=== PATIENT | male | born 1950 | race Caucasian/White ===

== ENCOUNTER → 2016-04-20 | Outpatient (CLI) | payer MEDICARE, MEDICAID ==
[~2016-04-20] MED LIST: ADV1DS1 INH; ALPR.5T; ALPR1T; ALPR1T PO; ALPR2TAB2 PO; ALPR2TAB6 PO; AML5T; ASP81TEC PO; ATOR40TA; ATOR40TA PO; ATOR40TA70 PO; BACL10TA PO; CCLB10TRX; CEFD300C3 PO; CEFP500T4 PO; CEPH250T; CEPH500C PO; CLN.1T; CLN.2TD TD; CMBV14.7IN; CODE118S2; CODE118S2 PO; CODE120S3 PO; CPH250CIP PO; CRB200T; CYCL10TA9 PO; DICL75TA2 PO; DIPH25TA82 PO; ENLP2.5T; FENO145T; FLUT1DIS27 INH; GABA600T2 PO; GABAPENTIN; GBPN400C PO; GUAI10SY4 PO; HYDR-2890 PO; HYDR-32 PO; HYDR-34; Hydrocodone Bit/Acetaminophen PO; IPRA3AMP19 NEB; IPRA4AER INH; LEVO500T69 PO; LEVO500T80 PO; LEVO750T24 PO; LORA0.5T34 PO; LORA1TAB PO; LORA2TAB PO; Levofloxacin PO; MAGN400T6 PO; METH4TAB PO; METO5TAB2; MTC10T; MTP25TSR; MUPI1OIN5 NS; Magnesium Oxide PO; NF-ESOM40C; NF-ESOM40C PO; NF-ZOL12.5; OMEP40CA36 PO; ONDAN4ODT PO; OXC5T PO; OXYC-202 PO; OXYC5TAB PO; PHEN-633 PO; PNT40TEC; POLY17PO23 PO; PRCD5U PO; PRD10T; PRD20T PO; PREG150C PO; PREG50C PO; PREG75CA PO; PROC10TA23 PO; Phenytoin Sodium PO; QTP100T; QTP200T; ROPI1TAB40; ROPINIROLE; ROPINIROLE 1 MG; ROSU10TA12 PO; RT-COMBINH; RT-COMBINH IH; RT-COMBINH INH; SERT100T PO; SERT50TA9 PO; TAMS0.4C98 PO; TIOT18CA INH; TIOT18CA2 INH; VNL75CCR; ZLP10T; ZLP10T PO; [UNRECOGNIZED DRUG - OTHER]
--- NOTE | 2016-04-20 15:25 | Diagnostic Imaging Report ---
Ultrasound of the scrotum. INDICATION: Left scrotal mass. FINDINGS: The right testicle is 3.8 x 2.1 x 2.3 cm. The left testicle is 2.8 x 2.6 x 2.5 cm. There is no mass identified in the testicle. There is minimal fluid around the testicles, which may relate to physiologic fluid or minimal hydrocele. No significant varicocele seen. No solid mass is identified. There is symmetric vascularity seen with color Doppler around the testicles. Specific interrogation for arterial and venous waveforms is not performed. IMPRESSION: No solid mass in the testicles or elsewhere in the scrotum. Dictated by: Dictated on workstation # [id number]
== END ==
LOC: RAD 08:56
PROVIDERS: ATTEND Family Medicine
DX: R19.00 Intra-abdominal and pelvic swelling, mass and lump, unspecified site (principal)
CPT/HCPCS: 76870

== ENCOUNTER 2016-04-21 08:35 | Outpatient (RCR) | payer MEDICARE, MEDICAID ==
--- OUTSIDE RECORDS SUMMARY | 2016-04-02 08:21 | XMS REPORT ---
Author MAT Peguero [facility] eClinicalWorks Address Unknown Phone Unavailable Care Team Providers Care Automotive Fuel Injection Servicer Name Role Phone MAT LAGUNAS CP Unavailable Allergies, Adverse Reactions, Alerts Substance Reaction Event Type Cephalexin itching Drug Allergy Problems Problem Type Condition Code Onset Dates Condition Status Problem Gastroesophageal reflux disease without esophagitis K21.9 Active Problem Hyperlipidemia, unspecified hyperlipidemia type E78.5 Active Problem Chronic obstructive pulmonary disease, unspecified COPD type J44.9 Active Problem Need for prophylactic vaccination and inoculation, Influenza V04.81 Active Assessment Generalized anxiety disorder F41.1 Active Problem Prostatism N40.0 Active Problem Generalized anxiety disorder F41.1 Active Medications Medication Code System Code Instructions Start Date End Date Status Dosage Zoloft [facility] [address]-33 100 MG Orally Once a day 1 tablet Dilantin [facility] [address]-68 100 MG Orally one times a day 1 capsule MiraLax [facility] [address]-30 17 gm/dose Orally Once a day 17 grams mixed in 8 oz of water or juice Spiriva HandiHaler [facility] [address]-70 16 Inhalation not defined Advair Diskus [facility] [address]-50 500-50 MCG/DOSE Inhalation Twice a day 1 puff Guaifenesin-DM [facility] [address]-58 100-10 MG/5ML Orally every 4 hrs 10 ml as needed Skelaxin [facility] [address]-16 800 MG Orally Three times a day 1 tablet Xanax [facility] [address]-52 2 MG Orally Four times a day 1 tablet Baclofen [facility] [address]-27 10 MG Orally Three times a day 2 tablet with food or milk Magnesium Oxide [facility] [address]-65 400 MG Orally twice a day 1 tablet Omeprazole [facility] [address]-16 20 MG Orally Once a day 2 capsules Promethazine-Codeine [facility] [address]-11 6.25-10 MG/5ML Orally every 6 hrs 5 ml as needed Fluticasone-Salmeterol [facility] [address]-81 100-50 MCG/DOSE Inhalation Twice a day 1 puff Flomax [facility] [address]-41 0.4 MG Orally Once a day 1 capsule Diclofenac Sodium [facility] [address]-04 75 MG Orally twice a day 1 tablet Atorvastatin Calcium [facility] [address]-14 40 MG Orally Once a day 1 tablet Oxycodone HCl [facility] [address]-87 10 mg Orally 3 times a day 1 tablet as needed PredniSONE [facility] [address]-78 20 MG Orally Once a day 1 tablet DiphenhydrAMINE HCl [facility] [address]-56 25 MG Orally every 6 hrs 1 capsule as needed Lyrica [facility] [address]-93 150 MG Orally three times a day 1 capsule Combivent Respimat [facility] [address]-80 20-100 MCG/ACT Inhalation 2 times a day 1 puff Aspirin Adult Low Dose [facility] [address]-69 81 MG Orally Once a day 1 tablet Procedures Procedure Coding System Code Date Office Visit, New Pt., Level 3 CPT-4 68470 Sep 25, 2015 No Charge CPT-4 26289 Sep 25, 2015 [facility] VISIT NEW PATIENT CPT-4 G0466 Sep 25, 2015 Vital Signs Date/Time: Sep 25, 2015 Blood Pressure Systolic 90 mmHg Cardiac Monitoring Heart Rate 88 bpm Weight 119.4 lbs Blood Pressure Diastolic 56 mmHg Results No Known Results Summary Purpose eClinicalWorks Submission
[~2016-04-21 08:35] MED LIST changes: -LEVO500T80 PO
[2016-05-06] MEDS ORDERED: LEVO500T80 PO (14:09)
[2016-05-06] MEDS ORDERED: PRD20T PO (14:09)
== END 2016-05-24 15:49 | disposition home or self-care (01) ==
PROVIDERS: ATTEND Pain Medicine Pain Medicine
DX: M54.5 Low back pain (principal); M54.2 Cervicalgia

== ENCOUNTER 2016-05-06 09:31 | Emergency (ER) | payer MEDICARE, MEDICAID ==
[~2016-05-06] VITALS: Ht 167.6 cm; Wt 53.1 kg
[2016-05-06] MEDS ORDERED: morphine INJ 10 MG/ML 1ML (SYR OR VIAL) IVP STA (09:48)
[2016-05-06] MEDS ORDERED: NS IV 1000 ML 1,000 ML IV ONE (09:48)
--- NOTE | 2016-05-06 10:16 | ED Chest Pain ---
General Chief Complaint: Respiratory Problems Stated Complaint: SOA/CP Nursing Triage Note: PT ARRIVED PER EMS, PT CO OF SOA COUGH AND C/P FOR 2 DAYS. PT HAS INFUSAPORT ACCESSED BY EMS Nursing Sepsis Screen: No Definite Risk Source: patient Exam Limitations: no limitations History of Present Illness Time seen by provider: 09:33 Initial Comments Here with report of cough, shortness of air and tightness in chest for the last couple of days. Reports that he has some chronic diarrhea and has had some nausea today. Chest pain is central and is described as tightness. Does have significant history of COPD and continues to smoke but is down to less than a pack a day. 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 NTG SL RAILROAD INSPECTOR: No Associated Symptoms: back pain, fever/chills, nausea/vomiting, shortness of breath, weakness Allergies and Home Medications Allergies Coded Allergies: cefepime (Verified Allergy, Mild, RASH, ITCHING, 07/17/14) Home Medications Alprazolam 2 Mg Tablet, 2 MG PO QID, (Reported) Aspirin 81 Mg Tabec, 81 MG PO HS, (Reported) Atorvastatin Calcium 40 Mg Tablet, 40 MG PO HS, (Reported) Baclofen 10 Mg Tablet, 10 MG PO Q8H PRN for MUSCLE SPASMS, (Reported) Cefdinir 300 Mg Capsule, 300 MG PO BID, #10 Prescribed by: MARIZA CHAN on 09/15/15 1143 Diclofenac Sodium 75 Mg Tablet.dr, 75 MG PO BID, (Reported) Fluticasone/Salmeterol 1 Disk Inhp, 1 PUFF INH BID, (Reported) Ipratropium/Albuterol Sulfate 4 Gm Aer.w.adap, 2 PUFF INH QID, (Reported) Omeprazole 40 Mg Capsule.dr, 40 MG PO DAILY, (Reported) Oxycodone HCl/Acetaminophen 1 Each Tablet, 1 EACH PO BID, (Reported) Phenytoin Sodium 100 Mg Cap, 100 MG PO TID, (Reported) Polyethylene Glycol 17 Gm Pack, 17 GM PO BID, (Reported) Prednisone 20 Mg Tab, 20 MG PO UD, #11 Take 3 tabs(60mg)daily, decrease by 1/2 tab(10mg)daily. Prescribed by: MARIZA CHAN on 09/15/15 1149 Pregabalin 150 Mg Capsule, 150 MG PO BID, (Reported) Sertraline HCl 100 Mg Tablet, 100 MG PO DAILY, (Reported) Tamsulosin HCl 0.4 Mg Cap, 0.4 MG PO DAILY, (Reported) Tiotropium [facility] 1 Inh Aerp, 1 CAP INH DAILY, (Reported) Review of Systems Constitutional: see HPI, fever, weakness EENTM: No Symptoms Reported Respiratory: Cough, Shortness of Air, Wheezing Cardiovascular: Chest Pain, Denies Edema Gastrointestinal: See HPI, Diarrhea, Nausea, Denies Vomiting Genitourinary: No Symptoms Reported Musculoskeletal: see HPI, back pain (chronic), muscle pain Skin: no symptoms reported Psychiatric/Neurological: No Symptoms Reported All Other Systems Reviewed Negative Unless Noted: Yes Past Ndmxukk-Zmlxic-Pjsydz Hx Patient Social History Alcohol Use: Denies Use Recreational Drug Use: No (SMOKES POT) Drug of Choice: marijuana Type Used: Cigarettes Recent Foreign Travel: No Contact w/Someone Who Travel: No Recent Infectious Disease Expo: No Recent Hopitalizations: No Immunizations Up To Date Tetanus Booster (TDap): More than 5yrs PED Vaccines UTD: No Date of Pneumonia Vaccine: Jul 17, 2010 Date of Influenza Vaccine: Nov 07, 2012 Seasonal Allergies Seasonal Allergies: No Surgeries HX Surgeries: No Surgeries: Abdominal, Cardiac, Tonsillectomy, Vascular Surgery Respiratory Hx Respiratory Disorders: Yes Respiratory Disorders: COPD Cardiovascular Hx Cardiac Disorders: Yes Cardiac Disorders: Heart Attack Neurological Hx Neurological Disorders: No Neurological Disorders: Neuropathy, Seizure Disorder Reproductive System Hx Reproductive Disorders: No Sexually Transmitted Disease: No HIV/AIDS: No Genitourinary Hx Genitourinary Disorders: No Genitourinary Disorders: Renal Failure Gastrointestinal Hx Gastrointestinal Disorders: No Gastrointestinal Disorders: Gastroesophageal Reflux, Chronic Constipation, Hiatal Hernia Musculoskeletal Hx Musculoskeletal Disorders: Yes Musculoskeletal Disorders: Arthritis Endocrine Hx Endocrine Disorders: No HEENT HX ENT Disorders: No HEENT Disorders: Cataract Loss of Vision: Denies Hearing Impairment: Denies Cancer Hx Cancer: No Psychosocial Hx Psychiatric Problems: No Behavioral Health Disorders: Anxiety, Suicide Attempts, Bipolar, Personality Disorder, Depression Integumentary HX Skin/Integumentary Disorder: No Blood Transfusions Hx Blood Disorders: No Adverse Reaction to a Blood Tr: No Reviewed Nursing Assessment Reviewed/Agree w Nursing PMH: Yes Family Medical History Family Medial History: Alcoholism 03 FATHER Arthritis Cancer 03 FATHER Congestive heart failure 03 FATHER Family history: Allergy 09 SISTER Family history: Arthritis 03 MOTHER Family history: Diabetes mellitus 03 FATHER Family history: Hypertension 03 MOTHER History of - anemia 09 SISTER History of drug abuse 09 BROTHER Physical Exam Vital Signs Vital Sign - Last 12Hours 05/06/16 09:31 Temp 98.1 Pulse 105 Resp 18 B/P (MAP) 164/107 Pulse Ox 97 O2 Delivery Nasal Cannula O2 Flow Rate 2.50 FiO2 86 Capillary Refill : Less Than 3 Seconds General Appearance: No Apparent Distress, WD/WN HEENT: PERRL/EOMI, Pharynx Normal Neck: Non Tender, Supple Respiratory: No Respiratory Distress, Decreased Breath Sounds, Expiration, Wheezing Cardiovascular: Regular Rate, Rhythm, No Murmur Gastrointestinal: Non Tender, Soft Extremity: Non Tender, No Calf Tenderness Neurologic/Psychiatric: Alert, Oriented x3 Skin: Normal Color, Warm/Dry Focused Exam Lactic Acid Level Laboratory Tests Test 05/06/16 10:42 Lactic Acid Level 0.70 MMOL/L (0.50-2.00) Progress/Results/Core Measures Results/Orders Lab Results Laboratory Tests Test 05/06/16 10:30 05/06/16 10:42 Range/Units White Blood Count 15.1 H 4.3-11.0 10^3/uL Red Blood Count 5.65 4.35-5.85 10^6/uL Hemoglobin 16.0 13.3-17.7 G/DL Hematocrit 48 40-54 % Mean Corpuscular Volume 85 80-99 FL Mean Corpuscular Hemoglobin 28 25-34 PG Mean Corpuscular Hemoglobin Concent 33 32-36 G/DL Red Cell Distribution Width 16.6 H 10.0-14.5 % Platelet Count 403 H 130-400 10^3/uL Mean Platelet Volume 8.6 7.4-10.4 FL Neutrophils (%) (Auto) 80 H 42-75 % Lymphocytes (%) (Auto) 13 12-44 % Monocytes (%) (Auto) 7 0-12 % Eosinophils (%) (Auto) 0 0-10 % Basophils (%) (Auto) 0 0-10 % Neutrophils # (Auto) 12.0 H 1.8-7.8 X 10^3 Lymphocytes # (Auto) 1.9 1.0-4.0 X 10^3 Monocytes # (Auto) 1.1 H 0.0-1.0 X 10^3 Eosinophils # (Auto) 0.0 0.0-0.3 10^3/uL Basophils # (Auto) 0.0 0.0-0.1 10^3/uL Neutrophils % (Manual) 78 % Lymphocytes % (Manual) 16 % Monocytes % (Manual) 4 % Eosinophils % (Manual) 0 % Basophils % (Manual) 0 % Band Neutrophils 2 % Anisocytosis SLIGHT Microcytosis SLIGHT Elliptocytes SLIGHT Prothrombin Time 13.4 12.2-14.7 SEC INR Comment 1.1 0.8-1.4 Activated Partial Thromboplast Time 23 L 24-35 SEC Sodium Level 135 135-145 MMOL/L Potassium Level 3.9 3.6-5.0 MMOL/L Chloride Level 98 98-107 MMOL/L Carbon Dioxide Level 21 21-32 MMOL/L Anion Gap 16 H 5-14 MMOL/L Blood Urea Nitrogen 5 L 7-18 MG/DL Creatinine 0.87 0.60-1.30 MG/DL Estimat Glomerular Filtration Rate > 60 BUN/Creatinine Ratio 6 Glucose Level 99 70-105 MG/DL Calcium Level 9.1 8.5-10.1 MG/DL Magnesium Level 1.7 L 1.8-2.4 MG/DL Total Bilirubin 0.3 0.1-1.0 MG/DL Aspartate Amino Transf (AST/SGOT) 22 5-34 U/L Alanine Aminotransferase (ALT/SGPT) 12 0-55 U/L Alkaline Phosphatase 146 H 40-136 U/L Troponin I < 0.30 <0.30 NG/ML C-Reactive Protein High Sensitivity 2.35 H 0.00-0.50 MG/DL Total Protein 7.9 6.4-8.2 G/DL Albumin 4.0 3.2-4.5 G/DL Lactic Acid Level 0.70 0.50-2.00 MMOL/L My Orders Orders - LORE HOBBS MD Cbc With Automated Diff (05/06/16 09:48) Comprehensive Metabolic Panel (05/06/16 09:48) Hs C Reactive Protein (05/06/16 09:48) Lactic Acid Analyzer (05/06/16 09:48) Magnesium (05/06/16 09:48) Protime With Inr (05/06/16 09:48) Partial Thromboplastin Time (05/06/16 09:48) Troponin I (05/06/16 09:48) Blood Culture (05/06/16 09:48) Chest 1 View, Ap/Pa Only (05/06/16 09:48) Morphine Injection (Morphine Injection (05/06/16 09:48) Saline Lock/Iv-Start (05/06/16 09:48) Ns Iv 1000 Ml (Sodium Chloride 0.9%) (05/06/16 09:48) Ekg Tracing (05/06/16 09:48) O2 (05/06/16 09:48) Monitor-Rhythm Ecg Trace Only (05/06/16 09:48) Ipratropium 0.02% Neb Solution (Atrovent (05/06/16 10:30) Albuterol/Ipra Inhalation Soln (Duoneb I (05/06/16 10:30) Svn Sm Volume Nebulizer Rt-Rfs (05/06/16 10:16) Svn Sm Volume Nebulizer Rt-Rfs (05/06/16 10:16) Albuterol Pre-Mix Nebs (Rt) (Proventil P (05/06/16 10:28) Svn Sm Volume Nebulizer Rt-Rfs (05/06/16 10:28) Manual Differential (05/06/16 10:30) Prednisone Tablet (Deltasone Tablet) (05/06/16 14:00) Medications Given in ED Current Medications Medications Dose Ordered Sig/Quyen Route Start Time Stop Time Status Last Admin Dose Admin Albuterol/ Ipratropium 3 ml ONCE ONCE INH 05/06/16 10:30 05/06/16 10:31 DC 05/06/16 10:30 3 ML Sodium Chloride 1,000 ml @ 0 mls/hr Q0M ONCE IV 05/06/16 09:48 05/06/16 10:04 DC 05/06/16 10:13 1,000 MLS/HR Vital Signs/I&O Vital Sign - Last 12Hours 05/06/16 05/06/16 05/06/16 05/06/16 09:31 09:31 10:30 10:36 Temp 98.1 Pulse 105 Resp 18 B/P (MAP) 164/107 Pulse Ox 97 97 97 97 O2 Delivery Nasal Cannula O2 Flow Rate 2.50 2.50 2.50 FiO2 86 Blood Pressure Mean: 126 Progress Note : Progress Note Seen and evaluated. IV established by EMS via port. Labs, EKG, chest x-ray and morphine 10 mg IV ordered. Monitor patient. Received DuoNeb treatment and albuterol 2 and was improved. Pending labs and x-ray. 1400: Patient remained very stable throughout ER stay. Prednisone 40 mg by mouth given. We will continue prednisone and Levaquin as outpatient. I did discuss the case with Dr. Alexis Lagunas and he agrees. Discharged home with return precautions. Patient verbalize understanding instructions and agreement with plan. ECG Initial ECG Impression Date: May 06, 2016 Initial ECG Impression Time: 09:39 Initial ECG Rate: 105 Initial ECG Rhythm: S.Tach Comment Sinus tachycardia with right atrial abnormality. No evidence of ST elevation [place]. Right axis deviation. Similar to previous of 09/12 and . Interpreted by me. Diagnostic Imaging Diagonstic Imaging: Xray Plain Films/CT/US/NM/MRI: chest Comments NAME: SUNNY HERNANDEZ [facility] REC#: [id number] PT STATUS: REG ER : 1950 PHYSICIAN: LORE HOBBS MD ADMIT DATE: 05/06/16/ER Signed Date of Exam: 05/06/16 CHEST 1 VIEW, AP/PA ONLY INDICATION: Shortness of breath and chest pain. Frontal chest obtained at 10:31 a.m. and compared to 09/13/15. FINDINGS: Heart and mediastinal silhouette are normal in appearance. Port-A-Cath is unchanged tip overlying the SVC. There is no pneumothorax or pleural fluid. There is chronic interstitial change with some right basilar scarring. There is no definite consolidation or other acute finding. IMPRESSION: Chronic interstitial changes with some parenchymal scarring in the right base. No definite consolidation or pneumothorax or pleural fluid. Dictated by: Dictated on workstation # [id number] Dict: 05/06/16 1037 Trans: 05/06/16 1140 [id number] Interpreted by: JOSELO BLACK MD Electronically signed by:JOSELO BLACK MD 05/06/16 1140 Departure Impression Impression: Primary Impression: COPD (chronic obstructive pulmonary disease) Qualified Codes: J42 - Unspecified chronic bronchitis Disposition: HOME, SELF-CARE Condition: Improved Departure-Patient Inst. Referrals: ALEXIS LAGUNAS MD (PCP/Family) Primary Care Physician Patient Instructions: Chronic Bronchitis (DC) Add. Discharge Instructions: All discharge instructions reviewed with patient and/or family. Voiced understanding. Take medications as directed. Follow-up with your DrMahad in a few days for recheck. Continue home respiratory therapy treatments and prescription medicines. Follow-up with Dr. Lagunas later this week or early next week. Return for worse pain, fever, vomiting, weakness, breathing problems or other concerns as needed. Scripts Prednisone (Prednisone) 20 Mg Tab 40 MG PO DAILY, #10 TAB 0 Refills Prov: LORE HOBBS MD 05/06/16 Levofloxacin (Levofloxacin) 500 Mg Tablet 500 MG PO DAILY, #7 TAB 0 Refills Prov: LORE HOBBS MD 05/06/16 LORE HOBBS MD May 06, 2016 10:16
[2016-05-06] MEDS ORDERED: RT-ALBUTEROL SULF 2.5 MG/3 ML PRE-MIX VIAL INH STA (10:28)
[2016-05-06] MEDS ORDERED: RT-ALBUTEROL/IPRATROPIUM 3 ML (DUONEB) VIAL INH ONE (10:30)
[2016-05-06] MEDS ORDERED: RT-IPRATROPIUM (ATROVENT) 0.5MG/2.5ML AMP IH ONE (10:30)
--- NOTE | 2016-05-06 10:42 | Diagnostic Imaging Report ---
INDICATION: Shortness of breath and chest pain. Frontal chest obtained at 10:31 a.m. and compared to 09/13/15. FINDINGS: Heart and mediastinal silhouette are normal in appearance. Port-A-Cath is unchanged tip overlying the SVC. There is no pneumothorax or pleural fluid. There is chronic interstitial change with some right basilar scarring. There is no definite consolidation or other acute finding. IMPRESSION: Chronic interstitial changes with some parenchymal scarring in the right base. No definite consolidation or pneumothorax or pleural fluid. Dictated by: Dictated on workstation # [id number]
[2016-05-06 10:44] LABS: BASOPHILS % (AUTO) 0 % (0-10); EOSINOPHILS % (AUTO) 0 % (0-10); LYMPHOCYTES # (AUTO) 1.9 X 10^3 (1.0-4.0); LYMPHOCYTES % (AUTO) 13 % (12-44); MEAN CORPUSCULAR HEMOGLOBIN 28 PG (25-34); MEAN CORPUSCULAR HGB CONC 33 G/DL (32-36); MEAN CORPUSCULAR VOLUME 85 FL (80-99); MEAN PLATELET VOLUME 8.6 FL (7.4-10.4); MONOCYTES # (AUTO) 1.1 X 10^3 (0.0-1.0); MONOCYTES % (AUTO) 7 % (0-12); NEUTROPHILS % (AUTO) 80 % (42-75); PLATELET COUNT 403 10^3/uL (130-400); RED BLOOD COUNT 5.65 10^6/uL (4.35-5.85); RED CELL DISTRIBUTION WIDTH 16.6 % (10.0-14.5); WHITE BLOOD COUNT 15.1 10^3/uL (4.3-11.0)
[2016-05-06 11:01] LABS: INR 1.1 (0.8-1.4); PROTHROMBIN TIME PATIENT 13.4 SEC (12.2-14.7)
[2016-05-06 11:08] LABS: ANISOCYTOSIS SLIGHT; BAND NEUTROPHILS 2 %; BASOPHILS % (MANUAL) 0 %; EOSINOPHILS % (MANUAL) 0 %; LYMPHOCYTES % (MANUAL) 16 %; MICROCYTOSIS SLIGHT; NEUTROPHILS % (MANUAL) 78 %
[2016-05-06 11:09] LABS: ALANINE AMINOTRANSFERASE 12 U/L (0-55); ANION GAP 16 MMOL/L (5-14); ASPARTATE AMINO TRANSFERASE 22 U/L (5-34); BILIRUBIN,TOTAL 0.3 MG/DL (0.1-1.0); BLOOD UREA NITROGEN 5 MG/DL (7-18); BUN/CREATININE RATIO 6; CALCIUM 9.1 MG/DL (8.5-10.1); CARBON DIOXIDE 21 MMOL/L (21-32); CHLORIDE 98 MMOL/L (98-107); CREATININE SERUM 0.87 MG/DL (0.60-1.30); GFR ESTIMATED > 60; GLUCOSE 99 MG/DL (70-105); MAGNESIUM 1.7 MG/DL (1.8-2.4); POTASSIUM 3.9 MMOL/L (3.6-5.0); SODIUM 135 MMOL/L (135-145); TOTAL PROTEIN 7.9 G/DL (6.4-8.2); hs C REACTIVE PROTEIN 2.35 MG/DL (0.00-0.50)
[2016-05-06 11:11] LABS: TROPONIN I < 0.30 NG/ML (<0.30)
[2016-05-06] MEDS ORDERED: predniSONE 20 MG TAB PO ONE (14:00)
[2016-05-06 14:04] VITALS: BP 135/84
[2016-05-06] MEDS ORDERED: LEVO500T80 PO (14:09)
[2016-05-06] MEDS ORDERED: PRD20T PO (14:09)
--- OUTSIDE RECORDS SUMMARY | 2016-05-30 05:52 | XMS REPORT ---
Author MAT Peguero Organization eClinicalWorks Address Unknown Phone Unavailable Care Team Providers Care Channel Marketing Program Manager Name Role Phone MAT LAGUNAS CP Unavailable Allergies No Known Allergies Problems Problem Type Condition Code Onset Dates Condition Status Problem Need for prophylactic vaccination and inoculation, Influenza V04.81 Active Problem Generalized anxiety disorder F41.1 Active Medications Medication Code System Code Instructions Start Date End Date Status Dosage Xanax [facility] [address]-56 2 MG Orally Three times a day 1 tablet Results No Known Results Summary Purpose eClinicalWorks Submission
--- OUTSIDE RECORDS SUMMARY | 2016-05-30 05:52 | XMS REPORT ---
Author Author ANA CASTILLO Organization [facility] Address [address] [place] [address] Care Team Providers Care Applied Anthropologist Name Role Phone ANA CASTILLO Unavailable PROBLEMS Type Condition ICD9-CM Code BRA63-[place] Code Onset Dates Condition Status SNOMED Code Problem Need for prophylactic vaccination and inoculation, Influenza V04.81 Active 537598717 Assessment Generalized anxiety disorder F41.1 Oct, Active 40894667 Problem Panic disorder F41.0 Active 641304159 Problem Chronic obstructive pulmonary disease, unspecified COPD type J44.9 Active 29241355 Problem Prostatism N40.0 Active 14019654 Problem Generalized anxiety disorder F41.1 Active 19365051 Problem Gastroesophageal reflux disease without esophagitis K21.9 Active 874633443 Problem Hyperlipidemia, unspecified hyperlipidemia type E78.5 Active 09443512 ALLERGIES Substance Reaction Event Type Date Status Cephalexin itching Drug Allergy Oct, Active SOCIAL HISTORY No smoking Hx information available PLAN OF CARE VITAL SIGNS Height 65 in 2015-10-15 Weight 109.5 lbs 2015-10-15 Heart Rate 124 bpm 2015-10-15 Respiratory Rate 26 2015-10-15 Oximetry 89 % 2015-10-15 BMI 18.22 kg/m2 2015-10-15 Blood pressure systolic 143 mmHg 2015-10-15 Blood pressure diastolic 81 mmHg 2015-10-15 MEDICATIONS Medication Instructions Dosage Frequency Start Date End Date Duration Status MiraLax 17 gm/dose Orally Once a day 17 grams mixed in 8 oz of water or juice 24h Active Diclofenac Sodium 75 MG Orally twice a day 1 tablet 12h Active Xanax 1 MG Orally Three times a day 1 tablet 8h Oct, Active Klonopin 1 MG Orally Twice a day 1 tablet 12h Oct, Active Oxycodone HCl 10 mg Orally 3 times a day 1 tablet as needed 8h Active Atorvastatin Calcium 40 mg Orally Once a day 1 tablet 24h Active Brovana 15 MCG/2ML Inhalation Twice a day 2 ml 12h Sep, Active Lyrica 150 MG Orally three times a day 1 capsule 8h Active Xanax 2 MG Orally Three times a day 1 tablet 8h Active Skelaxin 800 MG Orally Three times a day 1 tablet 8h Active Zoloft 100 MG Orally Once a day 1 tablet 24h Active Budesonide 0.5 MG/2ML Inhalation every 4-6 hours as needed 2 ml Sep, Active Combivent Respimat 20-100 MCG/ACT Inhalation 2 times a day 1 puff 12h Active Dilantin 100 MG Orally one times a day 1 capsule Active Omeprazole 20 mg Orally Once a day 2 capsules 24h Active Zoloft 100 MG Orally Once a day 2 24h Oct, Active Flomax 0.4 MG Orally Once a day 1 capsule 24h Active RESULTS No Results PROCEDURES Procedure Date Ordered Related Diagnosis Body Site MEASURE BLOOD OXYGEN LEVEL Oct 15, 2015 [facility] VISIT ESTABLISHED PATIENT Oct 15, 2015 Office Visit, Est Pt., Level 3 Oct 15, 2015 IMMUNIZATIONS No Known Immunizations
--- OUTSIDE RECORDS SUMMARY | 2016-05-30 05:52 | XMS REPORT ---
Author MAT Peguero [facility] eClinicalWorks Address Unknown Phone Unavailable Care Team Providers Care Client Support Analyst Name Role Phone MAT LAGUNAS CP Unavailable [...] Start Date End Date Status Dosage Zoloft [facility] [address]-43 100 MG Orally Once a day 1 tablet Dilantin [facility] [address]-49 100 MG Orally one times a day 1 capsule MiraLax [facility] [address]-01 17 gm/dose Orally Once a day 17 grams mixed in 8 oz of water or juice Spiriva HandiHaler [facility] [address]-17 16 Inhalation not defined Advair Diskus [facility] [address]-73 500-50 MCG/DOSE Inhalation Twice a day 1 puff Guaifenesin-DM [facility] [address]-82 100-10 MG/5ML Orally every 4 hrs 10 ml as needed Skelaxin [facility] [address]-48 800 MG Orally Three times a day 1 tablet Xanax [facility] [address]-97 2 MG Orally Four times a day 1 tablet Baclofen [facility] [address]-14 10 MG Orally Three times a day 2 tablet with food or milk Magnesium Oxide [facility] [address]-51 400 MG Orally twice a day 1 tablet Omeprazole [facility] [address]-74 20 MG Orally Once a day 2 capsules Promethazine-Codeine [facility] [address]-19 6.25-10 MG/5ML Orally every 6 hrs 5 ml as needed Fluticasone-Salmeterol [facility] [address]-13 100-50 MCG/DOSE Inhalation Twice a day 1 puff Flomax [facility] [address]-64 0.4 MG Orally Once a day 1 capsule Diclofenac Sodium [facility] [address]-16 75 MG Orally twice a day 1 tablet Atorvastatin Calcium [facility] [address]-19 40 MG Orally Once a day 1 tablet Oxycodone HCl [facility] [address]-67 10 mg Orally 3 times a day 1 tablet as needed PredniSONE [facility] [address]-83 20 MG Orally Once a day 1 tablet DiphenhydrAMINE HCl [facility] [address]-61 25 MG Orally every 6 hrs 1 capsule as needed Lyrica [facility] [address]-84 150 MG Orally three times a day 1 capsule Combivent Respimat [facility] [address]-57 20-100 MCG/ACT Inhalation 2 times a day 1 puff Aspirin Adult Low Dose [facility] [address]-89 81 MG Orally Once a day 1 tablet Procedures Procedure Coding System Code Date Office Visit, New Pt., Level 3 CPT-4 27628 Sep 25, 2015 No Charge CPT-4 71224 Sep 25, 2015 [facility] VISIT NEW PATIENT CPT-4 G0466 Sep 25, 2015 Vital Signs Date/Time: Sep 25, 2015 Blood Pressure Systolic 90 mmHg Cardiac Monitoring Heart Rate 88 bpm Weight 119.4 lbs Blood Pressure Diastolic 56 mmHg Results No Known Results Summary Purpose eClinicalWorks Submission
--- OUTSIDE RECORDS SUMMARY | 2016-05-30 05:52 | XMS REPORT ---
Author Author ROB GREENE Organization [employer] Address Unknown Phone Unavailable Care Team Providers Care Gourmet Coffee Attendant Name Role Phone ROB GREENE CP Unavailable Allergies No Known Allergies Problems Problem Type Condition Code Onset Dates Condition Status Problem Need for prophylactic vaccination and inoculation, Influenza V04.81 Active Assessment Generalized anxiety disorder F41.1 Active Problem Generalized anxiety disorder F41.1 Active Medications No Known Medications Procedures Procedure Coding System Code Date Psychotherapy, patient &/family, 45 minutes, new patient CPT-4 81665 Sep FQ VISIT MENTAL HEALTH NEW PT CPT-4 G0469 Sep 23, 2015 Results No Known Results Summary Purpose [employer] Submission
--- OUTSIDE RECORDS SUMMARY | 2016-05-30 05:52 | XMS REPORT ---
Author Author TAJ ALAS [facility] [employer] Address Unknown Phone Unavailable Care Team Providers Care Patrol Commander Name Role Phone TAJ ALAS CP Unavailable Allergies No Known Allergies Problems Problem Type Condition Code Onset Dates Condition Status Problem Gastroesophageal reflux disease without esophagitis K21.9 Active Problem Hyperlipidemia, unspecified hyperlipidemia type E78.5 Active Problem Chronic obstructive pulmonary disease, unspecified COPD type J44.9 Active Problem Need for prophylactic vaccination and inoculation, Influenza V04.81 Active Problem Prostatism N40.0 Active Problem Generalized anxiety disorder F41.1 Active Medications Medication Code System Code Instructions Start Date End Date Status Dosage Brovana [facility] [address]-15 15 MCG/2ML Inhalation Twice a day Oct 08, 2015 2 ml Budesonide [facility] [address]-26 0.5 MG/2ML Inhalation every 4-6 hours as needed Oct 08, 2015 2 ml Results No Known Results Summary Purpose [employer] Submission
--- OUTSIDE RECORDS SUMMARY | 2016-05-30 05:53 | XMS REPORT | Continuity of Care Document ---
Author Author [facility] Organization [facility] Address Unknown Phone Unavailable Allergies Active Description Code Type Severity Reaction Onset Reported/Identified Relationship to Patient Clinical Status Yes No Known Drug Allergies [id number] Drug Allergy Unknown N/ A 10/01/2006 Yes cefepime [id number] Drug Allergy Mild RASH, ITCHING 07/17/2014 Medications Problems Date Dx Coded Attending Type Code Diagnosis Diagnosed By 07/11/2008 Ot 496 07/11/2008 Ot V58.81 11/05/2008 Ot 403.90 11/05/2008 Ot 585.2 11/05/2008 Ot 791.0 01/07/2009 Ot 492.8 01/07/2009 Ot 715.90 01/07/2009 Ot 723.1 01/07/2009 Ot 723.4 01/07/2009 Ot V57.1 04/13/2009 Ot 496 04/13/2009 Ot V58.81 10/23/2009 Ot 276.1 10/23/2009 Ot 288.60 10/23/2009 Ot 296.80 10/23/2009 Ot 305.1 10/23/2009 Ot 401.9 10/23/2009 Ot 491.21 10/23/2009 Ot 593.9 10/23/2009 Ot 780.60 10/23/2009 Ot 787.01 10/23/2009 Ot 787.91 11/16/2009 Ot 459.81 11/16/2009 Ot V58.81 12/17/2009 Ot 276.1 12/17/2009 Ot 276.8 12/17/2009 Ot 305.1 12/17/2009 Ot 338.29 12/17/2009 Ot 401.9 12/17/2009 Ot 491.21 12/17/2009 Ot 786.59 03/16/2010 Ot 296.80 03/16/2010 Ot 300.00 03/16/2010 Ot 305.1 03/16/2010 Ot 401.9 03/16/2010 Ot 491.21 03/16/2010 Ot 558.9 03/16/2010 Ot 724.5 03/16/2010 Ot 786.59 06/05/2010 Ot 296.80 06/05/2010 Ot 305.1 06/05/2010 Ot 491.21 06/05/2010 Ot 724.5 06/05/2010 Ot 786.52 06/05/2010 Ot 787.01 06/05/2010 Ot V12.79 07/06/2010 Ot 276.51 07/06/2010 Ot 296.50 07/06/2010 Ot 305.03 07/06/2010 Ot 305.1 07/06/2010 Ot 305.93 07/06/2010 Ot 338.29 07/06/2010 Ot 401.0 07/06/2010 Ot 458.9 07/06/2010 Ot 491.21 07/06/2010 Ot 536.2 07/06/2010 Ot 724.2 07/06/2010 Ot 789.03 07/06/2010 Ot V12.79 08/10/2010 Ot 403.90 08/10/2010 Ot 493.20 08/10/2010 Ot 585.2 08/10/2010 Ot 791.0 12/14/2010 Ot 403.10 HYPTNSV CHR KID DIS, BENIGN, W CHR KD ST 12/14/2010 Ot 493.20 CHRONIC OBSTRUCTIVE ASTHMA, NOS 12/14/2010 Ot 585.2 CHRONIC KIDNEY DISEASE, STAGE II (MILD) 12/14/2010 Ot 791.0 PROTEINURIA 01/24/2011 Ot 305.1 TOBACCO USE DISORDER 01/24/2011 Ot 491.22 OBSTRUCTIVE CHRONIC BRONCHITIS WITH ACUT 01/24/2011 Ot 729.5 PAIN IN LIMB 01/24/2011 Ot 786.05 SHORTNESS OF BREATH 01/24/2011 Ot V58.69 OTH MED,LT,CURRENT USE 02/04/2011 Ot 403.10 HYPTNSV CHR KID DIS, BENIGN, W CHR KD ST 02/04/2011 Ot 493.20 CHRONIC OBSTRUCTIVE ASTHMA, NOS 02/04/2011 Ot 585.2 CHRONIC KIDNEY DISEASE, STAGE II (MILD) 02/04/2011 Ot 791.0 PROTEINURIA 02/21/2011 Ot 305.1 TOBACCO USE DISORDER 02/21/2011 Ot 491.22 OBSTRUCTIVE CHRONIC BRONCHITIS WITH ACUT 02/21/2011 Ot 787.01 NAUSEA WITH VOMITING 02/21/2011 Ot V03.82 PROPHYLACTIC VACC AGAINST STREPTOCOCCUS 02/21/2011 Ot V04.81 ND FOR PROPHYLACTIC VACCIN AND INOCULATI 02/21/2011 Ot V15.89 HX-HEALTH HAZARDS NEC 05/05/2011 Ot 401.9 HYPERTENSION NOS 05/05/2011 Ot 787.03 VOMITING ALONE 05/05/2011 Ot 789.00 ABDOMINAL PAIN, UNSPECIFIED SITE 05/18/2011 Ot 459.81 VENOUS INSUFFICIENCY NOS 05/18/2011 Ot V58.81 FIT/ADJ VASCULAR CATHETER 06/07/2011 Ot 292.0 DRUG WITHDRAWAL 06/07/2011 Ot 466.0 ACUTE BRONCHITIS 06/07/2011 Ot 787.01 NAUSEA WITH VOMITING 07/07/2011 Ot 296.80 BIPOLAR DISORDER, UNSPECIFIED 07/07/2011 Ot 300.00 ANXIETY STATE NOS 07/07/2011 Ot 305.90 DRUG ABUSE NEC-UNSPEC 07/07/2011 Ot 401.9 HYPERTENSION NOS 07/07/2011 Ot 491.21 OBSTR CHRONIC BRONCHITIS, W (ACUTE) EXAC 07/07/2011 Ot 493.90 ASTHMA, UNSPECIFIED 07/07/2011 Ot V15.82 HISTORY OF TOBACCO USE 08/21/2011 Ot 401.9 HYPERTENSION NOS 08/21/2011 Ot 496 CHR AIRWAY OBSTRUCT NEC 08/21/2011 Ot 787.01 NAUSEA WITH VOMITING 08/21/2011 Ot 793.11 SOLITARY PULMONARY NODULE 08/31/2011 Ot 401.9 HYPERTENSION NOS 08/31/2011 Ot 496 CHR AIRWAY OBSTRUCT NEC 08/31/2011 Ot 786.50 CHEST PAIN NOS 08/31/2011 Ot 789.00 ABDOMINAL PAIN, UNSPECIFIED SITE 01/07/2012 Ot 296.80 BIPOLAR DISORDER, UNSPECIFIED 01/07/2012 Ot 300.01 PANIC DISORDER WITHOUT AGORAPHOBIA 01/07/2012 Ot 401.9 HYPERTENSION NOS 01/07/2012 Ot 491.21 OBSTR CHRONIC BRONCHITIS, W (ACUTE) EXAC 01/07/2012 Ot V04.81 ND FOR PROPHYLACTIC VACCIN AND INOCULATI 02/11/2012 Ot 272.4 HYPERLIPIDEMIA NEC/NOS 02/11/2012 Ot 276.51 DEHYDRATION 02/11/2012 Ot 296.80 BIPOLAR DISORDER, UNSPECIFIED 02/11/2012 Ot 305.1 TOBACCO USE DISORDER 02/11/2012 Ot 305.90 DRUG ABUSE NEC-UNSPEC 02/11/2012 Ot 401.9 HYPERTENSION NOS 02/11/2012 Ot 414.01 CORONARY ATHEROSCLEROSIS OF [place] CORON 02/11/2012 Ot 496 CHR AIRWAY OBSTRUCT NEC 02/11/2012 Ot 786.59 CHEST PAIN NEC 02/11/2012 Ot 787.01 NAUSEA WITH VOMITING 01/15/2013 MARIZA CHAN MD Ot 038.9 SEPTICEMIA NOS 01/15/2013 MARIZA CHAN MD Ot 276.51 DEHYDRATION 01/15/2013 MARIZA CHAN MD Ot 296.80 BIPOLAR DISORDER, UNSPECIFIED 01/15/2013 MARIZA CHAN MD Ot 305.1 TOBACCO USE DISORDER 01/15/2013 MARIZA CHAN MD Ot 401.9 HYPERTENSION NOS 01/15/2013 MARIZA CHAN MD Ot 482.9 BACTERIAL PNEUMONIA NOS 01/15/2013 MARIZA CHAN MD Ot 496 CHR AIRWAY OBSTRUCT NEC 01/15/2013 MARIZA CHAN MD Ot 530.81 ESOPHAGEAL REFLUX 01/15/2013 MARIZA CHAN MD Ot 536.2 PERSISTENT VOMITING 01/15/2013 MARIZA CHAN MD Ot 724.5 BACKACHE NOS 01/15/2013 MARIZA CHAN MD Ot 796.0 ABN TOXICOLOGIC FINDING 01/15/2013 MARIZA CHAN MD Ot 995.91 SEPSIS 05/01/2013 MARIZA CHAN MD Ot 296.80 BIPOLAR DISORDER, UNSPECIFIED 05/01/2013 MARIZA CHAN MD Ot 301.9 PERSONALITY DISORDER NOS 05/01/2013 MARIZA CHAN MD Ot 305.1 TOBACCO USE DISORDER 05/01/2013 MARIZA CHAN MD Ot 305.20 CANNABIS ABUSE-UNSPEC 05/01/2013 MARIZA CHAN MD Ot 482.9 BACTERIAL PNEUMONIA NOS 05/01/2013 MARIZA CHAN MD Ot 491.21 OBSTR CHRONIC BRONCHITIS, W (ACUTE) EXAC 05/01/2013 MARIZA CHAN MD Ot 530.81 ESOPHAGEAL REFLUX 05/01/2013 MARIZA CHAN MD Ot 553.3 DIAPHRAGMATIC HERNIA 05/01/2013 MARIZA CHAN MD Ot 716.90 ARTHROPATHY NOS-UNSPEC 05/01/2013 MARIZA CHAN MD Ot 722.6 DISC DEGENERATION NOS 05/01/2013 MARIZA CHAN MD Ot 780.57 UNSPECIFIED SLEEP APNEA 05/29/2013 MARIZA CHAN MD Ot 276.51 DEHYDRATION 05/29/2013 MARIZA CHAN MD Ot 276.8 HYPOPOTASSEMIA 05/29/2013 MARIZA CHAN MD Ot 296.80 BIPOLAR DISORDER, UNSPECIFIED 05/29/2013 MARIZA CHAN MD Ot 301.9 PERSONALITY DISORDER NOS 05/29/2013 MARIZA CHAN MD Ot 305.1 TOBACCO USE DISORDER 05/29/2013 MARIZA CHAN MD Ot 305.93 DRUG ABUSE NEC-IN REMISS 05/29/2013 MARIZA CHAN MD Ot 491.22 OBSTRUCTIVE CHRONIC BRONCHITIS WITH ACUT 05/29/2013 MARIZA CHAN MD Ot 518.83 CHRONIC RESPIRATORY FAILURE 05/29/2013 MARIZA CHAN MD Ot 530.81 ESOPHAGEAL REFLUX 05/29/2013 MARIZA CHAN MD Ot 536.2 PERSISTENT VOMITING 05/29/2013 MARIZA CHAN MD Ot 553.3 DIAPHRAGMATIC HERNIA 05/29/2013 MARIZA CHAN MD Ot 585.9 CHRONIC KIDNEY DISEASE, UNSPECIFIED 05/29/2013 MARIZA CHAN MD Ot 716.90 ARTHROPATHY NOS-UNSPEC 05/29/2013 MARIZA CHAN MD Ot 722.6 DISC DEGENERATION NOS 05/29/2013 MARIZA CHAN MD Ot 780.09 OTHER ALTERATION OF CONSCIOUSNESS 05/29/2013 MARIZA CHAN MD Ot 780.57 UNSPECIFIED SLEEP APNEA 05/29/2013 MARIZA CHAN MD Ot 967.8 POIS-SEDATIVE/HYPNOT NEC 05/29/2013 MARIZA CHAN MD Ot 967.9 POIS-SEDATIVE/HYPNOT NOS 05/29/2013 MARIZA CHAN MD Ot 969.4 POIS-BENZODIAZEPINE MONIQUE 05/29/2013 MARIZA CHAN MD Ot E852.8 ACC POISON-SEDATIVES NEC 05/29/2013 MARIZA CHAN MD Ot E852.9 ACC POISON-SEDATIVES NOS 05/29/2013 MARIZA HCAN MD Ot E853.2 ACC POISN-BENZDIAZ TRANQ 06/12/2013 LORE HOBBS MD Ot 490 BRONCHITIS NOS 06/12/2013 ANJEL HOFF, LORE Lozano Ot 786.2 COUGH 07/15/2013 MARIZA CHAN MD Ot 459.81 VENOUS INSUFFICIENCY NOS 07/15/2013 MARIZA CHAN MD Ot V58.81 FIT/ADJ VASCULAR CATHETER 12/21/2013 Ot V74.8 12/21/2013 Ot 403.10 12/21/2013 Ot 493.20 12/21/2013 Ot 585.2 12/21/2013 Ot 753.10 12/21/2013 Ot 791.0 12/21/2013 Ot 403.90 12/21/2013 Ot 493.20 12/21/2013 Ot 585.2 12/21/2013 Ot 791.0 12/21/2013 Ot 496 12/21/2013 Ot 403.90 12/21/2013 Ot 493.20 12/21/2013 Ot 585.2 12/21/2013 Ot 791.0 12/21/2013 Ot 786.50 12/21/2013 Ot 796.4 12/21/2013 Ot 272.4 12/21/2013 Ot V58.69 12/21/2013 Ot V58.83 12/21/2013 BAILACHELLE JOSAFAT L FISH HATCHERY SUPERVISOR Ot 443.9 12/21/2013 BAIMAJOSAFAT L FISH HATCHERY SUPERVISOR Ot 272.4 12/21/2013 BAILACHELLE JOSAFAT L FISH HATCHERY SUPERVISOR Ot 272.4 12/21/2013 BAIMA JOSAFAT L FISH HATCHERY SUPERVISOR Ot 496 12/21/2013 BAIMA JOSAFAT L FISH HATCHERY SUPERVISOR Ot 780.4 12/21/2013 BAIJOSAFAT LAROSE L FISH HATCHERY SUPERVISOR Ot 780.79 12/21/2013 MARIZA CHAN MD Ot 276.51 12/21/2013 MARIZA CHAN MD Ot 486 12/21/2013 MARIZA CHAN MD Ot 401.1 12/21/2013 MARIZA CHAN MD Ot 459.81 12/21/2013 MARIZA CHAN MD Ot V58.81 12/21/2013 MILO HOFF, VIOLET Brown Ot 722.4 12/21/2013 VIOLET PEDRAZA MD Ot 722.52 12/21/2013 PEDRO HOFF FACC, ALI FACP CCDS Ot 272.4 12/21/2013 PEDRO HOFF FACC, ALI FACP CCDS Ot 305.1 12/21/2013 PEDRO HOFF FACC, ALI FACP CCDS Ot 401.9 12/21/2013 PEDRO HOFF FACAnnemarie, ALI FACP CCDS Ot 496 12/21/2013 VIOLET PEDRAZA MD Ot 722.4 12/21/2013 VIOLET PEDRAZA MD Ot 722.52 12/24/2013 MARIZA CHAN MD Ot 276.8 HYPOPOTASSEMIA 12/24/2013 MARIZA CHAN MD Ot 292.0 DRUG WITHDRAWAL 12/24/2013 MARIZA CHAN MD Ot 296.80 BIPOLAR DISORDER, UNSPECIFIED 12/24/2013 MARIZA CHAN MD Ot 305.1 TOBACCO USE DISORDER 12/24/2013 MARIZA CHAN MD Ot 403.90 HYPTNSV CHR KID DIS, UNSPEC, W CHR KD ST 12/24/2013 MARIZA CHAN MD Ot 491.20 OBSTR CHRONIC BRONCHITIS, W/O EXACERBATI 12/24/2013 MARIZA CHAN MD Ot 518.81 ACUTE RESPIRATORY FAILURE 12/24/2013 MARIZA CHAN MD Ot 530.81 ESOPHAGEAL REFLUX 12/24/2013 MARIZA CHAN MD Ot 585.9 CHRONIC KIDNEY DISEASE, UNSPECIFIED 12/24/2013 MARIZA CHAN MD Ot 721.3 LUMBOSACRAL SPONDYLOSIS 12/24/2013 MARIZA CHAN MD Ot 722.4 CERVICAL DISC DEGEN 12/24/2013 MARIZA CHAN MD Ot 722.52 LUMB/LUMBOSAC DISC DEGEN 12/24/2013 MARIZA CHAN MD Ot 780.39 OTHER CONVULSIONS 12/24/2013 MARIZA CHAN MD Ot 965.09 POISONING-OPIATES NEC 12/24/2013 MARIZA CHAN MD Ot E849.0 ACCIDENT IN HOME 12/24/2013 MARIZA CHAN MD Ot E850.2 ACC POISON-OPIATES NEC 01/02/2014 PEDRO HOFF FACC, ALI FACP CCDS Ot 272.4 01/02/2014 PEDRO HOFF FACC, ALI FACP CCDS Ot 305.1 01/02/2014 PEDRO HOFF FACC, ALI FACP CCDS Ot 401.9 01/02/2014 PEDRO HOFF FACC, ALI FACP CCDS Ot 496 01/10/2014 PEDRO HOFF FAC, FLORA FACP CCDS Ot 272.4 01/10/2014 PEDRO HOFF FAC, ALI FACP CCDS Ot 305.1 01/10/2014 PEDRO HOFF FAC, ALI FACP CCDS Ot 401.9 01/10/2014 PEDRO HOFF FAC, ALI FACP CCDS Ot 496 02/13/2014 Ot 403.10 02/13/2014 Ot 493.20 02/13/2014 Ot 585.2 02/13/2014 Ot 753.10 02/13/2014 Ot 791.0 02/13/2014 Ot 403.90 02/13/2014 Ot 493.20 02/13/2014 Ot 585.2 02/13/2014 Ot 791.0 02/13/2014 Ot 496 02/13/2014 Ot 403.90 02/13/2014 Ot 493.20 02/13/2014 Ot 585.2 02/13/2014 Ot 791.0 02/13/2014 Ot 786.50 02/13/2014 Ot 796.4 02/13/2014 Ot 272.4 02/13/2014 Ot V58.69 02/13/2014 Ot V58.83 02/13/2014 BAIMA, JOSAFAT L FISH HATCHERY SUPERVISOR Ot 443.9 02/13/2014 BAIMA, JOSAFAT L FISH HATCHERY SUPERVISOR Ot 272.4 02/13/2014 BAIMA, JOSAFAT L FISH HATCHERY SUPERVISOR Ot 272.4 02/13/2014 BAIMA, JOSAFAT L FISH HATCHERY SUPERVISOR Ot 496 02/13/2014 BAIMA, JOSAFAT L FISH HATCHERY SUPERVISOR Ot 780.4 02/13/2014 BAIMA, JOSAFAT L FISH HATCHERY SUPERVISOR Ot 780.79 02/13/2014 ROCIO HOFF, MARIZA Nair Ot 276.51 02/13/2014 ROCIO HOFF, MARIZA Nair Ot 486 02/13/2014 MARIZA CHAN MD Ot 401.1 02/13/2014 ROCIO HOFF, MARIZA Nair Ot 459.81 02/13/2014 MARIZA CHAN MD Ot V58.81 02/13/2014 MILO HOFF, VIOLET Brown Ot 722.4 02/13/2014 MILO HOFF, VIOLET Brown Ot 722.52 02/13/2014 PEDRO HOFF FAC, [facility] FACP CCDS Ot 272.4 02/13/[address] [facility], ALI FACP CCDS Ot 305.1 02/13/2014 PEDRO HOFF FAC, ALI FACP CCDS Ot 401.9 02/13/2014 PEDRO HOFF FAC, ALI FACP CCDS Ot 496 02/13/2014 DEEP PEÑA DO Ot 496 CHR AIRWAY OBSTRUCT NEC 02/13/2014 DEEP PEÑA DO Ot 786.05 SHORTNESS OF BREATH 02/15/2014 Ot 403.10 02/15/2014 Ot 493.20 02/15/2014 Ot 585.2 02/15/2014 Ot 753.10 02/15/2014 Ot 791.0 02/15/2014 Ot 403.90 02/15/2014 Ot 493.20 02/15/2014 Ot 585.2 02/15/2014 Ot 791.0 02/15/2014 Ot 496 02/15/2014 Ot 403.90 02/15/2014 Ot 493.20 02/15/2014 Ot 585.2 02/15/2014 Ot 791.0 02/15/2014 Ot 786.50 02/15/2014 Ot 796.4 02/15/2014 Ot 272.4 02/15/2014 Ot V58.69 02/15/2014 Ot V58.83 02/15/2014 BAIMA, JOSAFAT L FISH HATCHERY SUPERVISOR Ot 443.9 02/15/2014 BAIMA, JOSAFAT L FISH HATCHERY SUPERVISOR Ot 272.4 02/15/2014 BAIMA, JOSAFAT L FISH HATCHERY SUPERVISOR Ot 272.4 02/15/2014 BAIMA, JOSAFAT L FISH HATCHERY SUPERVISOR Ot 496 02/15/2014 BAIMA, JOSAFAT L FISH HATCHERY SUPERVISOR Ot 780.4 02/15/2014 BAIMA, JOSAFAT L FISH HATCHERY SUPERVISOR Ot 780.79 02/15/2014 ROCIO HOFF, MARIZA Nair Ot 276.51 02/15/2014 ROCIO HOFF, MARIZA Nair Ot 486 02/15/2014 ROCIO HOFF, MARIZA Nair Ot 401.1 02/15/2014 ROCIO HOFF, MARIZA Nair Ot 459.81 02/15/2014 MARIZA CHAN MD Ot V58.81 02/15/2014 MILO HOFF, VIOLET Brown Ot 722.4 02/15/2014 MILO HOFF, VIOLET Brown Ot 722.52 02/15/2014 PEDRO HOFF FAC, ALI FACP CCDS Ot 272.4 02/15/[address] [facility], ALI FACP CCDS Ot 305.1 02/15/[address] [facility], ALI FACP CCDS Ot 401.9 02/15/[address] [facility], ALI FACP CCDS Ot 496 02/19/2014 MARIZA CHAN MD Ot 459.81 VENOUS INSUFFICIENCY NOS 02/19/2014 MARIZA CHAN MD Ot V58.81 FIT/ADJ VASCULAR CATHETER 03/01/[address] [facility], ALI FACP CCDS Ot 272.4 03/01/[address] [facility], ALI FACP CCDS Ot 305.1 03/01/[address] [facility], ALI FACP CCDS Ot 401.9 03/01/[address] [facility], ALI FACP CCDS Ot 496 05/03/2014 VOILET PEDRAZA MD Ot 722.4 05/03/2014 VIOLET PEDRAZA MD Ot 722.52 07/17/2014 MARIZA CHAN MD Ot 459.81 07/17/2014 MARIZA CHAN MD Ot V58.81 07/22/2014 MARIZA CHAN MD Ot 296.80 BIPOLAR DISORDER, UNSPECIFIED 07/22/2014 MARIZA CHAN MD Ot 301.9 PERSONALITY DISORDER NOS 07/22/2014 MARIZA CHAN MD Ot 305.03 ALCOHOL ABUSE-IN REMISS 07/22/2014 MARIZA CHAN MD Ot 305.1 TOBACCO USE DISORDER 07/22/2014 MARIZA CHAN MD Ot 305.93 DRUG ABUSE NEC-IN REMISS 07/22/2014 MARIZA CHAN MD Ot 355.9 MONONEURITIS NOS 07/22/2014 MARIZA CHAN MD Ot 486 PNEUMONIA, ORGANISM NOS 07/22/2014 MARIZA CHAN MD Ot 491.21 OBSTR CHRONIC BRONCHITIS, W (ACUTE) EXAC 07/22/2014 MARIZA CHAN MD Ot 492.8 07/22/2014 MARIZA CHAN MD Ot 518.0 PULMONARY COLLAPSE 07/22/2014 MARIZA CHAN MD Ot 530.81 ESOPHAGEAL REFLUX 07/22/2014 MARIZA CHAN MD Ot 553.3 DIAPHRAGMATIC HERNIA 07/22/2014 MARIZA CHAN MD Ot 716.90 ARTHROPATHY NOS-UNSPEC 07/22/2014 MARIZA CHAN MD Ot 722.6 DISC DEGENERATION NOS 07/22/2014 MARIZA CHAN MD Ot 780.57 UNSPECIFIED SLEEP APNEA 07/22/2014 MARIZA CHAN MD Ot V13.09 PERSONAL HISTORY OTH SPEC URINARY SYSTEM 03/27/2015 Ot 403.90 03/27/2015 Ot 493.20 03/27/2015 Ot 585.2 03/27/2015 Ot 791.0 03/27/2015 Ot 786.50 03/27/2015 Ot 796.4 03/27/2015 Ot 272.4 03/27/2015 Ot V58.69 03/27/2015 Ot V58.83 03/27/2015 BAIJOSAFAT LAROSE FISH HATCHERY SUPERVISOR Ot 443.9 03/27/2015 BAIMA JOSAFAT L FISH HATCHERY SUPERVISOR Ot 272.4 03/27/2015 BAIMA JOSAFAT L FISH HATCHERY SUPERVISOR Ot 272.4 03/27/2015 BAIMA JOSAFAT L FISH HATCHERY SUPERVISOR Ot 496 03/27/2015 BAIMA JOSAFAT L FISH HATCHERY SUPERVISOR Ot 780.4 03/27/2015 BAIMA JOSAFAT L FISH HATCHERY SUPERVISOR Ot 780.79 03/27/2015 MARIZA CHAN MD Ot 276.51 03/27/2015 MARIZA CHAN MD Ot 486 03/27/2015 MARIZA CHAN MD Ot 401.1 03/27/2015 VIOLET PEDRAZA MD Ot 722.4 03/27/2015 VIOLET PEDRAZA MD Ot 722.52 03/27/2015 PEDRO HOFF FACC, ALI FACP CCDS Ot 272.4 03/27/2015 PEDRO HOFF FACC, ALI FACP CCDS Ot 305.1 03/27/2015 PEDRO HOFF FACC, ALI FACP CCDS Ot 401.9 03/27/2015 PEDRO HOFF FACC, ALI FACP CCDS Ot 496 03/27/2015 MARIZA CHAN MD Ot 459.81 03/27/2015 MARIZA CHAN MD Ot V58.81 04/17/2015 VIOLET PEDRAZA MD Ot M54.5 04/18/2015 Ot 403.90 04/18/2015 Ot 493.20 04/18/2015 Ot 585.2 04/18/2015 Ot 791.0 04/18/2015 Ot 786.50 04/18/2015 Ot 796.4 04/18/2015 Ot 272.4 04/18/2015 Ot V58.69 04/18/2015 Ot V58.83 04/18/2015 BAIMA, JOSAFAT L FISH HATCHERY SUPERVISOR Ot 443.9 04/18/2015 BAIMA, JOSAFAT L FISH HATCHERY SUPERVISOR Ot 272.4 04/18/2015 BAIMA, JOSAFAT L FISH HATCHERY SUPERVISOR Ot 272.4 04/18/2015 BAIMA, JOSAFAT L FISH HATCHERY SUPERVISOR Ot 496 04/18/2015 BAIMA, JOSAFAT L FISH HATCHERY SUPERVISOR Ot 780.4 04/18/2015 BAIMA, JOSAFAT L FISH HATCHERY SUPERVISOR Ot 780.79 04/18/2015 ROCIO HOFF, MARIZA Nair Ot 276.51 04/18/2015 MARIZA CHAN MD Ot 486 04/18/2015 ROCIO HOFF, MARIZA Nair Ot 401.1 04/18/2015 MILO HOFF, VIOLET Brown Ot 722.4 04/18/2015 MILO HOFF, VIOLET Brwon Ot 722.52 04/18/2015 PEDRO HOFF FACC, ALI FACP CCDS Ot 272.4 04/18/2015 PEDRO HOFF FACC, ALI FACP CCDS Ot 305.1 04/18/2015 PEDRO HOFF FACC, ALI FACP CCDS Ot 401.9 04/18/2015 PEDRO HOFF FACC, ALI FACP CCDS Ot 496 04/18/2015 MARIZA CHAN MD Ot 459.81 04/18/2015 MARIZA CHAN MD Ot V58.81 04/18/2015 VIOLET PEDRAZA MD Ot M54.5 04/18/2015 Ot 272.4 04/18/2015 Ot V58.69 04/18/2015 Ot V58.83 04/18/2015 BAIMA, JOSAFAT L FISH HATCHERY SUPERVISOR Ot 443.9 04/18/2015 BAIMA, JOSAFAT L FISH HATCHERY SUPERVISOR Ot 272.4 04/18/2015 BAIMA, JOSAFAT L FISH HATCHERY SUPERVISOR Ot 272.4 04/18/2015 BAIMA, JOSAFAT L FISH HATCHERY SUPERVISOR Ot 496 04/18/2015 BAIMA, JOSAFAT L FISH HATCHERY SUPERVISOR Ot 780.4 04/18/2015 BAIMA, JOSAFAT L FISH HATCHERY SUPERVISOR Ot 780.79 04/18/2015 MARIZA CHAN MD Ot 276.51 04/18/2015 MARIZA CHAN MD Ot 486 04/18/2015 MARIZA CHAN MD Ot 401.1 04/18/2015 VIOLET PEDRAZA MD Ot 722.4 04/18/2015 VIOLET PEDRAZA MD Ot 722.52 04/18/2015 PEDRO HOFF FACC, ALI FACP CCDS Ot 272.4 04/18/2015 PEDRO HOFF FACC, ALI FACP CCDS Ot 305.1 04/18/2015 PEDRO HOFF FACC, ALI FACP CCDS Ot 401.9 04/18/2015 PEDRO HOFF FACC, ALI FACP CCDS Ot 496 04/18/2015 MARIZA CHAN MD Ot 459.81 04/18/2015 MARIZA CHAN MD Ot V58.81 04/18/2015 VIOLET PEDRAZA MD Ot M54.5 04/18/2015 VIOLET PEDRAZA MD Ot M51.16 INTERVERTEBRAL DISC DISORDERS W RADICULO 04/18/2015 VIOLET PEDRAZA MD Ot Z79.899 OTHER INTERMEDIATE (CURRENT) DRUG THERAPY 04/25/2015 VIOLET PEDRAZA MD Ot M51.16 04/25/2015 VIOLET PEDRAZA MD Ot Z79.899 05/12/2015 VIOLET PEDRAZA MD Ot M54.5 05/23/2015 VIOLET PEDRAZA MD Ot M50.13 CERVICAL DISC DISORDER W RADICULOPATHY, 05/23/2015 VIOLET PEDRAZA MD Ot M51.16 INTERVERTEBRAL DISC DISORDERS W RADICULO 05/23/2015 VIOLET PEDRAZA MD Ot Z79.899 OTHER LEVEL VIAL SETTER (CURRENT) DRUG THERAPY 06/04/2015 VIOLET PEDRAZA MD Ot M50.13 CERVICAL DISC DISORDER W RADICULOPATHY, 06/04/2015 VIOLET PEDRAZA MD Ot M51.16 INTERVERTEBRAL DISC DISORDERS W RADICULO 06/04/2015 VIOLET PEDRAZA MD Ot Z79.899 OTHER INTERMEDIATE (CURRENT) DRUG THERAPY 08/08/2015 MARIZA CHAN MD Ot 459.81 VENOUS INSUFFICIENCY NOS 08/08/2015 MARIZA CHAN MD Ot V58.81 FIT/ADJ VASCULAR CATHETER 09/15/2015 MARIZA CHAN MD Ot E78.0 PURE HYPERCHOLESTEROLEMIA 09/15/2015 MARIZA CHAN MD Ot F12.90 CANNABIS USE, UNSPECIFIED, UNCOMPLICATED 09/15/2015 MARIZA CHAN MD Ot F17.210 NICOTINE DEPENDENCE, CIGARETTES, UNCOMPL 09/15/2015 MARIZA CHAN MD Ot F31.9 BIPOLAR DISORDER, UNSPECIFIED 09/15/2015 MARIZA CHAN MD Ot F41.9 ANXIETY DISORDER, UNSPECIFIED 09/15/2015 MARIZA CHAN MD Ot F60.9 PERSONALITY DISORDER, UNSPECIFIED 09/15/2015 MARIZA CHAN MD Ot G40.909 EPILEPSY, UNSP, NOT INTRACTABLE, WITHOUT 09/15/2015 MARIZA CHAN MD Ot G47.30 SLEEP APNEA, UNSPECIFIED 09/15/2015 MARIZA CHAN MD Ot G62.9 POLYNEUROPATHY, UNSPECIFIED 09/15/2015 MARIZA CHAN MD Ot I10 ESSENTIAL (PRIMARY) HYPERTENSION 09/15/2015 MARIZA CHAN MD Ot I25.10 ATHSCL HEART DISEASE OF [place] CORONARY 09/15/2015 MARIZA CHAN MD Ot J20.9 ACUTE BRONCHITIS, UNSPECIFIED 09/15/2015 MARIZA CHAN MD Ot J44.0 CHRONIC OBSTRUCTIVE PULMON DISEASE W ACU 09/15/2015 MARIZA CHAN MD Ot J44.1 CHRONIC OBSTRUCTIVE PULMONARY DISEASE W 09/15/2015 MARIZA CHAN MD Ot M54.9 DORSALGIA, UNSPECIFIED 09/15/2015 MARIZA CHAN MD Ot R25.3 FASCICULATION 09/15/2015 MARIZA CHAN MD Ot R33.9 RETENTION OF URINE, UNSPECIFIED 09/15/2015 MARIZA CHAN MD Ot R51 HEADACHE 09/15/2015 MARIZA CHAN MD Ot R64 CACHEXIA 09/15/2015 MARIZA CHAN MD, Ot T40.0X6A UNDERDOSING OF OPIUM, INITIAL ENCOUNTER 09/15/2015 MARIZA CHAN MD, Ot T42.4X6A UNDERDOSING OF BENZODIAZEPINES, INITIAL 09/15/2015 MARIZA CHAN MD Ot Z91.14 PATIENT'S OTHER NONCOMPLIANCE WITH MEDIC 09/15/2015 MARIZA CHAN MD, Ot Z99.81 DEPENDENCE ON SUPPLEMENTAL OXYGEN 02/08/2016 MARIZA CHAN MD Ot 459.81 VENOUS INSUFFICIENCY NOS 02/08/2016 MARIZA CHAN MD Ot V58.81 FIT/ADJ VASCULAR CATHETER 03/25/2016 Ot 796.4 ABN CLINICAL FINDING NEC 03/25/2016 Ot 272.4 HYPERLIPIDEMIA NEC/NOS 03/25/2016 Ot V58.69 OTH MED,LT,CURRENT USE 03/25/2016 Ot V58.83 ENCOUNTER FOR THERAPEUTIC DRUG MONITORIN 03/25/2016 JAMAICAJOSAFAT LAROSE Lindy FISH HATCHERY SUPERVISOR Ot 443.9 PERIPH VASCULAR DIS NOS 03/25/2016 BAIMA JOSAFAT L FISH HATCHERY SUPERVISOR Ot 272.4 HYPERLIPIDEMIA NEC/NOS 03/25/2016 BAIMA JOSAFAT L FISH HATCHERY SUPERVISOR Ot 272.4 HYPERLIPIDEMIA NEC/NOS 03/25/2016 BAIMA JOSAFAT L FISH HATCHERY SUPERVISOR Ot 496 CHR AIRWAY OBSTRUCT NEC 03/25/2016 BAILACHELLE JOSAFAT L FISH HATCHERY SUPERVISOR Ot 780.4 DIZZINESS AND GIDDINESS 03/25/2016 ANA MARIA SAHAHER L FISH HATCHERY SUPERVISOR Ot 780.79 OTH MALAISE FATIGUE 03/25/2016 MARIZA CHAN MD Ot 276.51 DEHYDRATION 03/25/2016 MARIZA CHAN MD Ot 486 PNEUMONIA, ORGANISM NOS 03/25/2016 MARIZA CHAN MD Ot 401.1 BENIGN HYPERTENSION 03/25/2016 VIOLET PEDRAZA MD Ot 722.4 CERVICAL DISC DEGEN 03/25/2016 VIOLET PEDRAZA MD Ot 722.52 LUMB/LUMBOSAC DISC DEGEN 03/25/2016 PEDRO HOFF FACAnnemarie, ALI FACP CCDS Ot 272.4 HYPERLIPIDEMIA NEC/NOS 03/25/2016 PEDRO HOFF FACAnnemarie, ALI FACP CCDS Ot 305.1 TOBACCO USE DISORDER 03/25/2016 PEDRO HOFF FACAnnemarie, ALI FACP CCDS Ot 401.9 HYPERTENSION NOS 03/25/2016 PEDRO HOFF FACAnnemarie, ALI FACP CCDS Ot 496 CHR AIRWAY OBSTRUCT NEC 03/25/2016 MARIZA CHAN MD Ot 459.81 VENOUS INSUFFICIENCY NOS 03/25/2016 MARIZA CHAN MD Ot V58.81 FIT/ADJ VASCULAR CATHETER 03/25/2016 VIOLET PEDRAZA MD Ot M54.5 LOW BACK PAIN 03/25/2016 Ot 272.4 HYPERLIPIDEMIA NEC/NOS 03/25/2016 Ot V58.69 OTH MED,LT,CURRENT USE 03/25/2016 Ot V58.83 ENCOUNTER FOR THERAPEUTIC DRUG MONITORIN 03/25/2016 JAMAICAANA MARIA LAROSEHER [place] FISH HATCHERY SUPERVISOR Ot 443.9 PERIPH VASCULAR DIS NOS 03/25/2016 BAIMAJOSAFAT L FISH HATCHERY SUPERVISOR Ot 272.4 HYPERLIPIDEMIA NEC/NOS 03/25/2016 BAIMAANA MARIAJOSAFAT L FISH HATCHERY SUPERVISOR Ot 272.4 HYPERLIPIDEMIA NEC/NOS 03/25/2016 BAIMAANA MARIAJOSAFAT L FISH HATCHERY SUPERVISOR Ot 496 CHR AIRWAY OBSTRUCT NEC 03/25/2016 BAIANA MARIA LAROSEHER L FISH HATCHERY SUPERVISOR Ot 780.4 DIZZINESS AND GIDDINESS 03/25/2016 ANA MARIA SAHAHER L FISH HATCHERY SUPERVISOR Ot 780.79 OTH MALAISE FATIGUE 03/25/2016 MARIZA CHAN MD Ot 276.51 DEHYDRATION 03/25/2016 MARIZA CHAN MD Ot 486 PNEUMONIA, ORGANISM NOS 03/25/2016 MARIZA CHAN MD Ot 401.1 BENIGN HYPERTENSION 03/25/2016 VIOLET PEDRAZA MD Ot 722.4 CERVICAL DISC DEGEN 03/25/2016 VIOLET PEDRAZA MD Ot 722.52 LUMB/LUMBOSAC DISC DEGEN 03/25/2016 PEDRO HOFF FAC, ALI FACP CCDS Ot 272.4 HYPERLIPIDEMIA NEC/NOS 03/25/2016 PEDRO HOFF FACC, ALI FACP CCDS Ot 305.1 TOBACCO USE DISORDER 03/25/2016 PEDRO HOFF FACAnnemarie, ALI FACP CCDS Ot 401.9 HYPERTENSION NOS 03/25/2016 PEDRO HOFF FAC, ALI FACP CCDS Ot 496 CHR AIRWAY OBSTRUCT NEC 03/25/2016 MARIZA CHAN MD Ot 459.81 VENOUS INSUFFICIENCY NOS 03/25/2016 MARIZA CHAN MD Ot V58.81 FIT/ADJ VASCULAR CATHETER 03/25/2016 VIOLET PEDRAZA MD Ot M54.5 LOW BACK PAIN 04/20/2016 Ot 796.4 ABN CLINICAL FINDING NEC 04/20/2016 Ot 272.4 HYPERLIPIDEMIA NEC/NOS 04/20/2016 Ot V58.69 OTH MED,LT,CURRENT USE 04/20/2016 Ot V58.83 ENCOUNTER FOR THERAPEUTIC DRUG MONITORIN 04/20/2016 BAIMA, JOSAFAT L FISH HATCHERY SUPERVISOR Ot 443.9 PERIPH VASCULAR DIS NOS 04/20/2016 JOSAFAT SAHA FISH HATCHERY SUPERVISOR Ot 272.4 HYPERLIPIDEMIA NEC/NOS 04/20/2016 JOSAFAT SAHA FISH HATCHERY SUPERVISOR Ot 272.4 HYPERLIPIDEMIA NEC/NOS 04/20/2016 JOSAFAT SAHA FISH HATCHERY SUPERVISOR Ot 496 CHR AIRWAY OBSTRUCT NEC 04/20/2016 JOSAFAT SAHA FISH HATCHERY SUPERVISOR Ot 780.4 DIZZINESS AND GIDDINESS 04/20/2016 JOSAFAT SAHA FISH HATCHERY SUPERVISOR Ot 780.79 OTH MALAISE FATIGUE 04/20/2016 MARIZA CHAN MD Ot 276.51 DEHYDRATION 04/20/2016 MARIZA CHAN MD Ot 486 PNEUMONIA, ORGANISM NOS 04/20/2016 MARIZA CHAN MD Ot 401.1 BENIGN HYPERTENSION 04/20/2016 VIOLET PEDRAZA MD Ot 722.4 CERVICAL DISC DEGEN 04/20/2016 VIOLET PEDRAZA MD Ot 722.52 LUMB/LUMBOSAC DISC DEGEN 04/20/2016 PEDRO HOFF FACC, ALI FACP CCDS Ot 272.4 HYPERLIPIDEMIA NEC/NOS 04/20/2016 PEDRO HOFF FACC, ALI FACP CCDS Ot 305.1 TOBACCO USE DISORDER 04/20/2016 PEDRO HOFF FACC, ALI FACP CCDS Ot 401.9 HYPERTENSION NOS 04/20/2016 PEDRO HOFF FACC, ALI FACP CCDS Ot 496 CHR AIRWAY OBSTRUCT NEC 04/20/2016 MARIZA CHAN MD Ot 459.81 VENOUS INSUFFICIENCY NOS 04/20/2016 MARIZA CHAN MD Ot V58.81 FIT/ADJ VASCULAR CATHETER 04/20/2016 VIOLET PEDRAZA MD Ot M54.5 LOW BACK PAIN 04/20/2016 VIOLET PEDRAZA MD Ot M54.2 CERVICALGIA 04/20/2016 VIOLET PEDARZA MD Ot M54.5 LOW BACK PAIN 04/20/2016 KIN LAGUNAS MD Ot R19.00 INTRA-ABD AND PELVIC SWELLING, MASS AND 04/21/2016 KIN LAGUNAS MD Ot R19.00 INTRA-ABD AND PELVIC SWELLING, MASS AND 05/03/2016 VIOLET PEDRAZA MD Ot M54.2 CERVICALGIA 05/03/2016 VIOLET PEDRAZA MD Ot M54.5 LOW BACK PAIN 05/04/2016 VIOLET PEDRAZA MD, Ot M54.2 CERVICALGIA 05/04/2016 VIOLET PEDRAZA MD Ot M54.5 LOW BACK PAIN 05/06/2016 Ot 796.4 ABN CLINICAL FINDING NEC 05/06/2016 Ot 272.4 HYPERLIPIDEMIA NEC/NOS 05/06/2016 Ot V58.69 OTH MED,LT,CURRENT USE 05/06/2016 Ot V58.83 ENCOUNTER FOR THERAPEUTIC DRUG MONITORIN 05/06/2016 JOSAFAT SAHA FISH HATCHERY SUPERVISOR Ot 443.9 PERIPH VASCULAR DIS NOS 05/06/2016 BAIMAANA MARIAJOSAFAT L FISH HATCHERY SUPERVISOR Ot 272.4 HYPERLIPIDEMIA NEC/NOS 05/06/2016 BAIMA JOSAFAT L FISH HATCHERY SUPERVISOR Ot 272.4 HYPERLIPIDEMIA NEC/NOS 05/06/2016 BAIMAJOSAFAT L FISH HATCHERY SUPERVISOR Ot 496 CHR AIRWAY OBSTRUCT NEC 05/06/2016 BAIJOSAFAT LAROSE L FISH HATCHERY SUPERVISOR Ot 780.4 DIZZINESS AND GIDDINESS 05/06/2016 JAMAICAMA JOSAFAT L FISH HATCHERY SUPERVISOR Ot 780.79 OTH MALAISE FATIGUE 05/06/2016 MARIZA CHAN MD Ot 276.51 DEHYDRATION 05/06/2016 MARIZA CHAN MD Ot 486 PNEUMONIA, ORGANISM NOS 05/06/2016 MARIZA CHAN MD Ot 401.1 BENIGN HYPERTENSION 05/06/2016 VIOLET PEDRAZA MD Ot 722.4 CERVICAL DISC DEGEN 05/06/2016 VIOLET PEDRAZA MD Ot 722.52 LUMB/LUMBOSAC DISC DEGEN 05/06/2016 PEDRO HOFF FACC, ALI FACP CCDS Ot 272.4 HYPERLIPIDEMIA NEC/NOS 05/06/2016 PEDRO HOFF FACC, ALI FACP CCDS Ot 305.1 TOBACCO USE DISORDER 05/06/2016 PEDRO HOFF FACC, ALI FACP CCDS Ot 401.9 HYPERTENSION NOS 05/06/2016 PEDRO HOFF FACC, ALI FACP CCDS Ot 496 CHR AIRWAY OBSTRUCT NEC 05/06/2016 MARIZA CHAN MD Ot 459.81 VENOUS INSUFFICIENCY NOS 05/06/2016 MARIZA CHAN MD Ot V58.81 FIT/ADJ VASCULAR CATHETER 05/06/2016 VIOLET PEDRAZA MD Ot M54.5 LOW BACK PAIN 05/06/2016 VIOLET PEDRAZA MD Ot M54.2 CERVICALGIA 05/06/2016 VIOLET PEDRAZA MD Ot M54.5 LOW BACK PAIN 05/06/2016 JANNETH HOFF, KIN Sharpe Ot R19.00 INTRA-ABD AND PELVIC SWELLING, MASS AND 05/06/2016 LORE HOBBS MD Ot F17.210 NICOTINE DEPENDENCE, CIGARETTES, UNCOMPL 05/06/2016 LORE HOBBS MD Ot G40.909 EPILEPSY, UNSP, NOT INTRACTABLE, WITHOUT 05/06/2016 LORE HOBBS MD Ot I25.2 OLD MYOCARDIAL INFARCTION 05/06/2016 LORE HOBBS MD, Ot J44.1 CHRONIC OBSTRUCTIVE PULMONARY DISEASE W 05/06/2016 LORE HOBBS MD Ot R06.02 SHORTNESS OF BREATH 05/06/2016 LORE HOBBS MD Ot Z79.82 LEVEL VIAL SETTER (CURRENT) USE OF ASPIRIN 05/06/2016 LORE HOBBS MD Ot Z79.899 OTHER INTERMEDIATE (CURRENT) DRUG THERAPY 05/07/2016 LORE HOBBS MD Ot F17.210 NICOTINE DEPENDENCE, CIGARETTES, UNCOMPL 05/07/2016 LORE HOBBS MD Ot G40.909 EPILEPSY, UNSP, NOT INTRACTABLE, WITHOUT 05/07/2016 LORE HOBBS MD Ot I25.2 OLD MYOCARDIAL INFARCTION 05/07/2016 LORE HOBBS MD, Ot J44.1 CHRONIC OBSTRUCTIVE PULMONARY DISEASE W 05/07/2016 LORE HOBBS MD Ot R06.02 SHORTNESS OF BREATH 05/07/2016 LORE HOBBS MD Ot Z79.82 INTERMEDIATE (CURRENT) USE OF ASPIRIN 05/07/2016 LORE HOBBS MD Ot Z79.899 OTHER LEVEL VIAL SETTER (CURRENT) DRUG THERAPY 05/11/2016 LORE HOBBS MD Ot F17.210 NICOTINE DEPENDENCE, CIGARETTES, UNCOMPL 05/11/2016 LORE HOBBS MD Ot G40.909 EPILEPSY, UNSP, NOT INTRACTABLE, WITHOUT 05/11/2016 LORE HOBBS MD Ot I25.2 OLD MYOCARDIAL INFARCTION 05/11/2016 LORE HOBBS MD Ot J44.1 CHRONIC OBSTRUCTIVE PULMONARY DISEASE W 05/11/2016 LORE HOBBS MD Ot R06.02 SHORTNESS OF BREATH 05/11/2016 LORE HOBBS MD Ot Z79.82 LEVEL VIAL SETTER (CURRENT) USE OF ASPIRIN 05/11/2016 LORE HOBBS MD Ot Z79.899 OTHER LEVEL VIAL SETTER (CURRENT) DRUG THERAPY 05/11/2016 JANNETH HOFF, KIN Sharpe Ot R19.00 INTRA-ABD AND PELVIC SWELLING, MASS AND 05/12/2016 VIOLET PEDRAZA MD Ot M54.2 CERVICALGIA 05/12/2016 VIOLET PEDRAZA MD Ot M54.5 LOW BACK PAIN Procedures Code Description Performed By Performed On 37.22 LEFT HEART CARDIAC CATH 02/10/2012 88.53 LT HEART ANGIOCARDIOGRAM 02/10/2012 88.56 CORONAR ARTERIOGR-2 CATH 02/10/2012 96.04 INSERT ENDOTRACHEAL TUBE 12/17/2013 96.71 CONTINUOUS INVASIVE MECHANICAL VENTILATI 12/17/2013 Results Test Result Range Complete blood count (CBC) with automated white blood cell (WBC) differential - 09/13/15 06:21 Blood leukocytes automated count (number/volume) 19.2 10*3/ uL 4.3-11.0 Blood erythrocytes automated count (number/volume) 5.39 10*6 /uL 4.35-5.85 Venous blood hemoglobin measurement (mass/volume) 14.8 g/dL 13.3-17.7 Blood hematocrit (volume fraction) 46 % 40-54 Automated erythrocyte mean corpuscular volume 85 [foz_us] 80-99 Automated erythrocyte mean corpuscular hemoglobin (mass per erythrocyte) 28 pg 25-34 Automated erythrocyte mean corpuscular hemoglobin concentration measurement ( mass/volume) 32 g/dL 32-36 Automated erythrocyte distribution width ratio 20.6 % 10.0-14.5 Automated blood platelet count (count/volume) 336 10*3/uL 130-400 Automated blood platelet mean volume measurement 10.8 [foz_ us] 7.4-10.4 Automated blood neutrophils/100 leukocytes 81 % 42-75 Automated blood lymphocytes/100 leukocytes 13 % 12-44 Blood monocytes/100 leukocytes 4 % 0-12 Automated blood eosinophils/100 leukocytes 1 % 0-10 Automated blood basophils/100 leukocytes 0 % 0-10 Blood neutrophils automated count (number/volume) 15.5 10*3 1.8-7.8 Blood lymphocytes automated count (number/volume) 2.5 10*3 1.0-4.0 Blood monocytes automated count (number/volume) 0.8 10*3 0.0-1.0 Automated eosinophil count 0.3 10*3/uL 0.0-0.3 Automated blood basophil count (count/volume) 0.0 10*3/uL 0.0-0.1 Blood manual differential performed detection - 09/13/15 06:21 Blood monocytes/100 leukocytes 3 % NRG Manual blood segmented neutrophils/100 leukocytes 84 % NRG Blood band neutrophils/100 leukocytes 0 % NRG Manual blood lymphocytes/100 leukocytes 8 % NRG Manual eosinophils/100 leukocytes in nose 2 % NRG Manual blood basophils/100 leukocytes 0 % NRG Blood lymphocytes variant/100 leukocytes 3 % NRG Blood anisocytosis detection by light microscopy MODERATE NRG Blood ovalocytes detection by light microscopy SLIGHT NRG Blood microcytes detection by light microscopy SLIGHT NRG Blood gera cells detection by light microscopy MODERATE NRG Blood hypersegmented neutrophils detection by light microscopy SLIGHT NRG Arterial blood gas measurement - 09/13/15 06:39 Blood pCO2 40 mm[Hg] 35-45 Blood pO2 77 mm[Hg] 79-93 Arterial blood bicarbonate measurement (moles/volume) 25 mmol/L 23-27 Arterial blood base excess by calculation 1.0 mmol/L -2.5-2.5 Arterial blood oxygen saturation measurement 97 % 94-100 * Inhaled oxygen flow rate 5 L NRG Arterial blood pH measurement with patient temperature correction 7.42 7.37-7.43 Arterial blood carbon dioxide, total measurement (moles/volume) 26.7 mmol/L 21.0-31.0 Body site RT RADIAL NRG Assessment of wrist artery patency prior to arterial puncture POSITIVE NRG Setting of ventilation mode NO NRG Measurement of body temperature 98.6 NRG Sputum Gram stain - 09/13/15 06:46 Bacterial sputum culture - 09/13/15 06:46 FREE TEXT EXTERNAL SENSITIVITY REPORTED AT 0708, 8-9-16 NRG QUANTITY OF GROWTH Moderate Growth NRG Bacterial sputum culture [id number] NR Bacterial susceptibility panel - 09/13/15 06:46 Gentamicin susceptibility test by minimum inhibitory concentration <= NRG Trimethoprim/sulfamethoxazole susceptibility test by minimum inhibitoryconcentration <= NRG Tobramycin susceptibility test by minimum inhibitory concentration <= NRG Cefazolin susceptibility test by minimum inhibitory concentration >= NRG Ampicillin/sulbactam susceptibility test by minimum inhibitory concentration <= NRG Piperacillin/tazobactam susceptibility test by minimum inhibitory concentration <= NRG Ciprofloxacin susceptibility test by minimum inhibitory concentration <= NRG Meropenem susceptibility test by minimum inhibitory concentration <= NRG Comprehensive metabolic panel - 09/13/15 06:53 Serum or plasma sodium measurement (moles/volume) 140 mmol/ L 135-145 Serum or plasma potassium measurement (moles/volume) 4.0 mmol/L 3.6-5.0 Serum or plasma chloride measurement (moles/volume) 108 mmol /L 98-107 Carbon dioxide 19 mmol/L 21-32 Serum or plasma anion gap determination (moles/volume) 13 mmol/L 5-14 Serum or plasma urea nitrogen measurement (mass/volume) 13 mg/dL 7-18 Serum or plasma creatinine measurement (mass/volume) 0.84 mg /dL 0.60-1.30 Serum or plasma urea nitrogen/creatinine mass ratio 15 NRG Serum or plasma creatinine measurement with calculation of estimated glomerular filtration rate > NRG Serum or plasma glucose measurement (mass/volume) 149 mg/dL 70-105 Serum or plasma calcium measurement (mass/volume) 8.6 mg/dL 8.5-10.1 Serum or plasma total bilirubin measurement (mass/volume) 0.3 mg/dL 0.1-1.0 Serum or plasma alkaline phosphatase measurement (enzymatic activity/volume) 230 U/L 40-136 Serum or plasma aspartate aminotransferase measurement (enzymatic activity/ volume) 14 U/L 5-34 Serum or plasma alanine aminotransferase measurement (enzymatic activity/volume ) 7 U/L 0-55 Serum or plasma protein measurement (mass/volume) 6.7 g/dL 6.4-8.2 Serum or plasma albumin measurement (mass/volume) 3.4 g/dL 3.2-4.5 Blood lactic acid measurement (moles/volume) - 09/13/15 07:34 Blood lactic acid measurement (moles/volume) 1.3 mmol/L 0.5-2.0 Bacterial blood culture - 09/13/15 07:34 Bacterial blood culture NG NRG Bacterial blood culture - 09/13/15 07:44 Bacterial blood culture NG NRG Complete urinalysis with reflex to culture - 09/13/15 14:00 Urine color determination RABIA NRG Urine clarity determination SLIGHTLY CLOUDY NRG Urine pH measurement by test strip 5 5- 9 Specific gravity of urine by test strip 1.015 1.016-1.022 Urine protein assay by test strip, semi-quantitative 2+ NEGATIVE Urine glucose detection by automated test strip NEGATIVE NEGATIVE Erythrocytes detection in urine sediment by light microscopy NEGATIVE NEGATIVE Urine ketones detection by automated test strip 1+ NEGATIVE Urine nitrite detection by test strip NEGATIVE NEGATIVE Urine total bilirubin detection by test strip NEGATIVE NEGATIVE Urine urobilinogen measurement by automated test strip (mass/volume) NORMAL NORMAL Urine leukocyte esterase detection by dipstick 1+ NEGATIVE Automated urine sediment erythrocyte count by microscopy (number/high power field) NONE NRG Automated urine sediment leukocyte count by microscopy (number/high power field ) [HPF] NRG Bacteria detection in urine sediment by light microscopy TRACE NRG Squamous epithelial cells detection in urine sediment by light microscopy NONE NRG Crystals detection in urine sediment by light microscopy NONE NRG Casts detection in urine sediment by light microscopy PRESENT NRG Mucus detection in urine sediment by light microscopy SMALL NRG Complete urinalysis with reflex to culture NO NRG Hyaline casts detection in urine sediment by light microscopy 10-25 NRG Urine drug screening test - 09/13/15 14:00 Urine acetaminophen detection by screening method NEGATIVE NEGATIVE Urine phencyclidine detection by screening method NEGATIVE NEGATIVE Urine benzodiazepines detection by screening method POSITIVE NEGATIVE Urine cocaine detection NEGATIVE NEGATIVE Urine amphetamines detection by screening method NEGATIVE NEGATIVE Urine methamphetamine detection by screening method NEGATIVE NEGATIVE Urine cannabinoids detection by screening method POSITIVE NEGATIVE Urine opiates detection by screening method NEGATIVE NEGATIVE Urine barbiturates detection NEGATIVE NEGATIVE Screening urine tricyclic antidepressants detection NEGATIVE NEGATIVE Urine methadone detection by screening method NEGATIVE NEGATIVE Complete blood count (CBC) with automated white blood cell (WBC) differential - 09/14/15 04:55 Blood leukocytes automated count (number/volume) 10.0 10*3/ uL 4.3-11.0 Blood erythrocytes automated count (number/volume) 4.45 10*6 /uL 4.35-5.85 Venous blood hemoglobin measurement (mass/volume) 12.2 g/dL 13.3-17.7 Blood hematocrit (volume fraction) 38 % 40-54 Automated erythrocyte mean corpuscular volume 85 [foz_us] 80-99 Automated erythrocyte mean corpuscular hemoglobin (mass per erythrocyte) 27 pg 25-34 Automated erythrocyte mean corpuscular hemoglobin concentration measurement ( mass/volume) 32 g/dL 32-36 Automated erythrocyte distribution width ratio 18.7 % 10.0-14.5 Automated blood platelet count (count/volume) 263 10*3/uL 130-400 Automated blood platelet mean volume measurement 10.4 [foz_ us] 7.4-10.4 Automated blood neutrophils/100 leukocytes 86 % 42-75 Automated blood lymphocytes/100 leukocytes 12 % 12-44 Blood monocytes/100 leukocytes 2 % 0-12 Automated blood eosinophils/100 leukocytes 0 % 0-10 Automated blood basophils/100 leukocytes 0 % 0-10 Blood neutrophils automated count (number/volume) 8.5 10*3 1.8-7.8 Blood lymphocytes automated count (number/volume) 1.2 10*3 1.0-4.0 Blood monocytes automated count (number/volume) 0.2 10*3 0.0-1.0 Automated eosinophil count 0.0 10*3/uL 0.0-0.3 Automated blood basophil count (count/volume) 0.0 10*3/uL 0.0-0.1 Comprehensive metabolic panel - 09/14/15 04:55 Serum or plasma sodium measurement (moles/volume) 140 mmol/ L 135-145 Serum or plasma potassium measurement (moles/volume) 4.2 mmol/L 3.6-5.0 Serum or plasma chloride measurement (moles/volume) 109 mmol /L 98-107 Carbon dioxide 22 mmol/L 21-32 Serum or plasma anion gap determination (moles/volume) 9 mmol/L 5-14 Serum or plasma urea nitrogen measurement (mass/volume) 16 mg/dL 7-18 Serum or plasma creatinine measurement (mass/volume) 0.76 mg /dL 0.60-1.30 Serum or plasma urea nitrogen/creatinine mass ratio 21 NRG Serum or plasma creatinine measurement with calculation of estimated glomerular filtration rate > NRG Serum or plasma glucose measurement (mass/volume) 143 mg/dL 70-105 Serum or plasma calcium measurement (mass/volume) 8.3 mg/dL 8.5-10.1 Serum or plasma total bilirubin measurement (mass/volume) 0.2 mg/dL 0.1-1.0 Serum or plasma alkaline phosphatase measurement (enzymatic activity/volume) 182 U/L 40-136 Serum or plasma aspartate aminotransferase measurement (enzymatic activity/ volume) 13 U/L 5-34 Serum or plasma alanine aminotransferase measurement (enzymatic activity/volume ) 6 U/L 0-55 Serum or plasma protein measurement (mass/volume) 6.0 g/dL 6.4-8.2 Serum or plasma albumin measurement (mass/volume) 3.2 g/dL 3.2-4.5 Bacterial blood culture - 05/06/16 09:45 Bacterial blood culture [facility] Complete blood count (CBC) with automated white blood cell (WBC) differential - 05/06/16 10:30 Blood leukocytes automated count (number/volume) 15.1 10*3/ uL 4.3-11.0 Blood erythrocytes automated count (number/volume) 5.65 10*6 /uL 4.35-5.85 Venous blood hemoglobin measurement (mass/volume) 16.0 g/dL 13.3-17.7 Blood hematocrit (volume fraction) 48 % 40-54 Automated erythrocyte mean corpuscular volume 85 [foz_us] 80-99 Automated erythrocyte mean corpuscular hemoglobin (mass per erythrocyte) 28 pg 25-34 Automated erythrocyte mean corpuscular hemoglobin concentration measurement ( mass/volume) 33 g/dL 32-36 Automated erythrocyte distribution width ratio 16.6 % 10.0-14.5 Automated blood platelet count (count/volume) 403 10*3/uL 130-400 Automated blood platelet mean volume measurement 8.6 [foz_us ] 7.4-10.4 Automated blood neutrophils/100 leukocytes 80 % 42-75 Automated blood lymphocytes/100 leukocytes 13 % 12-44 Blood monocytes/100 leukocytes 7 % 0-12 Automated blood eosinophils/100 leukocytes 0 % 0-10 Automated blood basophils/100 leukocytes 0 % 0-10 Blood neutrophils automated count (number/volume) 12.0 10*3 1.8-7.8 Blood lymphocytes automated count (number/volume) 1.9 10*3 1.0-4.0 Blood monocytes automated count (number/volume) 1.1 10*3 0.0-1.0 Automated eosinophil count 0.0 10*3/uL 0.0-0.3 Automated blood basophil count (count/volume) 0.0 10*3/uL 0.0-0.1 PT panel in platelet poor plasma by coagulation assay - 05/06/16 10:30 Prothrombin time (PT) in platelet poor plasma by coagulation assay 13.4 s 12.2-14.7 INR in platelet poor plasma or blood by coagulation assay 1.1 0.8-1.4 Activated partial thromboplastin time (aPTT) in platelet poor plasma bycoagulation assay - 05/06/16 10:30 Activated partial thromboplastin time (aPTT) in platelet poor plasma bycoagulation assay 23 s 24-35 Blood manual differential performed detection - 05/06/16 10:30 Blood monocytes/100 leukocytes 4 % NRG Manual blood segmented neutrophils/100 leukocytes 78 % NRG Blood band neutrophils/100 leukocytes 2 % NRG Manual blood lymphocytes/100 leukocytes 16 % NRG Manual eosinophils/100 leukocytes in nose 0 % NRG Manual blood basophils/100 leukocytes 0 % NRG Blood anisocytosis detection by light microscopy SLIGHT NRG Blood ovalocytes detection by light microscopy SLIGHT NRG Blood microcytes detection by light microscopy SLIGHT NRG Comprehensive metabolic panel - 05/06/16 10:30 Serum or plasma sodium measurement (moles/volume) 135 mmol/ L 135-145 Serum or plasma potassium measurement (moles/volume) 3.9 mmol/L 3.6-5.0 Serum or plasma chloride measurement (moles/volume) 98 mmol/ L 98-107 Carbon dioxide 21 mmol/L 21-32 Serum or plasma anion gap determination (moles/volume) 16 mmol/L 5-14 Serum or plasma urea nitrogen measurement (mass/volume) 5 mg /dL 7-18 Serum or plasma creatinine measurement (mass/volume) 0.87 mg /dL 0.60-1.30 Serum or plasma urea nitrogen/creatinine mass ratio 6 NRG Serum or plasma creatinine measurement with calculation of estimated glomerular filtration rate > NRG Serum or plasma glucose measurement (mass/volume) 99 mg/dL 70-105 Serum or plasma calcium measurement (mass/volume) 9.1 mg/dL 8.5-10.1 Serum or plasma total bilirubin measurement (mass/volume) 0.3 mg/dL 0.1-1.0 Serum or plasma alkaline phosphatase measurement (enzymatic activity/volume) 146 U/L 40-136 Serum or plasma aspartate aminotransferase measurement (enzymatic activity/ volume) 22 U/L 5-34 Serum or plasma alanine aminotransferase measurement (enzymatic activity/volume ) 12 U/L 0-55 Serum or plasma protein measurement (mass/volume) 7.9 g/dL 6.4-8.2 Serum or plasma albumin measurement (mass/volume) 4.0 g/dL 3.2-4.5 Magnesium - 05/06/16 10:30 Magnesium 1.7 mg/dL 1.8-2.4 Serum or plasma troponin i.cardiac measurement (mass/volume) - 05/06/16 10:30 Serum or plasma troponin i.cardiac measurement (mass/volume) < ng/mL <0.30 Serum or plasma C reactive protein measurement (mass/volume) - 05/06/16 10:30 Serum or plasma C reactive protein measurement (mass/volume) 2.35 mg/dL 0.00-0.50 Bacterial blood culture - 05/06/16 10:30 Bacterial blood culture NG NRG Blood lactic acid measurement (moles/volume) - 05/06/16 10:42 Blood lactic acid measurement (moles/volume) 0.70 mmol/L 0.50-2.00 Encounters ACCT No. Visit Date/Time Discharge Status Pt. Type Provider Facility Loc./Unit Complaint [id number] 05/06/2016 09:34:00 2016 14:21:00 DIS Emergency LORE HOBBS MD [facility] ER SOA/CP [id number] 09/13/2015 08:27:00 2015 14:19:00 DIS Inpatient MARIZA CHAN MD [facility] 4TH COPD W/ EXACERBATION [id number] 05/23/2015 09:45:00 2015 10:40:00 DIS Outpatient VIOLET PEDRAZA MD [facility] CARD DISC DISORDER W/RADICULOPATHY [id number] 04/18/2015 09:44:00 2015 10:36:00 DIS Outpatient VIOLET PEDRAZA MD [facility] CARD DISC DISORDER W/RADICULOPATHY LUMBAR [id number] 07/17/2014 10:28:00 2014 15:35:00 DIS Inpatient MARIZA CHAN MD [facility] SURGICAL PNEUMONIA COPD [id number] 02/20/2014 00:40:00 2014 23:59:59 CLS Preadmit MARIZA CHAN MD [facility] SDC POOR VENOUS ACCESS [id number] 11/21/2013 11:14:00 2014 00:01:00 DIS Outpatient MARIZA CHAN MD [facility] SDC POOR VENOUS ACCESS [id number] 02/13/2014 18:22:00 2014 21:22:00 DIS Emergency DEEP PEÑA DO [facility] ER SOA,FEVER [id number] 12/17/2013 12:12:00 2013 13:05:00 DIS Inpatient MARIZA CHAN MD [facility] 4TH UNRESPONSIVE OVERDOSE [id number] 12/05/2013 13:11:00 2013 23:59:59 CLS Outpatient PEDRO HOFF FACC, FLORA DUNCAN CCDS [facility] LAB TOBACCO ABUSE HTN HLE DRUG ABUSE COPD CHRONIC CHES [id number] 11/21/2013 11:08:00 2013 23:59:59 CLS Outpatient VIOLET PEDRAZA MD [facility] RAD LUMBAGO,CERVICAL PAIN [id number] 04/16/2013 13:24:00 2013 00:01:00 DIS Outpatient MARIZA CHAN MD [facility] SDC POOR VENOUS ACCESS [id number] 06/12/2013 06:39:00 2013 09:46:00 DIS Emergency LORE HOBBS MD [facility] ER POSS PNUEMONIA [id number] 05/21/2013 11:00:00 2013 11:15:00 DIS Inpatient MARIZA CHAN MD [facility] 4TH COPD RESP FAILURE [id number] 04/25/2013 08:57:00 2013 13:22:00 DIS Inpatient MARIZA CHAN MD [facility] 4TH PNEUMONIA RIGHT MID LUNG COPD [id number] 01/24/2013 08:58:00 2012 23:59:59 CLS Outpatient MARIZA CHAN MD [facility] LAB HTN [id number] 01/17/2013 07:14:00 2012 23:59:59 CLS Outpatient MARIZA CHAN MD [facility] LAB PNEUMONIA,DEHYDRATION [id number] 01/08/2013 20:28:00 2012 14:25:00 DIS Inpatient ROCIO HOFF, MARIZA Nair [facility] 4TH PNEUMONIA, INTRACTABLE VOMITING, DEHYDRATION [id number] 11/30/2012 09:15:00 2012 23:59:59 CLS Outpatient JOSAFAT SAHAP [facility] LAB HYPERLIPIDIEMIA,MALAISE FATIGUE,DIZZINESS,COPD [id number] 09/07/2012 14:22:00 2012 23:59:59 CLS Outpatient JOSAFAT SAHA FISH HATCHERY SUPERVISOR [facility] RAD CLAUDICATION [id number] 09/06/2012 10:25:00 2012 23:59:59 CLS Outpatient JOSAFAT SAHA [facility] LAB HLP [id number] 04/21/2016 08:35:00 ACT Outpatient MILO HOFF, VIOLET Brown [facility] REHAB LUMBAGO; CERVICALGIA [id number] 04/20/2016 08:56:00 ACT Outpatient JANNETH HOFF, KIN Sharpe [facility] RAD R19.00 LEFT TESTICULAR MASS [id number] 03/27/2015 12:28:00 ACT Outpatient VIOLET PEDRAZA MD [facility] RAD LOW BACK PAIN [id number] 12/21/2013 11:43:00 Document Registration [id number] 12/21/2013 11:42:00 Document Registration [id number] 12/21/2013 11:42:00 Document Registration [id number] 12/21/2013 11:42:00 Document Registration [id number] 12/21/2013 11:42:00 Document Registration [id number] 12/21/2013 11:42:00 Document Registration [id number] 04/07/2012 09:21:00 Document Registration [id number] 02/09/2012 12:48:00 Document Registration [id number] 01/04/2012 18:55:00 Document Registration [id number] 09/03/2011 12:29:00 Document Registration [id number] 08/31/2011 08:20:00 Document Registration [id number] 08/21/2011 08:13:00 Document Registration [id number] 07/05/2011 11:13:00 Document Registration [id number] 06/07/2011 08:32:00 Document Registration [id number] 05/18/2011 09:28:00 Document Registration [id number] 05/05/2011 09:24:00 Document Registration [id number] 02/14/2011 13:45:00 Document Registration [id number] 02/04/2011 11:22:00 Document Registration [id number] 01/24/2011 16:26:00 Document Registration [id number] 09/16/2010 07:29:00 Document Registration [id number] 07/01/2010 09:48:00 Document Registration [id number] 06/01/2010 12:40:00 Document Registration [id number] 05/13/2010 08:04:00 Document Registration [id number] 03/12/2010 12:26:00 Document Registration [id number] 02/05/2010 11:33:00 Document Registration [id number] 12/15/2009 13:14:00 Document Registration [id number] 11/25/2009 08:31:00 Document Registration [id number] 10/18/2009 15:00:00 Document Registration [id number] 08/18/2009 10:40:00 Document Registration [id number] 06/11/2009 09:23:00 Document Registration [id number] 05/01/2009 10:42:00 Document Registration [id number] 04/03/2009 09:24:00 Document Registration [id number] 12/19/2008 12:57:00 Document Registration [id number] 11/06/2008 12:56:00 Document Registration [id number] 10/30/2008 07:15:00 Document Registration [id number] 11:23:00 Document Registration [id number] 05/10/2008 10:35:00 Document Registration
== END 2016-05-06 14:21 | disposition home or self-care (01) ==
LOC: EDUNIT# 09:31 → ER 09:34
DX: J44.1 Chronic obstructive pulmonary disease with (acute) exacerbation (principal); I25.2 Old myocardial infarction; G40.909 Epilepsy, unspecified, not intractable, without status epilepticus; F17.210 Nicotine dependence, cigarettes, uncomplicated; Z79.82 Long term (current) use of aspirin; Z79.899 Other long term (current) drug therapy
CPT/HCPCS: 36415; 71010; 80053; 83605; 83735; 84484; 85007; 85027; 85610; 85730; 86141; 87040; 93005; 93041; 94640; 96361; 96374

== ENCOUNTER 2016-06-18 08:50 | Outpatient (CLI) | payer MEDICARE, MEDICAID ==
[~2016-06-18] VITALS: Ht 167.6 cm; Wt 53.1 kg
[~2016-06-18 08:50] MED LIST changes: +LEVO500T80 PO
[2016-06-18] MEDS ORDERED: BUPIVACAINE 0.25% 30 ML (SENSORCAINE) VIAL ONE (09:07)
[2016-06-18] MEDS ORDERED: TRIAMCINOLONE ACET (KENALOG-40) 40 MG/ML 1 ML VIAL ONE (09:07)
[2016-06-18 09:17] VITALS: BP 95/57
[2016-06-18 09:53] VITALS: BP 112/64
--- NOTE | 2016-06-18 13:13 | Pain Medicine-Procedure ---
Procedure Pre-Op/Post-Op Diagnosis Diagnosis: disc disorder with radiculopathy, lumbar Indications for Operation Low back pain Attending Surgeon Kojo Procedure Date of Service: June 18, 2016 Procedure: Lumbar Epidural Steroid Injection at the L5-S1 level under Fluoroscopic Guidance Procedure: Patient was identified in the holding area. After risks, benefits, and alternatives were discussed with the patient, informed consent was obtained. Patient was brought to the fluoroscopy suite and placed prone on the procedure room table. A time out was performed. Vital signs were monitored throughout the procedure. The patients low back was prepped and draped in the usual sterile fashion. The patients skin was anesthetized using 2% Lidocaine. A Tuohy needle was inserted and advanced to the L5-S1 epidural space under fluoroscopic guidance using the loss of resistance technique and intermittent projection of fluoroscopy. There was no paresthesia with needle placement. The needle position was confirmed in both the AP and lateral view. After negative aspiration 2ml of contrast was injected under live fluoroscopy which showed good spread of the contrast in the epidural space at the appropriate level, there was no intravascular or subarachnoid spread. Again, after negative aspiration for heme or CSF, 2 ml of 0.25% Bupivicaine, 2ml of preservative free normal saline, and 80mg of Kenalog was injected. The needle was removed and a sterile bandage was placed and the patient was transferred to the recovery area in stable condition. After a brief period of observation, patient was discharged to home with no new neurological deficits and no apparent complications. Complications None VIOLET PEDRAZA MD June 18, 2016 1:13 pm
== END 2016-06-18 09:54 | disposition home or self-care (01) ==
LOC: CARD 08:50
PROVIDERS: ATTEND Pain Medicine Pain Medicine
DX: M51.16 Intervertebral disc disorders with radiculopathy, lumbar region (principal)
CPT/HCPCS: 62323

== ENCOUNTER 2016-08-25 15:40 | Emergency (ER) | payer MEDICARE, MEDICAID ==
[~2016-08-25] VITALS: Ht 167.6 cm; Wt 45.4 kg
[2016-08-25] MEDS ORDERED: LACTATED RINGERS 1,000 ML IV ONE (15:51)
[2016-08-25 16:41] LABS: BASOPHILS % (AUTO) 0 % (0-10); EOSINOPHILS # (AUTO) 0.2 10^3/uL (0.0-0.3); EOSINOPHILS % (AUTO) 1 % (0-10); LYMPHOCYTES # (AUTO) 2.4 X 10^3 (1.0-4.0); LYMPHOCYTES % (AUTO) 19 % (12-44); MEAN CORPUSCULAR HEMOGLOBIN 27 PG (25-34); MEAN CORPUSCULAR HGB CONC 33 G/DL (32-36); MEAN CORPUSCULAR VOLUME 82 FL (80-99); MEAN PLATELET VOLUME 8.9 FL (7.4-10.4); MONOCYTES # (AUTO) 1.3 X 10^3 (0.0-1.0); MONOCYTES % (AUTO) 10 % (0-12); NEUTROPHILS # (AUTO) 8.9 X 10^3 (1.8-7.8); NEUTROPHILS % (AUTO) 70 % (42-75); PLATELET COUNT 258 10^3/uL (130-400); RED CELL DISTRIBUTION WIDTH 17.4 % (10.0-14.5); WHITE BLOOD COUNT 12.7 10^3/uL (4.3-11.0)
[2016-08-25 17:01] LABS: ALANINE AMINOTRANSFERASE 14 U/L (0-55); ALBUMIN 3.5 GM/DL (3.2-4.5); ALCOHOL < 10 MG/DL (<10); ANION GAP 11 MMOL/L (5-14); ASPARTATE AMINO TRANSFERASE 13 U/L (5-34); BILIRUBIN,TOTAL 0.4 MG/DL (0.1-1.0); BLOOD UREA NITROGEN 36 MG/DL (7-18); BUN/CREATININE RATIO 33; CALCIUM 8.6 MG/DL (8.5-10.1); CARBON DIOXIDE 28 MMOL/L (21-32); CHLORIDE 99 MMOL/L (98-107); CREATINE KINASE 99 U/L (30-200); CREATININE SERUM 1.09 MG/DL (0.60-1.30); GFR ESTIMATED > 60; GLUCOSE 148 MG/DL (70-105); MAGNESIUM 1.5 MG/DL (1.8-2.4); POTASSIUM 3.2 MMOL/L (3.6-5.0); SODIUM 138 MMOL/L (135-145); TOTAL PROTEIN 6.7 GM/DL (6.4-8.2)
[2016-08-25] MEDS ORDERED: MAGNESIUM OXIDE (MAG-OX)400 MG TAB PO ONE (17:15)
[2016-08-25] MEDS ORDERED: KCL 10 MEQ TAB (MICRO K) PO ONE (17:15)
[2016-08-25 17:29] LABS: BILIRUBIN,URINE NEGATIVE (NEGATIVE); KETONES,URINE NEGATIVE (NEGATIVE); LEUKOCYTE ESTERASE ,URINE 1+ (NEGATIVE); NITRITE,URINE NEGATIVE (NEGATIVE); PH,URINE 6 (5-9); PROTEIN,URINE 2+ (NEGATIVE); UROBILINOGEN,URINE NORMAL (NORMAL)
[2016-08-25 17:50] LABS: SQUAMOUS EPITHELIAL CELL,UR RARE /HPF; WBC,URINE 0-2 /HPF
--- NOTE | 2016-08-25 18:09 | ED Neurological Problem ---
General Chief Complaint: Neurological Problems Stated Complaint: SEIZURE Nursing Triage Note: c/o seizure activity. Reportedly had 8 seizures. Patient is not post-ictal on ER arrival. Pt fully awake, alert, and active. Been off of Xanax, Morphine, and Dilantin x 1 Nursing Sepsis Screen: No Definite Risk Source: patient (SOMEWHAT DIFFICULT HISTORIAN), EMS, old records History of Present Illness Time seen by provider: 15:50 Initial Comments PT ARRIVES VIA EMS FROM HOME PT CLAIMS HE HAS HAD 8 SEIZURES TODAY--STATES WITNESSED BY DAUGHTER, NEIGHBORS, "FRIENDS ON FACEBOOK" NO POST=ICTAL SYMPTOMS, NO INCONTINENCE PT HAS LONG-STANDING HISTORY OF SEIZURES--HAS BEEN IN DILANTIN FOR YEARS PT HAS ALSO BEEN ON MORPHINE, XANAX, ROBAXIN, LYRICA PT CLAIMS THAT HE HAS NOT TAKEN ANY OF HIS MEDICATIONS FOR OVER A WEEK. PT CLAIMS HE TOLD HIS DR. HE DIDN'T WANT TO TAKE DILANTIN ANY MORE, SO PT STOPPED TAKING IT. PT STATES HE DOES NOT HAVE ANY MORE REFILLS ON DILANTIN-LATER STATES HE HAS NOT TAKEN DILANTIN FOR 3 WEEKS. STATES HE CANNOT REFILL HIS MORPHINE OR XANAX UNTIL THE OF THIS MONTH. SIMPLY NOT BEEN TAKING HIS ROBAXIN OR LYRICA C/O BACK AND NECK PAIN-"FEEL LIKE THEY'RE ON FIRE" --CHRONIC AND NO DIFFERENT THAN USUAL NO INCONTINENCE NO HEADACHE NO VISION CHANGES NO PARESTHESIAS OR MOTOR DEFICITS NO DIZZINESS NO CHEST PAIN OR SHORTNESS OF BREATH OR PALPITATIONS PT HAS NOT HAD ANY INJURIES FROM SEIZURES--STATES HE HAS BEEN SITTING IN HIS RECLINER PT STATES "I COULDN'T TALK-I WAS STUTTERING" PCP: DR. KIN LAGUNAS Allergies and Home Medications Allergies Coded Allergies: cefepime (Verified Allergy, Mild, RASH, ITCHING, 07/17/14) Home Medications Alprazolam 2 Mg Tablet, 2 MG PO QID, (Reported) Aspirin 81 Mg Tabec, 81 MG PO HS, (Reported) Atorvastatin Calcium 40 Mg Tablet, 40 MG PO HS, (Reported) Baclofen 10 Mg Tablet, 10 MG PO Q8H PRN for MUSCLE SPASMS, (Reported) Cefdinir 300 Mg Capsule, 300 MG PO BID, #10 Prescribed by: MARIZA CHAN on 09/15/15 1143 Diclofenac Sodium 75 Mg Tablet., 75 MG PO BID, (Reported) Fluticasone/Salmeterol 1 Disk Inhp, 1 PUFF INH BID, (Reported) Ipratropium/Albuterol Sulfate 4 Gm Aer.w.adap, 2 PUFF INH QID, (Reported) Levofloxacin 500 Mg Tablet, 500 MG PO DAILY, #7 Ref 0 Prescribed by: LORE HOBBS on 05/06/16 1409 Omeprazole 40 Mg Capsule.dr, 40 MG PO DAILY, (Reported) Oxycodone HCl/Acetaminophen 1 Each Tablet, 1 EACH PO BID, (Reported) Phenytoin Sodium 100 Mg Cap, 100 MG PO TID, (Reported) Phenytoin Sodium Extended 100 Mg Capsule, 100 MG PO TID, #30 Prescribed by: DEEP PEÑA on 08/25/16 1906 Polyethylene Glycol 17 Gm Pack, 17 GM PO BID, (Reported) Prednisone 20 Mg Tab, 20 MG PO UD, #11 Take 3 tabs(60mg)daily, decrease by 1/2 tab(10mg)daily. Prescribed by: MARIZA CHAN on 09/15/15 1149 Prednisone 20 Mg Tab, 40 MG PO DAILY, #10 Ref 0 Prescribed by: LORE HOBBS on 05/06/16 1409 Pregabalin 150 Mg Capsule, 150 MG PO BID, (Reported) Sertraline HCl 100 Mg Tablet, 100 MG PO DAILY, (Reported) Tamsulosin HCl 0.4 Mg Cap, 0.4 MG PO DAILY, (Reported) Tiotropium [place] 1 Inh Aerp, 1 CAP INH DAILY, (Reported) Constitutional: no symptoms reported Eyes: No Symptoms Reported Ears, Nose, Mouth, Throat: no symptoms reported Respiratory: no symptoms reported Cardiovascular: no symptoms reported Gastrointestinal: no symptoms reported Genitourinary: no symptoms reported Musculoskeletal: see HPI (ALL CHRONIC ), back pain, neck pain Skin: no symptoms reported Psychiatric/Neurological: See HPI Endocrine: No Symptoms Reported Hematologic/Lymphatic: No Symptoms Reported Past [id number]-[id number] Hx Patient Social History Alcohol Use: Past History (EXTENSIVE ABUSE, DENIES RECENT USE) Recreational Drug Use: Yes (EXTENSIVE DRUG USE FOR MANY YEARS--"EVERYTHING" PER PT, MULTIPLE OVERDOSES) Drug of Choice: marijuana Smoking Status: Current Everyday Smoker (1 PPD) Type Used: Cigarettes Recent Foreign Travel: No Contact w/Someone Who Travel: No Recent Infectious Disease Expo: No Recent Hopitalizations: No Immunizations Up To Date Tetanus Booster (TDap): More than 5yrs PED Vaccines UTD: No Date of Pneumonia Vaccine: Jul 17, 2010 Date of Influenza Vaccine: Nov 07, 2012 Seasonal Allergies Seasonal Allergies: No Surgeries HX Surgeries: Yes (HERNIA REPAIR; CARDIAC CATH 2012--NO INTERVENTION; PORT LEFT CHEST) Surgeries: Abdominal, Cardiac (CATH), Tonsillectomy, Vascular Surgery (PORT LEFT CHESRT) Respiratory Hx Respiratory Disorders: Yes (CPAP AT HS; INTUBATED IN PAST FOR OVERDOSES) Respiratory Disorders: Pneumonia, Chronic Bronchitis, Sleep Apnea, COPD, Emphysema Cardiovascular Hx Cardiac Disorders: Yes (CARDIAC CATH 2012--NO INTERVENTION) Cardiac Disorders: Coronary Artery Disease, Heart Attack, High Cholesterol, Hypertension Neurological Hx Neurological Disorders: Yes Neurological Disorders: Neuropathy, Seizure Disorder Reproductive System Hx Reproductive Disorders: No Sexually Transmitted Disease: No HIV/AIDS: No Genitourinary Hx Genitourinary Disorders: Yes (STAGE 2 RENAL FAILURE IN 2006 AFTER VICODIN OVERDOSE) Genitourinary Disorders: Renal Failure Gastrointestinal Hx Gastrointestinal Disorders: Yes Gastrointestinal Disorders: Gastroesophageal Reflux, Chronic Constipation, Hiatal Hernia Musculoskeletal Hx Musculoskeletal Disorders: Yes (CHRONIC NECK AND BACK PAIN , GENERALIZED PAIN) Musculoskeletal Disorders: Degenerate Disk Disease, Arthritis, Chronic Back Pain Endocrine Hx Endocrine Disorders: No HEENT HX ENT Disorders: Yes (TEETH REMOVED) HEENT Disorders: Cataract Loss of Vision: Denies Hearing Impairment: Denies Cancer Hx Cancer: No Psychosocial Hx Psychiatric Problems: Yes (EXTENSIVE POLYUSBSTANCE ABUSE-DRUGS AND ALCOHOL, WITH MULTIPLE OVERDOSES) Behavioral Health Disorders: Anxiety, Suicide Attempts, Bipolar, Personality Disorder, Depression Integumentary HX Skin/Integumentary Disorder: No Blood Transfusions Hx Blood Disorders: No Adverse Reaction to a Blood Tr: No Family Medical History Family Medial History: Alcoholism 03 FATHER Arthritis Cancer 03 FATHER Congestive heart failure 03 FATHER Family history: Allergy 09 SISTER Family history: Arthritis 03 MOTHER Family history: Diabetes mellitus 03 FATHER Family history: Hypertension 03 MOTHER History of - anemia 09 SISTER History of drug abuse 09 BROTHER No Family History of: Abdominal aortic aneurysm Early's disease Aphasia Cancer of colon Cataract Chest pain Congenital heart disease Cystic fibrosis Dementia Dysphagia Family history: Alzheimer's disease Family history: Asthma Family history: Breast disease Family history: Cardiovascular disease Family history: Coronary thrombosis Family history: Gastrointestinal disease Family history: Glaucoma Family history: Osteoporosis Family history: Thyroid disorder Headache Hearing loss Heart disease Hereditary disease History of - disorder History of - respiratory disease Human immunodeficiency virus (HIV) seropositivity Hypercholesterolemia Infertile Kidney disease Malignant neoplasm of lung Myocardial infarction Parkinson's disease Prostate cancer Psychotic disorder Seizure disorder Stroke Tuberculosis Physical Exam Vital Signs Vital Sign - Last 12Hours 08/25/16 08/25/16 15:44 19:13 Temp 99.7 Pulse 97 Resp 16 B/P (MAP) 141/90 Pulse Ox 98 O2 Delivery Room Air Capillary Refill : Less Than 3 Seconds General Appearance: cachetic, no apparent distress, other (UNKEMPT, REEKS OF CIGARETTES, MALODOROUS) HEENT: PERRL/EOMI, other (EDENTULOUS) Neck: non-tender, full range of motion, supple, normal inspection Respiratory: normal breath sounds, no respiratory distress, no accessory muscle use Cardiovascular: regular rate, rhythm, no murmur Gastrointestinal: non tender, soft Back: no CVA tenderness, no vertebral tenderness Extremities: normal inspection, no pedal edema Neurologic/Psychiatric: photogrammetric stereo compiler II-XII nml as tested, no motor/sensory deficits, alert, normal mood/affect, oriented x 3 Crainal Nerves: normal hearing, normal speech, PERRL Skin: normal color, warm/dry Progress/Results/Core Measures Results/Orders Lab Results Laboratory Tests Test 08/25/16 16:35 08/25/16 17:21 Range/Units White Blood Count 12.7 H 4.3-11.0 10^3/uL Red Blood Count 5.10 4.35-5.85 10^6/uL Hemoglobin 13.8 13.3-17.7 G/DL Hematocrit 42 40-54 % Mean Corpuscular Volume 82 80-99 FL Mean Corpuscular Hemoglobin 27 25-34 PG Mean Corpuscular Hemoglobin Concent 33 32-36 G/DL Red Cell Distribution Width 17.4 H 10.0-14.5 % Platelet Count 258 130-400 10^3/uL Mean Platelet Volume 8.9 7.4-10.4 FL Neutrophils (%) (Auto) 70 42-75 % Lymphocytes (%) (Auto) 19 12-44 % Monocytes (%) (Auto) 10 0-12 % Eosinophils (%) (Auto) 1 0-10 % Basophils (%) (Auto) 0 0-10 % Neutrophils # (Auto) 8.9 H 1.8-7.8 X 10^3 Lymphocytes # (Auto) 2.4 1.0-4.0 X 10^3 Monocytes # (Auto) 1.3 H 0.0-1.0 X 10^3 Eosinophils # (Auto) 0.2 0.0-0.3 10^3/uL Basophils # (Auto) 0.0 0.0-0.1 10^3/uL Sodium Level 138 135-145 MMOL/L Potassium Level 3.2 L 3.6-5.0 MMOL/L Chloride Level 99 98-107 MMOL/L Carbon Dioxide Level 28 21-32 MMOL/L Anion Gap 11 5-14 MMOL/L Blood Urea Nitrogen 36 H 7-18 MG/DL Creatinine 1.09 0.60-1.30 MG/DL Estimat Glomerular Filtration Rate > 60 BUN/Creatinine Ratio 33 Glucose Level 148 H 70-105 MG/DL Calcium Level 8.6 8.5-10.1 MG/DL Magnesium Level 1.5 L 1.8-2.4 MG/DL Total Bilirubin 0.4 0.1-1.0 MG/DL Aspartate Amino Transf (AST/SGOT) 13 5-34 U/L Alanine Aminotransferase (ALT/SGPT) 14 0-55 U/L Alkaline Phosphatase 89 40-136 U/L Total Creatine Kinase 99 30-200 U/L Creatine Kinase MB 1.2 <6.6 NG/ML Total Protein 6.7 6.4-8.2 GM/DL Albumin 3.5 3.2-4.5 GM/DL TSH [place] Testing 0.74 0.35-4.94 UIU/ML Phenytoin (Dilantin) Level < 0.5 L 10.0-20.0 UG/ML Serum Alcohol < 10 <10 MG/DL Urine Color YELLOW Urine Clarity CLEAR Urine pH 6 5-9 Urine Specific [place] 1.015 L 1.016-1.022 Urine Protein 2+ H NEGATIVE Urine Glucose (UA) NEGATIVE NEGATIVE Urine Ketones NEGATIVE NEGATIVE Urine Nitrite NEGATIVE NEGATIVE Urine Bilirubin NEGATIVE NEGATIVE Urine Urobilinogen NORMAL NORMAL MG/DL Urine Leukocyte Esterase 1+ H NEGATIVE Urine RBC (Auto) 1+ H NEGATIVE Urine RBC 0-2 /HPF Urine WBC 0-2 /HPF Urine Squamous Epithelial Cells RARE /HPF Urine Crystals NONE /LPF Urine Bacteria NONE /HPF Urine Casts NONE /LPF Urine Mucus NEGATIVE /LPF Urine Culture Indicated NO Urine Opiates Screen POSITIVE H NEGATIVE Urine Oxycodone Screen NEGATIVE NEGATIVE Urine Methadone Screen NEGATIVE NEGATIVE Urine Propoxyphene Screen NEGATIVE NEGATIVE Urine Barbiturates Screen NEGATIVE NEGATIVE Ur Tricyclic Antidepressants Screen NEGATIVE NEGATIVE Urine Phencyclidine Screen NEGATIVE NEGATIVE Urine Amphetamines Screen NEGATIVE NEGATIVE Urine Methamphetamines Screen NEGATIVE NEGATIVE Urine Benzodiazepines Screen POSITIVE H NEGATIVE Urine Cocaine Screen NEGATIVE NEGATIVE Urine Cannabinoids Screen POSITIVE H NEGATIVE My Orders Orders - DEEP PEÑA DO Saline Lock/Iv-Start (08/25/16 15:51) Alcohol (08/25/16 15:51) Cbc With Automated Diff (08/25/16 15:51) Comprehensive Metabolic Panel (08/25/16 15:51) Creatine Kinase (08/25/16 15:51) Creatine Kinase Mb (08/25/16 15:51) Drug Screen Stat (Urine) (08/25/16 15:51) Magnesium (08/25/16 15:51) Thyroid Analyzer (08/25/16 15:51) Ua Culture If Indicated (08/25/16 15:51) Saline Lock/Iv-Start (08/25/16 15:51) Lactated Ringers (Lr 1000 Ml Iv Solution (08/25/16 15:51) Magnesium Oxide Tablet (Mag Ox Tablet) (08/25/16 17:15) Potassium Chloride (Tablet) (Klor Con Ta (08/25/16 17:15) Phenytoin (Dilantin) (08/25/16 17:03) Phenytoin Capsule (Dilantin Capsule) (08/25/16 21:00) Medications Given in ED Vital Signs/I&O Vital Sign - Last 12Hours 08/25/16 08/25/16 15:44 19:13 Temp 99.7 99.7 Pulse 97 82 Resp 16 B/P (MAP) 141/90 Pulse Ox 98 O2 Delivery Room Air Blood Pressure Mean: 107 Progress Note : Progress Note PT HAD 2 BRIEF EPISODES OF TREMORS/"TWITCHING" , BUT NOT TRUE TONIC-CLONIC ACTIVITY, AND PT COULD TRACK WITH EYES AND HEAD, AND TALK A LITTLE BUT SPEECH STAMMERING AND MOSTLY UNINTELLIGIBLE--EPISODES LASTED LESS THAN 1 MINUTE EACH, WITH NO POST-ICTAL SYMPTOMS OF ANY KIND, AND PT WOULD IMMEDIATELY FINISH WHAT HE HAD BEEN TRYING TO SAY BEFORE THE EPISODE STARTED. DISCUSSION WITH PT AND DAUGHTER THE IMPORTANCE OF TAKING HIS MEDICATIONS EXACTLY PRESCRIBED, AND THAT HE WILL LIKELY NEED TO BE ON DILANTIN OR SOME TYPE OF SEIZURE MEDICATION FOR THE REST OF HIS LIFE INITIALLY REPORTED TO ME THAT HE HAD REFILLS ON DILANTIN, THEN AT DISMISSAL HE STATES HE DOES NOT HAVE REFILLS AND DOES NOT HAVE ANY MEDICATION AT HOME. WILL SEND IN RX FOR DILANTIN PT STATES HE IS OUT OF HIS MORPHINE AND XANAX., AND HE CAN'T GET ANY MORE UNTIL THE OF THIS MONTH--ADVISED HIM I WOULD NOT REFILL THOSE, AND HE WOULD NEED TO FOLLOW UP WITH DR. LAGUNAS FOR THOSE. ACCORDING TO MED RECONCILIATION, PT FILLED MORPHINE RX ON 08/09/16 FOR #90, AND XANAX #60--BOTH WERE 30 DAY SUPPLIES Departure Impression Impression: Primary Impression: Seizure disorder Additional Impressions: Non-compliance MILD HYPOKALEMIA Hypomagnesemia Disposition: HOME, SELF-CARE Condition: Stable Departure-Patient Inst. Referrals: KIN LAGUNAS MD (PCP/Family) Primary Care Physician Patient Instructions: Seizures, Adult (DC) Add. Discharge Instructions: FOLLOW UP WITH DR. LAGUNAS TOMORROW FOR FURTHER CARE TAKE YOUR MEDICATIONS EXACTLY PRESCRIBED--DO NOT MISS DOSES All discharge instructions reviewed with patient and/or family. Voiced understanding. Scripts Phenytoin Sodium Extended (Dilantin) 100 Mg Capsule 100 MG PO TID, #30 CAP Prov: DEEP PEÑA DO 08/25/16 DEEP PEÑA DO Aug 25, 2016 18:09
[2016-08-25] MEDS ORDERED: PHEN100C4 PO (19:06)
[2016-08-25 19:13] VITALS: BP 138/88
[2016-08-25] MEDS ORDERED: PHENYTOIN 100 MG (DILANTIN) CAP PO SCH (21:00)
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
[2016-11-17] MEDS ORDERED: ALBU2.5V4 IH (16:53)
[2016-11-17] MEDS ORDERED: LORA0.5T PO (16:53)
[2016-11-17] MEDS ORDERED: MAGN400T29 PO (17:07)
[2016-11-17] MEDS ORDERED: PRD10T PO (17:07)
[2016-11-17] MEDS ORDERED: FAMO-119 PO (17:07)
[2016-11-17] MEDS ORDERED: DESV50TA PO (17:07)
[2016-11-17] MEDS ORDERED: MELA3TAB PO (17:07)
[2016-11-17] MEDS ORDERED: MONT10TA21 PO (17:07)
[2016-11-17] MEDS ORDERED: PROP10TA8 PO (17:07)
[2016-11-17] MEDS ORDERED: POLY17PO6 PO (17:07)
[2016-11-17] MEDS ORDERED: PREG75CA PO (17:07)
[2016-11-17] MEDS ORDERED: TAMS0.4C98 PO (17:07)
[2016-11-17] MEDS ORDERED: MIRT15TA6 PO (17:07)
[2016-11-17] MEDS ORDERED: CHOL10007 PO (17:07)
[2016-11-17] MEDS ORDERED: HYDR-3820 PO (17:07)
[2016-11-17] MEDS ORDERED: SIMV40TA4 PO (17:07)
[2016-11-17] MEDS ORDERED: FINA5TAB PO (17:07)
[2016-11-19] MEDS ORDERED: IPRA3AMP INH (11:34)
[2016-11-19] MEDS ORDERED: AMOX-358 PO ×2 (11:36→12:49)
== END 2016-08-25 19:15 | disposition home or self-care (01) ==
LOC: EDUNIT# 15:40 → ER 15:42
DX: G40.909 Epilepsy, unspecified, not intractable, without status epilepticus (principal); E87.6 Hypokalemia; E83.42 Hypomagnesemia; F41.9 Anxiety disorder, unspecified; F31.9 Bipolar disorder, unspecified; F60.9 Personality disorder, unspecified; M47.9 Spondylosis, unspecified; K21.9 Gastro-esophageal reflux disease without esophagitis; I25.10 Atherosclerotic heart disease of native coronary artery without angina pectoris; G47.30 Sleep apnea, unspecified; I25.2 Old myocardial infarction; E78.00 Pure hypercholesterolemia, unspecified; I12.0 Hypertensive chronic kidney disease with stage 5 chronic kidney disease or end stage renal disease; N18.2 Chronic kidney disease, stage 2 (mild); J43.9 Emphysema, unspecified; F17.210 Nicotine dependence, cigarettes, uncomplicated; Z79.82 Long term (current) use of aspirin; Z91.14 Patient's other noncompliance with medication regimen; Z91.5 Personal history of self-harm; Z98.890 Other specified postprocedural states; Z90.89 Acquired absence of other organs
CPT/HCPCS: 36415; 80053; 80185; 80306; 80320; 81000; 82550; 82553; 83735; 84443; 85025; 96360

== ENCOUNTER 2016-08-26 10:27 | Emergency (ER) | payer MEDICARE, MEDICAID ==
[~2016-08-26] VITALS: Ht 167.6 cm; Wt 45.4 kg
[~2016-08-26 10:27] MED LIST changes: +PHEN100C4 PO
--- NOTE | 2016-08-26 10:41 | ED Neurological Problem ---
General Chief Complaint: Neurological Problems Stated Complaint: FALL/SEIZURES Source: patient Exam Limitations: no limitations History of Present Illness Time seen by provider: 10:38 Initial Comments To ER per EMS from home with reports of a fall and left low back pain after this fall. He fell times last night and also states that he had several seizures during the night last night. He was recently stopped from his Dilantin (or stopped taking) about 3 weeks ago. He also ran out of his Xanax and pain pills about one week ago he reported yesterday. However, today, he reports to me that he has enough xanax and morphine left for 3 more days and is not out. Timing/Duration: 1 week Severity: moderate Allergies and Home Medications Allergies Coded Allergies: cefepime (Verified Allergy, Mild, RASH, ITCHING, 07/17/14) Home Medications Alprazolam 2 Mg Tablet, 2 MG PO QID, (Reported) Aspirin 81 Mg Tabec, 81 MG PO HS, (Reported) Atorvastatin Calcium 40 Mg Tablet, 40 MG PO HS, (Reported) Baclofen 10 Mg Tablet, 10 MG PO Q8H PRN for MUSCLE SPASMS, (Reported) Cefdinir 300 Mg Capsule, 300 MG PO BID, #10 Prescribed by: MARIZA CHAN on 09/15/15 1143 Diclofenac Sodium 75 Mg Tablet.dr, 75 MG PO BID, (Reported) Fluticasone/Salmeterol 1 Disk Inhp, 1 PUFF INH BID, (Reported) Ipratropium/Albuterol Sulfate 4 Gm Aer.w.adap, 2 PUFF INH QID, (Reported) Levofloxacin 500 Mg Tablet, 500 MG PO DAILY, #7 Ref 0 Prescribed by: LORE HOBBS on 05/06/16 1409 Omeprazole 40 Mg Capsule.dr, 40 MG PO DAILY, (Reported) Oxycodone HCl/Acetaminophen 1 Each Tablet, 1 EACH PO BID, (Reported) Phenytoin Sodium 100 Mg Cap, 100 MG PO TID, (Reported) Phenytoin Sodium Extended 100 Mg Capsule, 100 MG PO TID, #30 Prescribed by: DEEP PEÑA on 08/25/16 1906 Polyethylene Glycol 17 Gm Pack, 17 GM PO BID, (Reported) Prednisone 20 Mg Tab, 20 MG PO UD, #11 Take 3 tabs(60mg)daily, decrease by 1/2 tab(10mg)daily. Prescribed by: MARIZA CHAN on 09/15/15 1149 Prednisone 20 Mg Tab, 40 MG PO DAILY, #10 Ref 0 Prescribed by: LORE HOBBS on 05/06/16 1409 Pregabalin 150 Mg Capsule, 150 MG PO BID, (Reported) Sertraline HCl 100 Mg Tablet, 100 MG PO DAILY, (Reported) Tamsulosin HCl 0.4 Mg Cap, 0.4 MG PO DAILY, (Reported) Tiotropium [place] 1 Inh Aerp, 1 CAP INH DAILY, (Reported) Constitutional: see HPI Eyes: No Symptoms Reported Ears, Nose, Mouth, Throat: no symptoms reported Respiratory: no symptoms reported Cardiovascular: no symptoms reported Genitourinary: no symptoms reported Musculoskeletal: no symptoms reported Skin: no symptoms reported Psychiatric/Neurological: No Symptoms Reported Endocrine: No Symptoms Reported Past Fxcmykt-Txqlqr-Eknyzu Hx Patient Social History Alcohol Use: Denies Use Recreational Drug Use: No (SMOKES POT) Drug of Choice: marijuana Smoking Status: Current Everyday Smoker Type Used: Cigarettes Recent Hopitalizations: No Immunizations Up To Date Tetanus Booster (TDap): More than 5yrs PED Vaccines UTD: No Date of Pneumonia Vaccine: Jul 17, 2010 Date of Influenza Vaccine: Nov 07, 2012 Seasonal Allergies Seasonal Allergies: No Surgeries HX Surgeries: Yes Surgeries: Abdominal, Cardiac, Tonsillectomy, Vascular Surgery Respiratory Hx Respiratory Disorders: Yes Respiratory Disorders: COPD Cardiovascular Hx Cardiac Disorders: Yes Cardiac Disorders: Coronary Artery Disease, Heart Attack Neurological Hx Neurological Disorders: Yes Neurological Disorders: Neuropathy, Seizure Disorder Reproductive System Hx Reproductive Disorders: No Sexually Transmitted Disease: No HIV/AIDS: No Genitourinary Hx Genitourinary Disorders: Yes Genitourinary Disorders: Renal Failure Gastrointestinal Hx Gastrointestinal Disorders: Yes Gastrointestinal Disorders: Gastroesophageal Reflux, Chronic Constipation, Hiatal Hernia Musculoskeletal Hx Musculoskeletal Disorders: Yes (CHRONIC NECK AND BACK PAIN ) Musculoskeletal Disorders: Arthritis, Chronic Back Pain Endocrine Hx Endocrine Disorders: No HEENT HX ENT Disorders: Yes (TEETH REMOVED) HEENT Disorders: Cataract Loss of Vision: Denies Hearing Impairment: Denies Cancer Hx Cancer: No Psychosocial Hx Psychiatric Problems: Yes Behavioral Health Disorders: Anxiety, Suicide Attempts, Bipolar, Personality Disorder, Depression Integumentary HX Skin/Integumentary Disorder: No Blood Transfusions Hx Blood Disorders: No Adverse Reaction to a Blood Tr: No Family Medical History Family Medial History: Alcoholism 03 FATHER Arthritis Cancer 03 FATHER Congestive heart failure 03 FATHER Family history: Allergy 09 SISTER Family history: Arthritis 03 MOTHER Family history: Diabetes mellitus 03 FATHER Family history: Hypertension 03 MOTHER History of - anemia 09 SISTER History of drug abuse 09 BROTHER No Family History of: Abdominal aortic aneurysm Vicente's disease Aphasia Cancer of colon Cataract Chest pain Congenital heart disease Cystic fibrosis Dementia Dysphagia Family history: Alzheimer's disease Family history: Asthma Family history: Breast disease Family history: Cardiovascular disease Family history: Coronary thrombosis Family history: Gastrointestinal disease Family history: Glaucoma Family history: Osteoporosis Family history: Thyroid disorder Headache Hearing loss Heart disease Hereditary disease History of - disorder History of - respiratory disease Human immunodeficiency virus (HIV) seropositivity Hypercholesterolemia Infertile Kidney disease Malignant neoplasm of lung Myocardial infarction Parkinson's disease Prostate cancer Psychotic disorder Seizure disorder Stroke Tuberculosis Physical Exam Vital Signs Vital Sign - Last 12Hours 08/26/16 10:33 Temp 100.0 Pulse 80 Resp 18 B/P (MAP) 138/92 Pulse Ox 95 O2 Delivery Room Air Capillary Refill : General Appearance: WD/WN, no apparent distress HEENT: PERRL/EOMI, normal ENT inspection Neck: non-tender, full range of motion Respiratory: no respiratory distress, no accessory muscle use Cardiovascular: regular rate, rhythm Gastrointestinal: normal bowel sounds, non tender, soft Back: other (there is no erythema abrasion or ecchymosis to the left low back where he complains of pain) Neurologic/Psychiatric: alert, normal mood/affect, oriented x 3 Crainal Nerves: normal hearing, normal speech, PERRL Skin: normal color, warm/dry Progress/Results/Core Measures Results/Orders My Orders Orders - ZEESHAN BRUMFIELD APRN Lumbar Spine - 2-3 Views (08/26/16 10:37) Phenytoin Capsule (Dilantin Capsule) (08/26/16 10:45) Medications Given in ED Current Medications Medications Dose Ordered Sig/Quyen Route Start Time Stop Time Status Last Admin Dose Admin Phenytoin Sodium 100 mg ONCE ONCE PO 08/26/16 10:45 08/26/16 10:46 DC 08/26/16 10:45 100 MG Vital Signs/I&O Vital Sign - Last 12Hours 08/26/16 10:33 Temp 100.0 Pulse 80 Resp 18 B/P (MAP) 138/92 Pulse Ox 95 O2 Delivery Room Air Progress Note : Progress Note I did offer a dose of Toradol for pain control but he states "well that ain't gonna work" Departure Communication Progress Notes 1147-patient has clear speech until his family member arrives and then he began stuttering and states that he cannot speak without stuttering and cannot speak. However when I ask him if he should [facility] to [facility] he clearly states "no, I refuse". I advised him that I'm concerned that his speech impediment may be an act as he continues to stutter and then he states "no it isn't" very clearly. Impression Impression: Primary Impression: Chronic pain Additional Impression: Seizure disorder Disposition: HOME, SELF-CARE Condition: Stable Departure-Patient Inst. Decision time for Depature: 10:40 Referrals: KIN LAGUNAS MD (PCP/Family) Primary Care Physician Patient Instructions: Seizures, Adult (DC) Add. Discharge Instructions: Go fill your Dilantin prescription that was written yesterday. Any pain or anxiety medications will need to be filled by Dr. Lagunas. All discharge instructions reviewed with patient and/or family. Voiced understanding. Copy Copies To 1: KIN LAGUNAS MD, PETER J APRN Aug 26, 2016 10:41
[2016-08-26] MEDS ORDERED: PHENYTOIN 100 MG (DILANTIN) CAP PO ONE (10:45)
[2016-08-26 12:10] VITALS: BP 141/88
--- NOTE | 2016-08-26 12:26 | Diagnostic Imaging Report ---
INDICATION: Fall. Pain. FINDINGS: Lumbar statures are normal. No acute or suspicious endplate irregularity. There is grade 1 L4 on L5 retrolisthesis of about 5 mm. The remaining levels align normally. No acute abnormality. IMPRESSION: Grade 1 retrolisthesis, L4 on L5. Normal vertebral statures with no acute endplate irregularity. Dictated by: Dictated on workstation # [id number]
== END 2016-08-26 11:54 | disposition home or self-care (01) ==
LOC: EDUNIT# 10:27 → ER 10:28
DX: G40.909 Epilepsy, unspecified, not intractable, without status epilepticus (principal); G89.29 Other chronic pain; M54.5 Low back pain; R29.6 Repeated falls; F41.9 Anxiety disorder, unspecified; F60.9 Personality disorder, unspecified; F32.9 Major depressive disorder, single episode, unspecified; M19.90 Unspecified osteoarthritis, unspecified site; K21.9 Gastro-esophageal reflux disease without esophagitis; K59.09 Other constipation; G62.9 Polyneuropathy, unspecified; I25.10 Atherosclerotic heart disease of native coronary artery without angina pectoris; I25.2 Old myocardial infarction; F12.90 Cannabis use, unspecified, uncomplicated; F17.210 Nicotine dependence, cigarettes, uncomplicated; Z79.82 Long term (current) use of aspirin; Z90.89 Acquired absence of other organs; Z91.5 Personal history of self-harm; Z91.81 History of falling
CPT/HCPCS: 72100; 99283

== ENCOUNTER 2016-09-07 13:33 | Inpatient (IN) | payer MEDICARE, MEDICAID ==
[2016-09-07] VITALS (11 sets, daily range): BP systolic 107–150; BP diastolic 79–96
[~2016-09-07] VITALS: Ht 167.6 cm; Wt 43.8 kg
[2016-09-07] MEDS ORDERED: morphine INJ 10 MG/ML 1ML (SYR OR VIAL) ONE (13:37)
[2016-09-07] MEDS ORDERED: morphine INJ 10 MG/ML 1ML (SYR OR VIAL) IVP STA (13:41)
[2016-09-07 13:49] LABS: MEAN PLATELET VOLUME 8.6 FL (7.4-10.4); RED BLOOD COUNT 5.03 10^6/uL (4.35-5.85); RED CELL DISTRIBUTION WIDTH 18.3 % (10.0-14.5); WHITE BLOOD COUNT 9.2 10^3/uL (4.3-11.0)
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
--- NOTE | 2016-09-07 14:04 | Diagnostic Imaging Report ---
Portable upright radiograph of the chest. INDICATION: Injury. FINDINGS: The lungs are hyperinflated. There is right basilar scarring or atelectasis. Chronic-appearing interstitial thickening is also seen. There is no focal airspace consolidation. Heart size is normal. No significant effusion or pneumothorax. There is an infusion port with the tip at the distal SVC level. IMPRESSION: There is subsegmental right basilar atelectasis or scarring. Dictated by: Dictated on workstation # [id number]
[2016-09-07 14:12] LABS: ALANINE AMINOTRANSFERASE 19 U/L (0-55); ALBUMIN 3.9 GM/DL (3.2-4.5); ALCOHOL < 10 MG/DL (<10); ANION GAP 9 MMOL/L (5-14); ASPARTATE AMINO TRANSFERASE 16 U/L (5-34); BILIRUBIN,DIRECT 0.1 MG/DL (0.0-0.3); BILIRUBIN,INDIRECT 0.3 MG/DL; BILIRUBIN,TOTAL 0.4 MG/DL (0.1-1.0); BLOOD UREA NITROGEN 17 MG/DL (7-18); BUN/CREATININE RATIO 20; CALCIUM 9.1 MG/DL (8.5-10.1); CARBON DIOXIDE 26 MMOL/L (21-32); CHLORIDE 103 MMOL/L (98-107); CREATININE SERUM 0.83 MG/DL (0.60-1.30); GFR ESTIMATED > 60; GLUCOSE 109 MG/DL (70-105); POTASSIUM 4.3 MMOL/L (3.6-5.0); SODIUM 138 MMOL/L (135-145); TOTAL PROTEIN 7.2 GM/DL (6.4-8.2)
[2016-09-07] MEDS ORDERED: CATHETER FLUSH 10 ML SYR IV PRN (15:30)
[2016-09-07] MEDS ORDERED: morphine INJ 10 MG/ML 1ML (SYR OR VIAL) IV PRN (15:30)
[2016-09-07] MEDS ORDERED: ALPR2TAB6 PO (15:58)
[2016-09-07] MEDS ORDERED: IPRA4AER IH (15:58)
[2016-09-07] MEDS ORDERED: ATOR40TA70 PO (15:58)
[2016-09-07] MEDS ORDERED: FINA5TAB6 PO (15:58)
[2016-09-07] MEDS ORDERED: FLUT1DIS27 IH (15:58)
[2016-09-07] MEDS ORDERED: PHEN100C11 PO (15:58)
[2016-09-07] MEDS ORDERED: TIOT18CA2 IH (15:58)
[2016-09-07] MEDS ORDERED: MORP15TA PO (15:58)
[2016-09-07] MEDS ORDERED: OMEP40CA36 PO (15:58)
[2016-09-07] MEDS ORDERED: PREG150C PO (15:58)
[2016-09-07] MEDS ORDERED: METH750T3 PO (15:58)
[2016-09-07] MEDS ORDERED: ONDA4TAB11 PO (15:58)
[2016-09-07] MEDS ORDERED: RT-ALBUTEROL/IPRATROPIUM 3 ML (DUONEB) VIAL INH PRN (16:00)
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
[2016-09-07] MEDS: HYDROcodone/APAP 5 MG/325 MG (LORTAB) TAB PO PRN ×2 (16:23→21:49)
[2016-09-07 16:46] LABS: BILIRUBIN,URINE NEGATIVE (NEGATIVE); KETONES,URINE NEGATIVE (NEGATIVE); LEUKOCYTE ESTERASE ,URINE 1+ (NEGATIVE); NITRITE,URINE NEGATIVE (NEGATIVE); PH,URINE 5 (5-9); PROTEIN,URINE 1+ (NEGATIVE); UROBILINOGEN,URINE NORMAL (NORMAL)
[2016-09-07 16:57] LABS: WBC,URINE RARE /HPF
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
[2016-09-07] MEDS ORDERED: ONDANSETRON 4 MG (ZOFRAN) ORAL DISSOLVE TAB PO PRN (17:45)
[2016-09-07] MEDS: NS IV 1000 ML 1,000 ML IV SCH (19:05)
[2016-09-07] MEDS: morphine IMMEDIATE RELEASE 15 MG TABLET PO SCH (20:10)
[2016-09-07] MEDS: RT-ADVAIR HFA 115/21 MCG PER PUFF IH SCH (20:55)
[2016-09-07] MEDS ORDERED: RT-ALBUTEROL/IPRATROPIUM 3 ML (DUONEB) VIAL INH SCH (21:00)
[2016-09-07] MEDS ORDERED: ALBUTEROL/IPRATROP (COMBIVENT RESPIMAT) 4 GM INHALER IH SCH (21:00)
[2016-09-07] MEDS ORDERED: RT-ALBUTEROL/IPRATROPIUM 3 ML (DUONEB) VIAL IH SCH (21:00)
[2016-09-07] MEDS ORDERED: ALPRAZolam 1 MG (XANAX) TAB PO SCH (21:00)
[2016-09-07] MEDS ORDERED: NON-FORMULARY MEDICATION 1 EA EA (Fluticasone/Salmeterol (Advair 500-50 Diskus) 1 PUFF) IH SCH (21:00)
[2016-09-07] MEDS: CATHETER FLUSH 10 ML SYR IV SCH (21:46)
[2016-09-07] MEDS: ALPRAZolam 1 MG (XANAX) TAB PO PRN (23:32)
[2016-09-08] VITALS (12 sets, daily range): BP systolic 114–162; BP diastolic 73–93
[2016-09-08] MEDS: HYDROcodone/APAP 5 MG/325 MG (LORTAB) TAB PO PRN ×2 (02:08→06:23)
[2016-09-08] MEDS: NS IV 1000 ML 1,000 ML IV SCH ×2 (02:37→04:18)
[2016-09-08 04:20] LABS: BASOPHILS % (AUTO) 0 % (0-10); EOSINOPHILS # (AUTO) 0.6 10^3/uL (0.0-0.3); EOSINOPHILS % (AUTO) 7 % (0-10); LYMPHOCYTES # (AUTO) 2.2 X 10^3 (1.0-4.0); LYMPHOCYTES % (AUTO) 27 % (12-44); MEAN CORPUSCULAR HEMOGLOBIN 28 PG (25-34); MEAN CORPUSCULAR HGB CONC 33 G/DL (32-36); MEAN CORPUSCULAR VOLUME 85 FL (80-99); MONOCYTES # (AUTO) 0.7 X 10^3 (0.0-1.0); MONOCYTES % (AUTO) 8 % (0-12); NEUTROPHILS # (AUTO) 4.7 X 10^3 (1.8-7.8); NEUTROPHILS % (AUTO) 58 % (42-75); PLATELET COUNT 306 10^3/uL (130-400); RED BLOOD COUNT 4.23 10^6/uL (4.35-5.85); RED CELL DISTRIBUTION WIDTH 18.1 % (10.0-14.5); WHITE BLOOD COUNT 8.1 10^3/uL (4.3-11.0)
[2016-09-08 04:41] LABS: ALANINE AMINOTRANSFERASE 15 U/L (0-55); ALBUMIN 3.1 GM/DL (3.2-4.5); ANION GAP 9 MMOL/L (5-14); ASPARTATE AMINO TRANSFERASE 12 U/L (5-34); BILIRUBIN,TOTAL 0.4 MG/DL (0.1-1.0); BLOOD UREA NITROGEN 13 MG/DL (7-18); BUN/CREATININE RATIO 20; CALCIUM 8.3 MG/DL (8.5-10.1); CARBON DIOXIDE 22 MMOL/L (21-32); CHLORIDE 108 MMOL/L (98-107); CREATININE SERUM 0.64 MG/DL (0.60-1.30); GFR ESTIMATED > 60; GLUCOSE 98 MG/DL (70-105); MAGNESIUM 1.9 MG/DL (1.8-2.4); PHOSPHORUS 3.1 MG/DL (2.3-4.7); POTASSIUM 3.9 MMOL/L (3.6-5.0); SODIUM 139 MMOL/L (135-145); TOTAL PROTEIN 5.6 GM/DL (6.4-8.2)
[2016-09-08] MEDS ORDERED: KCL 20 MEQ TAB (K-DUR) PO SCH (06:00)
[2016-09-08] MEDS ORDERED: MAGNESIUM 1 GM/100 ML IVPB 100 ML IV SCH (06:00)
[2016-09-08] MEDS ORDERED: POTASSIUM CL 10MEQ/50ML IVPB 50 ML IV SCH (06:00)
[2016-09-08] MEDS: CATHETER FLUSH 10 ML SYR IV SCH (06:23)
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
[2016-09-08] MEDS ORDERED: UMECLIDINIUM BROMIDE (INCRUSE ELLIPTA) 7'S IH SCH (08:00)
[2016-09-08] MEDS: RT-ALBUTEROL/IPRATROPIUM 3 ML (DUONEB) VIAL IH SCH ×2 (08:11→10:27)
[2016-09-08] MEDS: ALPRAZolam 1 MG (XANAX) TAB PO PRN (08:14)
[2016-09-08] MEDS: morphine IMMEDIATE RELEASE 15 MG TABLET PO SCH (08:17)
[2016-09-08] MEDS: RT-ADVAIR HFA 115/21 MCG PER PUFF IH SCH (08:18)
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
[2016-09-08] MEDS ORDERED: MORP15TA PO (08:38)
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
[2016-09-08] MEDS ORDERED: PHENYTOIN 100 MG (DILANTIN) CAP PO SCH (09:00)
[2016-09-08] MEDS ORDERED: NEO/POLY/BAC (NEOSPORIN) OINT 15 GM TUBE TOP SCH (09:00)
== END 2016-09-08 11:05 | disposition home or self-care (01) | DRG 935 ==
LOC: EDUNIT# 13:33 → ER 13:34 → ICU 13:55
PROVIDERS: ADMIT Surgery; ATTEND Surgery
DX: T20.24XA Burn of second degree of nose (septum), initial encounter (principal); T20.26XA Burn of second degree of forehead and cheek, initial encounter; T20.22XA Burn of second degree of lip(s), initial encounter; T27.6XXA Corrosion of other parts of respiratory tract, initial encounter; T31.0 Burns involving less than 10% of body surface; F12.10 Cannabis abuse, uncomplicated; F13.10 Sedative, hypnotic or anxiolytic abuse, uncomplicated; M54.2 Cervicalgia; F17.210 Nicotine dependence, cigarettes, uncomplicated; J44.9 Chronic obstructive pulmonary disease, unspecified; G47.30 Sleep apnea, unspecified; I25.10 Atherosclerotic heart disease of native coronary artery without angina pectoris; I25.2 Old myocardial infarction; I10 Essential (primary) hypertension; E78.00 Pure hypercholesterolemia, unspecified; G40.909 Epilepsy, unspecified, not intractable, without status epilepticus; G62.9 Polyneuropathy, unspecified; F41.9 Anxiety disorder, unspecified; F31.9 Bipolar disorder, unspecified; F60.9 Personality disorder, unspecified; K21.9 Gastro-esophageal reflux disease without esophagitis; M19.91 Primary osteoarthritis, unspecified site; X08.8XXA Exposure to other specified smoke, fire and flames, initial encounter; Y92.008 Other place in unspecified non-institutional (private) residence as the place of occurrence of the external cause; Y93.89 Activity, other specified; Z91.5 Personal history of self-harm
CPT/HCPCS: 36415; 71010; 80048; 80053; 80076; 80306; 80320; 81000; 83735; 84100; 85025; 85027; 93041; 94640; 96374

== ENCOUNTER 2016-09-18 12:18 | Emergency (ER) | payer MEDICARE, MEDICAID ==
[~2016-09-18] VITALS: Ht 167.6 cm; Wt 45.4 kg
[~2016-09-18 12:18] MED LIST changes: +FINA5TAB6 PO; +FLUT1DIS27 IH; +IPRA4AER IH; +METH750T3 PO; +MORP15TA PO; +ONDA4TAB11 PO; +PHEN100C11 PO; +TIOT18CA2 IH
[2016-09-18] MEDS ORDERED: fentaNYL INJECTION 100 MCG/2 ML AMP IVP STA (12:25)
[2016-09-18 12:55] LABS: BASOPHILS % (AUTO) 0 % (0-10); EOSINOPHILS # (AUTO) 0.1 10^3/uL (0.0-0.3); EOSINOPHILS % (AUTO) 1 % (0-10); LYMPHOCYTES # (AUTO) 1.8 X 10^3 (1.0-4.0); LYMPHOCYTES % (AUTO) 22 % (12-44); MEAN CORPUSCULAR HEMOGLOBIN 28 PG (25-34); MEAN CORPUSCULAR HGB CONC 34 G/DL (32-36); MEAN CORPUSCULAR VOLUME 81 FL (80-99); MEAN PLATELET VOLUME 8.5 FL (7.4-10.4); MONOCYTES # (AUTO) 0.6 X 10^3 (0.0-1.0); MONOCYTES % (AUTO) 8 % (0-12); NEUTROPHILS # (AUTO) 5.7 X 10^3 (1.8-7.8); NEUTROPHILS % (AUTO) 70 % (42-75); PLATELET COUNT 300 10^3/uL (130-400); RED CELL DISTRIBUTION WIDTH 17.2 % (10.0-14.5); WHITE BLOOD COUNT 8.2 10^3/uL (4.3-11.0)
[2016-09-18 13:06] LABS: PROTHROMBIN TIME PATIENT 12.4 SEC (12.2-14.7)
[2016-09-18 13:16] LABS: ALANINE AMINOTRANSFERASE 11 U/L (0-55); ALBUMIN 3.9 GM/DL (3.2-4.5); ANION GAP 13 MMOL/L (5-14); ASPARTATE AMINO TRANSFERASE 12 U/L (5-34); BILIRUBIN,TOTAL 0.6 MG/DL (0.1-1.0); BLOOD UREA NITROGEN 14 MG/DL (7-18); BUN/CREATININE RATIO 20; CALCIUM 9.1 MG/DL (8.5-10.1); CARBON DIOXIDE 22 MMOL/L (21-32); CHLORIDE 98 MMOL/L (98-107); GFR ESTIMATED > 60; GLUCOSE 105 MG/DL (70-105); POTASSIUM 3.5 MMOL/L (3.6-5.0); SODIUM 133 MMOL/L (135-145)
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
--- NOTE | 2016-09-18 13:39 | Diagnostic Imaging Report ---
Portable erect AP chest at 120 hours. INDICATION: Cough and nausea. FINDINGS: Heart size is within normal limits and stable when compared to 09/08/16. The left-sided Groshong catheter noted on the previous study is again evident and unchanged in position. The tip continues to overlie the distal superior vena cava. The chronic pulmonary changes evident on the prior study are again visualized. The lung apices may be slightly better aerated than on the prior exam. There is still a vague area of increased density overlying the left upper lung. It is possible there could be an element of mild pneumonia/atelectasis superimposed on the chronic pulmonary changes in this area. The mediastinum is not widened. The osseous structures are intact. IMPRESSION: The appearance of the chest has improved since the prior exam as the lung apices do seem better aerated. There may be an element of mild pneumonia/atelectasis still present overlying the left upper lung. If further imaging is desired, then CT of the chest would be recommended. If the CT chest is not performed, then a follow up plain film chest exam should be obtained in 2-4 weeks. Dictated by: Dictated on workstation # [id number]
[2016-09-18 14:14] LABS: BILIRUBIN,URINE NEGATIVE (NEGATIVE); KETONES,URINE 2+ (NEGATIVE); LEUKOCYTE ESTERASE ,URINE 1+ (NEGATIVE); NITRITE,URINE NEGATIVE (NEGATIVE); PH,URINE 5 (5-9); PROTEIN,URINE 2+ (NEGATIVE); UROBILINOGEN,URINE NORMAL (NORMAL)
[2016-09-18] MEDS ORDERED: LEVO500T80 PO (14:39)
[2016-09-18 14:50] VITALS: BP 158/100
== END 2016-09-18 14:45 | disposition home or self-care (01) ==
LOC: EDUNIT# 12:18 → ER 12:19
DX: J18.9 Pneumonia, unspecified organism (principal); J44.9 Chronic obstructive pulmonary disease, unspecified; G47.30 Sleep apnea, unspecified; I25.10 Atherosclerotic heart disease of native coronary artery without angina pectoris; I25.2 Old myocardial infarction; E78.00 Pure hypercholesterolemia, unspecified; I10 Essential (primary) hypertension; K21.9 Gastro-esophageal reflux disease without esophagitis; G40.909 Epilepsy, unspecified, not intractable, without status epilepticus; M19.90 Unspecified osteoarthritis, unspecified site; F41.9 Anxiety disorder, unspecified; K59.09 Other constipation; M54.9 Dorsalgia, unspecified; G89.29 Other chronic pain; F31.9 Bipolar disorder, unspecified; F12.10 Cannabis abuse, uncomplicated; Z82.49 Family history of ischemic heart disease and other diseases of the circulatory system; Z77.22 Contact with and (suspected) exposure to environmental tobacco smoke (acute) (chronic); Z87.19 Personal history of other diseases of the digestive system
CPT/HCPCS: 36415; 71010; 80053; 81000; 83605; 85025; 85610; 85730; 87040

== ENCOUNTER 2016-09-20 14:23 | Emergency (ER) | payer MEDICARE, MEDICAID ==
[~2016-09-20] VITALS: Ht 167.6 cm; Wt 49.9 kg
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
[2016-09-20 15:00] LABS: BASOPHILS % (AUTO) 0 % (0-10); EOSINOPHILS # (AUTO) 0.1 10^3/uL (0.0-0.3); EOSINOPHILS % (AUTO) 2 % (0-10); LYMPHOCYTES # (AUTO) 2.3 X 10^3 (1.0-4.0); LYMPHOCYTES % (AUTO) 27 % (12-44); MEAN CORPUSCULAR HEMOGLOBIN 28 PG (25-34); MEAN CORPUSCULAR HGB CONC 34 G/DL (32-36); MEAN CORPUSCULAR VOLUME 82 FL (80-99); MEAN PLATELET VOLUME 8.7 FL (7.4-10.4); MONOCYTES # (AUTO) 0.6 X 10^3 (0.0-1.0); MONOCYTES % (AUTO) 7 % (0-12); NEUTROPHILS # (AUTO) 5.3 X 10^3 (1.8-7.8); NEUTROPHILS % (AUTO) 64 % (42-75); PLATELET COUNT 262 10^3/uL (130-400); RED BLOOD COUNT 4.46 10^6/uL (4.35-5.85); RED CELL DISTRIBUTION WIDTH 17.2 % (10.0-14.5); WHITE BLOOD COUNT 8.3 10^3/uL (4.3-11.0)
[2016-09-20 15:13] LABS: PROTHROMBIN TIME PATIENT 12.5 SEC (12.2-14.7)
[2016-09-20 15:20] LABS: ALANINE AMINOTRANSFERASE 8 U/L (0-55); ALBUMIN 3.4 GM/DL (3.2-4.5); ANION GAP 10 MMOL/L (5-14); ASPARTATE AMINO TRANSFERASE 10 U/L (5-34); BILIRUBIN,TOTAL 0.6 MG/DL (0.1-1.0); BLOOD UREA NITROGEN 11 MG/DL (7-18); BUN/CREATININE RATIO 17; CALCIUM 8.4 MG/DL (8.5-10.1); CARBON DIOXIDE 22 MMOL/L (21-32); CHLORIDE 101 MMOL/L (98-107); CREATINE KINASE 50 U/L (30-200); CREATININE SERUM 0.66 MG/DL (0.60-1.30); GFR ESTIMATED > 60; GLUCOSE 111 MG/DL (70-105); MAGNESIUM 1.3 MG/DL (1.8-2.4); POTASSIUM 3.3 MMOL/L (3.6-5.0); SODIUM 133 MMOL/L (135-145)
--- NOTE | 2016-09-20 15:25 | Diagnostic Imaging Report ---
INDICATION: Respiratory failure. PA and lateral chest. There are emphysematous changes in the lungs. There is a left subclavian Port-A-Cath with tip projecting over the SVC. Lungs are clear. There are no effusions or pneumothoraces. Heart size and pulmonary vascularity are normal. IMPRESSION: COPD. No acute abnormality seen in the chest. Dictated by: Dictated on workstation # [id number]
[2016-09-20 15:26] LABS: TROPONIN I < 0.30 NG/ML (<0.30)
[2016-09-20] MEDS ORDERED: METH4TAB PO (15:36)
[2016-09-20 15:45] LABS: BILIRUBIN,URINE NEGATIVE (NEGATIVE); KETONES,URINE NEGATIVE (NEGATIVE); LEUKOCYTE ESTERASE ,URINE NEGATIVE (NEGATIVE); NITRITE,URINE NEGATIVE (NEGATIVE); PH,URINE 6 (5-9); PROTEIN,URINE 1+ (NEGATIVE); UROBILINOGEN,URINE NORMAL (NORMAL)
[2016-09-20] MEDS ORDERED: KETOROLAC 30 MG/ML VIAL IVP ONE (15:45)
[2016-09-20] MEDS ORDERED: MAGNESIUM OXIDE (MAG-OX)400 MG TAB PO ONE (15:45)
[2016-09-20 15:55] VITALS: BP 136/91
[2016-09-20 15:55] LABS: SQUAMOUS EPITHELIAL CELL,UR 0-2 /HPF
== END 2016-09-20 15:51 | disposition home or self-care (01) ==
LOC: EDUNIT# 14:23 → ER 14:24
DX: F12.10 Cannabis abuse, uncomplicated (principal); F17.210 Nicotine dependence, cigarettes, uncomplicated
CPT/HCPCS: 36415; 71020; 80053; 80185; 80306; 81000; 82550; 82553; 83605; 83735; 83880; 84484; 85025; 85610; 85730; 87040; 93041; 96374

== ENCOUNTER 2016-10-07 11:22 | Inpatient (IN) | payer MEDICARE, MEDICAID ==
[2016-10-07] VITALS (17 sets, daily range): BP systolic 75–144; BP diastolic 40–97
[~2016-10-07] VITALS: Ht 167.6 cm; Wt 50.4 kg
[2016-10-07] MEDS ORDERED: RT-ALBUTEROL SULF 2.5 MG/3 ML PRE-MIX VIAL INH STA (11:28)
[2016-10-07] MEDS ORDERED: methylPREDNISolone 125 MG (Solu-MEDROL) VIAL IVP ONE (11:30)
[2016-10-07] MEDS ORDERED: RT-IPRATROPIUM (ATROVENT) 0.5MG/2.5ML AMP IH ONE (11:30)
[2016-10-07 12:01] LABS: BASOPHILS % (AUTO) 0 % (0-10); EOSINOPHILS # (AUTO) 0.4 10^3/uL (0.0-0.3); EOSINOPHILS % (AUTO) 2 % (0-10); LYMPHOCYTES # (AUTO) 2.6 X 10^3 (1.0-4.0); LYMPHOCYTES % (AUTO) 14 % (12-44); MEAN CORPUSCULAR HEMOGLOBIN 29 PG (25-34); MEAN CORPUSCULAR HGB CONC 32 G/DL (32-36); MEAN CORPUSCULAR VOLUME 89 FL (80-99); MEAN PLATELET VOLUME 8.7 FL (7.4-10.4); MONOCYTES % (AUTO) 5 % (0-12); NEUTROPHILS # (AUTO) 14.5 X 10^3 (1.8-7.8); NEUTROPHILS % (AUTO) 78 % (42-75); PLATELET COUNT 248 10^3/uL (130-400); RED BLOOD COUNT 4.63 10^6/uL (4.35-5.85); RED CELL DISTRIBUTION WIDTH 19.9 % (10.0-14.5); WHITE BLOOD COUNT 18.5 10^3/uL (4.3-11.0)
--- NOTE | 2016-10-07 12:13 | Diagnostic Imaging Report ---
INDICATION: Shortness of breath. Comparison with 09/20/2016. FINDINGS: Obstructive interstitial lung disease is again noted. There has been development of consolidated infiltrate in the right lower lobe since previous exam. The heart is not enlarged. No changes to suggest pulmonary edema. No pneumothorax or pleural effusion. IMPRESSION: 1. Consolidated infiltrate present right lower lobe which is a new finding since previous exam. 2. Obstructive interstitial lung disease again noted. Dictated by: Dictated on workstation # [id number]
[2016-10-07 12:19] LABS: ALANINE AMINOTRANSFERASE 11 U/L (0-55); ALBUMIN 3.7 GM/DL (3.2-4.5); ANION GAP 5 MMOL/L (5-14); ASPARTATE AMINO TRANSFERASE 9 U/L (5-34); BILIRUBIN,TOTAL 0.6 MG/DL (0.1-1.0); BLOOD UREA NITROGEN 12 MG/DL (7-18); BUN/CREATININE RATIO 20; CALCIUM 9.1 MG/DL (8.5-10.1); CARBON DIOXIDE 34 MMOL/L (21-32); CHLORIDE 101 MMOL/L (98-107); CREATININE SERUM 0.61 MG/DL (0.60-1.30); GFR ESTIMATED > 60; GLUCOSE 105 MG/DL (70-105); POTASSIUM 3.8 MMOL/L (3.6-5.0); SODIUM 140 MMOL/L (135-145); TOTAL PROTEIN 6.3 GM/DL (6.4-8.2); hs C REACTIVE PROTEIN 1.56 MG/DL (0.00-0.50)
[2016-10-07 12:21] LABS: BAND NEUTROPHILS 0 %; BASOPHILS % (MANUAL) 0 %; EOSINOPHILS % (MANUAL) 1 %; LYMPHOCYTES % (MANUAL) 17 %; NEUTROPHILS % (MANUAL) 78 %
[2016-10-07 12:22] LABS: ANISOCYTOSIS MODERATE; STOMATOCYTES MODERATE
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
[2016-10-07 12:25] LABS: TROPONIN I < 0.30 NG/ML (<0.30)
[2016-10-07] MEDS ORDERED: LEVOFLOXACIN 750 MG/150 ML IV 150 ML IV ONE (12:30)
[2016-10-07 12:37] LABS: ABG BASE EXCESS 6.6 MMOL/L (-2.5-2.5); ABG HCO3 31 MMOL/L (23-27); ABG OXYGEN SATURATION 98 % (94-100); ABG PCO2 54 MMHG (35-45); ABG PH 7.39 (7.37-7.43); ABG PO2 95 MMHG (79-93); ABG TCO2 33.1 MMOL/L (21.0-31.0); ALLENS TEST YES-POS
[2016-10-07] MEDS ORDERED: 1/2 NS IV SOLUTION 2,000 ML IV ONE (13:14)
[2016-10-07] MEDS ORDERED: fentaNYL INJECTION 100 MCG/2 ML AMP INJ ONE (13:15)
[2016-10-07] MEDS ORDERED: ETOMIDATE IV SOLN 20 MG/10 ML VIAL IV ONE ×2 (13:15→13:30)
[2016-10-07] MEDS ORDERED: SUCCINYLCHOLINE INJ 100 MG/5 ML SYR INJ ONE ×2 (13:15→13:30)
[2016-10-07] MEDS ORDERED: PROPOFOL DRIP (ICU) 100 ML IV ONE (13:20)
[2016-10-07] MEDS ORDERED: NS IV 1000 ML 1,000 ML IV ONE ×3 (13:23→23:15)
[2016-10-07] MEDS ORDERED: proPOfol 200 MG/20 ML (DIPRIVAN) VIAL IV ONE (13:30)
[2016-10-07] MEDS ORDERED: fentaNYL INJECTION 100 MCG/2 ML AMP IVP ONE (13:30)
[2016-10-07] MEDS ORDERED: PROPOFOL DRIP (ICU) 100 ML IV SCH ×2 (13:30→17:00)
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
--- NOTE | 2016-10-07 14:39 | Diagnostic Imaging Report ---
INDICATION: Post intubation. Frontal chest obtained at 1:43 p.m. and compared to the same day at 12:03 p.m. There is a new ET tube in place with tip overlying mid/ lower trachea in good position. There is no change in the Port-A-Cath. There is infiltrate in the right lung base suspicious for pneumonia. There is no pneumothorax or pleural fluid. IMPRESSION: The newly inserted ET tube appears to be in good position. The overall appearance of the chest has not changed significantly since the prior exam. In particular, there is no sign of a pneumothorax on the left. These results were discussed with Dr. Benny Clark. Dictated by: Dictated on workstation # [id number]
[2016-10-07] MEDS ORDERED: PHARMACY TO DOSE IV SCH (14:45)
[2016-10-07] MEDS ORDERED: DEXMEDETOMIDINE INJECTION 400 MCG in NS (IVPB) 100 ML IV SCH (15:00)
[2016-10-07] MEDS ORDERED: PIPERACILLIN/TAZOBACTAM 4.5 GM/NS 100 ML IV NR ×2 (15:00)
[2016-10-07] MEDS ORDERED: VANCOMYCIN 1 GM/NS 250 ML IVPB IV NR ×2 (15:15)
[2016-10-07 15:53] LABS: ABG BASE EXCESS -1.9 MMOL/L (-2.5-2.5); ABG HCO3 24 MMOL/L (23-27); ABG OXYGEN SATURATION 97 % (94-100); ABG PCO2 55 MMHG (35-45); ABG PO2 88 MMHG (79-93); ABG TCO2 25.9 MMOL/L (21.0-31.0)
[2016-10-07 15:59] LABS: ABG PH 7.26 (7.37-7.43); ALLENS TEST YES-POS
[2016-10-07] MEDS ORDERED: CATHETER FLUSH 10 ML SYR IV PRN (16:15)
[2016-10-07] MEDS ORDERED: MORP15TA PO (16:17)
[2016-10-07] MEDS ORDERED: NS IV 1000 ML 1,000 ML ONE ×2 (16:46→19:53)
--- NOTE | 2016-10-07 16:53 | Diagnostic Imaging Report ---
EXAMINATION: Portable erect AP chest at 02:34 p.m. INDICATION: Respiratory distress. FINDINGS: As noted on the exam performed earlier today, there is mild atelectasis/infiltrate involving the right lung base. This is essentially no different than on the prior exam. The lungs are otherwise clear. The lucency overlying the left lung base seen previously appears to have been related to a skin fold. There is no sign of pneumothorax on the left. The heart is stable in size. The mediastinum is not widened. The osseous structures are intact. The ET tube and the [place] catheter noted previously remain unchanged in position. IMPRESSION: 1. Stable chest. There is persistent involvement of the right lung base by atelectasis/pneumonia, but no other acute cardiopulmonary abnormality is noted. In particular, there is no sign of pneumothorax. 2. These results were discussed with Dr. Benny Clark. Dictated by: Dictated on workstation # [id number]
[2016-10-07] MEDS: ENOXAPARIN 40 MG/0.4 ML (LOVENOX) SYR SC SCH (17:12)
[2016-10-07] MEDS: methylPREDNISolone 40 MG/ML (Solu-MEDROL) VIAL IV SCH ×2 (17:12→23:36)
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
[2016-10-07] MEDS ORDERED: NOREPINEPHRINE 4 MG in D5W 250 ML (IVPB) 250 ML IV SCH (19:15)
[2016-10-07] MEDS ORDERED: SODIUM BICARB 8.4% 50 MEQ/50 ML (ABBOTT) SYR ONE (19:53)
[2016-10-07] MEDS ORDERED: NS IV 1000 ML 1,000 ML IV SCH (20:00)
[2016-10-07] MEDS ORDERED: SODIUM BICARB 8.4% 50 MEQ/50 ML (ABBOTT) SYR IV NR (20:00)
[2016-10-07] MEDS: fentaNYL INJECTION 100 MCG/2 ML AMP IVP PRN (20:11)
--- NOTE | 2016-10-07 20:19 | Diagnostic Imaging Report ---
INDICATION: Sepsis and pneumonia Portable semiupright view of the chest is obtained. Comparison is made to the examination of earlier in the day. Overall heart size is within normal limits. There is air trapping bilaterally with interstitial pneumonitis or subsegmental atelectasis involving the left upper lobe and the right lower lobe. No consolidation is seen. Nodular density projected over the left lung base, laterally may be due to superimposition. This was not seen on the previous study of earlier in the day. Endotracheal tube is in place with tip just below the thoracic inlet. Nasogastric tube reaches the distal esophagus. Left anterior chest wall port is in place with catheter tip projecting over the lower superior vena cava without evidence of pneumothorax or complication. IMPRESSION: Subsegmental atelectasis or pneumonitis is seen in both lungs with background of emphysema. Endotracheal tube is in unremarkable position. The nasogastric tube reaches the distal esophagus. Dictated by: Dictated on workstation # [id number]
[2016-10-07] MEDS: CATHETER FLUSH 10 ML SYR IV SCH (21:24)
[2016-10-07] MEDS: PIPERACILLIN SODIUM/TAZOBACTAM 4.5 GM in NS (IVPB) 100 ML IV SCH (21:24)
[2016-10-07 21:43] LABS: ABG BASE EXCESS -1.2 MMOL/L (-2.5-2.5); ABG HCO3 24 MMOL/L (23-27); ABG OXYGEN SATURATION 98 % (94-100); ABG PCO2 48 MMHG (35-45); ABG PO2 91 MMHG (79-93); ABG TCO2 25.7 MMOL/L (21.0-31.0)
[2016-10-07 21:44] LABS: ALLENS TEST YES-POS; PATIENT TEMP 97.8
[2016-10-07 21:45] LABS: ABG PH 7.32 (7.37-7.43)
[2016-10-07 22:17] LABS: TROPONIN I < 0.30 NG/ML (<0.30)
[2016-10-07 22:20] LABS: ALBUMIN 2.8 GM/DL (3.2-4.5); MAGNESIUM 1.4 MG/DL (1.8-2.4); POTASSIUM 3.6 MMOL/L (3.6-5.0)
[2016-10-07] MEDS ORDERED: SODIUM BICARB 8.4% 50 MEQ/50 ML (ABBOTT) SYR IV ONE (23:15)
[2016-10-08] VITALS (18 sets, daily range): BP systolic 110–178; BP diastolic 68–100
[2016-10-08 02:33] LABS: MAGNESIUM 1.3 MG/DL (1.8-2.4); POTASSIUM 3.8 MMOL/L (3.6-5.0)
[2016-10-08 02:57] LABS: ABG BASE EXCESS -2.7 MMOL/L (-2.5-2.5); ABG HCO3 21 MMOL/L (23-27); ABG OXYGEN SATURATION 100 % (94-100); ABG PCO2 33 MMHG (35-45); ABG PH 7.42 (7.37-7.43); ABG PO2 161 MMHG (79-93); ABG TCO2 22.3 MMOL/L (21.0-31.0)
[2016-10-08 03:01] LABS: ALLENS TEST YES-POS; PATIENT TEMP 97.4
[2016-10-08] MEDS ORDERED: VANCOMYCIN 1 GM/NS 250 ML IVPB IV SCH ×2 (04:00)
[2016-10-08 04:08] LABS: BASOPHILS % (AUTO) 0 % (0-10); EOSINOPHILS % (AUTO) 0 % (0-10); LYMPHOCYTES # (AUTO) 0.7 X 10^3 (1.0-4.0); LYMPHOCYTES % (AUTO) 10 % (12-44); MEAN CORPUSCULAR HEMOGLOBIN 28 PG (25-34); MEAN CORPUSCULAR HGB CONC 32 G/DL (32-36); MEAN CORPUSCULAR VOLUME 90 FL (80-99); MEAN PLATELET VOLUME 9.3 FL (7.4-10.4); MONOCYTES # (AUTO) 0.1 X 10^3 (0.0-1.0); MONOCYTES % (AUTO) 1 % (0-12); NEUTROPHILS # (AUTO) 6.2 X 10^3 (1.8-7.8); NEUTROPHILS % (AUTO) 89 % (42-75); PLATELET COUNT 204 10^3/uL (130-400); RED BLOOD COUNT 3.48 10^6/uL (4.35-5.85)
[2016-10-08 04:27] LABS: ANION GAP 11 MMOL/L (5-14); BLOOD UREA NITROGEN 14 MG/DL (7-18); BUN/CREATININE RATIO 22; CALCIUM 7.4 MG/DL (8.5-10.1); CARBON DIOXIDE 22 MMOL/L (21-32); CHLORIDE 111 MMOL/L (98-107); CREATININE SERUM 0.65 MG/DL (0.60-1.30); GFR ESTIMATED > 60; GLUCOSE 147 MG/DL (70-105); MAGNESIUM 1.3 MG/DL (1.8-2.4); PHOSPHORUS 2.6 MG/DL (2.3-4.7); POTASSIUM 3.7 MMOL/L (3.6-5.0); SODIUM 144 MMOL/L (135-145)
[2016-10-08] MEDS: CATHETER FLUSH 10 ML SYR IV SCH ×4 (04:39→21:07)
[2016-10-08] MEDS: PIPERACILLIN SODIUM/TAZOBACTAM 4.5 GM in NS (IVPB) 100 ML IV SCH ×3 (04:39→21:05)
[2016-10-08] MEDS: MAGNESIUM 1 GM/100 ML IVPB 100 ML IV SCH ×4 (04:39→08:25)
[2016-10-08] MEDS ORDERED: NS IV 1000 ML 1,000 ML IV ONE (05:00)
[2016-10-08] MEDS: methylPREDNISolone 40 MG/ML (Solu-MEDROL) VIAL IV SCH ×3 (05:04→17:29)
--- NOTE | 2016-10-08 05:25 | Pulmonary Progress Note ---
Subjective Time Seen by Provider: 05:20 Subjective/Events-last exam PT is doing well on ventilator and only requiring 21% oxygen. Exam Exam Vital Signs Date Time Temp Pulse Resp B/P (MAP) Pulse Ox O2 Delivery O2 Flow Rate FiO2 10/08/16 05:00 73 14 125/74 97 Mechanical Ventilator 25.00 10/08/16 04:00 98 Mechanical Ventilator 21.00 10/08/16 04:00 71 14 125/74 98 Mechanical Ventilator 25.00 10/08/16 03:50 70 15 98 21 10/08/16 03:00 76 16 112/69 97 Mechanical Ventilator 25.00 10/08/16 02:00 68 14 140/94 Mechanical Ventilator 25.00 10/08/16 01:58 70 15 98 25 10/08/16 01:00 72 10/08/16 01:00 78 12 126/76 97 Mechanical Ventilator 25.00 10/08/16 00:00 98 Mechanical Ventilator 25.00 10/08/16 00:00 97.9 69 14 110/68 97 Mechanical Ventilator 25.00 10/07/16 23:55 70 15 98 25 10/07/16 23:00 70 14 114/69 98 Mechanical Ventilator 25.00 10/07/16 22:13 71 102/70 10/07/16 22:00 72 13 92/62 97 Mechanical Ventilator 25.00 10/07/16 21:27 80 20 100 25 10/07/16 21:00 65 14 125/82 Mechanical Ventilator 25.00 10/07/16 20:12 75 16 100 30 10/07/16 20:00 97.8 81 25 87/52 Mechanical Ventilator 25.00 10/07/16 20:00 98 Mechanical Ventilator 30.00 10/07/16 19:14 73 22 100 30 10/07/16 19:00 80 10/07/16 19:00 71 20 124/71 96 Mechanical Ventilator 30.00 10/07/16 18:00 99.6 10/07/16 18:00 76 22 91/62 100 Mechanical Ventilator 50.00 10/07/16 17:00 94 19 144/94 98 Mechanical Ventilator 50.00 10/07/16 16:38 87 20 98 30 10/07/16 16:30 98 Mechanical Ventilator 50.00 100 10/07/16 16:04 100 Mechanical Ventilator 50 10/07/16 16:00 92 20 90/73 Mechanical Ventilator 50.00 10/07/16 15:03 96 25 100 30 10/07/16 15:00 94 23 123/87 Mechanical Ventilator 50.00 10/07/16 14:50 102/63 10/07/16 14:36 35 10/07/16 14:30 99.2 10/07/16 14:04 99.0 97 16 98 Mechanical Ventilator 10/07/16 13:45 97 14 99 35 10/07/16 12:26 105 41 97 25.00 10/07/16 12:04 99.0 101 30 129/90 92 Nasal Cannula 10/07/16 12:00 99 Simple Mask 6.00 100 10/07/16 11:58 Nasal Cannula 4.00 General Appearance: Mild Distress HEENT: Normal ENT Inspection, Pharynx Normal Neck: Normal Inspection Respiratory: Accessory Muscle Use, Decreased Breath Sounds Cardiovascular: No Edema, No Gallop, No JVD, Tachycardia Capillary Refill: Less Than 3 Seconds Gastrointestinal: normal bowel sounds, non tender, soft Extremity: Normal Capillary Refill, Normal Inspection, No Pedal Edema Neurologic/Psychiatric: Other (sedated on vent) Skin: Warm/Dry, Cool Lymphatic: No Adenopathy Results Lab Laboratory Tests 10/07/16 11:45 10/07/16 21:40 10/08/16 02:14 10/08/16 04:00 Assessment/Plan Assessment/Plan Acute respiratory failure -attempt to wean/extubate patient today after he awakes ventilatory support -Sputum culture, wan cultures pending Pneumonia RLL with severe sepsis -PT has already received 30cc/kg of IVF bolus -Pt has a subclavian Mediport Probable suicidal attempt with probable Ativan OD -Mental health consult when patient is stable Hypotension secondary to intubation and dehydration - much improved -Continue IVF 233 Clinical Quality Measures DVT/VTE Risk/Contraindication: Risk Factor Score Per Nursin RFS Level Per Nursing on Admit: 3=High TIMOTHY LUEVANO DO Oct 08, 2016 05:25
[2016-10-08] MEDS ORDERED: MAGNESIUM 1 GM/100 ML IVPB 100 ML IV SCH (06:00)
[2016-10-08] MEDS ORDERED: POTASSIUM CL 10MEQ/50ML IVPB 50 ML IV SCH (06:00)
[2016-10-08] MEDS ORDERED: KCL 20 MEQ TAB (K-DUR) PO SCH (06:00)
[2016-10-08] MEDS: PANTOPRAZOLE 40 MG (PROTONIX) TAB PO SCH (06:40)
[2016-10-08] MEDS: NS IV 1000 ML 1,000 ML IV SCH ×2 (06:42→14:46)
--- NOTE | 2016-10-08 07:53 | Diagnostic Imaging Report ---
INDICATION: Followup ventilator support, ICU care management. Comparison study: Chest from yesterday. Findings: Portable view of the chest demonstrates an endotracheal tube, orogastric tube and left arm PICC line remaining in place. The orogastric tube has been pulled back further. The tip is in the mid esophagus. This needs to be repositioned. COPD changes are again identified. Infiltrates in the left upper lung and right lung base are stable. IMPRESSION: 1. Stable pulmonary infiltrates and COPD. 2. The orogastric tube has been pulled back further and is now in the midesophagus. This needs to be repositioned. Dictated by: Dictated on workstation # [id number]
[2016-10-08] MEDS: fentaNYL INJECTION 100 MCG/2 ML AMP IVP PRN (08:26)
--- NOTE | 2016-10-08 08:37 | Progress Note (SOAP) ---
Subjective Subjective Date Seen by Provider: Oct 08, 2016 Time Seen by Provider: 08:32 66 yo M- extubated today- He has ate 2 breakfasts. He reports he took 40 xanax, understands that he will not be rx benzos by myself. Admits it was dumb. Promises that he won't try it again. Denies suicidal ideation now. -He is under stress which may have contributed to his actions- daughter went back to [place] and he is having trouble with Lou Steen, gearcase assembler securing a homeopathic doctor for him. Previous 2 attempts- one with hydrocodone another time with xanax. Review of Systems General: No Chills, No Night Sweats HEENT: No Head Aches, No Visual Changes Pulmonary: Dyspnea, Cough Cardiovascular: No: Chest Pain, Palpitations Gastrointestinal: No: Nausea, Vomiting, Abdominal Pain Genitourinary: No Dysuria, No Frequency, Retention Musculoskeletal: back pain, leg pain, No: neck pain Neurological: Weakness, Numbness (in feet) Objective Exam Vital Signs Vital Signs Date Time Temp Pulse Resp B/P (MAP) Pulse Ox O2 Delivery O2 Flow Rate FiO2 10/08/16 07:00 81 10/08/16 06:30 100 Nasal Cannula 2.00 10/08/16 06:00 77 21 162/92 98 Mechanical Ventilator 21.00 10/08/16 05:00 73 14 125/74 97 Mechanical Ventilator 25.00 10/08/16 04:00 98 Mechanical Ventilator 21.00 10/08/16 04:00 71 14 125/74 98 Mechanical Ventilator 25.00 10/08/16 03:50 70 15 98 21 10/08/16 03:00 76 16 112/69 97 Mechanical Ventilator 25.00 10/08/16 02:00 68 14 140/94 Mechanical Ventilator 25.00 10/08/16 01:58 70 15 98 25 10/08/16 01:00 72 10/08/16 01:00 78 12 126/76 97 Mechanical Ventilator 25.00 10/08/16 00:00 98 Mechanical Ventilator 25.00 10/08/16 00:00 97.9 69 14 110/68 97 Mechanical Ventilator 25.00 10/07/16 23:55 70 15 98 25 10/07/16 23:00 70 14 114/69 98 Mechanical Ventilator 25.00 10/07/16 22:13 71 102/70 10/07/16 22:00 72 13 92/62 97 Mechanical Ventilator 25.00 10/07/16 21:27 80 20 100 25 10/07/16 21:00 65 14 125/82 Mechanical Ventilator 25.00 10/07/16 20:12 75 16 100 30 10/07/16 20:00 97.8 81 25 87/52 Mechanical Ventilator 25.00 10/07/16 20:00 98 Mechanical Ventilator 30.00 10/07/16 19:14 73 22 100 30 10/07/16 19:00 80 10/07/16 19:00 71 20 124/71 96 Mechanical Ventilator 30.00 10/07/16 18:00 99.6 10/07/16 18:00 76 22 91/62 100 Mechanical Ventilator 50.00 10/07/16 17:00 94 19 144/94 98 Mechanical Ventilator 50.00 10/07/16 16:38 87 20 98 30 10/07/16 16:30 98 Mechanical Ventilator 50.00 100 10/07/16 16:04 100 Mechanical Ventilator 50 10/07/16 16:00 92 20 90/73 Mechanical Ventilator 50.00 10/07/16 15:03 96 25 100 30 10/07/16 15:00 94 23 123/87 Mechanical Ventilator 50.00 10/07/16 14:50 102/63 10/07/16 14:36 35 10/07/16 14:30 99.2 10/07/16 14:04 99.0 97 16 98 Mechanical Ventilator 10/07/16 13:45 97 14 99 35 10/07/16 12:26 105 41 97 25.00 10/07/16 12:04 99.0 101 30 129/90 92 Nasal Cannula 10/07/16 12:00 99 Simple Mask 6.00 100 10/07/16 11:58 Nasal Cannula 4.00 I & O 10/09/16 07:00 Intake Total 100 ml Balance 100 ml General Appearance: No Apparent Distress, Cachetic, Thin HEENT: PERRL/EOMI, Other (edentulous) Neck: Normal Inspection Respiratory: Accessory Muscle Use, Decreased Breath Sounds, Rales (coarse), Wheezing Cardiovascular: Regular Rate, Rhythm, No Edema, No Gallop, No JVD, Tachycardia Gastrointestinal: Non Tender, Soft Rectal: Deferred Extremity: Normal Capillary Refill, Normal Inspection, No Pedal Edema Neurologic/Psychiatric: Alert, Oriented x3, Other (sedated on vent) Skin: Warm/Dry, Cool Lymphatic: No Adenopathy Results Lab Laboratory Tests 10/07/16 11:45: White Blood Count 18.5H, Red Blood Count 4.63, Hemoglobin 13.2L, Hematocrit 41, Mean Corpuscular Volume 89, Mean Corpuscular Hemoglobin 29, Mean Corpuscular Hemoglobin Concent 32, Red Cell Distribution Width 19.9H, Platelet Count 248, Mean Platelet Volume 8.7, Neutrophils (%) (Auto) 78H, Lymphocytes (%) (Auto) 14 , Monocytes (%) (Auto) 5, Eosinophils (%) (Auto) 2, Basophils (%) (Auto) 0, Neutrophils # (Auto) 14.5H, Lymphocytes # (Auto) 2.6, Monocytes # (Auto) 1.0, Eosinophils # (Auto) 0.4H, Basophils # (Auto) 0.0, Neutrophils % (Manual) 78, Lymphocytes % (Manual) 17, Monocytes % (Manual) 4, Eosinophils % (Manual) 1, Basophils % (Manual) 0, Band Neutrophils 0, Anisocytosis MODERATE, Stomatocytes MODERATE, Sodium Level 140, Potassium Level 3.8, Chloride Level 101, Carbon Dioxide Level 34H, Anion Gap 5, Blood Urea Nitrogen 12, Creatinine 0.61, Estimat Glomerular Filtration Rate > 60, BUN/Creatinine Ratio 20, Glucose Level 105, Lactic Acid Level 0.75, Calcium Level 9.1, Total Bilirubin 0.6, Aspartate Amino Transf (AST/SGOT) 9, Alanine Aminotransferase (ALT/SGPT) 11, Alkaline Phosphatase 82, Troponin I < 0.30, C-Reactive Protein High Sensitivity 1.56H, Total Protein 6.3L, Albumin 3.7 10/07/16 12:13: Blood Gas Puncture Site RT RADIAL, Blood Gas Patient Temperature 99.0, Arterial Blood pH 7.39, Arterial Blood Partial Pressure CO2 54H, Arterial Blood Partial Pressure O2 95H, Arterial Blood HCO3 31H, Arterial Blood Total CO2 33.1H, Arterial Blood Oxygen Saturation 98, Arterial Blood Base Excess 6.6H, Benja Test YES-POS, Blood Gas Ventilator Setting NO, Blood Gas Inspired Oxygen 8 10/07/16 15:45: Blood Gas Puncture Site RT BRACHIAL, Blood Gas Patient Temperature 98.0, Arterial Blood pH 7.26*L, Arterial Blood Partial Pressure CO2 55H, Arterial Blood Partial Pressure O2 88, Arterial Blood HCO3 24, Arterial Blood Total CO2 25.9, Arterial Blood Oxygen Saturation 97, Arterial Blood Base Excess -1.9, Benja Test YES-POS, Blood Gas Ventilator Setting YES, Blood Gas Inspired Oxygen 30% 10/07/16 20:15: Urine Opiates Screen NEGATIVE, Urine Oxycodone Screen NEGATIVE, Urine Methadone Screen NEGATIVE, Urine Propoxyphene Screen NEGATIVE, Urine Barbiturates Screen NEGATIVE, Ur Tricyclic Antidepressants Screen POSITIVEH, Urine Phencyclidine Screen NEGATIVE, Urine Amphetamines Screen NEGATIVE, Urine Methamphetamines Screen NEGATIVE, Urine Benzodiazepines Screen NEGATIVE, Urine Cocaine Screen NEGATIVE, Urine Cannabinoids Screen NEGATIVE 10/07/16 21:35: Blood Gas Puncture Site R RAD, Blood Gas Patient Temperature 97.8, Arterial Blood pH 7.32*L, Arterial Blood Partial Pressure CO2 48H, Arterial Blood Partial Pressure O2 91, Arterial Blood HCO3 24, Arterial Blood Total CO2 25.7, Arterial Blood Oxygen Saturation 98, Arterial Blood Base Excess -1.2, Benja Test YES-POS, Blood Gas Ventilator Setting YES, Blood Gas Inspired Oxygen 25% 10/07/16 21:40: Potassium Level 3.6, Lactic Acid Level 3.33*H, Magnesium Level 1.4L, Troponin I < 0.30, B-Type Natriuretic Peptide 25.4, Albumin 2.8L 10/08/16 02:14: Potassium Level 3.8, Lactic Acid Level 2.53*H, Magnesium Level 1.3L 10/08/16 02:50: Blood Gas Puncture Site R BRACH, Blood Gas Patient Temperature 97.4, Arterial Blood pH 7.42, Arterial Blood Partial Pressure CO2 33L, Arterial Blood Partial Pressure O2 161H, Arterial Blood HCO3 21L, Arterial Blood Total CO2 22.3, Arterial Blood Oxygen Saturation 100, Arterial Blood Base Excess -2.7L, Benja Test YES-POS, Blood Gas Ventilator Setting YES, Blood Gas Inspired Oxygen 21% 10/08/16 04:00: White Blood Count 7.0, Red Blood Count 3.48L, Hemoglobin 9.9#L, Hematocrit 31L, Mean Corpuscular Volume 90, Mean Corpuscular Hemoglobin 28, Mean Corpuscular Hemoglobin Concent 32, Red Cell Distribution Width 20.0H, Platelet Count 204, Mean Platelet Volume 9.3, Neutrophils (%) (Auto) 89H, Lymphocytes (%) (Auto) 10L , Monocytes (%) (Auto) 1, Eosinophils (%) (Auto) 0, Basophils (%) (Auto) 0, Neutrophils # (Auto) 6.2, Lymphocytes # (Auto) 0.7L, Monocytes # (Auto) 0.1, Eosinophils # (Auto) 0.0, Basophils # (Auto) 0.0, Sodium Level 144, Potassium Level 3.7, Chloride Level 111#H, Carbon Dioxide Level 22, Anion Gap 11, Blood Urea Nitrogen 14, Creatinine 0.65, Estimat Glomerular Filtration Rate > 60, BUN/ Creatinine Ratio 22, Glucose Level 147H, Lactic Acid Level 3.11*H, Calcium Level 7.4L, Phosphorus Level 2.6, Magnesium Level 1.3L Assessment/Plan Assessment/Plan Assessment/Plan 66 yo M Acute respiratory failure secondary to medication overdose, pneumonia, sepsis - extubated 10/08/16 -Dr. Clark consulted Severe Sepsis RLL Pneumonia- IVF 30cc/kg bolus, IVF- intubated- urine, sputum, blood culture- on vancomycin, zosyn -Left chest port history of COPD- methylprednisolone 40mg q6hr IV Suspected suicidal attempt- xanax, and daughter thinks he got his hands on some ativan. UDS + trycyclics only. -social studies department chair consult -Psych eval Hypotension- secondary to intubation, propofol, dehydation- IVF- resolved Anxiety- pt likely overdosed. I will be done prescribing xanax chronic pain- morphine held at this time. Depression- psych consult h/o polysubstance abuse- marijuana, benzos, tobacco UDS + tricyclics. hypomagnesemia- replacing Dispo: improved, extubated today- psych evaluation to be performed. -transfer to the floor- -once prelim cultures are back- likely can d/c vancomycin. Problems: Clinical Quality Measures DVT/VTE Risk/Contraindication: Risk Factor Score Per Nursin RFS Level Per Nursing on Admit: 3=High KIN LAGUNAS MD Oct 08, 2016 08:37
[2016-10-08] MEDS: FINASTERIDE (PROSCAR) 5 MG TAB PO SCH (11:24)
[2016-10-08] MEDS: PREGABALIN 100 MG (LYRICA) CAPSULE PO SCH ×2 (11:24→21:05)
--- NOTE | 2016-10-08 11:37 | Physical Therapy Evaluation ---
PT Evaluation-General Medical Diagnosis Admission Date Oct 07, 2016 at 13:51 Medical Diagnosis: Severe sepsis/pneumonia Onset Date: Oct 07, 2016 Therapy Diagnosis Therapy Diagnosis: generalized weakness/debility Height/Weight Height (Feet): 5 Height (Inches): 6.00 Weight (Pounds): 111 Weight (Ounces): 1.0 Precautions Precautions/Isolations: Fall Prevention, Standard Precautions Referral Physician: Amber Reason for Referral: Evaluation/Treatment Medical History Pertinent Medical History: Arthritis, CAD, COPD (O2 dependent), HTN, CA, Neuropathy, Smoking Additional Medical History suicide attempts/anxiety/depression Current History ER secondary to SOA, resp. distress family concerns with living alone wt. loss Reviewed History: Yes Social History Home: Apartment Current Living Status: Alone Entry Into Home: Level Entry Prior/Core FIM Prior Level of Function Functional [place] Measure 0=Not Assessed/NA 4=Minimal Assistance 1=Total Assistance 5=Supervision or Setup 2=Maximal Assistance 6=Modified [place] 3=Moderate Assistance 7=Complete [place] Bed Mobility: 7 Transfers (B,C,W/C) (FIM): 7 Gait: 7 PT Evaluation-Current Subjective Patient is alert and agrees to PT. Pain Numeric Pain Scale: 0-No Pain Location: No Pain Reported Objective Patient Orientation: Normal For Age Attachments: IV ROM/Strength ROM Lower Extremities bilateral LE WNL Strenght Lower Extremities bilateral LE WNL Integumentary/Posture Integumentary refer to nursing notes Bowel Incontinence: No Bladder Incontinence: No Posture WNL Neuromuscular (Tone, Coordination, Reflexes) diminished coordination due deconditioned Sensory Vision: Functional Hearing: Functional Sensation Right Lower Extremit: Impaired Sensation Left Lower Extremity: Impaired Transfers Functional [place] Measure 0=Not Assessed/NA 4=Minimal Assistance 1=Total Assistance 5=Supervision or Setup 2=Maximal Assistance 6=Modified [place] 3=Moderate Assistance 7=Complete [place] Transfers (B, C, W/C) (FIM): 7 Scootin Rollin Supine to/from Sit: 7 Sit to/from Stand: 7 Gait Mode of Locomotion: Walk Anticipated Mode of Locomotion: Walk Gait (FIM): 4 Distance (FIM): 3=150 ft Distance: 300' Gait Level of Assist: 4 Gait Persons Needed: 1 Gait 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 male, will benefit from short term skilled PT to address functional mobility to improve current LOF. Patient is limited with mobility due to deconditioned state. Rehab Potential: Fair Post Rehab Potential-Barriers: compliance PT Halfway Goals Convict Guard Goals PT Halfway Goals Time Frame: Oct 22, 2016 Transfers (B,C,W/C) (FIM): 7 Gait (FIM): 7 Gait distance (FIM): 3=150 ft Gait Level of Assist: 5 Gait Assistive Device: None, FWW PT Plan Treatment/Plan Treatment Plan: Continue Plan of Care Treatment Plan: Education, Functional Activity Tammy, Functional Strength, Gait , Safety, Therapeutic Exercise Treatment Duration: Oct 22, 2016 Frequency: 5 times per week Estimated Hrs Per Day: .25 hour per day Patient and/or Family Agrees t: Yes Safety Risks/Education Patient Education: Safety Issues Teaching Recipient: Patient Teaching Methods: Discussion Response to Teaching: Verbalize Understanding Time/GCodes Time In: 1000 Time Out: 1025 Total Billed Treatment Time: 25 Total Billed Treatment 1 visit EVMod 25 min G Codes Necessary: STEPHANIE López PT Oct 08, 2016 11:37
--- NOTE | 2016-10-08 14:03 | Occupational Therapy Eval ---
OT Evaluation-General/PLF Medical Diagnosis Admission Date Oct 07, 2016 at 13:51 Medical Diagnosis: Severe sepsis/pneumonia Onset Date: Oct 07, 2016 Therapy Diagnosis Therapy Diagnosis: debility Height/Weight Height (Feet): 5 Height (Inches): 6.00 Weight (Pounds): 111 Weight (Ounces): 1.0 Precautions Precautions/Isolations: Fall Prevention, Standard Precautions Safety Interventions: Bed Exit Alarm Referral Physician: Amber Medical History Pertinent Medical History: Arthritis, CAD, COPD (O2 dependent), GERD, HTN, PA, Neuropathy, Smoking Additional Medical History chronic bronchitis, sleep apnea, emphysema, high cholesterol, seizure disorder, chronic constipation, hiatal hernia, DDD, chronic neck and back pain, anxiety, depression, bipolar, suicide attempts Social History Home: Apartment Current Living Status: Alone Entry Into Home: Stairs With Railing Steps Into Home: 1 ADL-Prior Level of Function ADL PLOF Comments Pt states he is normally independent with basic self care and mobility. Does not use any assistive devices for mobility. Does not drive. DME/Equipment: Grab Bars, Tub/Shower Drive Self: No OT Current Status Subjective Pt in bed, agrees to treatment. Pt reports 10/10 back/neck pain. Mental Status/Objective Patient Orientation: Person, Place Attachments: IV, Oxygen Current Glasses/Contacts: Yes Hearing Aids: No Dentures/Partials: No (has dentures, but does not wear them) Hand Dominance: Right Upper Extremity ROM Grossly WFL Upper Extremity Coordination Intact Upper Extremity Sensation No c/o numbness or tingling in UE Upper Extremity Strength Grossly 4/5 ADL-Treatment ADL-Current Pt finishing lunch when therapist arrives. Pt states he was able to open containers and feed self without assistance. Supine to sit without assistance using bed rails. Pt participated in UE assessment while seated EOB. Pt demonstrated ability to doff/don socks with SBA while seated EOB. Sit to stand with modified independence. Pt does not have any LOB. Pt returned to bed, sit to supine with modified independence. Pt in bed with needs met after session. Functional [place] Measure 0=Not Assessed/NA 4=Minimal Assistance 1=Total Assistance 5=Supervision or Setup 2=Maximal Assistance 6=Modified [place] 3=Moderate Assistance 7=Complete IndependenceIRFPAI Quality Coding Scale 6 Independent with activity with or without an assistive device 5 Patient requires set up or clean up by helper. Patient completes activity by themselves 4 Supervision or touching assist (CGA). [place] provide cues , steadying assist 3 The helper provides less than half the effort to complete the activity 2 The helper provides more than half the effort to complete the activity 1 Dependent. The helper does all the effort to complete an activity 7 Patient refused to complete or attempt activity 9 The patient did not perform the activity before the current illness or injury 88 Not attempted due to Medical conditions or safety concerns Eating (FIM): 6 (by pt report) Toileting (FIM): 5 (socks only) Education OT Patient Education: Rehab process Teaching Recipient: Patient Teaching Methods: Discussion Response to Teaching: Verbalize Understanding OT Short Term Goals Short Term Goals 1=Demonstrate adherence to instructed precautions during ADL tasks. 2=Patient will verbalize/demonstrate understanding of assistive devices/ modifications for ADL. 3=Patient will improve strength/tolerance for activity to enable patient to perform ADL's. OT Talent Manager Goals Prison Goals Time Frame: Oct 22, 2016 Grooming(FIM): 6 Bathing(FIM): 6 Upper Body Dressing(FIM): 6 Lower Body Dressing(FIM): 6 Toileting(FIM): 6 Toilet/Commode Transfer(FIM): 6 Additional Goals: 2-Verbalize Understanding, 3-ImproveStrength/Tammy 1=Demonstrate adherence to instructed precautions during ADL tasks. 2=Patient will verbalize/demonstrate understanding of assistive devices/ modifications for ADL. 3=Patient will improve strength/tolerance for activity to enable patient to perform ADL's. OT Education/Plan Problem List/Assessment Assessment: Decreased Activ Tolerance, Decreased UE Strength, Dependent Transfers, Impaired Self-Care Skills Pt to benefit from short term skilled OT intervention for ADL training, transfers, strengthening, and home safety education to maximize level of function and allow safe return home. Discharge Recommendations Plan/Recommendations: Continue POC Treatment Plan/Plan of Care Treatment,Training & Education: Yes Patient would benefit from OT for education, treatment and training to promote independence in ADL's, mobility, safety and/or upper extremity function for ADL' s. Plan of Care: ADL Retraining, Functional Mobility, UE Funct Exercise/Act Treatment Duration: Oct 22, 2016 Frequency: 5 times per week Estimated Hrs Per Day: .5 hour per day Agreement: Yes Rehab Potential: Fair Time/GCodes Start Time: 13:38 Stop Time: 13:55 Total Time Billed (hr/min): 17 Billed Treatment Time 1 visit, EVL(17minutes) JANELL SANTIAGO OT Oct 08, 2016 14:03
[2016-10-08] MEDS ORDERED: TROUGH ORDER-PHARMACY XX NR (15:00)
[2016-10-08] MEDS: ENOXAPARIN 40 MG/0.4 ML (LOVENOX) SYR SC SCH (16:03)
[2016-10-08] MEDS: VANCOMYCIN 1250 MG/NS 250 ML IVPB IV SCH ×2 (17:28)
[2016-10-08] MEDS: morphine IMMEDIATE RELEASE 15 MG TABLET PO PRN (17:28)
[2016-10-08] MEDS ORDERED: RT-ALBUTEROL/IPRATROPIUM 3 ML (DUONEB) VIAL INH PRN (19:00)
[2016-10-08] MEDS: PHENYTOIN 100 MG (DILANTIN) CAP PO SCH (21:05)
[2016-10-08] MEDS: LORazepam 1 MG (ATIVAN) TAB PO SCH (21:06)
[2016-10-08] MEDS: RT-ADVAIR HFA 115/21 MCG PER PUFF IH SCH (21:31)
[2016-10-08] MEDS: RT-ALBUTEROL/IPRATROPIUM 3 ML (DUONEB) VIAL INH SCH (21:32)
[2016-10-08 22:29] LABS: CALCIUM IONIZED 1.11 mmol/L (1.16-1.32); CORRECTED IONIZED CALCIUM 1.07 mmol/L (1.16-1.32)
[2016-10-08 22:34] LABS: CALCIUM IONIZED 1.1 mmol/L (1.16-1.32); CORRECTED IONIZED CALCIUM 1.04 mmol/L (1.16-1.32)
[2016-10-08] MEDS: ACETAMINOPHEN 325 MG TABLET/CAPLET (TYLENOL) PO PRN (22:43)
[2016-10-09] MEDS: NS IV 1000 ML 1,000 ML IV SCH ×3 (00:02→09:41)
[2016-10-09 00:11] VITALS: BP 130/65
[2016-10-09] MEDS: methylPREDNISolone 40 MG/ML (Solu-MEDROL) VIAL IV SCH ×2 (00:21→05:17)
[2016-10-09] MEDS: RT-ALBUTEROL/IPRATROPIUM 3 ML (DUONEB) VIAL INH SCH ×6 (02:00→21:30)
[2016-10-09 03:11] VITALS: BP 147/65
[2016-10-09] MEDS: VANCOMYCIN 1250 MG/NS 250 ML IVPB IV SCH ×4 (04:19→17:15)
[2016-10-09] MEDS: PANTOPRAZOLE 40 MG (PROTONIX) TAB PO SCH (05:17)
[2016-10-09] MEDS: morphine IMMEDIATE RELEASE 15 MG TABLET PO PRN ×2 (05:17→17:15)
[2016-10-09] MEDS: PIPERACILLIN SODIUM/TAZOBACTAM 4.5 GM in NS (IVPB) 100 ML IV SCH ×3 (05:18→20:28)
[2016-10-09] MEDS: CATHETER FLUSH 10 ML SYR IV SCH ×3 (05:18→20:28)
[2016-10-09 06:32] LABS: BASOPHILS % (AUTO) 0 % (0-10); EOSINOPHILS % (AUTO) 0 % (0-10); LYMPHOCYTES # (AUTO) 0.7 X 10^3 (1.0-4.0); LYMPHOCYTES % (AUTO) 5 % (12-44); MEAN CORPUSCULAR HEMOGLOBIN 28 PG (25-34); MEAN CORPUSCULAR HGB CONC 31 G/DL (32-36); MEAN CORPUSCULAR VOLUME 90 FL (80-99); MEAN PLATELET VOLUME 9.4 FL (7.4-10.4); MONOCYTES # (AUTO) 0.3 X 10^3 (0.0-1.0); MONOCYTES % (AUTO) 2 % (0-12); NEUTROPHILS # (AUTO) 13.8 X 10^3 (1.8-7.8); NEUTROPHILS % (AUTO) 93 % (42-75); PLATELET COUNT 215 10^3/uL (130-400); RED BLOOD COUNT 3.68 10^6/uL (4.35-5.85); RED CELL DISTRIBUTION WIDTH 20.3 % (10.0-14.5); WHITE BLOOD COUNT 14.8 10^3/uL (4.3-11.0)
[2016-10-09 06:48] LABS: ANISOCYTOSIS MODERATE; BAND NEUTROPHILS 0 %; BASOPHILS % (MANUAL) 0 %; EOSINOPHILS % (MANUAL) 0 %; HYPOCHROMASIA MODERATE; LYMPHOCYTES % (MANUAL) 1 %; MICROCYTOSIS SLIGHT; NEUTROPHILS % (MANUAL) 98 %; POIKILOCYTOSIS SLIGHT; ROULEAUX SLIGHT
[2016-10-09 06:53] LABS: ANION GAP 8 MMOL/L (5-14); BLOOD UREA NITROGEN 12 MG/DL (7-18); CALCIUM 8.1 MG/DL (8.5-10.1); CARBON DIOXIDE 27 MMOL/L (21-32); CHLORIDE 108 MMOL/L (98-107); GLUCOSE 140 MG/DL (70-105); MAGNESIUM 1.9 MG/DL (1.8-2.4); SODIUM 143 MMOL/L (135-145)
[2016-10-09] MEDS: RT-ADVAIR HFA 115/21 MCG PER PUFF IH SCH ×2 (07:01→21:30)
[2016-10-09] MEDS: UMECLIDINIUM BROMIDE (INCRUSE ELLIPTA) 7'S IH SCH (07:01)
[2016-10-09 07:11] LABS: BUN/CREATININE RATIO 18; CREATININE SERUM 0.65 MG/DL (0.60-1.30); GFR ESTIMATED > 60
[2016-10-09] MEDS ORDERED: TIOTROPIUM BROMIDE (SPIRIVA) 5'S INHALER IH SCH (08:00)
[2016-10-09 08:37] VITALS: BP 168/85
[2016-10-09] MEDS: PREGABALIN 100 MG (LYRICA) CAPSULE PO SCH ×2 (09:13→20:28)
[2016-10-09] MEDS: FINASTERIDE (PROSCAR) 5 MG TAB PO SCH (09:13)
[2016-10-09] MEDS: LORazepam 1 MG (ATIVAN) TAB PO SCH (09:13)
[2016-10-09] MEDS: PHENYTOIN 100 MG (DILANTIN) CAP PO SCH ×3 (09:13→20:28)
--- NOTE | 2016-10-09 11:32 | Progress Note-Hospitalist ---
Subjective HPI/CC On Admission Date Seen by Provider: Oct 09, 2016 Time Seen by Provider: 11:15 Subjective/Events-last exam patient currently is doing okay. Denies having any increased shortness of breath. Is doing fairly well on morphine every 12 hours but wishes it was more. Review of Systems Pulmonary: Cough Musculoskeletal: back pain Objective Exam Vital Signs Vital Sign - Last 12Hours 10/07/16 10/07/16 10/07/16 11:58 12:00 12:04 Temp 99.0 Pulse 101 Resp 30 B/P (MAP) 129/90 Pulse Ox 99 O2 Delivery Nasal Cannula O2 Flow Rate 4.00 FiO2 100 Capillary Refill : Less Than 3 Seconds General Appearance: Chronically ill, Other (uncapped) HEENT: Other (edentulous) Neck: Non Tender, Supple Respiratory: No Accessory Muscle Use, No Respiratory Distress, Rales Cardiovascular: Regular Rate, Rhythm, No JVD Gastrointestinal: Normal Bowel Sounds, Non Tender, Soft Extremity: Normal Inspection, No Calf Tenderness Neurologic/Psychiatric: Alert, Oriented x3, Normal Mood/Affect Skin: Normal Color, Warm/Dry Results/Procedures Lab Laboratory Tests 10/09/16 06:25 Assessment/Plan Assessment and Plan Assess & Plan/Chief Complaint Acute respiratory failure secondary to medication overdose, pneumonia, sepsis - extubated 10/08/16-improving, will Hep-Lock his IV fluids and change to by mouth prednisone. Recheck a lactic acid today Severe Sepsis RLL Pneumonia- vancomycin, zosyn day number 3 history of COPD- changed to prednisone and continue aggressive pulmonary toilet Suspected suicidal attempt- xanax, and daughter thinks he got his hands on some ativan. UDS + trycyclics only. -executive secretary social welfare consult -Psych eval Hypotension- resolved Anxiety- pt likely overdosed. I will be done prescribing xanax chronic pain- restarted on morphine 15 mg twice a day Depression- psych consult h/o polysubstance abuse- marijuana, benzos, tobacco UDS + tricyclics. hypomagnesemia- replaced history of seizure disorder on Dilantin Problems: NICHOLE BAILEY MD Oct 09, 2016 11:32
[2016-10-09 12:00] VITALS: BP 172/93
[2016-10-09] MEDS: ACETAMINOPHEN 325 MG TABLET/CAPLET (TYLENOL) PO PRN (13:02)
[2016-10-09] MEDS: ENOXAPARIN 40 MG/0.4 ML (LOVENOX) SYR SC SCH (15:10)
[2016-10-09] MEDS ORDERED: TROUGH ORDER-PHARMACY XX NR (16:00)
[2016-10-09 17:23] VITALS: BP 168/91
[2016-10-09 19:46] VITALS: BP 158/91
[2016-10-10] VITALS: BP 154/79
[2016-10-10] MEDS: ACETAMINOPHEN 325 MG TABLET/CAPLET (TYLENOL) PO PRN ×3 (00:03→21:06)
[2016-10-10] MEDS: RT-ALBUTEROL/IPRATROPIUM 3 ML (DUONEB) VIAL INH SCH ×6 (02:30→22:15)
[2016-10-10] MEDS: VANCOMYCIN 1250 MG/NS 250 ML IVPB IV SCH ×2 (04:34)
[2016-10-10 05:11] LABS: BASOPHILS % (AUTO) 0 % (0-10); EOSINOPHILS # (AUTO) 0.1 10^3/uL (0.0-0.3); EOSINOPHILS % (AUTO) 1 % (0-10); LYMPHOCYTES # (AUTO) 2.8 X 10^3 (1.0-4.0); LYMPHOCYTES % (AUTO) 19 % (12-44); MEAN CORPUSCULAR HEMOGLOBIN 29 PG (25-34); MEAN CORPUSCULAR HGB CONC 32 G/DL (32-36); MEAN CORPUSCULAR VOLUME 89 FL (80-99); MEAN PLATELET VOLUME 9.7 FL (7.4-10.4); MONOCYTES % (AUTO) 7 % (0-12); NEUTROPHILS % (AUTO) 74 % (42-75); PLATELET COUNT 218 10^3/uL (130-400); RED BLOOD COUNT 4.12 10^6/uL (4.35-5.85); RED CELL DISTRIBUTION WIDTH 20.6 % (10.0-14.5); WHITE BLOOD COUNT 14.9 10^3/uL (4.3-11.0)
[2016-10-10] MEDS: morphine IMMEDIATE RELEASE 15 MG TABLET PO PRN ×2 (05:28→17:30)
[2016-10-10] MEDS: CATHETER FLUSH 10 ML SYR IV SCH ×3 (05:28→21:11)
[2016-10-10 05:37] LABS: ANION GAP 12 MMOL/L (5-14); BLOOD UREA NITROGEN 12 MG/DL (7-18); BUN/CREATININE RATIO 18; CALCIUM 8.5 MG/DL (8.5-10.1); CARBON DIOXIDE 34 MMOL/L (21-32); CHLORIDE 98 MMOL/L (98-107); CREATININE SERUM 0.67 MG/DL (0.60-1.30); GFR ESTIMATED > 60; GLUCOSE 83 MG/DL (70-105); MAGNESIUM 1.7 MG/DL (1.8-2.4); POTASSIUM 3.3 MMOL/L (3.6-5.0); SODIUM 144 MMOL/L (135-145)
[2016-10-10] MEDS: PIPERACILLIN SODIUM/TAZOBACTAM 4.5 GM in NS (IVPB) 100 ML IV SCH ×3 (05:57→21:06)
[2016-10-10] MEDS: predniSONE 20 MG TAB PO SCH (06:11)
[2016-10-10] MEDS: PANTOPRAZOLE 40 MG (PROTONIX) TAB PO SCH (06:11)
[2016-10-10] MEDS: RT-ADVAIR HFA 115/21 MCG PER PUFF IH SCH ×2 (06:47→18:53)
[2016-10-10] MEDS: UMECLIDINIUM BROMIDE (INCRUSE ELLIPTA) 7'S IH SCH (06:47)
[2016-10-10] MEDS: LORazepam 1 MG (ATIVAN) TAB PO SCH (08:33)
[2016-10-10] MEDS: PHENYTOIN 100 MG (DILANTIN) CAP PO SCH ×3 (08:33→21:04)
[2016-10-10] MEDS: FINASTERIDE (PROSCAR) 5 MG TAB PO SCH (08:33)
[2016-10-10] MEDS: PREGABALIN 100 MG (LYRICA) CAPSULE PO SCH ×2 (08:33→21:04)
[2016-10-10 08:41] VITALS: BP 152/82
--- NOTE | 2016-10-10 09:23 | Progress Note-Hospitalist ---
Subjective HPI/CC On Admission Date Seen by Provider: Oct 10, 2016 Time Seen by Provider: 08:45 Subjective/Events-last exam patient was incontinent of stool yesterday. He is still little bit short of breath. Micro was reviewed and he can be discontinued off the vancomycin. he complains of back and neck pain. Otherwise he looks stronger and is eating well Review of Systems Pulmonary: Dyspnea Gastrointestinal: Diarrhea Musculoskeletal: neck pain, back pain Neurological: Weakness Objective Exam Vital Signs Vital Sign - Last 12Hours 10/07/16 10/07/16 10/07/16 11:58 12:00 12:04 Temp 99.0 Pulse 101 Resp 30 B/P (MAP) 129/90 Pulse Ox 99 O2 Delivery Nasal Cannula O2 Flow Rate 4.00 FiO2 100 Capillary Refill : Less Than 3 SecondsLess Than 3 Seconds General Appearance: Chronically ill HEENT: Other (edentulous) Respiratory: No Accessory Muscle Use, No Respiratory Distress, Crackles (right base), Decreased Breath Sounds Cardiovascular: Systolic Murmur (2/6 murmur), Irregularly Irregular Gastrointestinal: Normal Bowel Sounds, Soft Back: Other (kyphoscoliosis) Extremity: No Pedal Edema Neurologic/Psychiatric: Alert, Oriented x3, No Motor/Sensory Deficits, Normal Mood/Affect Skin: Normal Color, Warm/Dry Results/Procedures Lab Laboratory Tests 10/10/16 04:44 Assessment/Plan Assessment and Plan Assess & Plan/Chief Complaint Acute respiratory failure secondary to medication overdose, pneumonia, sepsis - extubated 10/08/16-improving, will Hep-Lock his IV fluids and change to by mouth prednisone. Recheck a lactic acid today Severe Sepsis RLL Pneumonia- d/c vancomycin, zosyn day number 4 ,both organisms are sensitive , Will recheck a chest x-ray PA and lateral today. history of COPD- changed to prednisone and continue aggressive pulmonary toilet Suspected suicidal attempt- xanax, and daughter thinks he got his hands on some ativan. UDS + trycyclics only. -nursing home social worker consult -Psych eval Hypotension- resolved Anxiety- pt likely overdosed on xanax chronic pain- restarted on morphine 15 mg twice a day Depression- psych consult h/o polysubstance abuse- marijuana, benzos, tobacco UDS + tricyclics. hypomagnesemia- replaced today history of seizure disorder on Dilantin hypokalemia we'll replace today Problems: NICHOLE BAILEY MD Oct 10, 2016 09:22
[2016-10-10] MEDS: KCL 10 MEQ TAB (MICRO K) PO SCH (10:34)
[2016-10-10] MEDS: MAGNESIUM 1 GM/100 ML IVPB 100 ML IV SCH ×2 (10:34→12:52)
--- NOTE | 2016-10-10 12:47 | Diagnostic Imaging Report ---
INDICATION: Pneumonia COMPARISON: 10/08/16 FINDINGS: Frontal and lateral views of the chest demonstrate slightly increased effusion in the right base. Persistent but decreased infiltrate is seen in the right base. Infiltrate in the left upper lobe has resolved. There is no pneumothorax. The heart is stable. ET tube and NG tube have been removed. IMPRESSION: 1. Persistent but decreasing infiltrate in the right base 2. Increasing effusion right base 3. Resolved infiltrate left upper lobe. 4. Not mentioned above, [place] catheter in place. Dictated by: Dictated on workstation # [id number]
[2016-10-10] MEDS: ENOXAPARIN 40 MG/0.4 ML (LOVENOX) SYR SC SCH (13:57)
[2016-10-10 16:00] VITALS: BP 135/74
[2016-10-10 23:37] VITALS: BP 112/66
[2016-10-11] MEDS: RT-ALBUTEROL/IPRATROPIUM 3 ML (DUONEB) VIAL INH SCH ×6 (02:32→21:59)
[2016-10-11] MEDS: morphine IMMEDIATE RELEASE 15 MG TABLET PO PRN ×2 (05:03→17:04)
[2016-10-11] MEDS: PIPERACILLIN SODIUM/TAZOBACTAM 4.5 GM in NS (IVPB) 100 ML IV SCH ×3 (05:07→20:27)
[2016-10-11] MEDS: CATHETER FLUSH 10 ML SYR IV SCH ×3 (05:08→20:27)
[2016-10-11] MEDS: PANTOPRAZOLE 40 MG (PROTONIX) TAB PO SCH (05:58)
[2016-10-11] MEDS: KCL 10 MEQ TAB (MICRO K) PO SCH (05:58)
[2016-10-11] MEDS: predniSONE 20 MG TAB PO SCH (05:59)
[2016-10-11] MEDS: UMECLIDINIUM BROMIDE (INCRUSE ELLIPTA) 7'S IH SCH (06:56)
[2016-10-11 07:19] LABS: CALCIUM PH 7.3
[2016-10-11 07:26] LABS: CALCIUM PH 7.34
[2016-10-11 08:00] VITALS: BP 131/63
[2016-10-11] MEDS: PHENYTOIN 100 MG (DILANTIN) CAP PO SCH ×3 (08:43→20:27)
[2016-10-11] MEDS: FINASTERIDE (PROSCAR) 5 MG TAB PO SCH (08:43)
[2016-10-11] MEDS: LORazepam 1 MG (ATIVAN) TAB PO SCH (08:43)
[2016-10-11] MEDS: PREGABALIN 100 MG (LYRICA) CAPSULE PO SCH ×2 (08:43→20:27)
[2016-10-11] MEDS: ACETAMINOPHEN 325 MG TABLET/CAPLET (TYLENOL) PO PRN ×2 (09:23→22:23)
--- NOTE | 2016-10-11 10:28 | Physical Therapy Daily Note ---
PT Daily Note-Current Subjective Patient sitting in recliner pre tx, agrees to PT, states he has significant pain in his low back and neck but will not rate. Patient has been ambulating in the hallway by himself without difficulty. Appearance Patient in recliner post tx with nurse call, phone, tray, all needs met. Mental Status Patient Orientation: Normal For Age Transfers Functional [place] Measure 0=Not Assessed/NA 4=Minimal Assistance 1=Total Assistance 5=Supervision or Setup 2=Maximal Assistance 6=Modified [place] 3=Moderate Assistance 7=Complete IndependenceIRFPAI Quality Coding Scale 6 Independent with activity with or without an assistive device 5 Patient requires set up or clean up by helper. Patient completes activity by themselves 4 Supervision or touching assist (CGA). [place] provide cues , steadying assist 3 The helper provides less than half the effort to complete the activity 2 The helper provides more than half the effort to complete the activity 1 Dependent. The helper does all the effort to complete an activity 7 Patient refused to complete or attempt activity 9 The patient did not perform the activity before the current illness or injury 88 Not attempted due to Medical conditions or safety concerns Transfers (B, C, W/C) (FIM): 7 Sit to/from Stand: 7 Gait Training Gait (FIM): 7 Distance: 300' Gait Assistive Device: None Slow ambulation but steady, no LOB, patient gets a little SOB and may need a standing rest break. Treatments transfers, ambulation Assessment Current Status: Fair Progress Improving ambulation and endurance PT Half-Way Goals Flash Drier Operator Goals PT Half-Way Goals Time Frame: Oct 22, 2016 Transfers (B,C,W/C) (FIM): 7 Gait (FIM): 7 Gait distance (FIM): 3=150 ft Gait Level of Assist: 5 Gait Assistive Device: None, FWW PT Plan Problem List Problem List: Activity Tolerance Treatment/Plan Treatment Plan: Discontinue PT Treatment Plan: Education, Functional Activity Tammy, Functional Strength, Gait , Safety, Therapeutic Exercise Patient has been ambulating in the hallways independently. Treatment Duration: Oct 22, 2016 Frequency: 5 times per week Estimated Hrs Per Day: .25 hour per day Patient and/or Family Agrees t: Yes Time/GCodes Time In: 1015 Time Out: 1025 Total Billed Treatment Time: 10 Total Billed Treatment 1 visit GT 10' MINOR SANTOS PT Oct 11, 2016 10:28
[2016-10-11] MEDS: RT-ADVAIR HFA 115/21 MCG PER PUFF IH SCH ×2 (10:35→18:13)
--- NOTE | 2016-10-11 12:09 | Progress Note (SOAP) ---
Subjective Date Seen by Provider: Oct 11, 2016 Time Seen by Provider: 12:05 Subjective/Events-last exam Fwup acute respiratory failure due to sepsis, pneumonia, COPD exacerbation and drug overdose, hypokalemia, hypomagnesemia. Sitting up in chair eating lunch. Asking for more pain meds due to his chronic neck and back pain. Nursing reports walking in halls routinely. Objective Exam Vital Signs Date Time Temp Pulse Resp B/P (MAP) Pulse Ox O2 Delivery O2 Flow Rate FiO2 10/11/16 10:37 98 Nasal Cannula 2.00 10/11/16 08:16 Room Air 3.00 10/11/16 08:00 96.0 106 22 131/63 98 Room Air 10/11/16 07:00 94 Nasal Cannula 2.00 10/11/16 03:05 99.0 10/11/16 02:32 95 Nasal Cannula 2.00 10/10/16 23:37 100.1 96 18 112/66 93 Room Air 10/10/16 22:15 95 Room Air 10/10/16 20:45 98 Nasal Cannula 3.00 10/10/16 18:53 95 Room Air 10/10/16 16:00 98.2 102 18 135/74 98 Room Air 10/10/16 14:50 95 Room Air Capillary Refill : Less Than 3 SecondsLess Than 3 Seconds General Appearance: No Apparent Distress Neck: Supple Respiratory: Decreased Breath Sounds, Rhonci, Wheezing Cardiovascular: Regular Rate, Rhythm Gastrointestinal: normal bowel sounds, non tender, soft Extremity: Non Tender, No Calf Tenderness, No Pedal Edema Neurologic/Psychiatric: Alert, Oriented x3 Results Lab Microbiology 10/07/16 Blood Culture - Preliminary, Resulted No growth 10/07/16 MRSA Screen - Final, Complete MRSA not isolated Assessment/Plan Assessment/Plan Assess & Plan/Chief Complaint Acute respiratory failure secondary to medication overdose, pneumonia, sepsis - extubated 10/08/16-improving, changed to oral prednisone. Recheck a lactic acid tomorrow Severe Sepsis RLL Pneumonia- continue zosyn, Vancomycin DCed history of COPD- changed to prednisone and continue aggressive pulmonary toilet Suspected suicidal attempt- xanax, and daughter thinks he got his hands on some ativan. UDS + trycyclics only. -mental health social worker consult -Psych eval Hypotension- resolved Anxiety- stable chronic pain- restarted on morphine 15 mg twice a day but asking for more pain meds Depression- psych consult h/o polysubstance abuse- marijuana, benzos, tobacco UDS + tricyclics. hypomagnesemia- replace today history of seizure disorder--on Dilantin hypokalemia--replace today Clinical Quality Measures DVT/VTE Risk/Contraindication: Risk Factor Score Per Nursin RFS Level Per Nursing on Admit: 3=High SUKUMAR LARKIN DO Oct 11, 2016 12:09
[2016-10-11] MEDS ORDERED: KCL 20 MEQ TAB (K-DUR) PO NR (12:15)
[2016-10-11] MEDS ORDERED: MAGNESIUM OXIDE (MAG-OX)400 MG TAB PO NR (12:15)
[2016-10-11] MEDS ORDERED: POLYETHYLENE GLYCOL 17 GM (MIRALAX) PACK PO NR (13:00)
[2016-10-11] MEDS: ENOXAPARIN 40 MG/0.4 ML (LOVENOX) SYR SC SCH (15:07)
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
[2016-10-11 16:00] VITALS: BP 130/73
[2016-10-11] MEDS: MAGNESIUM OXIDE (MAG-OX)400 MG TAB PO SCH (17:04)
[2016-10-11 23:20] VITALS: BP 124/68
[2016-10-12] MEDS: RT-ALBUTEROL/IPRATROPIUM 3 ML (DUONEB) VIAL INH SCH ×2 (02:22→06:34)
[2016-10-12] MEDS: predniSONE 20 MG TAB PO SCH (05:22)
[2016-10-12] MEDS: KCL 10 MEQ TAB (MICRO K) PO SCH (05:22)
[2016-10-12] MEDS: PANTOPRAZOLE 40 MG (PROTONIX) TAB PO SCH (05:22)
[2016-10-12] MEDS: morphine IMMEDIATE RELEASE 15 MG TABLET PO PRN (05:22)
[2016-10-12] MEDS: CATHETER FLUSH 10 ML SYR IV SCH (05:22)
[2016-10-12] MEDS: PIPERACILLIN SODIUM/TAZOBACTAM 4.5 GM in NS (IVPB) 100 ML IV SCH (05:22)
[2016-10-12 05:43] LABS: BASOPHILS % (AUTO) 0 % (0-10); EOSINOPHILS # (AUTO) 0.5 10^3/uL (0.0-0.3); EOSINOPHILS % (AUTO) 5 % (0-10); LYMPHOCYTES # (AUTO) 3.8 X 10^3 (1.0-4.0); LYMPHOCYTES % (AUTO) 36 % (12-44); MEAN CORPUSCULAR HEMOGLOBIN 29 PG (25-34); MEAN CORPUSCULAR HGB CONC 33 G/DL (32-36); MEAN CORPUSCULAR VOLUME 87 FL (80-99); MEAN PLATELET VOLUME 9.1 FL (7.4-10.4); MONOCYTES # (AUTO) 1.1 X 10^3 (0.0-1.0); MONOCYTES % (AUTO) 11 % (0-12); NEUTROPHILS % (AUTO) 48 % (42-75); PLATELET COUNT 249 10^3/uL (130-400); RED BLOOD COUNT 4.46 10^6/uL (4.35-5.85); RED CELL DISTRIBUTION WIDTH 21.6 % (10.0-14.5); WHITE BLOOD COUNT 10.5 10^3/uL (4.3-11.0)
[2016-10-12 05:53] LABS: ALANINE AMINOTRANSFERASE 19 U/L (0-55); ALBUMIN 3.9 GM/DL (3.2-4.5); ANION GAP 10 MMOL/L (5-14); ASPARTATE AMINO TRANSFERASE 16 U/L (5-34); BILIRUBIN,TOTAL 0.5 MG/DL (0.1-1.0); BLOOD UREA NITROGEN 22 MG/DL (7-18); BUN/CREATININE RATIO 27; CALCIUM 9.6 MG/DL (8.5-10.1); CARBON DIOXIDE 33 MMOL/L (21-32); CHLORIDE 94 MMOL/L (98-107); CREATININE SERUM 0.81 MG/DL (0.60-1.30); GFR ESTIMATED > 60; GLUCOSE 117 MG/DL (70-105); SODIUM 137 MMOL/L (135-145); TOTAL PROTEIN 6.7 GM/DL (6.4-8.2)
[2016-10-12] MEDS: UMECLIDINIUM BROMIDE (INCRUSE ELLIPTA) 7'S IH SCH (06:34)
[2016-10-12] MEDS: RT-ADVAIR HFA 115/21 MCG PER PUFF IH SCH (06:34)
[2016-10-12] MEDS: PREGABALIN 100 MG (LYRICA) CAPSULE PO SCH (08:36)
[2016-10-12] MEDS: FINASTERIDE (PROSCAR) 5 MG TAB PO SCH (08:36)
[2016-10-12] MEDS: LORazepam 1 MG (ATIVAN) TAB PO SCH (08:36)
[2016-10-12] MEDS: PHENYTOIN 100 MG (DILANTIN) CAP PO SCH (08:36)
[2016-10-12] MEDS: MAGNESIUM OXIDE (MAG-OX)400 MG TAB PO SCH (08:36)
--- NOTE | 2016-10-12 08:42 | Pulmonary Progress Note ---
Exam Exam Vital Signs Date Time Temp Pulse Resp B/P (MAP) Pulse Ox O2 Delivery O2 Flow Rate FiO2 10/12/16 06:35 93 Room Air 10/12/16 02:25 90 Room Air 10/11/16 23:20 99.0 89 20 124/68 95 Room Air 10/11/16 22:00 97 Room Air 10/11/16 20:00 Room Air 3.00 10/11/16 18:15 96 Room Air 10/11/16 16:00 99.9 100 22 130/73 97 Room Air 10/11/16 14:30 100 94 10/11/16 14:29 94 Nasal Cannula 2.00 10/11/16 10:37 98 Nasal Cannula 2.00 General Appearance: No Apparent Distress HEENT: Other (edentulous) Neck: Supple Respiratory: Decreased Breath Sounds, Rhonci, Wheezing Cardiovascular: Regular Rate, Rhythm Capillary Refill: Less Than 3 Seconds Gastrointestinal: normal bowel sounds, non tender, soft Extremity: Non Tender, No Calf Tenderness, No Pedal Edema Neurologic/Psychiatric: Alert, Oriented x3 Skin: Normal Color, Warm/Dry Lymphatic: No Adenopathy Results Lab Laboratory Tests 10/12/16 05:20 Assessment/Plan Assessment/Plan Acute respiratory failure post ventilatory support -Sputum culture-- Enterobacter, Acetobacter Pneumonia RLL with severe sepsis- improving -Pt has a subclavian Mediport Probable suicidal attempt with probable Ativan OD -Mental health consult when patient is stable Hypotension secondary to intubation and dehydration - much improved -Continue IVF 232 Clinical Quality Measures DVT/VTE Risk/Contraindication: Risk Factor Score Per Nursin RFS Level Per Nursing on Admit: 3=High TIMOTHY LUEAVNO DO Oct 12, 2016 08:42
[2016-10-12] MEDS ORDERED: FUROSEMIDE 40 MG/4 ML INJ (LASIX) IVP NR (08:45)
[2016-10-12 08:50] VITALS: BP 126/80
[2016-10-12] MEDS ORDERED: PRD20T PO (08:53)
[2016-10-12] MEDS ORDERED: MAGN400T6 PO (08:53)
[2016-10-12] MEDS ORDERED: SULF-222 PO (08:53)
--- NOTE | 2016-10-12 08:56 | Discharge Inst-Simple/Standard ---
Discharge Inst-Standard Discharge Medications New, Converted or Re-Newed RX: Transmitted to Pharmacy Patient Instructions/Follow Up Plan of Care/Instructions/FU: complete bactrim for your pneumonia complete prednisone taper for COPD exacerbation You will need to find another physician to fill your chronic pain medications as recommended the last 2 months I will not be prescribing benzodiazepines for his anxiety given his attempted overdose. Activity as Tolerated: Yes Discharge Diet: No Restrictions, Regular Diet Return to The Hospital For: new concerns. KIN LAGUNAS MD Oct 12, 2016 08:56
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
[2016-10-12 09:29] VITALS: BP 126/80
[2016-10-12] MEDS ORDERED: POLYETHYLENE GLYCOL 17 GM (MIRALAX) PACK PO SCH (21:00)
== END 2016-10-12 09:29 | disposition home or self-care (01) | DRG 917 ==
LOC: EDUNIT# 11:22 → ER 11:23 → ICU 13:51 → 4TH 10-08 12:10
PROVIDERS: ADMIT Family Medicine; ATTEND Family Medicine
PROC: 5A1945Z Respiratory Ventilation, 24-96 Consecutive Hours (ICD-10-PCS; principal; 2016-10-07)
DX: T42.4X2A Poisoning by benzodiazepines, intentional self-harm, initial encounter (principal); A41.9 Sepsis, unspecified organism; R65.20 Severe sepsis without septic shock; J96.00 Acute respiratory failure, unspecified whether with hypoxia or hypercapnia; J44.0 Chronic obstructive pulmonary disease with (acute) lower respiratory infection; J18.9 Pneumonia, unspecified organism; J44.1 Chronic obstructive pulmonary disease with (acute) exacerbation; E86.0 Dehydration; F17.210 Nicotine dependence, cigarettes, uncomplicated; F12.90 Cannabis use, unspecified, uncomplicated; G47.33 Obstructive sleep apnea (adult) (pediatric); I25.10 Atherosclerotic heart disease of native coronary artery without angina pectoris; E78.00 Pure hypercholesterolemia, unspecified; I10 Essential (primary) hypertension; G62.9 Polyneuropathy, unspecified; G40.909 Epilepsy, unspecified, not intractable, without status epilepticus; K21.9 Gastro-esophageal reflux disease without esophagitis; K44.9 Diaphragmatic hernia without obstruction or gangrene; K59.09 Other constipation; F41.9 Anxiety disorder, unspecified; F31.9 Bipolar disorder, unspecified; F60.9 Personality disorder, unspecified; G89.29 Other chronic pain; E83.42 Hypomagnesemia; I25.2 Old myocardial infarction; E87.6 Hypokalemia
CPT/HCPCS: 36415; 71010; 71020; 80048; 80053; 80202; 80306; 82040; 82330; 82805; 83605; 83735; 83880; 84100; 84132; 84484; 85007; 85025; 85027; 86141; 87040; 87070; 87077; 87081; 87186; 87205; 93005; 93041; 94002; 94640; 94660; 94664; 94760; 94799; 96361; 96365; 96375

== ENCOUNTER 2017-03-02 19:47 | Inpatient (IN) | payer MEDICARE, MEDICAID ==
[~2017-03-02] VITALS: Ht 167.6 cm; Wt 48.3 kg
[~2017-03-02 19:47] MED LIST changes: +ALBU2.5V4 IH; +AMOX-358 PO; +CHOL10007 PO; +DESV50TA PO; +FAMO-119 PO; +FINA5TAB PO; +HYDR-3820 PO; +IPRA3AMP INH; +LORA0.5T PO; +MAGN400T29 PO; +MELA3TAB PO; +MIRT15TA6 PO; +MONT10TA21 PO; +POLY17PO6 PO; +PRD10T PO; +PROP10TA8 PO; -SERT100T PO; +SERT20OR PO; +SIMV40TA4 PO; +SULF-222 PO
[2017-03-02] MEDS ORDERED: RT-ALBUTEROL SULF 2.5 MG/3 ML PRE-MIX VIAL ONE (19:56)
[2017-03-02] MEDS ORDERED: RT-ALBUTEROL SULF 2.5 MG/3 ML PRE-MIX VIAL INH STA (19:57)
[2017-03-02] MEDS ORDERED: methylPREDNISolone 125 MG (Solu-MEDROL) VIAL IV STA (19:57)
[2017-03-02] MEDS ORDERED: NS IV 1000 ML 1,000 ML IV STA (19:57)
[2017-03-02] MEDS ORDERED: NS IV 1000 ML 1,000 ML ONE (19:59)
[2017-03-02] MEDS ORDERED: ONDANSETRON 4 MG/2 ML (SDV) Z0FRAN ONE (19:59)
[2017-03-02] MEDS ORDERED: methylPREDNISolone 125 MG (Solu-MEDROL) VIAL ONE (19:59)
[2017-03-02] MEDS ORDERED: ONDANSETRON 4 MG/2 ML (SDV) Z0FRAN IVP ONE (20:00)
--- NOTE | 2017-03-02 20:07 | ED General ---
General Stated Complaint: SOA Source of Information: Patient, EMS Exam Limitations: No Limitations History of Present Illness Date Seen by Provider: Mar 02, 2017 Time Seen by Provider: 19:52 Initial Comments Here by EMS with report of increasing shortness of breath over the last 3 days. Notes that he's had some hot flashes but denies persistent fevers. EMS noted 99 4 on their evaluation for temperature. States that his home meds are not helping him and he is getting worse with respect to his breathing. EMS did report that he was requiring oxygen support and started DuoNeb with a liters O2 to get O2 sats to 98 percent. Denies vomiting but does have some nausea and dry heaves. Denies chest pain. Denies diarrhea. Reports taking his meds as directed and smoking about a pack of cigarettes a day. Timing/Duration: 2-3 Days, Getting Worse Severity: Moderate, Severe Associated Systoms: No Chest Pain, No Cough, Fever/Chills, Nausea/Vomiting, No Seizure, Shortness of Air, No Weakness Allergies and Home Medications Allergies Coded Allergies: cefepime (Verified Allergy, Mild, RASH, ITCHING, 11/17/16) Home Medications Amoxicillin/Potassium Clav 1 Each Tablet, 1 EACH PO BID for 10 Days Prescribed by: MENDOZA GENAO on 11/19/16 1249 Cholecalciferol (Vitamin D3) 1,000 Unit Capsule, 2,000 UNIT PO DAILY, (Reported) Desvenlafaxine Succinate 50 Mg Tab.er.24h, 50 MG PO DAILY, (Reported) Famotidine 20 Mg Tablet, 20 MG PO DAILY, (Reported) Finasteride 5 Mg Tablet, 5 MG PO DAILY, (Reported) Fluticasone/Salmeterol 1 Each Blst.w.dev, 1 PUFF IH BID, (Reported) Hydrocodone/Acetaminophen 1 Each Tablet, 1 TAB PO Q8H PRN for PAIN-MODERATE, ( Reported) Ipratropium/Albuterol Sulfate 3 Ml Ampul.neb, 3 ML INH QID for 30 Days Prescribed by: MANDI BARRETT on 11/19/16 1134 Lorazepam 0.5 Mg Tablet, 0.5 MG PO TID, (Reported) Magnesium Oxide 400 Mg Tablet, 400 MG PO BID, (Reported) Melatonin 3 Mg Tablet, 3 MG PO HS, (Reported) Mirtazapine 15 Mg Tablet, 15 MG PO HS, (Reported) Montelukast Sodium 10 Mg Tablet, 10 MG PO HS, (Reported) Phenytoin Sodium Extended 100 Mg Capsule, 100 MG PO BID, (Reported) Polyethylene Glycol 3350 17 Gm Powd.pack, 17 GM PO BID, (Reported) Prednisone 10 Mg Tab, 10 MG PO DAILY, (Reported) Pregabalin 75 Mg Capsule, 150 MG PO TID, (Reported) TAKES 2 (75MG) CAPSULES Propranolol HCl 10 Mg Tablet, 10 MG PO TID, (Reported) Simvastatin 40 Mg Tablet, 40 MG PO HS, (Reported) Tamsulosin HCl 0.4 Mg Cap, 0.4 MG PO BID, (Reported) Tiotropium [place] 1 Inh Aerp, 1 CAP IH DAILY, (Reported) Constitutional: see HPI, No chills, fever, malaise EENTM: nose congestion, No throat pain Respiratory: cough, phlegm, short of breath, wheezing Cardiovascular: No chest pain, No edema Gastrointestinal: No abdominal pain, No diarrhea, nausea Genitourinary: no symptoms reported Musculoskeletal: no symptoms reported Skin: no symptoms reported All Other Systems Reviewed Negative Unless Noted: Yes Past Aksostl-Ofstmi-Jyxqgx Hx Patient Social History Alcohol Use: Denies Use Recreational Drug Use: Yes Drug of Choice: marijuana Smoking Status: Current Everyday Smoker Type Used: Cigarettes 2nd Hand Smoke Exposure: Yes Recent Hopitalizations: Yes (1 MONTH AGO WITH PNEUMONIA) Immunizations Up To Date Tetanus Booster (TDap): More than 5yrs PED Vaccines UTD: No Date of Pneumonia Vaccine: Jul 17, 2010 Date of Influenza Vaccine: Nov 07, 2012 Seasonal Allergies Seasonal Allergies: No Surgeries History of Surgeries: Yes (Tonsillectomy, Heart Cath, Hernia repair) Surgeries: Abdominal, Cardiac, Tonsillectomy, Vascular Surgery Respiratory History of Respiratory Disorde: Yes Respiratory Disorders: Pneumonia, Chronic Bronchitis, Sleep Apnea, COPD, Emphysema Currently Using CPAP: No Cardiovascular History of Cardiac Disorders: Yes Cardiac Disorders: Coronary Artery Disease, Heart Attack, High Cholesterol, Hypertension Neurological History of Neurological Disord: Yes Neurological Disorders: Neuropathy, Seizure Disorder Reproductive System Hx Reproductive Disorders: No Sexually Transmitted Disease: No HIV/AIDS: No Genitourinary History of Genitourinary Disor: Yes Genitourinary Disorders: Renal Failure Gastrointestinal History of Gastrointestinal Di: Yes Gastrointestinal Disorders: Gastroesophageal Reflux, Chronic Constipation, Hiatal Hernia Musculoskeletal History of Musculoskeletal Dis: Yes (CHRONIC NECK AND BACK PAIN ) Musculoskeletal Disorders: Degenerate Disk Disease, Arthritis, Chronic Back Pain Endocrine History of Endocrine Disorders: No HEENT History of HEENT Disorders: Yes HEENT Disorders: Cataract Loss of Vision: Denies Hearing Impairment: Denies Cancer History of Cancer: No Psychosocial History of Psychiatric Problem: Yes Behavioral Health Disorders: Anxiety, Suicide Attempts, Bipolar, Personality Disorder, Depression Integumentary History of Skin or Integumenta: No Blood Transfusions History of Blood Disorders: No Adverse Reaction to a Blood Tr: No Reviewed Nursing Assessment Reviewed/Agree w Nursing PMH: Yes Family Medical History Family Medial History: Alcoholism 03 FATHER Arthritis Cancer 03 FATHER Congestive heart failure 03 FATHER Family history: Allergy 09 SISTER Family history: Arthritis 03 MOTHER Family history: Diabetes mellitus 03 FATHER Family history: Hypertension 03 MOTHER History of - anemia 09 SISTER History of drug abuse 09 BROTHER Physical Exam-Suspected Sepsis Physical Exam Vital Signs Vital Sign - Last 12Hours Capillary Refill : General Appearance: WD/WN, Mild Distress HEENT: PERRL/EOMI, Pharyngeal Erythema, No Tonsillar Enlargement Neck: Full Range of Motion, Normal Inspection, Non Tender, Supple Respiratory: Accessory Muscle Use, Respiratory Distress, Wheezing (throughout) Cardiovascular: Regular Rate, Rhythm, No Murmur Gastrointestinal: Non Tender, Soft Back: Normal Inspection, No CVA Tenderness, No Vertebral Tenderness Extremity: Normal Range of Motion, Non Tender, No Calf Tenderness Neurologic/Psychiatric: Alert, Oriented x3 Skin: normal color, warm/dry Focused Exam Evaluation Lactate Level Laboratory Tests 03/02/17 21:05: Lactic Acid Level 2.71*H Lactic Acid Level Laboratory Tests Test 03/02/17 21:05 Lactic Acid Level 2.71 MMOL/L (0.50-2.00) *H Date of ETT Placement: Oct 07, 2016 Progress/Results/Core Measures Suspected Sepsis SIRS Temperature: Pulse: Respiratory Rate: Laboratory Tests 03/02/17 20:20: White Blood Count 17.1H Blood Pressure / Mean: Laboratory Tests 03/02/17 21:05: Lactic Acid Level 2.71*H Laboratory Tests 03/02/17 20:20: Creatinine 0.75, INR Comment 0.9, Platelet Count 280, Total Bilirubin 0.4 Results/Orders Lab Results Laboratory Tests Test 03/02/17 20:20 03/02/17 21:05 Range/Units White Blood Count 17.1 H 4.3-11.0 10^3/uL Red Blood Count 5.06 4.35-5.85 10^6/uL Hemoglobin 14.8 13.3-17.7 G/DL Hematocrit 45 40-54 % Mean Corpuscular Volume 89 80-99 FL Mean Corpuscular Hemoglobin 29 25-34 PG Mean Corpuscular Hemoglobin Concent 33 32-36 G/DL Red Cell Distribution Width 17.3 H 10.0-14.5 % Platelet Count 280 130-400 10^3/uL Mean Platelet Volume 9.8 7.4-10.4 FL Neutrophils (%) (Auto) 68 42-75 % Lymphocytes (%) (Auto) 20 12-44 % Monocytes (%) (Auto) 7 0-12 % Eosinophils (%) (Auto) 5 0-10 % Basophils (%) (Auto) 0 0-10 % Neutrophils # (Auto) 11.6 H 1.8-7.8 X 10^3 Lymphocytes # (Auto) 3.4 1.0-4.0 X 10^3 Monocytes # (Auto) 1.2 H 0.0-1.0 X 10^3 Eosinophils # (Auto) 0.8 H 0.0-0.3 10^3/uL Basophils # (Auto) 0.0 0.0-0.1 10^3/uL Neutrophils % (Manual) 72 % Lymphocytes % (Manual) 21 % Monocytes % (Manual) 2 % Eosinophils % (Manual) 3 % Basophils % (Manual) 1 % Band Neutrophils 1 % Blood Morphology Comment NORMAL Prothrombin Time 12.6 12.2-14.7 SEC INR Comment 0.9 0.8-1.4 Activated Partial Thromboplast Time 20 L 24-35 SEC Sodium Level 138 135-145 MMOL/L Potassium Level 3.4 L 3.6-5.0 MMOL/L Chloride Level 100 98-107 MMOL/L Carbon Dioxide Level 18 L 21-32 MMOL/L Anion Gap 20 H 5-14 MMOL/L Blood Urea Nitrogen 9 7-18 MG/DL Creatinine 0.75 0.60-1.30 MG/DL Estimat Glomerular Filtration Rate > 60 BUN/Creatinine Ratio 12 Glucose Level 91 70-105 MG/DL Calcium Level 9.0 8.5-10.1 MG/DL Total Bilirubin 0.4 0.1-1.0 MG/DL Aspartate Amino Transf (AST/SGOT) 17 5-34 U/L Alanine Aminotransferase (ALT/SGPT) 11 0-55 U/L Alkaline Phosphatase 149 H 40-136 U/L Total Protein 7.6 6.4-8.2 GM/DL Albumin 3.9 3.2-4.5 GM/DL Lactic Acid Level 2.71 *H 0.50-2.00 MMOL/L Micro Results Microbiology 03/02/17 Influenza Types A,B Antigen (PRABHA) - Final, Complete My Orders Orders - LORE HOBBS MD Albuterol Pre-Mix Nebs (Rt) (Proventil (03/02/17 19:56) Cbc With Automated Diff (03/02/17 19:57) Comprehensive Metabolic Panel (03/02/17 19:57) Lactic Acid Analyzer (03/02/17 19:57) Blood Culture (03/02/17 19:57) Sputum Culture (03/02/17 19:57) Ua Culture If Indicated (03/02/17 19:57) Protime With Inr (03/02/17 19:57) Partial Thromboplastin Time (03/02/17 19:57) Chest 1 View, Ap/Pa Only (03/02/17 19:57) O2 (03/02/17 19:57) Saline Lock/Iv-Start (03/02/17 19:57) Vital Signs Adult Sepsis Patie Q1H (03/02/17 19:57) Remove Rings In Anticipation O (03/02/17 19:57) Influenza A And B Antigens (03/02/17 19:57) Methylprednisolone Sod Succ (Solu-Medrol (03/02/17 19:57) Ondansetron Injection (Zofran Injectio (03/02/17 20:00) Ns Iv 1000 Ml (Sodium Chloride 0.9%) (03/02/17 19:57) Albuterol Pre-Mix Nebs (Rt) (Proventil (03/02/17 19:57) Svn Sm Volume Nebulizer Rt-Rfs (03/02/17 19:57) Ondansetron Injection (Zofran Injectio (03/02/17 19:59) Methylprednisolone Sod Succ (Solu-Medrol (03/02/17 19:59) Ns Iv 1000 Ml (Sodium Chloride 0.9%) (03/02/17 19:59) Manual Differential (03/02/17 20:20) Ns Iv 1000 Ml (Sodium Chloride 0.9%) (03/02/17 21:47) Piperacillin Sodium/Tazobactam (Zosyn Vi (03/02/17 22:00) Medications Given in ED Current Medications Medications Dose Ordered Sig/Quyen Route Start Time Stop Time Status Last Admin Dose Admin Ondansetron HCl 4 mg ONCE ONCE IVP 03/02/17 20:00 03/02/17 20:01 DC 03/02/17 20:33 4 MG Vital Signs/I&O Vital Sign - Last 12Hours 03/02/17 03/02/17 03/02/17 19:50 19:50 19:58 Temp 97.4 Pulse 94 Resp 16 B/P (MAP) Pulse Ox 96 97 O2 Delivery Nasal Cannula Nasal Cannula Nasal Cannula O2 Flow Rate 2.00 2.00 2.00 Capillary Refill : Progress Note : Progress Note Seen and evaluated. IV by EMS. Labs, chest x-ray, UA, influenza screen, blood cultures and lactic acid ordered. Normal saline 1 L bolus with Zofran 4 mg IV and Solu-Medrol 125 mg IV ordered. We will give 3 eciv-hy-fbiy albuterol nebs to hopefully decrease respiratory distress. This did improve his symptoms somewhat. Right lower lobe pneumonia noted. I did discuss the case with his primary care physician, , and she accepts patient for admission, inpatient status. We will initiate Zosyn due to his chronic lung disease history and patient has history of multiple organisms that are sensitive to Zosyn. Also continue steroids. Patient did receive 1 L of normal saline and will get a second liter as well. Lactic acid elevated at 2.71. While patient meets severe sepsis criteria does not meet septic shock and does not require high-volume fluid resuscitation although 2 L of fluid will exceed 30 mL/kg IV which is reasonable given his history and course. Admit, inpatient status. Patient agrees with plan. 2210: Patient still with coarse breath sounds but improved from previous. Otherwise improving. I attest a focused exam at this time. Diagnostic Imaging Diagonstic Imaging: Xray Plain Films/CT/US/NM/MRI: chest Comments VIA [facility]. [place], [place] NAME: SUNNY HERNANDEZ [facility] REC#: [id number] PT STATUS: REG ER : 1950 PHYSICIAN: LORE HOBBS MD ADMIT DATE: 03/02/17/ER Draft Date of Exam:03/02/17 CHEST 1 VIEW, AP/PA ONLY INDICATION: Shortness of air. COMPARISON: 12/16/2016 TECHNIQUE: Single frontal radiograph of the chest dated 03/02/2017. FINDINGS: The cardiac silhouette is within normal limits. No significant pulmonary vascular congestion. Background chronic obstructive pulmonary disease is again noted with associated pulmonary hyperinflation. Background interstitial lung changes are again noted. Increasing opacities are present within the right lung base when compared to prior examination. Previously noted nodular density overlying the left lung base is no longer visualized. Left-sided Port-A-Cath is again noted. Blunting of the right costophrenic angle is again seen and stable. No significant left pleural effusion. No pneumothorax. No acute osseous abnormality. IMPRESSION: Background chronic obstructive pulmonary disease. However, slightly increasing opacities are present within the right lung base concerning for developing pneumonia or pneumonitis. Additional stable findings as above. Dictated on workstation # [id number] Dict: 03/02/172023 Trans: 03/02/172030 [id number] Interpreted by: MILLICENT WILSON MD Electronically signed by: Departure Communication (Admissions) Time/Spoke to Admitting Phy: 21:45 Impression Impression: Primary Impression: Right lower lobe pneumonia Qualified Codes: J18.1 - Lobar pneumonia, unspecified organism Additional Impression: COPD (chronic obstructive pulmonary disease) Qualified Codes: J42 - Unspecified chronic bronchitis Disposition: ADMITTED INPATIENT Condition: Stable Admissions Decision to Admit Reason: Admit from ER (General) Decision to Admit/Date: Mar 02, 2017 Time/Decision to Admit Time: 22:17 Departure-Patient Inst. Referrals: BELLA LUNA DO (PCP/Family) Primary Care Physician LORE HOBBS MD Mar 02, 2017 20:07
--- NOTE | 2017-03-02 20:31 | Diagnostic Imaging Report ---
INDICATION: Shortness of air. COMPARISON: 12/16/2016 TECHNIQUE: Single frontal radiograph of the chest dated 03/02/2017. FINDINGS: The cardiac silhouette is within normal limits. No significant pulmonary vascular congestion. Background chronic obstructive pulmonary disease is again noted with associated pulmonary hyperinflation. Background interstitial lung changes are again noted. Increasing opacities are present within the right lung base when compared to prior examination. Previously noted nodular density overlying the left lung base is no longer visualized. Left-sided Port-A-Cath is again noted. Blunting of the right costophrenic angle is again seen and stable. No significant left pleural effusion. No pneumothorax. No acute osseous abnormality. IMPRESSION: Background chronic obstructive pulmonary disease. However, slightly increasing opacities are present within the right lung base concerning for developing pneumonia or pneumonitis. Additional stable findings as above. Dictated by: Dictated on workstation # [id number]
[2017-03-02 20:41] LABS: BASOPHILS % (AUTO) 0 % (0-10); EOSINOPHILS # (AUTO) 0.8 10^3/uL (0.0-0.3); EOSINOPHILS % (AUTO) 5 % (0-10); HEMATOCRIT 45 % (40-54); HEMOGLOBIN 14.8 G/DL (13.3-17.7); LYMPHOCYTES # (AUTO) 3.4 X 10^3 (1.0-4.0); LYMPHOCYTES % (AUTO) 20 % (12-44); MEAN CORPUSCULAR HEMOGLOBIN 29 PG (25-34); MEAN CORPUSCULAR HGB CONC 33 G/DL (32-36); MEAN CORPUSCULAR VOLUME 89 FL (80-99); MEAN PLATELET VOLUME 9.8 FL (7.4-10.4); MONOCYTES # (AUTO) 1.2 X 10^3 (0.0-1.0); MONOCYTES % (AUTO) 7 % (0-12); NEUTROPHILS # (AUTO) 11.6 X 10^3 (1.8-7.8); NEUTROPHILS % (AUTO) 68 % (42-75); PLATELET COUNT 280 10^3/uL (130-400); RED BLOOD COUNT 5.06 10^6/uL (4.35-5.85); RED CELL DISTRIBUTION WIDTH 17.3 % (10.0-14.5); WHITE BLOOD COUNT 17.1 10^3/uL (4.3-11.0)
[2017-03-02 20:50] LABS: INR 0.9 (0.8-1.4); PROTHROMBIN TIME PATIENT 12.6 SEC (12.2-14.7)
[2017-03-02 21:00] LABS: ALANINE AMINOTRANSFERASE 11 U/L (0-55); ALBUMIN 3.9 GM/DL (3.2-4.5); ALKALINE PHOSPHATASE 149 U/L (40-136); BILIRUBIN,TOTAL 0.4 MG/DL (0.1-1.0); BUN/CREATININE RATIO 12; CARBON DIOXIDE 18 MMOL/L (21-32); CHLORIDE 100 MMOL/L (98-107); CREATININE SERUM 0.75 MG/DL (0.60-1.30); GFR ESTIMATED > 60; GLUCOSE 91 MG/DL (70-105); POTASSIUM 3.4 MMOL/L (3.6-5.0); SODIUM 138 MMOL/L (135-145); TOTAL PROTEIN 7.6 GM/DL (6.4-8.2)
[2017-03-02 21:11] LABS: BAND NEUTROPHILS 1 %; BASOPHILS % (MANUAL) 1 %; EOSINOPHILS % (MANUAL) 3 %; LYMPHOCYTES % (MANUAL) 21 %; MONOCYTES % (MANUAL) 2 %; NEUTROPHILS % (MANUAL) 72 %; RBC MORPH NORMAL
[2017-03-02] MEDS ORDERED: NS IV 1000 ML 1,000 ML IV ONE (21:47)
[2017-03-02] MEDS ORDERED: PIPERACILLIN/TAZO 4.5 GM VIAL (ZOSYN) IV ONE (22:00)
[2017-03-02 23:10] VITALS: BP 166/86
[2017-03-02 23:30] VITALS: BP 166/86
[2017-03-02] MEDS ORDERED: CATHETER FLUSH 10 ML SYR IV PRN (23:30)
[2017-03-02] MEDS: NS IV 1000 ML 1,000 ML IV SCH (23:41)
[2017-03-03] MEDS ORDERED: RT-ALBUTEROL/IPRATROPIUM 3 ML (DUONEB) VIAL INH PRN (01:00)
[2017-03-03] MEDS ORDERED: RT-ALBUTEROL/IPRATROPIUM 3 ML (DUONEB) VIAL ONE (02:26)
[2017-03-03] MEDS: RT-ALBUTEROL/IPRATROPIUM 3 ML (DUONEB) VIAL INH SCH ×6 (02:48→21:48)
[2017-03-03] MEDS: NS IV 1000 ML 1,000 ML IV SCH ×3 (03:21→15:29)
[2017-03-03 03:48] VITALS: BP 131/67
[2017-03-03] MEDS: PIPERACILLIN/TAZOBACTAM 4.5 GM/D5W 100 ML IVPB IV SCH ×6 (03:54→20:44)
[2017-03-03] MEDS: methylPREDNISolone 125 MG (Solu-MEDROL) VIAL IV SCH ×3 (05:36→21:27)
[2017-03-03] MEDS: CATHETER FLUSH 10 ML SYR IV SCH ×3 (05:37→21:27)
[2017-03-03 05:47] LABS: BASOPHILS % (AUTO) 0 % (0-10); EOSINOPHILS % (AUTO) 0 % (0-10); HEMATOCRIT 33 % (40-54); HEMOGLOBIN 10.9 G/DL (13.3-17.7); LYMPHOCYTES # (AUTO) 1.5 X 10^3 (1.0-4.0); LYMPHOCYTES % (AUTO) 11 % (12-44); MEAN CORPUSCULAR HEMOGLOBIN 30 PG (25-34); MEAN CORPUSCULAR HGB CONC 33 G/DL (32-36); MEAN CORPUSCULAR VOLUME 89 FL (80-99); MEAN PLATELET VOLUME 8.6 FL (7.4-10.4); MONOCYTES % (AUTO) 8 % (0-12); NEUTROPHILS # (AUTO) 10.8 X 10^3 (1.8-7.8); NEUTROPHILS % (AUTO) 81 % (42-75); PLATELET COUNT 308 10^3/uL (130-400); RED BLOOD COUNT 3.69 10^6/uL (4.35-5.85); RED CELL DISTRIBUTION WIDTH 16.9 % (10.0-14.5); WHITE BLOOD COUNT 13.3 10^3/uL (4.3-11.0)
[2017-03-03 06:14] LABS: ALANINE AMINOTRANSFERASE 9 U/L (0-55); ALBUMIN 2.8 GM/DL (3.2-4.5); ALKALINE PHOSPHATASE 100 U/L (40-136); BILIRUBIN,TOTAL 0.2 MG/DL (0.1-1.0); BUN/CREATININE RATIO 10; CALCIUM 7.1 MG/DL (8.5-10.1); CARBON DIOXIDE 24 MMOL/L (21-32); CHLORIDE 108 MMOL/L (98-107); CREATININE SERUM 0.63 MG/DL (0.60-1.30); GFR ESTIMATED > 60; GLUCOSE 138 MG/DL (70-105); POTASSIUM 3.5 MMOL/L (3.6-5.0); SODIUM 140 MMOL/L (135-145); TOTAL PROTEIN 5.1 GM/DL (6.4-8.2)
[2017-03-03 08:00] VITALS: BP_SYST 132; BP_SYST 152; BP_DIAS 77; BP_DIAS 89
[2017-03-03] MEDS ORDERED: UMECLIDINIUM BROMIDE (INCRUSE ELLIPTA) 7'S IH SCH (08:00)
[2017-03-03] MEDS ORDERED: RT-ADVAIR HFA 115/21 MCG PER PUFF IH SCH (08:00)
[2017-03-03] MEDS ORDERED: ALPR2TAB4 PO (08:34)
[2017-03-03] MEDS ORDERED: PREG150C PO (08:34)
[2017-03-03] MEDS ORDERED: FENT1PAT9 TD (08:34)
[2017-03-03] MEDS ORDERED: DULO30CA48 PO (08:34)
[2017-03-03] MEDS ORDERED: FINA5TAB6 PO (08:34)
[2017-03-03] MEDS ORDERED: ATOR40TA70 PO (08:34)
[2017-03-03] MEDS ORDERED: METH750T3 PO (08:34)
[2017-03-03] MEDS ORDERED: FLUT1DIS26 INH (08:34)
[2017-03-03] MEDS ORDERED: IPRA3AMP IH (08:44)
[2017-03-03] MEDS ORDERED: HYDR-3816 PO (08:44)
--- NOTE | 2017-03-03 08:47 | History & Physicial (CHS) ---
HPI History of Present Illness: Pt presented to ED last night by EMS with report of increasing shortness of breath over the last 3 days. Notes that he's had some hot flashes but denies persistent fevers. EMS noted 99 4 on their evaluation for temperature. States that his home meds are not helping him and he is getting worse with respect to his breathing. EMS did report that he was requiring oxygen support and started DuoNeb with a liters O2 to get O2 sats to 98 percent. Denies vomiting but does have some nausea and dry heaves. Denies chest pain. Denies diarrhea. Reports taking his meds as directed and smoking about a pack of cigarettes a day. This morning the patient reports that he has had some improvement in his shortness of breath with oxygen, steroids, and breathing treatments. His daughter is supposed to be bringing his Xanax ER from home, as the hospital does not have it, and the patient reports that it is helping him quite a bit. Source: patient, RN/MD, RN notes reviewed, old records Exam Limitations: no limitations Date seen by provider: Mar 03, 2017 Time Seen by Provider: 10:35 Attending Physician Mary Carmen Luna DO PCP Mary Carmen Luna DO Consult Date of Admission Mar 02, 2017 at 22:00 Home Medications Home Medications Reviewed patient Home Medication Reconciliation Form Allergies Coded Allergies: cefepime (Verified Allergy, Mild, RASH, ITCHING, 11/17/16) sulfamethoxazole (Unverified Adverse Reaction, Unknown, 03/02/17) trimethoprim (Unverified Adverse Reaction, Unknown, 03/02/17) [id number] Hx Patient Social History Living Status: independently at home Employed/Student: retired Alcohol Use: Denies Use Recreational Drug Use: Yes Drug of Choice: marijuana Smoking Status: Current Everyday Smoker Cigaretts per day: 20 Type Used: Cigarettes 2nd Hand Smoke Exposure: Yes Recent Foreign Travel: No Contact w/other who traveled: No Recent Hopitalizations: Yes (November 2016) Recent Infectious Disease Expo: No Physical Abuse Screen: No Sexual Abuse: No Immunizations Up To Date Tetanus Booster (TDap): More than 5yrs Date of Pneumonia Vaccine: Jul 17, 2010 Date of Influenza Vaccine: Nov 08, 2016 Past Medical History seizure disorder, heart cath, COPD, renal failure, GERD, arthritis, degenerative disk disease, illicit drug use, bipolar, borderline personality disorder, chronic pain, tobacco abuse, hx of PNA with multiple organisms Family Medical History Family History: Alcoholism 03 FATHER Arthritis Cancer 03 FATHER Congestive heart failure 03 FATHER Family history: Allergy 09 SISTER Family history: Arthritis 03 MOTHER Family history: Diabetes mellitus 03 FATHER Family history: Hypertension 03 MOTHER History of - anemia 09 SISTER History of drug abuse 09 BROTHER No Family History of: Abdominal aortic aneurysm Vicente's disease Aphasia Cancer of colon Cataract Chest pain Congenital heart disease Cystic fibrosis Dementia Dysphagia Family history: Alzheimer's disease Family history: Asthma Family history: Breast disease Family history: Cardiovascular disease Family history: Coronary thrombosis Family history: Gastrointestinal disease Family history: Glaucoma Family history: Osteoporosis Family history: Thyroid disorder Headache Hearing loss Heart disease Hereditary disease History of - disorder History of - respiratory disease Human immunodeficiency virus (HIV) seropositivity Hypercholesterolemia Infertile Kidney disease Malignant neoplasm of lung Myocardial infarction Parkinson's disease Prostate cancer Psychotic disorder Seizure disorder Stroke Tuberculosis Review of Systems (CHC) Constitutional: see HPI EENTM: no symptoms reported Respiratory: cough, dyspnea on exertion, No hemoptysis, orthopnea, phlegm, short of breath, No stridor, wheezing Cardiovascular: no symptoms reported Gastrointestinal: see HPI, loss of appetite, nausea Genitourinary: no symptoms reported Musculoskeletal: back pain (chronic pain), neck pain (chronic pain) Skin: no symptoms reported Psychiatric/Neurological: Anxiety, Depressed Reviewed Test Results Reviewed Test Results Lab Microbiology 03/02/17 Influenza Types A,B Antigen (PRABHA) - Final, Complete Laboratory Tests 03/02/17 11:35: Lactic Acid Level 2.16*H 03/02/17 21:05: Lactic Acid Level 2.71*H 03/03/17 05:30: Lactic Acid Level 0.75 Laboratory Tests Test 03/02/17 11:35 03/02/17 20:20 03/02/17 21:05 03/03/17 05:30 Range/Units Lactic Acid Level 2.16 *H 2.71 *H 0.75 0.50-2.00 MMOL/L White Blood Count 17.1 H 13.3 H 4.3-11.0 10^3/uL Red Blood Count 5.06 3.69 L 4.35-5.85 10^6/uL Hemoglobin 14.8 10.9 #L 13.3-17.7 G/DL Hematocrit 45 33 L 40-54 % Mean Corpuscular Volume 89 89 80-99 FL Mean Corpuscular Hemoglobin 29 30 25-34 PG Mean Corpuscular Hemoglobin Concent 33 33 32-36 G/DL Red Cell Distribution Width 17.3 H 16.9 H 10.0-14.5 % Platelet Count 280 308 130-400 10^3/uL Mean Platelet Volume 9.8 8.6 7.4-10.4 FL Neutrophils (%) (Auto) 68 81 H 42-75 % Lymphocytes (%) (Auto) 20 11 L 12-44 % Monocytes (%) (Auto) 7 8 0-12 % Eosinophils (%) (Auto) 5 0 0-10 % Basophils (%) (Auto) 0 0 0-10 % Neutrophils # (Auto) 11.6 H 10.8 H 1.8-7.8 X 10^3 Lymphocytes # (Auto) 3.4 1.5 1.0-4.0 X 10^3 Monocytes # (Auto) 1.2 H 1.0 0.0-1.0 X 10^3 Eosinophils # (Auto) 0.8 H 0.0 0.0-0.3 10^3/uL Basophils # (Auto) 0.0 0.0 0.0-0.1 10^3/uL Neutrophils % (Manual) 72 % Lymphocytes % (Manual) 21 % Monocytes % (Manual) 2 % Eosinophils % (Manual) 3 % Basophils % (Manual) 1 % Band Neutrophils 1 % Blood Morphology Comment NORMAL Prothrombin Time 12.6 12.2-14.7 SEC INR Comment 0.9 0.8-1.4 Activated Partial Thromboplast Time 20 L 24-35 SEC Sodium Level 138 140 135-145 MMOL/L Potassium Level 3.4 L 3.5 L 3.6-5.0 MMOL/L Chloride Level 100 108 H 98-107 MMOL/L Carbon Dioxide Level 18 L 24 21-32 MMOL/L Anion Gap 20 H 8 5-14 MMOL/L Blood Urea Nitrogen 9 6 L 7-18 MG/DL Creatinine 0.75 0.63 0.60-1.30 MG/DL Estimat Glomerular Filtration Rate > 60 > 60 BUN/Creatinine Ratio 12 10 Glucose Level 91 138 H 70-105 MG/DL Calcium Level 9.0 7.1 L 8.5-10.1 MG/DL Total Bilirubin 0.4 0.2 0.1-1.0 MG/DL Aspartate Amino Transf (AST/SGOT) 17 14 5-34 U/L Alanine Aminotransferase (ALT/SGPT) 11 9 0-55 U/L Alkaline Phosphatase 149 H 100 40-136 U/L Total Protein 7.6 5.1 L 6.4-8.2 GM/DL Albumin 3.9 2.8 L 3.2-4.5 GM/DL Radiology CXR 03/02: RLL infiltrate Physical Exam-(CHC) Physical Exam Vital Signs VS - Last 72 Hours, by Label 03/02/17 03/02/17 03/02/17 03/02/17 19:50 19:50 19:58 23:05 Temp 97.4 Pulse 94 88 Resp 16 20 B/P (MAP) Pulse Ox 96 97 99 O2 Delivery Nasal Cannula Nasal Cannula Nasal Cannula Nasal Cannula O2 Flow Rate 2.00 2.00 2.00 3.00 03/02/17 03/02/17 03/02/17 03/02/17 23:05 23:05 23:10 23:30 Temp 97.4 98.8 Pulse 88 96 96 Resp 20 21 B/P (MAP) 124/89 166/86 (112) Pulse Ox 93 99 93 93 O2 Delivery Nasal Cannula Nasal Cannula Nasal Cannula O2 Flow Rate 3.00 3.00 3.00 03/03/17 03/03/17 03/03/17 03/03/17 02:48 03:48 08:00 08:17 Temp 98.8 98.7 Pulse 83 87 Resp 18 22 B/P (MAP) 131/67 (88) 152/77 (102) Pulse Ox 98 98 94 95 O2 Delivery Nasal Cannula Nasal Cannula Nasal Cannula Nasal Cannula O2 Flow Rate 3.00 3.00 3.00 2.00 03/03/17 10:51 Pulse Ox 96 O2 Delivery Nasal Cannula O2 Flow Rate 2.00 Capillary Refill : Less Than 3 Seconds General Appearance: WD/WN, mild distress Eyes: Bilateral Eye Normal Inspection HEENT: PERRL/EOMI, normal ENT inspection, No scleral icterus (R), No scleral icterus (L), No photophobia Neck: non-tender, full range of motion, supple, normal inspection Respiratory: chest non-tender, no accessory muscle use, respiratory distress ( mild), decreased breath sounds (diminished in bases), wheezing (scattered), other (mild coarseness throughout) Cardiovascular: normal peripheral pulses, regular rate, rhythm, no edema, no gallop, no JVD, no murmur Peripheral Pulses: 2+ Radial Pulses (R), 2+ Radial Pulses (L) Gastrointestinal: normal bowel sounds, non tender, soft, no organomegaly, no pulsatile mass, No distended, No guarding, No rebound, No tenderness Back: normal inspection, no CVA tenderness Extremities: normal range of motion, non-tender, normal inspection, no pedal edema, no calf tenderness, normal capillary refill Neurologic/Psychiatric: 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, no motor/sensory deficits, alert, normal mood/affect, oriented x 3 Skin: normal color, warm/dry Lymphatic: no adenopathy Clinical Quality Measures DVT/VTE Risk/Contraindication: Risk Factor Score Per Nursin RFS Level Per Nursing on Admit: 4+=Very High Copy Copies To 1: MARY CARMEN LUNA DO Assessment/Plan Assessment/Plan Admission Dx Sepsis RLL PNA COPD Hypokalemia Tobacco Abuse Chronic Pain Seizure Disorder Neuropathy Anxiety Depression Plan Sepsis 03/03 -secondary to RLL PNA -lactic acidosis resolved after several fluid boluses; 2.16 --> 2.71 --> 0.75 -see below for further treatment details RLL PNA 03/03 -pt with history of multiple organisms sensitive to Zosyn and was hospitalized, also with significant lung disease; started on Zosyn 4.5, Day 1 -steroids to help with shortness of breath and inflammation, received 125 mg Solu-medrol in ED last night, will decrease today and plan for longer taper given existing lung disease -currently on 2L O2 for shortness of breath and to maintain sats -nebulizers per RT as ordered -WBC 17.1 --> 13.3 -anticipate 3-4 days in the hospital before patient is well enough to be discharged to home COPD 03/03 -steroids as above -nebulizers per RT -pt strongly encouraged to quit smoking Hypokalemia 03/03 -replaced with 40 mEq PO, will recheck BMP in AM Seizure Disorder 03/03 -pt had been off Dilantin and was restarted a few weeks ago when re-established care in clinic; on 100 mg TID -check Dilantin level with AM labs tomorrow -continue home Dilantin, 100 mg TID Tobacco Abuse 03/03 -cessation strongly encouraged Chronic Pain 03/03 -resumed home medications Neuropathy 03/03 -resumed home medications Anxiety 03/03 -resumed home medications; daughter is supposed to be bringing Alprazolam XR 2mg from home, as this is what patient takes and it is not on hospital formulary and he is doing well on it Depression 03/03 -resumed home medications Hypoalbuminemia -will check prealbumin tomorrow, suspect that patient may have protein calorie malnutrition Hypoproteinemia FEN: Regular Diet DVT Ppx: SCDs, Lovenox Dispo: Given the pt's fragile pulmonary state and history of multiple organism PNA, suspect he will require 3-4 midnights for adequate inpatient treatment before he is ready to go home, and is at risk for acute decompensation, as he has required intubation in the past CODE STATUS: DNR MARY CARMEN LUNA DO Mar 03, 2017 08:47
[2017-03-03] MEDS ORDERED: RT-ALBUTEROL/IPRATROPIUM 3 ML (DUONEB) VIAL IH PRN (09:00)
[2017-03-03] MEDS ORDERED: POLYETHYLENE GLYCOL 17 GM (MIRALAX) PACK PO PRN (09:00)
[2017-03-03] MEDS ORDERED: FENTANYL PATCH REMOVAL TP SCH (09:00)
[2017-03-03] MEDS ORDERED: fentaNYL PATCH 50 MCG (DURAGESIC) TD SCH (09:00)
[2017-03-03] MEDS: HYDROcodone/APAP 7.5 MG/325 MG (LORTAB, LORCET PLUS) TABLET PO PRN ×2 (09:39→21:27)
[2017-03-03] MEDS: PHENYTOIN 100 MG (DILANTIN) CAP PO SCH ×3 (10:42→20:45)
[2017-03-03] MEDS: METHOCARBAMOL 750 MG (ROBAXIN) TAB PO PRN ×2 (10:42→18:51)
[2017-03-03] MEDS: PREGABALIN 75 MG (LYRICA) CAP PO SCH ×2 (10:42→20:45)
[2017-03-03] MEDS: FINASTERIDE (PROSCAR) 5 MG TAB PO SCH (10:42)
[2017-03-03] MEDS: UMECLIDINIUM BROMIDE (INCRUSE ELLIPTA) 7'S IH SCH (10:51)
[2017-03-03 12:00] VITALS: BP 129/69
[2017-03-03] MEDS ORDERED: KETOROLAC 30 MG/ML VIAL IVP ONE (13:45)
[2017-03-03] MEDS: ONDANSETRON 4 MG/2 ML (SDV) Z0FRAN IV PRN (13:49)
[2017-03-03] MEDS: ENOXAPARIN 40 MG/0.4 ML (LOVENOX) SYR SC SCH (13:58)
[2017-03-03 16:00] VITALS: BP 134/69
[2017-03-03] MEDS: PROCHLORPERAZINE 10 MG/2ML INJ (COMPAZINE) IV PRN (16:58)
[2017-03-03] MEDS ORDERED: PATIENT MAY USE OWN MED,SINGLE MED PO SCH (18:00)
[2017-03-03] MEDS: RT-ADVAIR HFA 115/21 MCG PER PUFF IH SCH (18:50)
[2017-03-03 20:00] VITALS: BP 91/50
[2017-03-03] MEDS: DULoxetine 30 MG (CYMBALTA) CAP PO SCH (20:45)
[2017-03-03] MEDS: ALPRAZOLAM 2 MG PO SCH (20:45)
[2017-03-03] MEDS: ATORVASTATIN 40 MG (LIPITOR) TABLET PO SCH (20:45)
[2017-03-03] MEDS: MELATONIN 3 MG TABLET PO SCH (20:46)
[2017-03-04] VITALS: BP 90/55
[2017-03-04] MEDS: NS IV 1000 ML 1,000 ML IV SCH ×3 (00:59→20:34)
[2017-03-04] MEDS: RT-ALBUTEROL/IPRATROPIUM 3 ML (DUONEB) VIAL INH SCH ×6 (02:00→23:01)
[2017-03-04] MEDS: PIPERACILLIN/TAZOBACTAM 4.5 GM/D5W 100 ML IVPB IV SCH ×6 (03:24→20:14)
[2017-03-04] MEDS: CATHETER FLUSH 10 ML SYR IV SCH ×3 (05:24→20:14)
[2017-03-04] MEDS: methylPREDNISolone 125 MG (Solu-MEDROL) VIAL IV SCH ×2 (05:24→15:06)
[2017-03-04 06:30] LABS: BASOPHILS % (AUTO) 0 % (0-10); EOSINOPHILS % (AUTO) 0 % (0-10); HEMATOCRIT 34 % (40-54); HEMOGLOBIN 11.2 G/DL (13.3-17.7); LYMPHOCYTES # (AUTO) 2.3 X 10^3 (1.0-4.0); LYMPHOCYTES % (AUTO) 21 % (12-44); MEAN CORPUSCULAR HEMOGLOBIN 29 PG (25-34); MEAN CORPUSCULAR HGB CONC 33 G/DL (32-36); MEAN CORPUSCULAR VOLUME 89 FL (80-99); MEAN PLATELET VOLUME 9.1 FL (7.4-10.4); MONOCYTES # (AUTO) 0.9 X 10^3 (0.0-1.0); MONOCYTES % (AUTO) 8 % (0-12); NEUTROPHILS # (AUTO) 7.6 X 10^3 (1.8-7.8); NEUTROPHILS % (AUTO) 71 % (42-75); PLATELET COUNT 338 10^3/uL (130-400); RED BLOOD COUNT 3.84 10^6/uL (4.35-5.85); RED CELL DISTRIBUTION WIDTH 17.3 % (10.0-14.5); WHITE BLOOD COUNT 10.8 10^3/uL (4.3-11.0)
[2017-03-04 06:44] LABS: BUN/CREATININE RATIO 7; CALCIUM 7.7 MG/DL (8.5-10.1); CARBON DIOXIDE 23 MMOL/L (21-32); CHLORIDE 106 MMOL/L (98-107); CREATININE SERUM 0.72 MG/DL (0.60-1.30); GFR ESTIMATED > 60; GLUCOSE 147 MG/DL (70-105); MAGNESIUM 1.5 MG/DL (1.8-2.4); POTASSIUM 3.5 MMOL/L (3.6-5.0); SODIUM 139 MMOL/L (135-145)
[2017-03-04] MEDS: UMECLIDINIUM BROMIDE (INCRUSE ELLIPTA) 7'S IH SCH (07:28)
[2017-03-04] MEDS: RT-ADVAIR HFA 115/21 MCG PER PUFF IH SCH ×2 (07:28→23:00)
[2017-03-04 07:37] VITALS: BP 117/65
--- NOTE | 2017-03-04 08:18 | Progress Note (SOAP) ---
Subjective Subjective/Events-last exam The patient reports that he continues to feel somewhat short of breath from his baseline, but much improved from when he arrived. No other complaints or concerns. No concerns from nursing staff. Review of Systems Date Seen by Provider: Mar 04, 2017 Time Seen by Provider: 11:20 General: No Chills, No Night Sweats HEENT: No Head Aches, No Visual Changes, No Dysphasia, No Sore Throat Pulmonary: Dyspnea, Cough Cardiovascular: No: Chest Pain, Palpitations, Edema Gastrointestinal: No: Nausea, Vomiting, Abdominal Pain Genitourinary: No Dysuria, No Frequency Musculoskeletal: other (chronic pain) Neurological: No: Weakness, Numbness, Change in speech, Seizures Objective Exam Last Set of Vital Signs Vital Signs Date Time Temp Pulse Resp B/P (MAP) Pulse Ox O2 Delivery O2 Flow Rate FiO2 03/04/17 07:37 98.9 83 22 117/65 (82) 98 Nasal Cannula 2.00 Capillary Refill : Less Than 3 Seconds I&O Intake and Output 03/04/17 00:00 Intake Total 5320 ml Output Total 2375 ml Balance 2945 ml Intake Oral 2130 ml IV Total 3190 ml Output Urine Total 2375 ml # Voids 2 # Emeses 2 General: Alert, Oriented X3, Cooperative, No Acute Distress HEENT: Atraumatic, EOMI, Mucous Memb Moist/[place] Neck: Supple, No JVD, No Thyromegaly Lungs: Other (diffuse expiratory wheezing) Heart: Regular Rate, Normal S1, Normal S2, No Murmurs Abdomen: Normal Bowel Sounds, Soft, No Tenderness, No Hepatosplenomegaly, No Masses Extremities: No Clubbing, No Cyanosis, No Edema, Normal Pulses, No Tenderness/ Swelling Skin: No Rashes, No Significant Lesion Neuro: Normal Speech, Normal Tone, Sensation Intact, Cranial Nerves 3-12 NL Psych/Mental Status: Mental Status NL, Mood NL Results/Procedures Lab Laboratory Tests 03/04/17 06:18: White Blood Count 10.8, Red Blood Count 3.84L, Hemoglobin 11.2L, Hematocrit 34L , Mean Corpuscular Volume 89, Mean Corpuscular Hemoglobin 29, Mean Corpuscular Hemoglobin Concent 33, Red Cell Distribution Width 17.3H, Platelet Count 338, Mean Platelet Volume 9.1, Neutrophils (%) (Auto) 71, Lymphocytes (%) (Auto) 21, Monocytes (%) (Auto) 8, Eosinophils (%) (Auto) 0, Basophils (%) (Auto) 0, Neutrophils # (Auto) 7.6, Lymphocytes # (Auto) 2.3, Monocytes # (Auto) 0.9, Eosinophils # (Auto) 0.0, Basophils # (Auto) 0.0, Sodium Level 139, Potassium Level 3.5L, Chloride Level 106, Carbon Dioxide Level 23, Anion Gap 10, Blood Urea Nitrogen 5L, Creatinine 0.72, Estimat Glomerular Filtration Rate > 60, BUN/ Creatinine Ratio 7, Glucose Level 147H, Calcium Level 7.7L, Magnesium Level 1.5L , C-Reactive Protein High Sensitivity 6.60H Microbiology 03/02/17 Blood Culture - Preliminary, Resulted No growth 03/02/17 Influenza Types A,B Antigen (PRABHA) - Final, Complete Radiology CXR 03/02: RLL infiltrate Assessment/Plan Assessment/Plan Admission Dx see below Plan Sepsis 03/03 -secondary to RLL PNA -lactic acidosis resolved after several fluid boluses; 2.16 --> 2.71 --> 0.75 -see below for further treatment details RLL PNA 03/03 -pt with history of multiple organisms sensitive to Zosyn and was hospitalized, also with significant lung disease; started on Zosyn 4.5, Day 1 -steroids to help with shortness of breath and inflammation, received 125 mg Solu-medrol in ED last night, will decrease today and plan for longer taper given existing lung disease -currently on 2L O2 for shortness of breath and to maintain sats -nebulizers per RT as ordered -WBC 17.1 --> 13.3 -anticipate 3-4 days in the hospital before patient is well enough to be discharged to home 03/04 -WBC 17.7 --> 13.3 --> 10.8 -CRP 6.6 -Day 2 Zosyn -continue abx and steroids COPD 03/03 -steroids as above -nebulizers per RT -pt strongly encouraged to quit smoking Hypokalemia 03/03 -replaced with 40 mEq PO, will recheck BMP in AM 03/04 -remains mildly hypokalemic, will replace and recheck in AM Hypomagnesemia 03/04 -1.5 today; will replace 2 grams IVPB and recheck in AM Seizure Disorder 03/03 -pt had been off Dilantin and was restarted a few weeks ago when re-established care in clinic; on 100 mg TID -check Dilantin level with AM labs tomorrow -continue home Dilantin, 100 mg TID 03/04 -dilantin level pending Tobacco Abuse 03/03 -cessation strongly encouraged Chronic Pain 03/03 -resumed home medications Neuropathy 03/03 -resumed home medications Anxiety 03/03 -resumed home medications; daughter is supposed to be bringing Alprazolam XR 2mg from home, as this is what patient takes and it is not on hospital formulary and he is doing well on it Depression 03/03 -resumed home medications Hypoalbuminemia -will check prealbumin tomorrow, suspect that patient may have protein calorie malnutrition 03/04 -prealbumin pending Hypoproteinemia FEN: Regular Diet DVT Ppx: SCDs, Lovenox Dispo: Patient making progress, anticipate likely will be ready for discharge in 24-48 hours. CODE STATUS: DNR Clinical Quality Measures DVT/VTE Risk/Contraindication: Risk Factor Score Per Nursin RFS Level Per Nursing on Admit: 4+=Very High BELLA LUNA DO Mar 04, 2017 08:18
[2017-03-04 08:59] LABS: BILIRUBIN,URINE NEGATIVE (NEGATIVE); CLARITY,URINE CLEAR; COLOR,URINE YELLOW; GLUCOSE, URINE (UA) NEGATIVE (NEGATIVE); KETONES,URINE NEGATIVE (NEGATIVE); LEUKOCYTE ESTERASE ,URINE NEGATIVE (NEGATIVE); NITRITE,URINE NEGATIVE (NEGATIVE); PH,URINE 6.5 (5-9); PROTEIN,URINE 1+ (NEGATIVE); UROBILINOGEN,URINE NORMAL (NORMAL)
[2017-03-04 09:07] LABS: BACTERIA,URINE NEGATIVE /HPF; WBC,URINE RARE /HPF
[2017-03-04] MEDS: PHENYTOIN 100 MG (DILANTIN) CAP PO SCH ×3 (09:17→20:09)
[2017-03-04] MEDS: FINASTERIDE (PROSCAR) 5 MG TAB PO SCH (09:17)
[2017-03-04] MEDS: PREGABALIN 75 MG (LYRICA) CAP PO SCH ×2 (09:17→20:09)
[2017-03-04] MEDS: HYDROcodone/APAP 7.5 MG/325 MG (LORTAB, LORCET PLUS) TABLET PO PRN ×2 (11:20→20:10)
[2017-03-04] MEDS: ENOXAPARIN 40 MG/0.4 ML (LOVENOX) SYR SC SCH (12:48)
[2017-03-04 15:51] VITALS: BP 141/70
[2017-03-04] MEDS: METHOCARBAMOL 750 MG (ROBAXIN) TAB PO PRN (18:05)
[2017-03-04] MEDS ORDERED: KCL 20 MEQ TAB (K-DUR) PO NR (19:30)
[2017-03-04] MEDS ORDERED: methylPREDNISolone 125 MG (Solu-MEDROL) VIAL IV SCH (19:30)
[2017-03-04] MEDS: MAGNESIUM 1 GM/100 ML IVPB 100 ML IV SCH ×2 (20:09→21:13)
[2017-03-04] MEDS: ALPRAZOLAM 2 MG PO SCH (20:09)
[2017-03-04] MEDS: DULoxetine 30 MG (CYMBALTA) CAP PO SCH (20:09)
[2017-03-04] MEDS: ATORVASTATIN 40 MG (LIPITOR) TABLET PO SCH (20:09)
[2017-03-04] MEDS: MELATONIN 3 MG TABLET PO SCH (20:10)
[2017-03-04] MEDS: methylPREDNISolone 40 MG/ML (Solu-MEDROL) VIAL IV SCH (20:17)
[2017-03-05] VITALS: BP 121/72
[2017-03-05] MEDS: PIPERACILLIN/TAZOBACTAM 4.5 GM/D5W 100 ML IVPB IV SCH ×2 (03:05)
[2017-03-05] MEDS: RT-ALBUTEROL/IPRATROPIUM 3 ML (DUONEB) VIAL INH SCH ×3 (03:18→11:11)
[2017-03-05] MEDS: methylPREDNISolone 40 MG/ML (Solu-MEDROL) VIAL IV SCH (05:21)
[2017-03-05] MEDS: CATHETER FLUSH 10 ML SYR IV SCH (05:21)
[2017-03-05 05:32] LABS: BASOPHILS % (AUTO) 0 % (0-10); EOSINOPHILS % (AUTO) 0 % (0-10); HEMATOCRIT 37 % (40-54); HEMOGLOBIN 12.1 G/DL (13.3-17.7); LYMPHOCYTES # (AUTO) 2.2 X 10^3 (1.0-4.0); LYMPHOCYTES % (AUTO) 24 % (12-44); MEAN CORPUSCULAR HEMOGLOBIN 30 PG (25-34); MEAN CORPUSCULAR HGB CONC 33 G/DL (32-36); MEAN CORPUSCULAR VOLUME 89 FL (80-99); MONOCYTES # (AUTO) 0.8 X 10^3 (0.0-1.0); MONOCYTES % (AUTO) 9 % (0-12); NEUTROPHILS % (AUTO) 67 % (42-75); PLATELET COUNT 382 10^3/uL (130-400); RED CELL DISTRIBUTION WIDTH 17.5 % (10.0-14.5)
[2017-03-05 06:07] LABS: BUN/CREATININE RATIO 7; CARBON DIOXIDE 30 MMOL/L (21-32); CHLORIDE 104 MMOL/L (98-107); CREATININE SERUM 0.67 MG/DL (0.60-1.30); GFR ESTIMATED > 60; GLUCOSE 111 MG/DL (70-105); MAGNESIUM 1.9 MG/DL (1.8-2.4); POTASSIUM 3.9 MMOL/L (3.6-5.0); SODIUM 142 MMOL/L (135-145)
[2017-03-05] MEDS: NS IV 1000 ML 1,000 ML IV SCH (06:40)
[2017-03-05] MEDS: RT-ADVAIR HFA 115/21 MCG PER PUFF IH SCH (07:10)
[2017-03-05] MEDS: HYDROcodone/APAP 7.5 MG/325 MG (LORTAB, LORCET PLUS) TABLET PO PRN (07:57)
[2017-03-05] MEDS: ONDANSETRON 4 MG/2 ML (SDV) Z0FRAN IV PRN (07:57)
[2017-03-05 08:00] VITALS: BP 141/77
[2017-03-05] MEDS: FINASTERIDE (PROSCAR) 5 MG TAB PO SCH (08:00)
[2017-03-05] MEDS: PREGABALIN 75 MG (LYRICA) CAP PO SCH (08:00)
[2017-03-05] MEDS: PHENYTOIN 100 MG (DILANTIN) CAP PO SCH (08:00)
[2017-03-05] MEDS: PROCHLORPERAZINE 10 MG/2ML INJ (COMPAZINE) IV PRN (09:14)
[2017-03-05] MEDS: METHOCARBAMOL 750 MG (ROBAXIN) TAB PO PRN (09:20)
[2017-03-05] MEDS: UMECLIDINIUM BROMIDE (INCRUSE ELLIPTA) 7'S IH SCH (11:11)
[2017-03-05] MEDS ORDERED: LEVO750T9 PO (12:03)
[2017-03-05] MEDS ORDERED: PRD20T PO (12:03)
--- NOTE | 2017-03-05 12:06 | Discharge Instructions ---
Discharge [facility] Discharge Medications New, Converted or Re-Newed RX: Transmitted to Pharmacy New Medications: Levofloxacin (Levaquin) 750 Mg Tablet 750 MG PO DAILY for 5 Days, #5 TAB 0 Refills Prednisone (Prednisone) 20 Mg Tab 20 MG PO DAILY, #22 TAB 0 Refills Take 3 tabs(60mg)daily,decrease by 1/2 tab(10mg)every other day. Continued Medications: Alprazolam (Alprazolam ER) 2 Mg Tab.er.24h 2 MG PO HS, TAB Atorvastatin Calcium (Atorvastatin Calcium) 40 Mg Tablet 40 MG PO HS, TAB Duloxetine HCl (Duloxetine HCl) 30 Mg Capsule.dr 30 MG PO HS, CAP Fentanyl (Fentanyl Patch 50 MCG) 1 Each Patch.td72 50 MCG TD Q72H, PATCH Finasteride (Finasteride) 5 Mg Tablet 5 MG PO DAILY, TAB Fluticasone/Salmeterol (Advair 250-50 Diskus) 1 Each Blst.w.dev 1 PUFF INH BID, EA Hydrocodone/Acetaminophen (Hydrocodon-Acetaminoph 7.5-325) 1 Each Tablet 1 TAB PO TID PRN for PAIN-MODERATE, TAB Ipratropium/Albuterol Sulfate (Iprat-Albut 0.5-3(2.5) mg/3 ml) 3 Ml Ampul.neb 3 ML IH QID PRN for SHORTNESS OF BREATH, EACH Melatonin (Melatonin) 3 Mg Tablet 3 MG PO HS, TAB Methocarbamol (Methocarbamol) 750 Mg Tablet 750 MG PO Q4H PRN for MUSCLE SPASMS, TAB Phenytoin Sodium Extended (Phenytoin Sodium Extended) 100 Mg Capsule 100 MG PO TID, CAP Polyethylene Glycol 3350 (Miralax) 17 Gm Powd.pack 17 GM PO BID PRN for CONSTIPATION-2ND LINE, EACH Pregabalin (Lyrica) 150 Mg Capsule 150 MG PO BID, CAP Tiotropium [place] (Spiriva) 1 Inh Aerp 1 CAP IH DAILY, CAP Patient Instructions Goal/Follow Up Appt: PLEASE FOLLOW UP WITH DR LUNA SCHEDULED Patient Instructions: TAKE ALL ANTIBIOTICS AND STEROIDS PRESCRIBED. Return to The Hospital For: INCREASING SHORTNESS OF BREATH OR FEVER Activity & Diet Discharge Diet: No Restrictions Activity as Tolerated: Yes Orders-Post D/C & Referrals Pneu Vac Indicated: Yes Copy Copies To 1: BELLA LUNA JULIE A MD Mar 05, 2017 12:06 pm
--- NOTE | 2017-03-05 12:07 | Discharge Summary ---
Diagnosis/Chief Complaint Date of Admission Mar 02, 2017 at 10:00 pm Date of Discharge Chief Complaint/HPI Chief Complaint/HPI Pt presented to ED last night by EMS with report of increasing shortness of breath over the last 3 days. Notes that he's had some hot flashes but denies persistent fevers. EMS noted 99 4 on their evaluation for temperature. States that his home meds are not helping him and he is getting worse with respect to his breathing. EMS did report that he was requiring oxygen support and started DuoNeb with a liters O2 to get O2 sats to 98 percent. Denies vomiting but does have some nausea and dry heaves. Denies chest pain. Denies diarrhea. Reports taking his meds as directed and smoking about a pack of cigarettes a day. This morning the patient reports that he has had some improvement in his shortness of breath with oxygen, steroids, and breathing treatments. His daughter is supposed to be bringing his Xanax ER from home, as the hospital does not have it, and the patient reports that it is helping him quite a bit. Discharge Summary-Simple/Stand Consultations Discharge Physical Examination Allergies: Coded Allergies: cefepime (Verified Allergy, Mild, RASH, ITCHING, 11/17/16) sulfamethoxazole (Unverified Adverse Reaction, Unknown, 03/02/17) trimethoprim (Unverified Adverse Reaction, Unknown, 03/02/17) Vitals & I&Os Vital Sign - Last 12Hours Date Time Temp Pulse Resp B/P (MAP) Pulse Ox O2 Delivery O2 Flow Rate FiO2 03/05/17 11:11 93 Room Air 03/05/17 08:00 98.4 83 22 141/77 (98) 03/04/17 10:38 2.00 Intake and Output 03/05/17 00:00 Intake Total 3120 ml Output Total 2125 ml Balance 995 ml Hospital Course See final discharge diagnosis. Radiology Reviewed CXR 03/02: RLL infiltrate Discharge Instructions to patient/family Please see electronic discharge instructions given to patient. Discharge Medications Reviewed and agree with Discharge Medication list on patient's Discharge Instruction sheet Clinical Quality Measures DVT/VTE Risk/Contraindication: Risk Factor Score Per Nursin RFS Level Per Nursing on Admit: 4+=Very High MAT LAGUNAS MD Mar 05, 2017 12:07 pm
== END 2017-03-05 13:25 | disposition home or self-care (01) | DRG 871 ==
LOC: EDUNIT# 19:47 → ER 19:49 → 4TH 22:00
PROVIDERS: ADMIT Family Medicine; ATTEND Family Medicine
DX: A41.9 Sepsis, unspecified organism (principal); J18.9 Pneumonia, unspecified organism; J43.9 Emphysema, unspecified; R06.03 Acute respiratory distress; F17.210 Nicotine dependence, cigarettes, uncomplicated; G47.30 Sleep apnea, unspecified; I25.10 Atherosclerotic heart disease of native coronary artery without angina pectoris; Z66 Do not resuscitate; I10 Essential (primary) hypertension; E78.00 Pure hypercholesterolemia, unspecified; G62.9 Polyneuropathy, unspecified; G40.909 Epilepsy, unspecified, not intractable, without status epilepticus; K21.9 Gastro-esophageal reflux disease without esophagitis; K59.09 Other constipation; K44.9 Diaphragmatic hernia without obstruction or gangrene; M54.2 Cervicalgia; F41.9 Anxiety disorder, unspecified; F31.9 Bipolar disorder, unspecified; F60.3 Borderline personality disorder; F12.90 Cannabis use, unspecified, uncomplicated; M19.91 Primary osteoarthritis, unspecified site; E87.6 Hypokalemia; E83.42 Hypomagnesemia; E88.09 Other disorders of plasma-protein metabolism, not elsewhere classified; E77.8 Other disorders of glycoprotein metabolism; R11.0 Nausea; I25.2 Old myocardial infarction; Z91.5 Personal history of self-harm; Z87.448 Personal history of other diseases of urinary system
CPT/HCPCS: 36415; 71045; 80048; 80053; 80185; 81000; 83605; 83735; 84134; 85007; 85025; 85027; 85610; 85730; 86141; 87040; 87804; 94640; 94760; 96361; 96365; 96375

== ENCOUNTER 2017-05-12 05:40 | Outpatient (CLI) | payer MEDICARE, MEDICAID ==
[~2017-05-12] VITALS: Ht 170.2 cm; Wt 46.7 kg
[~2017-05-12 05:40] MED LIST changes: +ACHD5005 PO; +ALPR2TAB4 PO; +CIPR500T4 PO; +CLON1TAB3 PO; +DULO30CA48 PO; +FENT1PAT9 TD; +FLUT1DIS26 INH; +HYDR-34 PO; +HYDR-3816 PO; +IPRA3AMP IH; +LEVO750T9 PO; +METR500T21 PO; +ONDA4TAB8 SL; +PROM25TA14 PO; +SERT100T PO; -SERT20OR PO; +UMEC62.5 INH
== END 2017-05-12 15:55 ==
LOC: PREOP 05:40
PROVIDERS: ATTEND Surgery
DX: Z01.818 Encounter for other preprocedural examination (principal); K21.9 Gastro-esophageal reflux disease without esophagitis; R11.2 Nausea with vomiting, unspecified; E46 Unspecified protein-calorie malnutrition

== ENCOUNTER 2017-05-18 10:52 | Day surgery (SDC) | payer MEDICARE, MEDICAID ==
[~2017-05-18] VITALS: Ht 170.2 cm; Wt 46.7 kg
[2017-05-18] MEDS ORDERED: NS IV 500 ML 500 ML ONE (10:59)
[2017-05-18 11:00] VITALS: BP 128/80
[2017-05-18] MEDS ORDERED: LIDOCAINE JELLY 2% (XYLOCAINE) 5 ML TUBE MM PRN (11:00)
[2017-05-18] MEDS ORDERED: NS IV 500 ML 500 ML IV PRN (11:00)
[2017-05-18] MEDS ORDERED: HURRICAINE EXT TUBE (BENZOCAINE) XX PRN (11:00)
[2017-05-18] MEDS ORDERED: LACTATED RINGERS 1,000 ML IV ONE (11:32)
--- NOTE | 2017-05-18 11:53 | Progress Note-Pre Operative ---
Pre-Operative Progress Note H&P Reviewed The H&P was reviewed, patient examined and no changes noted. Date Seen by Provider: May 18, 2017 Time Seen by Provider: 11:45 Date H&P Reviewed: May 18, 2017 Time H&P Reviewed: :45 Pre-Operative Diagnosis: weight loss, malnutrition JIN ANTON MD May 18, 2017 11:53
[2017-05-18] MEDS ORDERED: ONDANSETRON 4 MG/2 ML (SDV) Z0FRAN IV PRN (12:00)
[2017-05-18] MEDS ORDERED: morphine INJ 10 MG/ML 1ML (SYR OR VIAL) IV PRN (12:00)
[2017-05-18] MEDS ORDERED: ACETAMINOPHEN 325 MG TABLET/CAPLET (TYLENOL) PO PRN (12:00)
[2017-05-18] MEDS ORDERED: HYDROcodone/APAP 5 MG/325 MG (LORTAB) TAB PO PRN (12:00)
[2017-05-18] MEDS ORDERED: MIDAZOLAM 2 MG/2 ML (VERSED) VIAL ONE ×5 (12:27→13:37)
[2017-05-18] MEDS ORDERED: fentaNYL INJECTION 100 MCG/2 ML AMP ONE ×3 (12:27→13:45)
[2017-05-18] MEDS ORDERED: LIDOCAINE JELLY 2% (XYLOCAINE) 5 ML TUBE ONE (12:28)
[2017-05-18] MEDS ORDERED: HURRICAINE EXT TUBE (BENZOCAINE) ONE (12:28)
[2017-05-18] MEDS: MIDAZOLAM 2 MG/2 ML (VERSED) VIAL IVP PRN ×5 (12:56→13:30)
[2017-05-18] MEDS: fentaNYL INJECTION 100 MCG/2 ML AMP IVP PRN ×6 (12:57→13:51)
--- NOTE | 2017-05-18 14:07 | Conscious Sedation/ASA ---
Conscious Sedation Pre-Proced Time Reviewed: 11:45 ASA Class: 3 Airway Mallampati Classification: ([place] appropriate class) I. II. III, IV Lungs Heart ASA score ASA 1: a normal healthy patient ASA 2: a patient with a mild systemic disease (mid diabetes, controlled hypertension, obesity ASA 3: a patient with a severe systemic disease that limits activity (angina , COPD, prior Myocardial infarction) ASA 4: a patient with an incapacitating disease that is a constant threat to life (CHF, renal failure) ASA 5: a moribund patient not expected to survive 24 hrs. (ruptured aneurysm) ASA 6: a declared brain patient whose organs are being harvested. For emergent operations, add the letter E after the classification Grade 2 Sedation Plan: Analgesia, Amnesia, Plan communicated to team members, Discussed options with patient/fam, Discussed risks with patient/fam Note The patient is an appropriate candidate to undergo the planned procedure, sedation, and anesthesia. The patient immediately re-assessed prior to indication. JIN ANTON MD May 18, 2017 2:06 pm
--- NOTE | 2017-05-18 14:11 | Progress Note-Post Operative ---
Post-Operative Progess Note Surgeon (s)/Finished Carpet Inspector (s) Surgeon JIN ANTON MD Finished Carpet Inspector: none Pre-Operative Diagnosis weight loss, malnutrition Post-Operative Diagnosis reflux esophagitis(class B-C), esophageal candidiasis, moderate gastritis, no distal obstructions. chronic stage 2 ext and int hemorrhoids, moderate sigmoid diverticulosis, descending colonic polyp(2mm) Procedure & Operative Findings Date of Procedure 05/18/17 Procedure Performed/Findings EGD with bx and brushings. PEG tube placement. Colonoscopy with bx. Anesthesia Type CS Estimated Blood Loss Estimated blood loss (mL): minimal Specimens/Packing Specimens Removed GE jxn, antrum, distal esophagus brushings, desc colon polyp JIN ANTON MD May 18, 2017 2:11 pm
--- NOTE | 2017-05-18 14:17 | Discharge Inst-Surgical ---
D/C Lap Instructions-KIDO New, Converted, or Re-Newed RX: RX on Chart Follow Up PRN Activity as tolerated High Fiber Diet 25g or more per day Avoid Alcohol, Caffeine, Spicy [place] and Acid foods. Drink 64 fluid oz or more of fluids per day. Symptoms to Report: Fever over 101 degree F, Nausea/Vomiting If any problems/questions: Contact your physician or go to Emergency Room JIN ANTON MD May 18, 2017 2:17 pm
[2017-05-18 14:20] VITALS: BP 116/75
[2017-05-18 14:45] VITALS: BP 131/82
[2017-05-18 15:09] VITALS: BP 131/82
--- NOTE | 2017-05-18 21:09 | OPERATIVE REPORT ---
DATE OF SERVICE: 05/18/2017 PRIMARY CARE PHYSICIAN: Dr. Foster. PREOPERATIVE DIAGNOSES: Weight loss, malnutrition. POSTOPERATIVE DIAGNOSES: Reflux esophagitis class B, white plaque of the distal esophagus consistent with esophageal candidiasis, moderate gastritis. No distal obstructions. Chronic stage II external and internal hemorrhoids, small polyp of the descending colon, moderate sigmoid diverticulosis. PROCEDURE: EGD with biopsies and brushings, percutaneous endoscopic gastrostomy tube placement. Colonoscopy with biopsy. SURGEON: Dr. Anton. ANESTHESIA: Conscious sedation. ESTIMATED BLOOD LOSS: Minimal. FINDINGS: Reflux esophagitis class B, white plaque of the distal esophagus consistent with esophageal candidiasis, moderate gastritis. Pylorus and duodenum appeared normal with no distal obstructions. COLONOSCOPY: Chronic stage II external and internal hemorrhoids, moderate sigmoid diverticulosis with no signs of inflammation. A small hyperplastic polyp of the descending colon 2 mm in size. Remainder of the colon was normal. There were no other lesions identified. DISPOSITION: The patient tolerated the procedure well. INDICATIONS: The patient is a 66-year-old male who has had severe weight loss, as well as reflux and nausea, vomiting. He reports that this has been occurring for the past 2-1/2 years and he has lost approximately 92 pounds. He reports that he does not have a very good diet and does have a history of drug abuse in the past as well as a 2-pack-year history of smoking for the past 55 years. He reports that he does not have much of an appetite and he tries to eat high caloric foods; however, cannot maintain weight. He does have episodes of reflux and regurgitation, as well as epigastric burning sensation. He did have a colonoscopy approximately 10 years ago and remembers diverticulosis; however, no other issues. DESCRIPTION OF PROCEDURE: The patient was brought to the endoscopy suite, laid in left lateral decubitus position. After adequate IV pain and sedating medications and conscious sedation anesthesia, the mouthpiece was applied. The endoscope was placed in the mouth, visualizing the pharynx and hypopharyngeal region. Vocal cords, epiglottis and vallecula identified and appeared to be normal. Endoscope was then gently intubated in the esophageal opening, the esophagus is insufflated. The endoscope was then advanced to the first, second and third portion of the esophagus at the level of the GE junction. A reflux esophagitis class B identified. There were no strictures identified in this region. There was a white plaquish coating of the distal esophagus, most likely consistent with some level of esophageal candidiasis. Brushings were taken of the plaque for a fungal culture. The endoscope was then advanced in the stomach and endoscope retroflexed, visualizing a hiatal hernia approximately 2 cm in size. There was a moderate gastritis. There were no ulcers, polyps or any neoplasms identified. A biopsy was taken of the stomach, antrum with forceps with visualization of good hemostasis. The endoscope was then advanced to the pylorus and the first and second portion of the duodenum, which appeared normal with no distal obstructions. We then proceeded with the percutaneous endoscopic gastrostomy tube placement. The light was visualizing in the left upper abdominal quadrant and the skin, subcutaneous tissue, fascia, muscle and stomach were then anesthetized using 1% lidocaine under direct visualization. A small skin incision was then made and the cannulating needle placed under direct visualization using the endoscope. A guidewire was then inserted and looped in through the scope and pulled through the mouth. The gastrostomy tube was placed onto the wire and pulled through with minimal resistance. The endoscope was placed back into the stomach and once the end bolster was firmly abutting the anterior stomach wall, the anterior rubber bolster was placed to create a firm seal. Good hemostasis was also observed. The endoscope was then slowly withdrawn taking a second look and suctioning residual air with no additional findings. The catheter then cut down to size and the stopcock placed on the end. The patient tolerated this portion of the procedure well. The gastrostomy tube may be accessed and used at any time. Staff will be instructed to keep the area clean and dry with gauze dressing on a b.i.d. as well as a p.r.n. basis. Under the same conscious sedation anesthesia, we then proceeded with the colonoscopy portion of procedure. A digital rectal examination was performed, which revealed chronic stage II external and internal hemorrhoids, not actively edematous nor inflamed and no bleeding. Normal sphincter tone was felt and there were no palpable masses. Prostate gland was palpable and appeared normal. The endoscope was then intubated into the anus and rectum gently insufflated. The endoscope was then advanced into the valves of dangelo of the rectum with no polyps or neoplasms identified. We then proceeded through the sigmoid colon where a moderate sigmoid diverticulosis identified. There were no mucosal inflammatory changes to indicate any active diverticulitis. The endoscope was then advanced to the descending colon where a small hyperplastic polyp approximately 2 to 3 mm in size were identified. This was biopsied and destroyed using forceps and electrocautery with visualization of good hemostasis. The endoscope was then advanced to the remainder of the descending, transverse, ascending colon and the cecum. These segments were normal. There were no tumors or any neoplastic lesions identified. The endoscope was slowly withdrawn while taking a second look and suctioning residual air with no additional findings. The patient tolerated the procedure well. We will recommend continued medical management with supplemental alimentation through the gastrostomy tube as well as further diagnostic imaging and procedures if he does continue to lose weight. Job ID: [id number] DocumentID: [id number] Dictated Date: 05/18/2017 14:26:34 Polish Maker Date: 05/18/2017 21:09:14 Dictated By: JIN ANTON MD MTDD
== END 2017-05-18 15:05 | disposition home or self-care (01) ==
LOC: ENDO 10:52
PROVIDERS: ATTEND Surgery
DX: K21.0 Gastro-esophageal reflux disease with esophagitis (principal); K29.70 Gastritis, unspecified, without bleeding; D12.4 Benign neoplasm of descending colon; K57.30 Diverticulosis of large intestine without perforation or abscess without bleeding; K64.1 Second degree hemorrhoids; E78.00 Pure hypercholesterolemia, unspecified; J43.9 Emphysema, unspecified; N18.2 Chronic kidney disease, stage 2 (mild); G89.4 Chronic pain syndrome; Z79.899 Other long term (current) drug therapy; F17.210 Nicotine dependence, cigarettes, uncomplicated
CPT/HCPCS: 87101

== ENCOUNTER → 2017-11-07 | Outpatient (CLI) | payer MEDICARE, MEDICAID ==
[~2017-11-07] MED LIST changes: +CLON1TAB13 PO; -CLON1TAB3 PO; +CODE118S4 PO; -IPRA3AMP IH; -IPRA3AMP INH; +IPRA3AMP31 IH; +IPRA3AMP31 INH; -OXYC-202 PO; +OXYC1TAB12 PO
--- NOTE | 2017-11-07 12:23 | Diagnostic Imaging Report ---
INDICATION: Chronic neck pain. TIME OF EXAMINATION: 11:22 a.m. FINDINGS: AP, lateral, swimmer's and odontoid views were obtained of the cervical spine. Curvature is normal. There is minimal anterolisthesis of C3 on C4. There appears to be retrolisthesis of C5 on C6. There is significant degenerative disc disease of C5 on C6 with disc space narrowing and marginal spurring. There is significant facet arthropathy at all levels. Prevertebral tissues are within normal limits. Odontoid appears intact. IMPRESSION: Cervical spondylosis and listhesis. No acute bony abnormality is detected. Dictated by: Dictated on workstation # [id number]
--- NOTE | 2017-11-07 12:31 | Diagnostic Imaging Report ---
INDICATION: Chronic low back pain. Time of exam 11:29 AM Comparison is made with prior lumbar spine radiographs from 11/21/2013. The curvature of the lumbar spine is normal. There is minimal retrolisthesis of L5 on S1. Vertebral body heights are maintained. No acute compression fracture is seen. There is degenerative disc disease at L5-S1. No spondylolyses or spondylolisthesis is seen. There is moderate gaseous distention to what appears to be the colon in the right abdomen. No definite bowel wall thickening is seen IMPRESSION: Mild lumbar spondylosis. No acute bony abnormality is seen. Nonspecific moderate gaseous distention to the colon. Dictated by: Dictated on workstation # [id number]
== END ==
LOC: RAD 10:41
PROVIDERS: ATTEND Family Medicine
DX: M47.812 Spondylosis without myelopathy or radiculopathy, cervical region (principal); M43.12 Spondylolisthesis, cervical region; M47.816 Spondylosis without myelopathy or radiculopathy, lumbar region; M63.89 Disorders of muscle in diseases classified elsewhere, multiple sites
CPT/HCPCS: 72040; 72110

== ENCOUNTER 2017-12-05 11:56 | Observation (INO) | payer MEDICARE, MEDICAID ==
[~2017-12-05] VITALS: Ht 167.6 cm; Wt 44.6 kg
[~2017-12-05 11:56] MED LIST changes: +METR-197 PO; -METR500T21 PO
[2017-12-05] MEDS ORDERED: NS IV 1000 ML 1,000 ML IV ONE (12:56)
--- NOTE | 2017-12-05 13:32 | ED General ---
General Chief Complaint: Chest Wall/Rib Pain Stated Complaint: SOB;FALL;LOWER BACK PAIN Nursing Triage Note: pt states he fell over a ben backpack last night. Presents to the ED today via w/c. landed on his left side. verbalizes pain with deep inspiration and feeling short of air d/t shallow respirations. pt verbalizes a history of COPD. Nursing Sepsis Screen: No Definite Risk Source of Information: Patient Exam Limitations: No Limitations History of Present Illness Date Seen by Provider: Dec 05, 2017 Time Seen by Provider: 12:45 Initial Comments This 67-year-old gentleman presents to the emergency room with his care provider at the direction of his residency coordinator because of declining condition over the past couple of months. They report a 20 pound weight loss in the last month. He is refusing to eat or drink. Patient reports having "blacking out episodes". He believes he is dehydrated. His care provider states he has been noncompliant with medications. He also has been known to stack his fentanyl patches. He has significant COPD and is oxygen dependent. Care provider also states he is had some increased confusion recently. Patient smokes cigarettes and marijuana. Care provider does not know of any other drug or alcohol abuse. Patient also has had multiple falls recently including a fall last night. He has pain and tenderness over the left chest wall and a bruise in that region. Allergies and Home Medications Allergies Coded Allergies: cefepime (Verified Allergy, Mild, RASH, ITCHING, 04/21/17) sulfamethoxazole (Unverified Adverse Reaction, Unknown, 04/21/17) trimethoprim (Unverified Adverse Reaction, Unknown, 04/21/17) Home Medications Atorvastatin Calcium 40 Mg Tablet, 40 MG PO HS, (Reported) Clonazepam 1 Mg Tablet, 0.5 MG PO DAILY, (Reported) TAKES 1/2 (1MG) TABLET Clonazepam 1 Mg Tablet, 1 MG PO HS, (Reported) Duloxetine HCl 30 Mg Capsule.dr, 30 MG PO HS, (Reported) Fentanyl 1 Each Patch.td72, 50 MCG TD Q72H, (Reported) Finasteride 5 Mg Tablet, 5 MG PO DAILY, (Reported) Fluticasone/Salmeterol 1 Each Blst.w.dev, 1 PUFF INH BID, (Reported) Hydrocodone/Acetaminophen 1 Each Tablet, 1 TAB PO TID PRN for PAIN-MODERATE, ( Reported) Ipratropium/Albuterol Sulfate 3 Ml Ampul.neb, 3 ML IH QID PRN for SHORTNESS OF BREATH, (Reported) Methocarbamol 750 Mg Tablet, 750 MG PO Q4H PRN for MUSCLE SPASMS, (Reported) Phenytoin Sodium Extended 100 Mg Capsule, 100 MG PO TID, (Reported) Prednisone 20 Mg Tab, 40 MG PO DAILY Prescribed by: LORE HOBBS on 10/04/17 1156 Pregabalin 150 Mg Capsule, 150 MG PO BID, (Reported) Promethazine HCl/Codeine 118 Ml Syrup, 5 ML PO Q6H PRN for COUGH Prescribed by: LORE HOBBS on 10/04/17 1156 Umeclidinium [place] 62.5 Mcg Blst.w.dev, 1 PUFF INH DAILY, (Reported) Patient Home Medication List Home Medication List Reviewed: Yes Review of Systems Review of Systems Constitutional: see HPI EENTM: no symptoms reported Respiratory: see HPI Cardiovascular: no symptoms reported Gastrointestinal: see HPI Genitourinary: no symptoms reported Musculoskeletal: see HPI Skin: see HPI Psychiatric/Neurological: See HPI Hematologic/Lymphatic: No Symptoms Reported Immunological/Allergic: no symptoms reported Past Gsdpxnz-Fzsfxg-Gtzujq Hx Past Med/Social Hx: Reviewed and Corrections made Patient Social History Drug of Choice: marijuana Type Used: Cigarettes 2nd Hand Smoke Exposure: Yes Recent Foreign Travel: No Contact w/Someone Who Travel: No Recent Infectious Disease Expo: No Recent Hopitalizations: No Immunizations Up To Date Tetanus Booster (TDap): More than 5yrs PED Vaccines UTD: No Date of Pneumonia Vaccine: Jul 17, 2010 Date of Influenza Vaccine: Nov 08, 2016 Seasonal Allergies Seasonal Allergies: No Past Medical History Surgeries: Yes (port placed- left) Tonsillectomy Respiratory: Yes Pneumonia, COPD (dependent on supplemental oxygen by nasal cannula), Emphysema Currently Using CPAP: No Currently Using BIPAP: No Cardiac: Yes Coronary Artery Disease, Heart Attack, High Cholesterol, Hypertension Neurological: No Neuropathy, Seizure Disorder Reproductive Disorders: No Sexually Transmitted Disease: No HIV/AIDS: No Genitourinary: Yes (stage 2 kidney disease) Renal Failure Gastrointestinal: Yes Gastroesophageal Reflux, Chronic Constipation, Hiatal Hernia Musculoskeletal: Yes Arthritis Endocrine: No HEENT: Yes Cataract Loss of Vision: Denies Hearing Impairment: Denies Cancer: No Psychosocial: Yes Anxiety, Suicide Attempts, Bipolar, Personality Disorder, Depression Integumentary: No Blood Disorders: No Adverse Reaction/Blood Tranf: No Family Medical History Reviewed Nursing Family Hx Alcoholism 03 FATHER Arthritis Cancer 03 FATHER Congestive heart failure 03 FATHER Family history: Allergy 09 SISTER Family history: Arthritis 03 MOTHER Family history: Diabetes mellitus 03 FATHER Family history: Hypertension 03 MOTHER History of - anemia 09 SISTER History of drug abuse 09 BROTHER No Family History of: Abdominal aortic aneurysm Haines's disease Aphasia Cancer of colon Cataract Chest pain Congenital heart disease Cystic fibrosis Dementia Dysphagia Family history: Alzheimer's disease Family history: Asthma Family history: Breast disease Family history: Cardiovascular disease Family history: Coronary thrombosis Family history: Gastrointestinal disease Family history: Glaucoma Family history: Osteoporosis Family history: Thyroid disorder Headache Hearing loss Heart disease Hereditary disease History of - disorder History of - respiratory disease Human immunodeficiency virus (HIV) seropositivity Hypercholesterolemia Infertile Kidney disease Malignant neoplasm of lung Myocardial infarction Parkinson's disease Prostate cancer Psychotic disorder Seizure disorder Stroke Tuberculosis Physical Exam Vital Signs Vital Signs - First Documented 12/05/17 12:32 Temp 99.3 Pulse 87 Resp 22 B/P (MAP) 142/88 (106) Pulse Ox 100 O2 Delivery Nasal Cannula O2 Flow Rate 4.00 Capillary Refill : Less Than 3 Seconds Height, Weight, BMI Height: 5'6.00" Weight: 90lbs. 0.0oz. 40.265572st; 16.1 BMI Method:Stated General Appearance: No Apparent Distress, WD/WN, Thin HEENT: PERRL/EOMI, Normal ENT Inspection, Other (oropharynx dry) Neck: Normal Inspection, Non Tender Respiratory: Lungs Clear, Normal Breath Sounds, No Accessory Muscle Use, No Respiratory Distress Cardiovascular: Regular Rate, Rhythm, No Edema, No Murmur Gastrointestinal: Non Tender, Soft Extremity: Normal Inspection, No Pedal Edema Neurologic/Psychiatric: Alert, Oriented x3, No Motor/Sensory Deficits, Normal Mood/Affect, shift mechanic II-XII Norm as Tested Skin: Warm/Dry, Ecchymosis (left chest wall), Other (excoriations scattered over various areas of skin) Procedures/Interventions Date of ETT Placement: Oct 07, 2016 Progress/Results/Core Measures Suspected Sepsis Recent Fever Within 48 Hours: No Infection Criteria Present: Suspected New Infection New/Unexplained Altered Menta: No Sepsis Screen: No Definite Risk SIRS Temperature:99.3 Pulse: 87 Respiratory Rate: 22 Laboratory Tests 12/05/17 15:05: White Blood Count 10.7 Blood Pressure 142 /88 Mean: 106 Laboratory Tests 12/05/17 14:00: Creatinine 0.61, Total Bilirubin 0.3 12/05/17 15:05: Platelet Count 233 Results/Orders Lab Results Laboratory Tests Test 12/05/17 13:27 12/05/17 14:00 12/05/17 15:05 12/05/17 16:25 Range/Units Blood Gas Puncture Site LT RAD Blood Gas Patient Temperature 98.3 Arterial Blood pH 7.45 H 7.37-7.43 Arterial Blood Partial Pressure CO2 48 H 35-45 MMHG Arterial Blood Partial Pressure O2 91 79-93 MMHG Arterial Blood HCO3 33 H 23-27 MMOL/L Arterial Blood Total CO2 34.5 H 21.0-31.0 MMOL/L Arterial Blood Oxygen Saturation 98 94-100 % Arterial Blood Base Excess 8.7 H -2.5-2.5 MMOL/L Benja Test YES-POS Blood Gas Ventilator Setting NO Blood Gas Inspired Oxygen 3L Sodium Level 136 135-145 MMOL/L Potassium Level 3.8 3.6-5.0 MMOL/L Chloride Level 96 L 98-107 MMOL/L Carbon Dioxide Level 31 21-32 MMOL/L Anion Gap 9 5-14 MMOL/L Blood Urea Nitrogen 7 7-18 MG/DL Creatinine 0.61 0.60-1.30 MG/DL Estimat Glomerular Filtration Rate > 60 BUN/Creatinine Ratio 11 Glucose Level 108 H 70-105 MG/DL Calcium Level 8.5 8.5-10.1 MG/DL Corrected Calcium 9.1 8.5-10.1 MG/DL Magnesium Level 1.6 L 1.8-2.4 MG/DL Total Bilirubin 0.3 0.1-1.0 MG/DL Aspartate Amino Transf (AST/SGOT) 16 5-34 U/L Alanine Aminotransferase (ALT/SGPT) 11 0-55 U/L Alkaline Phosphatase 121 40-136 U/L Total Protein 6.1 L 6.4-8.2 GM/DL Albumin 3.2 3.2-4.5 GM/DL TSH Reagan Testing 1.05 0.35-4.94 UIU/ML Serum Alcohol < 10 <10 MG/DL White Blood Count 10.7 4.3-11.0 10^3/uL Red Blood Count 3.70 L 4.35-5.85 10^6/uL Hemoglobin 10.8 L 13.3-17.7 G/DL Hematocrit 34 L 40-54 % Mean Corpuscular Volume 91 80-99 FL Mean Corpuscular Hemoglobin 29 25-34 PG Mean Corpuscular Hemoglobin Concent 32 32-36 G/DL Red Cell Distribution Width 15.0 H 10.0-14.5 % Platelet Count 233 130-400 10^3/uL Mean Platelet Volume 8.2 7.4-10.4 FL Neutrophils (%) (Auto) 76 H 42-75 % Lymphocytes (%) (Auto) 14 12-44 % Monocytes (%) (Auto) 8 0-12 % Eosinophils (%) (Auto) 3 0-10 % Basophils (%) (Auto) 0 0-10 % Neutrophils # (Auto) 8.1 H 1.8-7.8 X 10^3 Lymphocytes # (Auto) 1.5 1.0-4.0 X 10^3 Monocytes # (Auto) 0.8 0.0-1.0 X 10^3 Eosinophils # (Auto) 0.3 0.0-0.3 10^3/uL Basophils # (Auto) 0.0 0.0-0.1 10^3/uL Urine Color YELLOW Urine Clarity CLEAR Urine pH 8 5-9 Urine Specific [place] 1.010 L 1.016-1.022 Urine Protein NEGATIVE NEGATIVE Urine Glucose (UA) NEGATIVE NEGATIVE Urine Ketones 1+ H NEGATIVE Urine Nitrite NEGATIVE NEGATIVE Urine Bilirubin NEGATIVE NEGATIVE Urine Urobilinogen NORMAL NORMAL MG/DL Urine Leukocyte Esterase 1+ H NEGATIVE Urine RBC (Auto) 1+ H NEGATIVE Urine RBC NONE /HPF Urine WBC RARE /HPF Urine Squamous Epithelial Cells RARE /HPF Urine Crystals NONE /LPF Urine Bacteria FEW H /HPF Urine Casts NONE /LPF Urine Mucus NEGATIVE /LPF Urine Culture Indicated NO Urine Opiates Screen POSITIVE H NEGATIVE Urine Oxycodone Screen NEGATIVE NEGATIVE Urine Methadone Screen NEGATIVE NEGATIVE Urine Propoxyphene Screen NEGATIVE NEGATIVE Urine Barbiturates Screen POSITIVE H NEGATIVE Ur Tricyclic Antidepressants Screen NEGATIVE NEGATIVE Urine Phencyclidine Screen NEGATIVE NEGATIVE Urine Amphetamines Screen NEGATIVE NEGATIVE Urine Methamphetamines Screen NEGATIVE NEGATIVE Urine Benzodiazepines Screen POSITIVE H NEGATIVE Urine Cocaine Screen NEGATIVE NEGATIVE Urine Cannabinoids Screen POSITIVE H NEGATIVE My Orders Orders - SOO GOLDSTEIN MD Alcohol (12/05/17 12:47) Cbc With Automated Diff (12/05/17 12:47) Comprehensive Metabolic Panel (12/05/17 12:47) Drug Screen Stat (Urine) (12/05/17 12:47) Magnesium (12/05/17 12:47) Thyroid Analyzer (12/05/17 12:47) Ua Culture If Indicated (12/05/17 12:47) Saline Lock/Iv-Start (12/05/17 12:47) Arterial Blood Gas (12/05/17 12:55) Ct Head/Cervical Spine Wo (12/05/17 12:55) Ns Iv 1000 Ml (Sodium Chloride 0.9%) (12/05/17 12:56) Arterial Blood Draw (12/05/17 ) Iohexol Injection (Omnipaque 350 Mg/Ml 1 (12/05/17 15:00) Ns (Ivpb) (Sodium Chloride 0.9%) (12/05/17 15:00) Contrast Received (Contrast Received) (12/05/17 15:15) Ct Chest/Abdomen/Pelvis Wo (12/05/17 15:23) Fentanyl Injection (Sublimaze Injection (12/05/17 16:45) Fentanyl Injection (Sublimaze Injection (12/05/17 16:39) Fentanyl Injection (Sublimaze Injection (12/05/17 18:45) Medications Given in ED Current Medications Medications Dose Ordered Sig/Quyen Route Start Time Stop Time Status Last Admin Dose Admin Fentanyl Citrate 50 mcg ONCE ONCE IVP 12/05/17 16:45 12/05/17 16:46 DC 12/05/17 16:43 50 MCG Fentanyl Citrate 50 mcg ONCE ONCE IVP 12/05/17 18:45 12/05/17 18:46 DC 12/05/17 18:44 50 MCG Sodium Chloride 1,000 ml @ 0 mls/hr Q0M ONCE IV 12/05/17 12:56 12/05/17 12:58 DC 12/05/17 14:10 1,000 MLS/HR Vital Signs/I&O 12/05/17 12:32 Temp 99.3 Pulse 87 Resp 22 B/P (MAP) 142/88 (106) Pulse Ox 100 O2 Delivery Nasal Cannula O2 Flow Rate 4.00 Capillary Refill : Less Than 3 Seconds Blood Pressure Mean: 106 Progress Note : Progress Note Patient received a liter of IV fluid. CT of the chest, abdomen and pelvis was obtained without contrast as a peripheral IV could not be obtained. This revealed new pulmonary nodules, rib fractures on the left, and a hydrothorax and pneumothorax. He should his pain was treated with fentanyl. Given patient' s overall decline and multiple health problems, inpatient admission was felt necessary. He will need multiple days of respiratory therapy and close observation to ensure he does not decompensate. Placement of some kind or acute rehabilitation is anticipated after his acute stay. Diagnostic Imaging Diagonstic Imaging: CT Plain Films/CT/US/NM/MRI: c-spine, head Comments NAME: SUNNY HERNANDEZ [facility] REC#: [id number] PT STATUS: REG ER : 1950 PHYSICIAN: SOO GOLDSTEIN MD ADMIT DATE: 12/05/17/ER Signed Date of Exam: 12/05/17 CT HEAD/CERVICAL SPINE WO PROCEDURE: CT head and CT cervical spine without contrast. TECHNIQUE: Multiple contiguous axial images were obtained through the brain and cervical spine without the use of intravenous contrast. Sagittal and coronal reformations through the cervical spine were then performed. INDICATION: Fall. COMPARISON: Cervical spine radiographs 11/07/2017. FINDINGS: Examination limited by motion artifact. CT head: Advanced generalized cerebral and cerebellar parenchymal volume loss. No intracranial hemorrhage, mass effect, hydrocephalus or extra-axial fluid collections. The paranasal sinuses and mastoids are clear. The calvarium and skull base appear intact. CT cervical spine: Mild anterolisthesis of C3 on C4 and retrolisthesis of C5 on C6. Vertebral body heights preserved. No acute fractures are identified. There are advanced degenerative endplate changes at C5-C6 and moderate diffuse facet arthropathy. No high-grade spinal canal narrowing is evident on this non-intrathecal contrast exam. Advanced emphysematous changes in the lung apices. IMPRESSION: 1. Exam limited by motion artifact. 2. No acute intracranial or cervical spinal CT findings are identified. Dictated by: Dictated on workstation # [id number] Dict: 12/05/17 1426 Trans: 12/05/173 Interpreted by: CAROL BLEDSOE MD Electronically signed by: CAROL BLEDSOE MD 10/29/18 1648 Diagonstic Imaging: CT Plain Films/CT/US/NM/MRI: chest, abdomen, pelvis Comments NAME: SUNNY HERNANDEZ [facility] REC#: [id number] PT STATUS: REG ER : 1950 PHYSICIAN: SOO GOLDSTEIN MD ADMIT DATE: 12/05/17/ER Draft Date of Exam:12/05/17 CT CHEST/ABDOMEN/PELVIS WO PROCEDURE: CT chest, abdomen, and pelvis without contrast. TECHNIQUE: Multiple contiguous axial images were obtained through the chest, abdomen, and pelvis without the use of intravenous contrast. INDICATION: Recent fall. Rib pain. COMPARISON: 01/09/2013. FINDINGS: CT CHEST: There is an acute comminuted mildly displaced fracture involving the posterior left ninth rib (images 44 and 45, series 2). There are also nonacute partially healed fractures involving the posterior margins of the left 10th and 11th ribs. These are confirmed nonacute when compared to the CT abdomen/pelvis from 04/23/2017. The vertebral body heights are maintained. There is no evidence of acute thoracic vertebral body fracture. Evaluation of the lung windows demonstrates a small left-sided hydropneumothorax. A small pleural effusion is also noted on the right. Evaluation of the pulmonary parenchyma demonstrates a 9 x 5 mm micronodular density within the left upper lobe (image 16, series 2) which is stable. There does, however, appear to be a new subcentimeter micronodular density slightly more inferiorly and anteriorly also within the left upper lobe that measures 8 x 5 mm (image 17, series 2). This does appear to be new when compared to the prior study. An area of ill-defined groundglass density is also again identified within the more inferior and lateral margins of the left upper lobe. An additional stable 4 mm left upper lobe micronodule is also noted (image 22, series 2). Within the left lower lobe, there is a 5 mm micronodular density seen within the lateral superior margins of the superior segment (image 25, series 2). There is suggestion of central lucency. This appears to be new when compared to 01/09/2013 as well. An ill-defined subcentimeter 5 mm micronodular density is also present within the anterior margins of the right upper lobe. An additional 6 mm well-circumscribed subpleural micronodule is also seen more inferiorly and laterally within the right upper lobe. A faint density can be identified on the prior exam. A new 5 mm micronodule is also seen within the posterior margins of the right upper lobe (image 12, series 2). Bronchiectatic changes are also noted within both lung bases. There is some mild bibasilar atelectasis. Additionally, there is moderate to advanced bilateral air trapping, consistent with a background of emphysematous disease. The cardiomediastinal structures show normal heart size. There is no large pericardial effusion. No pathologically enlarged or morphologically abnormal adenopathy is identified within the mediastinum, alexi, or axilla on this noncontrast study. CT ABDOMEN: The exam is somewhat suboptimal secondary to lack of significant intra-abdominal fat and lack of oral or intravenous contrast. A normal appendix is felt to be identified within the right lower abdominal quadrant. The small bowel loops are nondistended. The kidneys, spleen, pancreas, and liver have an unremarkable noncontrast CT appearance. No gross adrenal lesions are seen. There is no loculated fluid collection, free fluid, or free air within the abdomen. No gross abnormal mesenteric or retroperitoneal adenopathy is seen. There is moderate calcified aortic and arterial atherosclerosis. The bony structures show no acute abnormality. CT PELVIS: The urinary bladder is unopacified. No calculi are seen within the urinary bladder. There is no loculated fluid collection, free fluid, or free air within the pelvis. No abnormal lymph nodes are identified. The bony structures show no acute abnormalities. IMPRESSION: 1. Small left-sided hydropneumothorax which is felt to be secondary to an acute fracture of the left ninth rib. 2. Chronic partially healed fractures of the left 10th and 11th ribs. 3. Small right effusion. 4. Background of moderate to advanced emphysematous disease. 5. Multiple bilateral pulmonary micronodules as described above. A 6 month followup is recommended to assess stability as some of these do appear to be new when compared to 01/09/2013. 6. No gross acute abnormalities are seen within the abdomen or pelvis. Report given to Willie in [facility] at 5:09 p.m. 12/05/2017/arnulfo Dictated on workstation # [id number] Dict: 12/05/17 1550 Trans: 12/05/17 1709 [facility] [id number] Interpreted by: MATTHIEU GOMEZ MD Departure Communication (Admissions) Time/Spoke to Admitting Phy: 18:30 Dr. Vera Time/Spoke to Consulting Phy: 18:[address] Dr[address] Clark Impression Primary Impression: Pneumothorax, left Additional Impressions: Frequent falls Rib fractures Qualified Codes: S22.42XA - Multiple fractures of ribs, left side, initial encounter for closed fracture Abnormal weight loss COPD (chronic obstructive pulmonary disease) Qualified Codes: J44.9 - Chronic obstructive pulmonary disease, unspecified Pulmonary nodules Generalized weakness Acute confusion Noncompliance Disposition: ADMITTED INPATIENT Condition: Stable Admissions Decision to Admit Reason: Admit from ER (Trauma) Decision to Admit/Date: Dec 05, 2017 Time/Decision to Admit Time: 18:00 Departure-Patient Inst. Referrals: BELLA LUNA DO (PCP/Family) Primary Care Physician SOO GOLDSTEIN MD Dec 05, 2017 13:32
[2017-12-05 14:03] LABS: ABG BASE EXCESS 8.7 MMOL/L (-2.5-2.5); ABG OXYGEN SATURATION 98 % (94-100); ABG PCO2 48 MMHG (35-45); ABG PH 7.45 (7.37-7.43); ABG PO2 91 MMHG (79-93); ABG TCO2 34.5 MMOL/L (21.0-31.0); ALLENS TEST YES-POS; INSPIRED O2 3L; PATIENT TEMP 98.3; VENTILATOR NO
[2017-12-05 14:33] LABS: ALANINE AMINOTRANSFERASE 11 U/L (0-55); ALBUMIN 3.2 GM/DL (3.2-4.5); ALKALINE PHOSPHATASE 121 U/L (40-136); BILIRUBIN,TOTAL 0.3 MG/DL (0.1-1.0); BUN/CREATININE RATIO 11; CALCIUM 8.5 MG/DL (8.5-10.1); CARBON DIOXIDE 31 MMOL/L (21-32); CHLORIDE 96 MMOL/L (98-107); CREATININE SERUM 0.61 MG/DL (0.60-1.30); GFR ESTIMATED > 60; GLUCOSE 108 MG/DL (70-105); MAGNESIUM 1.6 MG/DL (1.8-2.4); POTASSIUM 3.8 MMOL/L (3.6-5.0); SODIUM 136 MMOL/L (135-145); TOTAL PROTEIN 6.1 GM/DL (6.4-8.2)
--- NOTE | 2017-12-05 14:35 | Diagnostic Imaging Report ---
PROCEDURE: CT head and CT cervical spine without contrast. TECHNIQUE: Multiple contiguous axial images were obtained through the brain and cervical spine without the use of intravenous contrast. Sagittal and coronal reformations through the cervical spine were then performed. INDICATION: Fall. COMPARISON: Cervical spine radiographs 11/07/2017. FINDINGS: Examination limited by motion artifact. CT head: Advanced generalized cerebral and cerebellar parenchymal volume loss. No intracranial hemorrhage, mass effect, hydrocephalus or extra-axial fluid collections. The paranasal sinuses and mastoids are clear. The calvarium and skull base appear intact. CT cervical spine: Mild anterolisthesis of C3 on C4 and retrolisthesis of C5 on C6. Vertebral body heights preserved. No acute fractures are identified. There are advanced degenerative endplate changes at C5-C6 and moderate diffuse facet arthropathy. No high-grade spinal canal narrowing is evident on this non-intrathecal contrast exam. Advanced emphysematous changes in the lung apices. IMPRESSION: 1. Exam limited by motion artifact. 2. No acute intracranial or cervical spinal CT findings are identified. Dictated by: Dictated on workstation # [id number]
[2017-12-05 14:54] LABS: TSH (THYROID ANALYZER) 1.05 UIU/ML (0.35-4.94)
[2017-12-05] MEDS ORDERED: NS 250 ML (IVPB) BAG IV ONE (15:00)
[2017-12-05] MEDS ORDERED: IOHEXOL 350 MG/ML 100 ML (OMNIPAQUE 350) VIAL IV ONE (15:00)
[2017-12-05] MEDS ORDERED: RECEIVED CONTRAST (Hold Metformin) IV SCH (15:15)
[2017-12-05 15:16] LABS: BASOPHILS % (AUTO) 0 % (0-10); EOSINOPHILS # (AUTO) 0.3 10^3/uL (0.0-0.3); EOSINOPHILS % (AUTO) 3 % (0-10); HEMATOCRIT 34 % (40-54); HEMOGLOBIN 10.8 G/DL (13.3-17.7); LYMPHOCYTES # (AUTO) 1.5 X 10^3 (1.0-4.0); LYMPHOCYTES % (AUTO) 14 % (12-44); MEAN CORPUSCULAR HEMOGLOBIN 29 PG (25-34); MEAN CORPUSCULAR HGB CONC 32 G/DL (32-36); MEAN CORPUSCULAR VOLUME 91 FL (80-99); MEAN PLATELET VOLUME 8.2 FL (7.4-10.4); MONOCYTES # (AUTO) 0.8 X 10^3 (0.0-1.0); MONOCYTES % (AUTO) 8 % (0-12); NEUTROPHILS # (AUTO) 8.1 X 10^3 (1.8-7.8); NEUTROPHILS % (AUTO) 76 % (42-75); PLATELET COUNT 233 10^3/uL (130-400); WHITE BLOOD COUNT 10.7 10^3/uL (4.3-11.0)
[2017-12-05 16:33] LABS: BILIRUBIN,URINE NEGATIVE (NEGATIVE); CLARITY,URINE CLEAR; COLOR,URINE YELLOW; GLUCOSE, URINE (UA) NEGATIVE (NEGATIVE); KETONES,URINE 1+ (NEGATIVE); LEUKOCYTE ESTERASE ,URINE 1+ (NEGATIVE); NITRITE,URINE NEGATIVE (NEGATIVE); PH,URINE 8 (5-9); PROTEIN,URINE NEGATIVE (NEGATIVE); UROBILINOGEN,URINE NORMAL (NORMAL)
[2017-12-05] MEDS ORDERED: fentaNYL INJECTION 100 MCG/2 ML AMP ONE ×2 (16:39→21:08)
--- NOTE | 2017-12-05 16:43 | Diagnostic Imaging Report ---
PROCEDURE: CT chest, abdomen, and pelvis without contrast. TECHNIQUE: Multiple contiguous axial images were obtained through the chest, abdomen, and pelvis without the use of intravenous contrast. INDICATION: Recent fall. Rib pain. COMPARISON: 01/09/2013. FINDINGS: CT CHEST: There is an acute comminuted mildly displaced fracture involving the posterior left ninth rib (images 44 and 45, series 2). There are also nonacute partially healed fractures involving the posterior margins of the left 10th and 11th ribs. These are confirmed nonacute when compared to the CT abdomen/pelvis from 04/23/2017. The vertebral body heights are maintained. There is no evidence of acute thoracic vertebral body fracture. Evaluation of the lung windows demonstrates a small left-sided hydropneumothorax. A small pleural effusion is also noted on the right. Evaluation of the pulmonary parenchyma demonstrates a 9 x 5 mm micronodular density within the left upper lobe (image 16, series 2) which is stable. There does, however, appear to be a new subcentimeter micronodular density slightly more inferiorly and anteriorly also within the left upper lobe that measures 8 x 5 mm (image 17, series 2). This does appear to be new when compared to the prior study. An area of ill-defined groundglass density is also again identified within the more inferior and lateral margins of the left upper lobe. An additional stable 4 mm left upper lobe micronodule is also noted (image 22, series 2). Within the left lower lobe, there is a 5 mm micronodular density seen within the lateral superior margins of the superior segment (image 25, series 2). There is suggestion of central lucency. This appears to be new when compared to 01/09/2013 as well. An ill-defined subcentimeter 5 mm micronodular density is also present within the anterior margins of the right upper lobe. An additional 6 mm well-circumscribed subpleural micronodule is also seen more inferiorly and laterally within the right upper lobe. A faint density can be identified on the prior exam. A new 5 mm micronodule is also seen within the posterior margins of the right upper lobe (image 12, series 2). Bronchiectatic changes are also noted within both lung bases. There is some mild bibasilar atelectasis. Additionally, there is moderate to advanced bilateral air trapping, consistent with a background of emphysematous disease. The cardiomediastinal structures show normal heart size. There is no large pericardial effusion. No pathologically enlarged or morphologically abnormal adenopathy is identified within the mediastinum, alexi, or axilla on this noncontrast study. CT ABDOMEN: The exam is somewhat suboptimal secondary to lack of significant intra-abdominal fat and lack of oral or intravenous contrast. A normal appendix is felt to be identified within the right lower abdominal quadrant. The small bowel loops are nondistended. The kidneys, spleen, pancreas, and liver have an unremarkable noncontrast CT appearance. No gross adrenal lesions are seen. There is no loculated fluid collection, free fluid, or free air within the abdomen. No gross abnormal mesenteric or retroperitoneal adenopathy is seen. There is moderate calcified aortic and arterial atherosclerosis. The bony structures show no acute abnormality. CT PELVIS: The urinary bladder is unopacified. No calculi are seen within the urinary bladder. There is no loculated fluid collection, free fluid, or free air within the pelvis. No abnormal lymph nodes are identified. The bony structures show no acute abnormalities. IMPRESSION: 1. Small left-sided hydropneumothorax which is felt to be secondary to an acute fracture of the left ninth rib. 2. Chronic partially healed fractures of the left 10th and 11th ribs. 3. Small right effusion. 4. Background of moderate to advanced emphysematous disease. 5. Multiple bilateral pulmonary micronodules as described above. A 6 month followup is recommended to assess stability as some of these do appear to be new when compared to 01/09/2013. 6. No gross acute abnormalities are seen within the abdomen or pelvis. Report given to Willie in [facility] at 5:09 p.m. 12/05/2017/cb Dictated by: Dictated on workstation # [id number]
[2017-12-05 16:45] LABS: AMPHETAMINE SCREEN, URINE NEGATIVE (NEGATIVE); BARBITURATE SCREEN URINE POSITIVE (NEGATIVE); BENZODIAZEPINES SCREEN URINE POSITIVE (NEGATIVE); CANNABINOID SCREEN, URINE POSITIVE (NEGATIVE); COCAINE SCREEN URINE NEGATIVE (NEGATIVE); METHADONE STAT NEGATIVE (NEGATIVE); METHAMPHETAMINE SCREEN URINE S NEGATIVE (NEGATIVE); OPIATE SCREEN URINE POSITIVE (NEGATIVE); OXYCODONE STAT NEGATIVE (NEGATIVE); PROPOXYPHENE STAT NEGATIVE (NEGATIVE); TRICYCLIC ANTIDEPRESSANTS SCRE NEGATIVE (NEGATIVE)
[2017-12-05] MEDS ORDERED: fentaNYL INJECTION 100 MCG/2 ML AMP IVP ONE ×2 (16:45→18:45)
[2017-12-05 17:04] LABS: BACTERIA,URINE FEW /HPF; SQUAMOUS EPITHELIAL CELL,UR RARE /HPF; WBC,URINE RARE /HPF
[2017-12-05 20:35] VITALS: BP 152/91
[2017-12-05 21:00] VITALS: BP 156/100
[2017-12-05] MEDS: fentaNYL INJECTION 100 MCG/2 ML AMP IV PRN (21:15)
[2017-12-05] MEDS ORDERED: D5 1/2 NS W/KCL 20 MEQ/L 1,000 ML IV ONE (21:35)
--- OUTSIDE RECORDS SUMMARY | 2017-12-05 21:38 | XMS REPORT ---
Author Author SOREN MCINTOSH Organization [facility] Address [address] [place] [address] Care Team Providers Care Can Runner Name Role Phone SOREN MCINTOSH Unavailable PROBLEMS Type Condition ICD9-CM Code RHC51-QH Code Onset Dates Condition Status SNOMED Code Problem Anxiety F41.9 Active 33172533 Problem Underweight R63.6 Active 279181641 Problem Tobacco abuse Z72.0 Active 295693458 Problem Cervicalgia M54.2 Active 06368003 Problem Dorsalgia, unspecified M54.9 Active 812078941 Problem S/P percutaneous endoscopic gastrostomy (PEG) tube placement Z93.1 Active 632739903 Problem Cachexia R64 Active 992113122 Problem Hypoxia R09.02 Active 683276904 Problem Requires continuous at home supplemental oxygen Z99.81 Active 881843586 Problem Gastroesophageal reflux disease without esophagitis K21.9 Active 459764092 Problem Panic disorder F41.0 Active 687349936 Problem COPD suggested by initial evaluation J44.9 Active 56522536 Problem Benign prostatic hyperplasia without lower urinary tract symptoms N40.0 Active 176823896 Problem Recurrent major depressive disorder, remission status unspecified F33.9 Active 08400988 Problem Dyslipidemia E78.5 Active 578363773 Problem Chronic pain syndrome G89.4 Active 820350253 Problem Neuropathy G62.9 Active 375855093 ALLERGIES Substance Reaction Event Type Date Status Cephalexin itching Drug Allergy Nov, Active Bactrim seizures Drug Allergy Nov, Active ENCOUNTERS Encounter Location Date Diagnosis [facility] [address] [facility] [id number], [place] [address] Dec, [facility] [address] [id number], [place] [address] Nov, [facility] [address] [facility] [id number], [place] [address] Nov, Chronic pain syndrome G89.4 ; Anxiety F41.9 and COPD suggested by initial evaluation J44.9 [facility] [address] [facility] [facility] [id number], [place] [address] Nov, [facility] [address] [id number] [id number] Nov, Cervicalgia M54.2 [facility] [id number] [place] [id number] Oct, Chronic pain syndrome G89.[address] [facility] [address] [id number][place] [id number] Oct, [facility] [id number] [place] [id number] Oct, [facility] [id number] [place] [id number] Oct, Recurrent major depressive disorder, remission status unspecified F33.9 ; Dorsalgia, unspecified M54.9 and Cervicalgia M54.2 [facility] [id number] SPRINGS[place] [phone] Oct, Medicare annual wellness visit, initial Z00.00 ; Encounter for immunization Z23 ; COPD suggested by initial evaluation J44.9 ; Recurrent major depressive disorder, remission status unspecified F33.9 ; Dyslipidemia E78.5 and Gastroesophageal reflux disease without esophagitis K21.9 [facility] [id number] [place] [id number] Sep, Chronic pain syndrome G89.4 and Anxiety F41.9 [facility] [id number] [place] [id number] Aug, Chronic pain syndrome G89.4 [facility] [id number] [place] [id number] Aug, [facility] [id number] [place] [id number] Aug, [facility] [address] [id number] [place] [id number] Aug, Chronic pain syndrome G89.4 ; COPD suggested by initial evaluation J44.9 ; Tobacco abuse Z72.0 ; Hypoxia R09.02 ; Requires continuous at home supplemental oxygen Z99.81 and Cachexia R64 [facility] [place] [address] [id number] Jul, [facility] [place] [address] [id number] Jul, Chronic pain syndrome G89.4 ; Anxiety F41.9 ; Cachexia R64 ; S/P percutaneous endoscopic gastrostomy (PEG) tube placement Z93.1 and COPD suggested by initial evaluation J44.9 [facility] [place] [address] [place] [id number] June, Anxiety F41.9 [facility] [place] [address], [place] [id number] June, Chronic pain syndrome G89.4 [facility] [place] [address] [id number] June, [facility] [place] [address] [id number] May, Chronic pain syndrome G89.4 [facility] [place] [address] [id number] May, [facility] [place] [address] [id number] May, [facility] [place] [id number] [place] [id number] May, S/P percutaneous endoscopic gastrostomy (PEG) tube placement Z93.1 and Cachexia R64 [place] [id number] [address] May, [facility] [address] [id number] Apr, Chronic pain syndrome G89.4 and Underweight R63.6 [facility] [address] [address] Apr, [facility] [id number] [place] [id number] Apr, [facility] [address] [place] [id number] Apr, Seizure R56.9 and Chronic pain syndrome G89.4 [id number] [place] [id number] Mar, Anxiety F41.9 ; Tobacco abuse Z72.0 and Underweight R63.6 [facility] [id number] [place] [id number] Mar, [place] [address] [address] Mar, [facility] [id number] [place] [phone] Mar, COPD suggested by initial evaluation J44.9 [id number] [place] [id number] Mar, Chronic pain syndrome G89.4 ; Anxiety F41.9 ; COPD suggested by initial evaluation J44.9 and Tobacco abuse Z72.0 [place] [id number] [place] [address] Feb, [facility] [id number] [place] [id number] Feb, Anxiety F41.9 ; Chronic pain syndrome G89.4 ; Muscle spasm M62.838 ; Cervicalgia M54.2 ; COPD suggested by initial evaluation J44.9 ; Neuropathy G62.9 ; Recurrent major depressive disorder, remission status unspecified F33.9 ; Benign prostatic hyperplasia without lower urinary tract symptoms N40.0 ; Prostatism N40.0 ; Seizure R56.9 and Dyslipidemia E78.5 [facility] [address] [place] [id number] Feb, [place] [address] [address] Feb, [place] [id number] [place] [phone] Oct, Generalized anxiety disorder F41.1 and Panic disorder F41.0 [place] [address] [place] [address] Sep, [place] [id number] [place] [address] Sep, Chronic obstructive pulmonary disease, unspecified COPD type J44.9 ; Gastroesophageal reflux disease without esophagitis K21.9 ; Hyperlipidemia, unspecified hyperlipidemia type E78.5 and Prostatism N40.0 [place] [id number] [place] [address] Sep, [place] [id number] [place] [address] Sep, Generalized anxiety disorder F41.1 [place] [id number] [place] [address] Sep, Generalized anxiety disorder F41.1 [place] [id number] [place] [address] Sep, Generalized anxiety disorder F41.1 [place] [id number] [place] [phone] Oct, IMMUNIZATIONS No Known Immunizations SOCIAL HISTORY Never Assessed REASON FOR VISIT JOJO eden MA PLAN OF CARE Activity Details Follow Up 4 Weeks Reason:chronic pain VITAL SIGNS Height 65 in 2017-11-30 Weight 90.0 lbs 2017-11-30 Temperature 97.6 degrees Fahrenheit 2017-11-30 Heart Rate 84 bpm 2017-11-30 Respiratory Rate 20 2017-11-30 Oximetry w/ oxygen @ 3L:96 % 2017-11-30 BMI 14.98 kg/m2 2017-11-30 Blood pressure systolic 122 mmHg 2017-11-30 Blood pressure diastolic 70 mmHg 2017-11-30 MEDICATIONS Medication Instructions Dosage Frequency Start Date End Date Duration Status Atorvastatin Calcium 40 mg 1 tablet Once a day Orally 30 day(s) 30 Active Duloxetine HCl 60 mg Orally Once a day 1 capsule 24h 13 Oct, 2017 30 day(s) Active Promethazine HCl 25 MG Orally every 6 hours as needed for nausea/vomiting 1 tablet as needed Not-Taking Zofran 4 MG Orally every 4 hours as needed 1 tablet 30 days Active Finasteride 5 mg Orally Once a day 1 tablet 24h 30 Active MiraLax 17 gm/dose Orally Once a day 17 grams mixed in 8 oz of water or juice 24h Active Incruse Ellipta 62.5 MCG/INH Inhalation Once a day 1 puff 24h 02 Mar, 2017 Apr, 30 days Active Fentanyl 50 MCG/HR Transdermal change every 3 days 1 patch to skin NovDec, 30 days Active Lyrica 150 MG Orally Twice a day 1 capsule 12h Active Methocarbamol 750 MG Orally every 4 hrs 1 tablet 4h 30 Active Ipratropium-Albuterol 0.5-2.5 (3) MG/3ML Inhalation every 6 hrs prn shortness of breath 3 ml Unknown Sklice 0.5 % as directed Aug, Not-Taking Nova Cushion Gel Seat Pad - as directed 24h Aug, lifetime Active Triamcinolone Acetonide 0.1 % Externally Twice a day 1 application to affected area 12h Nov, Active Advair Diskus 250-50 MCG/DOSE Inhalation Twice a day 1 puff 12h Feb, 30 days Active Phenytoin Sodium Extended 100 mg Orally Three times a day 1 capsule 8h 30 Active Hydrocodone-Acetaminophen 7.5-325 MG Orally every 6 hrs 1 tablet as needed 6h Nov, Dec, 30 days Active Oxygen portable oxygen continuously 2-3L per NC Aug, lifetime Active Clonazepam 1 MG Orally as directed 1/2 tab in AM, 1 tab at HS 15 Mar, 2017 30 days Active RESULTS No Results PROCEDURES Procedure Date Ordered Result Body Site [facility] VISIT ESTABLISHED PATIENT Nov 30, 2017 INSTRUCTIONS MEDICATIONS ADMINISTERED No Known Medications MEDICAL (GENERAL) HISTORY Type Description Date Medical History COPD Medical History HYPERTENSION Medical History PERIPHERAL NEUROPATHY Medical History HX OF DRUG ABUSE Medical History BI-POLAR Medical History ANXIETY Medical History CHRONIC PAIN IN BACK Medical History STAGE II RENAL FAILURE Medical History ARTHRITIS Medical History DEGENERATIVE DISK DISEASE Medical History FIBROMYALGIA Medical History CHF Medical History EMPHYSEMA Medical History PNEUMONIA Medical History CORONARY ARTERY DISEASE Medical History HIGH CHOLESTROL Medical History SEIZURE DISORDER Medical History GASTROESOPHAGEAL REFLUX Medical History CHRONIC CONSTIPATION Medical History HIATAL HERNIA Medical History CATARACT Medical History PERSONALITY DISORDER Medical History DEPRESSION Medical History SLEEP APNEA Medical History CHRONIC BRONCHITIS Medical History CHRONIC GENERALIZED PAIN Medical History SINUS TACHYCARDIA Medical History Generalized anxiety disorder Medical History Chronic obstructive pulmonary disease, unspecified COPD type Medical History Prostatism Surgical History hernia repair x 5 Surgical History tonsiillectomy Surgical History cardiac cath 2013 Surgical History port insertion L chest Surgical History EGD and Colonoscopy 05/18/2017 Surgical History Peg tube placement 05/18/17 Hospitalization History surgeries Hospitalization History COPD multiple times Hospitalization History heart cath resulting in infection Hospitalization History Overdose of Vicodin 2006 Hospitalization History Multiple suicide attempts Hospitalization History Detox at [facility] 10/24-11/23 Hospitalization History [facility]-pneumonia 09/23 Hospitalization History intermediate after fall from [facility] (Gallendar-put on Fentyl patches) 11/23-12/24 Hospitalization History pneumonia 02/2017 Hospitalization History [facility]- [place], vomiting, diarrhea and cough 04/26/2017
--- OUTSIDE RECORDS SUMMARY | 2017-12-05 21:39 | XMS REPORT ---
Author Author BELLA LUNA Organization [facility] Address [address] [place] [address] Care Team Providers Care Credit Investigator Name Role Phone BELLA LUNA Unavailable PROBLEMS Type Condition ICD9-CM Code GMT65-AY Code Onset Dates Condition Status SNOMED Code Problem Anxiety F41.9 Active 04889786 Problem Underweight R63.6 Active 828367007 Problem Tobacco abuse Z72.0 Active 291616975 Problem Cervicalgia M54.2 Active 41449764 Problem Dorsalgia, unspecified M54.9 Active 142007841 Problem S/P percutaneous endoscopic gastrostomy (PEG) tube placement Z93.1 Active 452841176 Problem Cachexia R64 Active 015880221 Problem Hypoxia R09.02 Active 273092230 Problem Requires continuous at home supplemental oxygen Z99.81 Active 258979461 Problem Gastroesophageal reflux disease without esophagitis K21.9 Active 349181741 Problem Panic disorder F41.0 Active 547860013 Problem COPD suggested by initial evaluation J44.9 Active 72735349 Problem Benign prostatic hyperplasia without lower urinary tract symptoms N40.0 Active 324097453 Problem Recurrent major depressive disorder, remission status unspecified F33.9 Active 09190364 Problem Dyslipidemia E78.5 Active 576534012 Problem Chronic pain syndrome G89.4 Active 600967281 Problem Neuropathy G62.9 Active 160749372 ALLERGIES No Information ENCOUNTERS Encounter Location Date Diagnosis [facility] [address] [id number] [place] [id number] Oct, Chronic pain syndrome G89.4 and Anxiety F41.[address] [facility] [address] [id number] [place] [phone] Oct, [facility] [address] [id number] [place] [phone] Oct, [facility] [id number] [place] [address] [phone] Oct, Recurrent major depressive disorder, remission status unspecified F33.9 ; Dorsalgia, unspecified M54.9 and Cervicalgia M54.2 [facility] [id number] [place] [address] [id number] Oct, Medicare annual wellness visit, initial Z00.00 and Encounter for immunization Z23 [place] [id number] [place] [address] [id number] Sep, Chronic pain syndrome G89.4 and Anxiety F41.9 [facility] [id number] [place] [address] [id number] Aug, Chronic pain syndrome G89.4 [facility] [id number] [place] [address] [id number] Aug, [facility] [id number] [place] [address] [id number] Aug, [place] [id number] [place] [address] [phone] Aug, Chronic pain syndrome G89.4 ; COPD suggested by initial evaluation J44.9 ; Tobacco abuse Z72.0 ; Hypoxia R09.02 ; Requires continuous at home supplemental oxygen Z99.81 and Cachexia R64 [facility] [id number] [place] [address] [id number] Jul, [place] [id number] [place] [address] [id number] Jul, Chronic pain syndrome G89.4 ; Anxiety F41.9 ; Cachexia R64 ; S/P percutaneous endoscopic gastrostomy (PEG) tube placement Z93.1 and COPD suggested by initial evaluation J44.9 [facility] [id number] [place] [address] [phone] June, Anxiety F41.9 [place] [id number] [place] [address] [id number] June, Chronic pain syndrome G89.4 [facility] [id number] [place] [address] [id number] June, [facility] [id number] [place] [address] [id number] May, Chronic pain syndrome G89.4 [facility] [place] [id number] [place] [address] [id number] May, [facility] [place] [id number] [place] [address] [id number] May, [facility] [id number] [place] [address] [id number] May, S/P percutaneous endoscopic gastrostomy (PEG) tube placement Z93.1 and Cachexia R64 [place] [address] [address] May, [facility] [id number] [place] [address] [id number] Apr, Chronic pain syndrome G89.4 and Underweight R63.6 [place] [address] [id number] Apr, [facility] [id number] [place] [address] [id number] Apr, [facility] [place] [id number] [place] [address] [id number] Apr, Seizure R56.9 and Chronic pain syndrome G89.4 [facility] [place] [id number] [place] [address] [id number] Mar, Anxiety F41.9 ; Tobacco abuse Z72.0 and Underweight R63.6 [facility] [address] [place] [address] [id number] Mar, [facility] [id number] [place] [address] [phone] Mar, [facility] [address] [place] [address] [id number] Mar, COPD suggested by initial evaluation J44.9 [facility] [id number] [place] [address] [id number] Mar, Chronic pain syndrome G89.4 ; Anxiety F41.9 ; COPD suggested by initial evaluation J44.9 and Tobacco abuse Z72.0 [place] [address] [id number] [address] Feb, [facility] [address] [id number] [phone] Feb, Anxiety F41.9 ; Chronic pain syndrome G89.4 ; Muscle spasm M62.838 ; Cervicalgia M54.2 ; COPD suggested by initial evaluation J44.9 ; Neuropathy G62.9 ; Recurrent major depressive disorder, remission status unspecified F33.9 ; Benign prostatic hyperplasia without lower urinary tract symptoms N40.0 ; Prostatism N40.0 ; Seizure R56.9 and Dyslipidemia E78.5 [facility] [id number] [phone] Feb, [place] [id number] [place] [phone] Feb, [place] [id number] [place] [phone] Oct, Generalized anxiety disorder F41.1 and Panic disorder F41.0 [place] [address] [place] [address] Sep, [place] [id number] [place] [phone] Sep, Chronic obstructive pulmonary disease, unspecified COPD type J44.9 ; Gastroesophageal reflux disease without esophagitis K21.9 ; Hyperlipidemia, unspecified hyperlipidemia type E78.5 and Prostatism N40.0 [place] [address] [place] [address]- 9206 Sep, [place] [address] [place] [address]45- 2422 Sep, Generalized anxiety disorder F41.1 [place] [id number] [place] [address]266[address] [phone] Sep, Generalized anxiety disorder F41.1 [place] [address] [place] [address]- 1815 Sep, Generalized anxiety disorder F41.1 [facility] [address] [facility] [id number] [place] [address] Oct, 2012 IMMUNIZATIONS No Known Immunizations SOCIAL HISTORY Never Assessed REASON FOR VISIT narcotic refills PLAN OF CARE VITAL SIGNS MEDICATIONS Unknown Medications RESULTS No Results PROCEDURES No Known procedures INSTRUCTIONS MEDICATIONS ADMINISTERED No Known Medications MEDICAL [...] Surgical History tonsiillectomy Surgical History cardiac cath 2012 Surgical History port insertion L chest Surgical History EGD and Colonoscopy 05/18/2017 Surgical History Peg tube placement 05/18/17 Hospitalization History surgeries Hospitalization History COPD multiple times Hospitalization History heart cath resulting in infection Hospitalization History Overdose of Vicodin 2006 Hospitalization History Multiple suicide attempts Hospitalization History Detox at [place] 10/24-11/23 Hospitalization History [facility]pneumonia 09/23 Hospitalization [facility] jail after fall from [place] ([place]-put on Fentyl patches) 11/23-12/24 Hospitalization History pneumonia 02/2017 Hospitalization History [facility]- [place], vomiting, diarrhea and cough 04/26/2017
--- OUTSIDE RECORDS SUMMARY | 2017-12-05 21:39 | XMS REPORT ---
Author Author CHERYL BELLA Organization [facility] Address [address] [place] [address] Care Team Providers Care Acid Strength Inspector Name Role Phone BELLA LUNA Unavailable PROBLEMS Type Condition ICD9-CM Code OGU60-AV Code Onset Dates Condition Status SNOMED Code Problem Anxiety F41.9 Active 24892584 Problem Underweight R63.6 Active 318513965 Problem Tobacco abuse Z72.0 Active 876040360 Problem Cervicalgia M54.2 Active 87934026 Problem Dorsalgia, unspecified M54.9 Active 890050573 Problem S/P percutaneous endoscopic gastrostomy (PEG) tube placement Z93.1 Active 397156586 Problem Cachexia R64 Active 030846478 Problem Hypoxia R09.02 Active 330759818 Problem Requires continuous at home supplemental oxygen Z99.81 Active 569017875 Problem Gastroesophageal reflux disease without esophagitis K21.9 Active 002215535 Problem Panic disorder F41.0 Active 753122023 Problem COPD suggested by initial evaluation J44.9 Active 81163444 Problem Benign prostatic hyperplasia without lower urinary tract symptoms N40.0 Active 919814113 Problem Recurrent major depressive disorder, remission status unspecified F33.9 Active 27689703 Problem Dyslipidemia E78.5 Active 540274436 Problem Chronic pain syndrome G89.4 Active 818984311 Problem Neuropathy G62.9 Active 203080733 ALLERGIES No Information ENCOUNTERS Encounter Location Date Diagnosis [facility] [address] [facility] [id number] [place] [id number] Nov, [facility] [address] [id number] [id number] Oct, [facility] [address] [facility] [id number] [phone] Oct, Recurrent major depressive disorder, remission status unspecified F33.9 ; Dorsalgia, unspecified M54.9 and Cervicalgia M54.2 [facility] [id number] [id number] Oct, Medicare annual wellness visit, initial Z00.00 and Encounter for immunization Z23 [facility] [place] [id number] [place] [address], [place] [phone] Sep, Chronic pain syndrome G89.4 and Anxiety F41.9 [facility] [place] [id number] [place] [address] [phone] Aug, Chronic pain syndrome G89.4 [facility] [place] [id number] [place] [address] [id number] Aug, [facility] [place] [id number] [place] [address] [id number] Aug, [facility] [id number] [place] [address] [id number] Aug, Chronic pain syndrome G89.4 ; COPD suggested by initial evaluation J44.9 ; Tobacco abuse Z72.0 ; Hypoxia R09.02 ; Requires continuous at home supplemental oxygen Z99.81 and Cachexia R64 [facility] [place] [id number] [place] [address] [id number] Jul, [facility] [id number] [place] [address] [id number] Jul, Chronic pain syndrome G89.4 ; Anxiety F41.9 ; Cachexia R64 ; S/P percutaneous endoscopic gastrostomy (PEG) tube placement Z93.1 and COPD suggested by initial evaluation J44.9 [facility] [id number] [place] [address] [id number] June, Anxiety F41.9 [facility] [id number] [place] [address] [id number] June, Chronic pain syndrome G89.4 [facility] [place] [id number] [place] [address] [id number] June, [facility] [id number] [place] [address] [id number] May, Chronic pain syndrome G89.4 [facility] [place] [id number] [place] [address] [id number] May, [facility] [id number] [place] [address] [id number] May, [facility] [id number] [place] [address] [id number] May, S/P percutaneous endoscopic gastrostomy (PEG) tube placement Z93.1 and Cachexia R64 [facility] [address] [address] May, [facility] [id number] [place] [address] [id number] Apr, Chronic pain syndrome G89.4 and Underweight R63.6 [facility] [address] [address]- [address] Apr, [facility] [id number] [place] [address] [id number] Apr, [facility] [id number] [place] [address] [id number] Apr, Seizure R56.9 and Chronic pain syndrome G89.4 [facility] [id number] [place] [address] [id number] Mar, Anxiety F41.9 ; Tobacco abuse Z72.0 and Underweight R63.6 [facility] [id number] [place] [address] [id number] Mar, [facility] [id number] [place] [address] 8[address]- [phone] Mar, [facility] [id number] [place] [address] [id number] Mar, COPD suggested by initial evaluation J44.9 [facility] [address] [place] [address] [id number] Mar, Chronic pain syndrome G89.4 ; Anxiety F41.9 ; COPD suggested by initial evaluation J44.9 and Tobacco abuse Z72.0 [facility] [address] [place] [address] 12758- 6109 Feb, [facility] [id number] [place] [address] [id number] Feb, Anxiety F41.9 ; Chronic pain syndrome G89.4 ; Muscle spasm M62.838 ; Cervicalgia M54.2 ; COPD suggested by initial evaluation J44.9 ; Neuropathy G62.9 ; Recurrent major depressive disorder, remission status unspecified F33.9 ; Benign prostatic hyperplasia without lower urinary tract symptoms N40.0 ; Prostatism N40.0 ; Seizure R56.9 and Dyslipidemia E78.5 [facility] [id number] [id number] Feb, [place] [address] [place] [address] 78457- 9597 Feb, [place] [id number] [place] [phone]- [phone] Oct, Generalized anxiety disorder F41.1 and Panic disorder F41.0 [address] [place] [address] 96596- 4454 Sep, [place] [address] [id number] [place] [address] 48871- 8273 Sep, Chronic obstructive pulmonary disease, unspecified COPD type J44.9 ; Gastroesophageal reflux disease without esophagitis K21.9 ; Hyperlipidemia, unspecified hyperlipidemia type E78.5 and Prostatism N40.0 [place] [address] [place] [address] 38664- [phone] Sep, [place] [address] [place] [address] 56585- 5281 Sep, Generalized anxiety disorder F41.1 [place] [id number] [place] [address] 89931- 7030 Sep, Generalized anxiety disorder F41.1 [place] [id number] [place] [address] 04903- 3561 Sep, Generalized anxiety disorder F41.1 [place] [address], [place] [address] Oct, IMMUNIZATIONS No Known Immunizations SOCIAL HISTORY Never Assessed REASON FOR VISIT refill on narcotics PLAN OF CARE VITAL SIGNS MEDICATIONS Medication Instructions Dosage Frequency Start Date End Date Duration Status Fentanyl 50 MCG/HR Transdermal change every 2 days 1 patch to skin Sep 30 days Active Clonazepam 1 MG Orally as directed 1/2 tab in AM, 1 tab at HS 15 Mar, 2017 30 days Active Hydrocodone-Acetaminophen 7.5-325 MG Orally 3 times a day 1 tablet as needed 8h Sep, 30 days Active RESULTS No Results PROCEDURES No Known procedures [...] Multiple suicide attempts Hospitalization History Detox at [place] 10/24-11/23 Hospitalization History [facility]pneum[facility] 09/23 Hospital[facility] jail after fall from [place] ([facility]-put on Fentyl patches) 11/23-12/24 Hospitalization History pneumonia 02/2017 Hospitalization History [facility]- [place], vomiting, diarrhea and cough 04/26/2017
--- OUTSIDE RECORDS SUMMARY | 2017-12-05 21:39 | XMS REPORT ---
Author Author BELLA LUNA Organization [facility] Address [address] [place] [address] Care Team Providers Care Bow Rehairer Name Role Phone BELLA LUNA Unavailable PROBLEMS Type Condition ICD9-CM Code ZDW54-ID Code Onset Dates Condition Status SNOMED Code Problem Anxiety F41.9 Active 80331501 Problem Underweight R63.6 Active 512929002 Problem Tobacco abuse Z72.0 Active 974964931 Problem Cervicalgia M54.2 Active 77017405 Problem Dorsalgia, unspecified M54.9 Active 533062151 Problem S/P percutaneous endoscopic gastrostomy (PEG) tube placement Z93.1 Active 774723005 Problem Cachexia R64 Active 349244381 Problem Hypoxia R09.02 Active 283142126 Problem Requires continuous at home supplemental oxygen Z99.81 Active 059627581 Problem Gastroesophageal reflux disease without esophagitis K21.9 Active 740765609 Problem Panic disorder F41.0 Active 221792578 Problem COPD suggested by initial evaluation J44.9 Active 75003617 Problem Benign prostatic hyperplasia without lower urinary tract symptoms N40.0 Active 459753777 Problem Recurrent major depressive disorder, remission status unspecified F33.9 Active 43615372 Problem Dyslipidemia E78.5 Active 369983825 Problem Chronic pain syndrome G89.4 Active 369039927 Problem Neuropathy G62.9 Active 317220406 ALLERGIES No Information ENCOUNTERS Encounter Location Date Diagnosis [facility] [address] [id number] [place] [id number] Oct, Chronic pain syndrome G89.4 and Anxiety F41.9 [facility] [address] [id number] [place] [id number] Oct, [facility] [address] [id number] [place] [id number] Oct, [facility] [id number] [place] [address] [id number] Oct, Recurrent major depressive disorder, remission status unspecified F33.9 ; Dorsalgia, unspecified M54.9 and Cervicalgia M54.2 [facility] [id number] [place] [address] [id number] Oct, Medicare annual wellness visit, initial Z00.00 and Encounter for immunization Z23 [place] [id number] [place] [address] [id number] Sep, Chronic pain syndrome G89.4 and Anxiety F41.9 [facility] [id number] [place] [address] [id number] Aug, Chronic pain syndrome G89.4 [facility] [id number] [place] [address] [id number] Aug, [facility] [id number] [place] [address] [id number] Aug, [place] [id number] [place] [address] [id number] Aug, Chronic pain syndrome G89.4 ; COPD suggested by initial evaluation J44.9 ; Tobacco abuse Z72.0 ; Hypoxia R09.02 ; Requires continuous at home supplemental oxygen Z99.81 and Cachexia R64 [facility] [id number] [place] [address] [id number] Jul, [place] [id number] [place] [address] [id number] Jul, Chronic pain syndrome G89.4 ; Anxiety F41.9 ; Cachexia R64 ; S/P percutaneous endoscopic gastrostomy (PEG) tube placement Z93.1 and COPD suggested by initial evaluation J44.9 [facility] [id number] [place] [address] [id number] June, Anxiety F41.9 [place] [id number] [place] [address] [id number] June, Chronic pain syndrome G89.4 [facility] [id number] [place] [address] [id number] June, [facility] [id number] [place] [address] [id number] May, Chronic pain syndrome G89.4 [facility] [id number] [place] [address] [id number] May, [facility] [id number] [place] [address] [id number] May, [facility] [id number] [place] [address] [id number] May, S/P percutaneous endoscopic gastrostomy (PEG) tube placement Z93.1 and Cachexia R64 [place] [address] [address] May, [facility] [id number] [place] [address] [id number] Apr, Chronic pain syndrome G89.4 and Underweight R63.6 [place] [address] [id number] Apr, [facility] [id number] [place] [address] [id number] Apr, [facility] [id number] [place] [address] [id number] Apr, Seizure R56.9 and Chronic pain syndrome G89.4 [facility] [id number] [place] [address] [id number] Mar, Anxiety F41.9 ; Tobacco abuse Z72.0 and Underweight R63.6 [facility] [id number] [place] [address] [id number] Mar, [facility] [id number] [place] [address] [phone] Mar, [facility] [id number] [place] [address] [id number] Mar, COPD suggested by initial evaluation J44.9 [facility] [id number] [place] [address] [id number] Mar, Chronic pain syndrome G89.4 ; Anxiety F41.9 ; COPD suggested by initial evaluation J44.9 and Tobacco abuse Z72.0 [place] [address] [id number] [address] Feb, [facility] [address] [id number] [phone] Feb, Anxiety F41.9 ; Chronic pain syndrome G89.4 ; Muscle spasm M62.838 ; Cervicalgia M54.2 ; COPD suggested by initial evaluation J44.9 ; Neuropathy G62.9 ; Recurrent major depressive disorder, remission status unspecified F33.9 ; Benign prostatic hyperplasia without lower urinary tract symptoms N40.0 ; Prostatism N40.0 ; Seizure R56.9 and Dyslipidemia E78.5 [facility] [id number] [phone] Feb, [place] [id number] [place] [address] Feb, [place] [id number] [place] [address] 59[address] Oct, Generalized anxiety disorder F41.1 and Panic disorder F41.0 [place] [address] [place] [address] 87[address] Sep, [place] [id number] [place] [address] 9[address]45- 8889 Sep, Chronic obstructive pulmonary disease, unspecified COPD type J44.9 ; Gastroesophageal reflux disease without esophagitis K21.9 ; Hyperlipidemia, unspecified hyperlipidemia type E78.5 and Prostatism N40.0 [place] [address] [place] [address]1992- 2243 Sep, [place] [address] [place] [address] 11885- 0284 Sep, Generalized anxiety disorder F41.1 [place] [id number] [place] [address] 87144- 8679 Sep, Generalized anxiety disorder F41.1 [place] [address] [place] [address] 65193- 9677 Sep, Generalized anxiety disorder F41.1 [facility] [address] [facility] [id number] [place] [address] Oct, 2012 IMMUNIZATIONS No Known Immunizations SOCIAL HISTORY Never Assessed REASON FOR VISIT narcotic refill PLAN OF CARE VITAL SIGNS MEDICATIONS Medication Instructions Dosage Frequency Start Date End Date Duration Status Hydrocodone-Acetaminophen 7.5-325 MG Orally 3 times a day 1 tablet as needed 8h Oct, 30 days Active Fentanyl 50 MCG/HR Transdermal change every 2 days 1 patch to skin Oct 30 days Active Clonazepam 1 MG Orally [...] Multiple suicide attempts Hospitalization History Detox at [place] 10/24-11/23 Hospitalization History [facility]-pneumonia 09/23 Hospitalization History snf after fall from [place] (Gallendar-put on Fentyl patches) 11/23-12/24 Hospitalization History pneumonia 02/2017 Hospitalization History [facility]- [place], vomiting, diarrhea and cough 04/26/2017
--- OUTSIDE RECORDS SUMMARY | 2017-12-05 21:39 | XMS REPORT ---
Author Author CHERYL BELLA Organization [facility] Address [address] [place] [address] Care Team Providers Care Assistant Activities Director Name Role Phone BELLA LUNA Unavailable PROBLEMS Type Condition ICD9-CM Code [id number] Code Onset Dates Condition Status SNOMED Code Problem Anxiety F41.9 Active 85626377 Problem Underweight R63.6 Active 378484798 Problem Tobacco abuse Z72.0 Active 060023213 Problem Cervicalgia M54.2 Active 41094962 Problem Dorsalgia, unspecified M54.9 Active 756421066 Problem S/P percutaneous endoscopic gastrostomy (PEG) tube placement Z93.1 Active 481311801 Problem Cachexia R64 Active 500509070 Problem Hypoxia R09.02 Active 678245116 Problem Requires continuous at home supplemental oxygen Z99.81 Active 322314592 Problem Gastroesophageal reflux disease without esophagitis K21.9 Active 067095621 Problem Panic disorder F41.0 Active 930983302 Problem COPD suggested by initial evaluation J44.9 Active 11375900 Problem Benign prostatic hyperplasia without lower urinary tract symptoms N40.0 Active 325636567 Problem Recurrent major depressive disorder, remission status unspecified F33.9 Active 91096521 Problem Dyslipidemia E78.5 Active 461031537 Problem Chronic pain syndrome G89.4 Active 292899046 Problem Neuropathy G62.9 Active 310044511 ALLERGIES No Information ENCOUNTERS Encounter Location Date Diagnosis [facility] [address] [id number] [place] [id number] Nov, [facility] [address] [id number] [phone] Oct, Chronic pain syndrome G89.4 and Anxiety F41.9 [facility] [address] [id number] [place] [id number] Oct, [facility] [id number] [place] [address] [id number] Oct, [facility] [id number] [place] [address] [id number] Oct, Recurrent major depressive disorder, remission status unspecified F33.9 ; Dorsalgia, unspecified M54.9 and Cervicalgia M54.2 [facility] [id number] [place] [address] [id number] Oct, Medicare annual wellness visit, initial Z00.00 and Encounter for immunization Z23 [facility] [id number] [place] [address] [id number] Sep, Chronic pain syndrome G89.4 and Anxiety F41.[address] [id number] Aug, Chronic pain syndrome G89.4 [place] [id number] [place] [address] [id number] Aug, [place] [id number] [place] [address] [id number] Aug, [facility] [id number] [place] [address] [id number] Aug, Chronic pain syndrome G89.4 ; COPD suggested by initial evaluation J44.9 ; Tobacco abuse Z72.0 ; Hypoxia R09.02 ; Requires continuous at home supplemental oxygen Z99.81 and Cachexia R64 [address] [place] [address] [id number] Jul, [place] [id number] [place] [address] [id number] Jul, Chronic pain syndrome G89.4 ; Anxiety F41.9 ; Cachexia R64 ; S/P percutaneous endoscopic gastrostomy (PEG) tube placement Z93.1 and COPD suggested by initial evaluation J44.9 [place] [id number] [place] [address] [id number] June, Anxiety F41.9 [place] [id number] [place] [address] [id number] June, Chronic pain syndrome G89.4 [place] [id number] [place] [address] [id number] June, [facility] [id number] [phone] May, Chronic pain syndrome G89.4 [facility] [id number] [place] [address] [id number] May, [facility] [id number] [place] [address] [id number] May, [facility] [id number] [place] [address] [id number] May, S/P percutaneous endoscopic gastrostomy (PEG) tube placement Z93.1 and Cachexia R64 [place] [address] [address]- [address] May, [facility] [id number] [place] [address] [id number] Apr, Chronic pain syndrome G89.4 and Underweight R63.6 [facility] [address] [address]- [address] Apr, [facility] [id number] [place] [address] [id number] Apr, [facility] [id number] [place] [address] [id number] Apr, Seizure R56.9 and Chronic pain syndrome G89.4 [facility] [id number] [place] [address] [id number] Mar, Anxiety F41.9 ; Tobacco abuse Z72.0 and Underweight R63.6 [facility] [id number] [place] [address] [id number] Mar, [facility] [id number] [place] [address]36[address]- 8030 Mar, [facility] [id number] [place] [address] [id number] Mar, COPD suggested by initial evaluation J44.9 [facility] [id number] [place] [address] [id number] Mar, Chronic pain syndrome G89.4 ; Anxiety F41.9 ; COPD suggested by initial evaluation J44.9 and Tobacco abuse Z72.0 [facility] [address]100[place] [address] Feb, [facility] [id number] [place] [id number] Feb, Anxiety F41.9 ; Chronic pain syndrome G89.4 ; Muscle spasm M62.838 ; Cervicalgia M54.2 ; COPD suggested by initial evaluation J44.9 ; Neuropathy G62.9 ; Recurrent major depressive disorder, remission status unspecified F33.9 ; Benign prostatic hyperplasia without lower urinary tract symptoms N40.0 ; Prostatism N40.0 ; Seizure R56.9 and Dyslipidemia E78.5 [facility] [id number] [place] [phone] Feb, [place] [address] [place] [address] 43238- [phone] Feb, [place] [address] [place] [id number] [place] [address] 15540- 3930 Oct, Generalized anxiety disorder F41.1 and Panic disorder F41.0 [place] [address] [place] [address] 29587- 3059 Sep, [facility] [address] [place] [address] 59399- 6916 Sep, Chronic obstructive pulmonary disease, unspecified COPD type J44.9 ; Gastroesophageal reflux disease without esophagitis K21.9 ; Hyperlipidemia, unspecified hyperlipidemia type E78.5 and Prostatism N40.0 [facility] [address] [place] [address] 51384- 4347 Sep, [facility] [id number] [place] [address] 24683- 6220 Sep, Generalized anxiety disorder F41.1 [facility] [address] [place] [address] 19234- 1644 Sep, Generalized anxiety disorder F41.1 [facility] [address] [id number] [address] 4[address] 16 Sep, 2015 Generalized anxiety disorder F41.1 [facility] [address] [facility] [id number] [place] [address] Oct, IMMUNIZATIONS No Known Immunizations SOCIAL HISTORY Never Assessed REASON FOR VISIT Shingrix vaccine PLAN OF CARE VITAL SIGNS MEDICATIONS Unknown [...] Multiple suicide attempts Hospitalization History Detox at [place] 10/24-11/23 Hospitalization History [facility]-pneumonia 09/23 Hospitalization History skilled nursing after fall from [place] (Gallendar-put on Fentyl patches) 11/23-12/24 Hospitalization History pneumonia 02/2017 Hospitalization History [facility]- [place], vomiting, diarrhea and cough 04/26/2017
--- OUTSIDE RECORDS SUMMARY | 2017-12-05 21:39 | XMS REPORT ---
Author Author Marika BELLA Organization [facility] Address [address] [place] [address] Care Team Providers Care Engineer Second Assistant Name Role Phone [email or web address] BELLA Unavailable PROBLEMS Type Condition ICD9-CM Code TDU60-GI Code Onset Dates Condition Status SNOMED Code Problem Anxiety F41.9 Active 97898922 Problem Underweight R63.6 Active 838640548 Problem Tobacco abuse Z72.0 Active 000620082 Problem Cervicalgia M54.2 Active 02889749 Problem Dorsalgia, unspecified M54.9 Active 518588562 Problem S/P percutaneous endoscopic gastrostomy (PEG) tube placement Z93.1 Active 528569418 Problem Cachexia R64 Active 470483338 Problem Hypoxia R09.02 Active 552788849 Problem Requires continuous at home supplemental oxygen Z99.81 Active 774948503 Problem Gastroesophageal reflux disease without esophagitis K21.9 Active 555140115 Problem Panic disorder F41.0 Active 807076506 Problem COPD suggested by initial evaluation J44.9 Active 85030785 Problem Benign prostatic hyperplasia without lower urinary tract symptoms N40.0 Active 102582792 Problem Recurrent major depressive disorder, remission status unspecified F33.9 Active 16849307 Problem Dyslipidemia E78.5 Active 716959005 Problem Chronic pain syndrome G89.4 Active 800814245 Problem Neuropathy G62.9 Active 224146376 ALLERGIES No Information ENCOUNTERS Encounter Location Date Diagnosis [facility] [address] [id number] [address] Dec, [facility] [address] [id number] [address] Nov, [facility] [address] [id number] [address] Nov, Chronic pain syndrome G89.4 ; Anxiety F41.9 and COPD suggested by initial evaluation J44.9 [facility] [address] [facility] [id number] [place] [address] Nov, [facility] [address] [facility] [address] [id number] [id number] Nov, Cervicalgia M54.2 [facility] [id number] [phone] Oct, Chronic pain syndrome G89.4 and Anxiety F41.9 [facility] [address] [facility] [address] [id number] [id number] Oct, [facility] [id number], [place] [phone] Oct, [facility] [address]65100[place] [id number] Oct, Recurrent major depressive disorder, remission status unspecified F33.9 ; Dorsalgia, unspecified M54.9 and Cervicalgia M54.2 [facility] [id number], [place] [id number] Oct, Medicare annual wellness visit, initial Z00.00 ; Encounter for immunization Z23 ; COPD suggested by initial evaluation J44.9 ; Recurrent major depressive disorder, remission status unspecified F33.9 ; Dyslipidemia E78.5 and Gastroesophageal reflux disease without esophagitis K21.9 [facility] [id number], [place] [phone] Sep, Chronic pain syndrome G89.4 and Anxiety F41.9 [facility] [id number], [place] [id number] Aug, Chronic pain syndrome G89.4 [facility] [id number], [place] [id number] Aug, [facility] [id number], [place] [phone] Aug, [facility] [id number], [place] [id number] Aug, Chronic pain syndrome G89.4 ; COPD suggested by initial evaluation J44.9 ; Tobacco abuse Z72.0 ; Hypoxia R09.02 ; Requires continuous at home supplemental oxygen Z99.81 and Cachexia R64 [facility] [id number] [place] [address] [id number] Jul, [facility] [address] [id number] Jul, Chronic pain syndrome G89.4 ; Anxiety F41.9 ; Cachexia R64 ; S/P percutaneous endoscopic gastrostomy (PEG) tube placement Z93.1 and COPD suggested by initial evaluation J44.9 [facility] [address] [id number] June, Anxiety F41.9 [facility] [address] [id number] June, Chronic pain syndrome G89.4 [facility] [address] [id number] June, [facility] [address] [id number] May, Chronic pain syndrome G89.4 [facility] [id number] [place] [address] [id number] May, [facility] [address] [id number] May, [facility] [address] [id number] May, S/P percutaneous endoscopic gastrostomy (PEG) tube placement Z93.1 and Cachexia R64 [place] [id number] [place] [address] [id number]- [phone] May, [facility] [id number] [place] [address] [id number] Apr, Chronic pain syndrome G89.4 and Underweight R63.6 [facility] [address] [phone]- [address] Apr, [facility] [id number] [place] [address] [id number] Apr, [facility] [address] [id number] Apr, Seizure R56.9 and Chronic pain syndrome G89.4 [facility] [address] [place] [address] [id number] Mar, Anxiety F41.9 ; Tobacco abuse Z72.0 and Underweight R63.6 [facility] [id number] [place] [address] [id number] Mar, [place] [address] [id number]- [address] Mar, [facility] [id number] [place] [address] [phone] Mar, COPD suggested by initial evaluation J44.9 [id number] [place] [address] [phone] Mar, Chronic pain syndrome G89.4 ; Anxiety F41.9 ; COPD suggested by initial evaluation J44.9 and Tobacco abuse Z72.0 [place] [id number] [place] [address] [id number]- 4996 Feb, [facility] [address] [place] [address] [id number] Feb, Anxiety F41.9 ; Chronic pain syndrome G89.4 ; Muscle spasm M62.838 ; Cervicalgia M54.2 ; COPD suggested by initial evaluation J44.9 ; Neuropathy G62.9 ; Recurrent major depressive disorder, remission status unspecified F33.9 ; Benign prostatic hyperplasia without lower urinary tract symptoms N40.0 ; Prostatism N40.0 ; Seizure R56.9 and Dyslipidemia E78.5 [facility] [address] [place] [address] [id number] Feb, [place] [address] [address] Feb, [place] [address] [address] Oct, Generalized anxiety disorder F41.1 and Panic disorder F41.0 [place] [address] [address] Sep, [place] [address] [id number] [address] Sep, Chronic obstructive pulmonary disease, unspecified COPD type J44.9 ; Gastroesophageal reflux disease without esophagitis K21.9 ; Hyperlipidemia, unspecified hyperlipidemia type E78.5 and Prostatism N40.0 [place] [address], [place] [address] Sep, [place] [address], [place] [address] Sep, Generalized anxiety disorder F41.1 [place] [address] [place] [address] Sep, Generalized anxiety disorder F41.1 [place] [address], [place] [address] Sep, Generalized anxiety disorder F41.1 [place] [address], [place] [address] Oct, IMMUNIZATIONS No Known Immunizations SOCIAL HISTORY Never Assessed REASON FOR VISIT CCM note PLAN OF CARE VITAL SIGNS MEDICATIONS Unknown [...] Multiple suicide attempts Hospitalization History Detox at [place] 10/24-11/23 Hospitalization History [facility] 09/23 Hospitalization History [facility] after fall from [place] (Gallendar-put on Fentyl patches) 11/23-12/24 Hospitalization History pneumonia 02/2017 Hospitalization History [facility]- [place], vomiting, diarrhea and cough 04/26/2017
--- OUTSIDE RECORDS SUMMARY | 2017-12-05 21:40 | XMS REPORT ---
Author Author CHERYL BELLA Organization [facility] Address [address] [place] [address] Care Team Providers Care Hand I Cutter Name Role Phone BELLA LUNA Unavailable PROBLEMS Type Condition ICD9-CM Code TZT76-FS Code Onset Dates Condition Status SNOMED Code Problem Dyslipidemia E78.5 Active 017437869 Problem Anxiety F41.9 Active 39068970 Problem Neuropathy G62.9 Active 016896778 Problem Hypoxia R09.02 Active 673170882 Problem Requires continuous at home supplemental oxygen Z99.81 Active 487476458 Problem Underweight R63.6 Active 284323413 Problem Tobacco abuse Z72.0 Active 604593574 Problem S/P percutaneous endoscopic gastrostomy (PEG) tube placement Z93.1 Active 038480197 Problem Cachexia R64 Active 840787023 Problem Recurrent major depressive disorder, remission status unspecified F33.9 Active 96777972 Problem COPD suggested by initial evaluation J44.9 Active 66391603 Problem Gastroesophageal reflux disease without esophagitis K21.9 Active 368163578 Problem Benign prostatic hyperplasia without lower urinary tract symptoms N40.0 Active 081009359 Problem Panic disorder F41.0 Active 419250989 Problem Chronic pain syndrome G89.4 Active 023957956 ALLERGIES No Information ENCOUNTERS Encounter Location Date Diagnosis [facility] [address] [id number] [id number] Oct, [facility] [address] [id number] [id number] Sep, Chronic pain syndrome G89.4 and Anxiety F41.9 [facility] [address] [id number] [place] [id number] Aug, Chronic pain syndrome G89.4 [facility] [address] [id number] [id number] Aug, [facility] [id number] [place] [address] [id number] Aug, [facility] [place] [address] [place] [address] [id number] Aug, Chronic pain syndrome G89.4 ; COPD suggested by initial evaluation J44.9 ; Tobacco abuse Z72.0 ; Hypoxia R09.02 ; Requires continuous at home supplemental oxygen Z99.81 and Cachexia R64 [facility] [id number] [place] [address] [id number] Jul, [facility] [place] [address] [place] [address] [id number] Jul, Chronic pain syndrome G89.4 ; Anxiety F41.9 ; Cachexia R64 ; S/P percutaneous endoscopic gastrostomy (PEG) tube placement Z93.1 and COPD suggested by initial evaluation J44.9 [facility] [id number] [place] [address] [id number] June, Anxiety F41.9 [facility] [place] [address] [place] [address] [id number] June, Chronic pain syndrome G89.4 [facility] [place] [address] [place] [address] [phone] June, [facility] [address] [place] [address] [id number] May, Chronic pain syndrome G89.4 [facility] [id number] [place] [address] [id number] May, [facility] [id number] [place] [address] [id number] May, [facility] [address] [place] [address] [id number] May, S/P percutaneous endoscopic gastrostomy (PEG) tube placement Z93.1 and Cachexia R64 [facility] [id number] [place] [address] [phone] May, [facility] [id number] [place] [address] [id number] Apr, Chronic pain syndrome G89.4 and Underweight R63.6 [facility] [id number] [place] [address] 9[address]87- [phone] Apr, [address] [address] [place] [address] [id number] Apr, [address] [id number] Apr, Seizure R56.9 and Chronic pain syndrome G89.[address] [id number] Mar, Anxiety F41.9 ; Tobacco abuse Z72.0 and Underweight R63.[address] [id number] Mar, [address] [address] [address] Mar, [address] [place] [address] [id number] Mar, COPD suggested by initial evaluation J44.9 [address] [address] [place] [address] [id number] Mar, Chronic pain syndrome G89.4 ; Anxiety F41.9 ; COPD suggested by initial evaluation J44.9 and Tobacco abuse Z72.0 [place] [id number] [place] [address]- 8950 Feb, [address] [place] [address] [id number] Feb, Anxiety F41.9 ; Chronic pain syndrome G89.4 ; Muscle spasm M62.838 ; Cervicalgia M54.2 ; COPD suggested by initial evaluation J44.9 ; Neuropathy G62.9 ; Recurrent major depressive disorder, remission status unspecified F33.9 ; Benign prostatic hyperplasia without lower urinary tract symptoms N40.0 ; Prostatism N40.0 ; Seizure R56.9 and Dyslipidemia E78.5 [address] [place] [address] [id number] Feb, [place] [address] [address] Feb, [place] [address]00565100[place] [address] Oct, Generalized anxiety disorder F41.1 and Panic disorder F41.0 [place] [address] [place] [address]35- 0262 Sep, [place] [id number] [place] [address] 03661- 6907 Sep, Chronic obstructive pulmonary disease, unspecified COPD type J44.9 ; Gastroesophageal reflux disease without esophagitis K21.9 ; Hyperlipidemia, unspecified hyperlipidemia type E78.5 and Prostatism N40.0 [place] [id number] [place] [address] 62769- 8368 Sep, [place] [id number] [place] [address] 06801- 3308 Sep, Generalized anxiety disorder F41.1 [place] [id number] [place] [address] 15877- 3406 Sep, Generalized anxiety disorder F41.1 [place] [address] [place] [address] 37614- 8192 Sep, Generalized anxiety disorder F41.1 [place] [address] [place] [address] 46817- 5190 Oct, IMMUNIZATIONS No Known Immunizations SOCIAL HISTORY [...] Multiple suicide attempts Hospitalization History Detox at [place] 10/24-11/23 Hospitalization History [facility] 09/23 Hospitalization History [facility] after fall from [place] (Gallendar-put on Fentyl patches) 11/23-12/24 Hospitalization History pneumonia 02/2017 Hospitalization History [facility]- [place], vomiting, diarrhea and cough 04/26/2017
--- OUTSIDE RECORDS SUMMARY | 2017-12-05 21:40 | XMS REPORT ---
Author Author CHERYL BELLA Organization [facility] Address [address] [place] [address] Care Team Providers Care Grounds Maintenance Manager Name Role Phone BELLA LUNA Unavailable PROBLEMS Type Condition ICD9-CM Code UMK26-VE Code Onset Dates Condition Status SNOMED Code Problem Dyslipidemia E78.5 Active 224582000 Problem Anxiety F41.9 Active 15157924 Problem Neuropathy G62.9 Active 623531775 Problem Hypoxia R09.02 Active 625068155 Problem Requires continuous at home supplemental oxygen Z99.81 Active 716028329 Problem Underweight R63.6 Active 628935808 Problem Tobacco abuse Z72.0 Active 379680065 Problem S/P percutaneous endoscopic gastrostomy (PEG) tube placement Z93.1 Active 162349434 Problem Cachexia R64 Active 730661308 Problem Recurrent major depressive disorder, remission status unspecified F33.9 Active 22934091 Problem COPD suggested by initial evaluation J44.9 Active 97795741 Problem Gastroesophageal reflux disease without esophagitis K21.9 Active 234859904 Problem Benign prostatic hyperplasia without lower urinary tract symptoms N40.0 Active 836186735 Problem Panic disorder F41.0 Active 839044790 Problem Chronic pain syndrome G89.4 Active 075624666 ALLERGIES No Information ENCOUNTERS Encounter Location Date Diagnosis [facility] [id number] [place] [address] [id number] Oct, Medicare annual wellness visit, initial Z00.00 [id number] [place] [address] [id number] Sep, Chronic pain syndrome G89.4 and Anxiety F41.9 [facility] [id number] [place] [address] [id number] Aug, Chronic pain syndrome G89.4 [place] [id number] [place] [address] [id number] Aug, [facility] [id number] [place] [phone] Aug, [facility] [place] [id number] [place] [address] [id number] Aug, Chronic pain syndrome G89.4 ; COPD suggested by initial evaluation J44.9 ; Tobacco abuse Z72.0 ; Hypoxia R09.02 ; Requires continuous at home supplemental oxygen Z99.81 and Cachexia R64 [facility] [place] [id number] [place] [address] [id number] Jul, [facility] [id number] [place] [address] [id number] Jul, Chronic pain syndrome G89.4 ; Anxiety F41.9 ; Cachexia R64 ; S/P percutaneous endoscopic gastrostomy (PEG) tube placement Z93.1 and COPD suggested by initial evaluation J44.9 [facility] [id number] [place] [address] [id number] June, Anxiety F41.9 [facility] [address] [place] [address] [id number] June, Chronic pain syndrome G89.4 [facility] [id number] [place] [address] [id number] June, [facility] [id number] [place] [address] [id number] May, Chronic pain syndrome G89.4 [facility] [id number] [place] [id number] May, [facility] [address] [place] [address] [id number] May, [facility] [id number] [place] [address] [id number] May, S/P percutaneous endoscopic gastrostomy (PEG) tube placement Z93.1 and Cachexia R64 [facility] [address]00565100[place] [address] May, [facility] [id number] [place] [phone] Apr, Chronic pain syndrome G89.4 and Underweight R63.6 [place] [address] [place] [address] [phone] Apr, [facility] [id number] [place] [address] [id number] Apr, [facility] [id number] [place] [address] [id number] Apr, Seizure R56.9 and Chronic pain syndrome G89.[address] [id number] Mar, Anxiety F41.9 ; Tobacco abuse Z72.0 and Underweight R63.[address] [id number] Mar, [place] [address] [address]- [address] Mar, [place] [address] [place] [address] [id number] Mar, COPD suggested by initial evaluation J44.9 [place] [address] [place] [address] [id number] Mar, Chronic pain syndrome G89.4 ; Anxiety F41.9 ; COPD suggested by initial evaluation J44.9 and Tobacco abuse Z72.0 [place] [address] [place] [address] [phone]- 7458 Feb, [place] [address] [place] [address] [id number] Feb, Anxiety F41.9 ; Chronic pain syndrome G89.4 ; Muscle spasm M62.838 ; Cervicalgia M54.2 ; COPD suggested by initial evaluation J44.9 ; Neuropathy G62.9 ; Recurrent major depressive disorder, remission status unspecified F33.9 ; Benign prostatic hyperplasia without lower urinary tract symptoms N40.0 ; Prostatism N40.0 ; Seizure R56.9 and Dyslipidemia E78.5 [place] [id number] [place] [address] [phone] Feb, [place] [address] [address]- 6490 Feb, [place] [address] [place] [address] 92853- 8068 Oct, Generalized anxiety disorder F41.1 and Panic disorder F41.0 [place] [address] [place] [address] 36733- 2695 Sep, [place] [address] [place] [address] 57404- 8633 Sep, Chronic obstructive pulmonary disease, unspecified COPD type J44.9 ; Gastroesophageal reflux disease without esophagitis K21.9 ; Hyperlipidemia, unspecified hyperlipidemia type E78.5 and Prostatism N40.0 [place] [address] [place] [address] 58916- 6378 Sep, [place] [address] [place] [address] 57383- 8679 Sep, Generalized anxiety disorder F41.1 [place] [address] [place] [address] 44768- 0902 Sep, Generalized anxiety disorder F41.1 [place] [id number] [place] [address] 78323- 4944 Sep, Generalized anxiety disorder F41.1 [place] [address] [place] [address] 67288- 5720 Oct, IMMUNIZATIONS No Known Immunizations SOCIAL HISTORY Never Assessed REASON FOR VISIT refill for narcotic PLAN OF CARE VITAL SIGNS MEDICATIONS Medication Instructions Dosage Frequency Start Date End Date Duration Status Fentanyl 50 MCG/HR Transdermal change every 2 days 1 patch to skin Aug 30 days Active Hydrocodone-Acetaminophen 7.5-325 MG Orally 3 times a day 1 tablet as needed 8h Aug, 30 days Active RESULTS No Results PROCEDURES [...] Multiple suicide attempts Hospitalization History Detox at [place] 10/24-11/23 Hospitalization History [facility] 09/23 Hospitalization History [facility] after fall from [place] (Gallendar-put on Fentyl patches) 11/23-12/24 Hospitalization History pneumonia 02/2017 Hospitalization History [facility]- [place], vomiting, diarrhea and cough 04/26/2017
--- OUTSIDE RECORDS SUMMARY | 2017-12-05 21:40 | XMS REPORT ---
Author Author CHERYL BELLA Organization [facility] Address [address] [place] [address] Care Team Providers Care Systems Operator Name Role Phone BELLA LUNA Unavailable PROBLEMS Type Condition ICD9-CM Code IVD04-AF Code Onset Dates Condition Status SNOMED Code Problem Dyslipidemia E78.5 Active 664902634 Problem Anxiety F41.9 Active 01059543 Problem Neuropathy G62.9 Active 181490932 Problem Hypoxia R09.02 Active 738076198 Problem Requires continuous at home supplemental oxygen Z99.81 Active 422476617 Problem Underweight R63.6 Active 192479944 Problem Tobacco abuse Z72.0 Active 036506881 Problem S/P percutaneous endoscopic gastrostomy (PEG) tube placement Z93.1 Active 337940731 Problem Cachexia R64 Active 790181657 Problem Recurrent major depressive disorder, remission status unspecified F33.9 Active 32141827 Problem COPD suggested by initial evaluation J44.9 Active 82090517 Problem Gastroesophageal reflux disease without esophagitis K21.9 Active 739812590 Problem Benign prostatic hyperplasia without lower urinary tract symptoms N40.0 Active 091449860 Problem Panic disorder F41.0 Active 607186016 Problem Chronic pain syndrome G89.4 Active 019655301 ALLERGIES No Information ENCOUNTERS Encounter Location Date Diagnosis [facility] [address] [id number] [id number] Oct, [facility] [address] [id number] [phone] Sep, Chronic pain syndrome G89.4 and Anxiety F41.9 [facility] [address] [id number] [place] [id number] Aug, Chronic pain syndrome G89.4 [facility] [address] [id number] [place] [id number] Aug, [facility] [id number] [place] [address] [phone] Aug, [facility] [id number] [place] [address] [phone] Aug, Chronic pain syndrome G89.4 ; COPD suggested by initial evaluation J44.9 ; Tobacco abuse Z72.0 ; Hypoxia R09.02 ; Requires continuous at home supplemental oxygen Z99.81 and Cachexia R64 [facility] [id number] [place] [address] [phone] Jul, [facility] [place] [id number] [place] [address] [phone] Jul, Chronic pain syndrome G89.4 ; Anxiety F41.9 ; Cachexia R64 ; S/P percutaneous endoscopic gastrostomy (PEG) tube placement Z93.1 and COPD suggested by initial evaluation J44.9 [facility] [id number] [place] [address] [phone] June, Anxiety F41.9 [facility] [id number] [place] [address] [phone] June, Chronic pain syndrome G89.4 [facility] [id number] [place] [address] [phone] June, [facility] [id number] [place] [address] [phone] May, Chronic pain syndrome G89.4 [facility] [id number] [place] [address] [phone] May, [facility] [id number] [place] [address] [phone] May, [facility] [id number] [place] [address] [phone] May, S/P percutaneous endoscopic gastrostomy (PEG) tube placement Z93.1 and Cachexia R64 [facility] [id number] [place] [address] [phone] May, [facility] [id number] [place] [address] [phone] Apr, Chronic pain syndrome G89.4 and Underweight R63.6 [facility] [id number] [place] [address] 93531- [phone] Apr, [id number] [place] [address] [phone] Apr, [address] [phone] Apr, Seizure R56.9 and Chronic pain syndrome G89.[address] [id number] Mar, Anxiety F41.9 ; Tobacco abuse Z72.0 and Underweight R63.[address] [id number] Mar, [address] [address] [address]- 9509 Mar, [id number] [place] [address] [phone] Mar, COPD suggested by initial evaluation J44.9 [id number] [place] [address] [phone] Mar, Chronic pain syndrome G89.4 ; Anxiety F41.9 ; COPD suggested by initial evaluation J44.9 and Tobacco abuse Z72.0 [place] [id number] [place] [address] 19674- [phone] Feb, [id number] [place] [address] [phone] Feb, Anxiety F41.9 ; Chronic pain syndrome G89.4 ; Muscle spasm M62.838 ; Cervicalgia M54.2 ; COPD suggested by initial evaluation J44.9 ; Neuropathy G62.9 ; Recurrent major depressive disorder, remission status unspecified F33.9 ; Benign prostatic hyperplasia without lower urinary tract symptoms N40.0 ; Prostatism N40.0 ; Seizure R56.9 and Dyslipidemia E78.5 [id number] [place] [address] [phone] Feb, [address] [address]- [address] Feb, [address] [address] Oct, Generalized anxiety disorder F41.1 and Panic disorder F41.0 [address] [address] [place] [address] 69422- [phone] Sep, [place] [id number] [place] [address] 73184- 3277 Sep, Chronic obstructive pulmonary disease, unspecified COPD type J44.9 ; Gastroesophageal reflux disease without esophagitis K21.9 ; Hyperlipidemia, unspecified hyperlipidemia type E78.5 and Prostatism N40.0 [place] [id number] [place] [address] 70988- [phone] Sep, [place] [id number] [place] [address] 51524- 0047 Sep, Generalized anxiety disorder F41.1 [place] [id number] [place] [address] 25723- 1774 Sep, Generalized anxiety disorder F41.1 [place] [address] [place] [address] 78243- 1424 Sep, Generalized anxiety disorder F41.1 [address] [address] [place] [address] 23680- [phone] Oct, IMMUNIZATIONS No Known Immunizations SOCIAL HISTORY Never Assessed REASON FOR VISIT phone call PLAN OF CARE VITAL SIGNS MEDICATIONS Unknown [...] Multiple suicide attempts Hospitalization History Detox at [place] 10/24-11/23 Hospitalization History [facility]-pneumonia 09/23 Hospitalization History detention after fall from [place] ([facility]-put on Fentyl patches) 11/23-12/24 Hospitalization History pneumonia 02/2017 Hospitalization History [facility] [place], vomiting, diarrhea and cough 04/26/2017
--- OUTSIDE RECORDS SUMMARY | 2017-12-05 21:40 | XMS REPORT ---
Author Author CHERYL BELLA Organization [facility] Address [address] [place] [address] Care Team Providers Care Physical Science Aide Name Role Phone BELLA LUNA Unavailable PROBLEMS Type Condition ICD9-CM Code EPU53-HD Code Onset Dates Condition Status SNOMED Code Problem Dyslipidemia E78.5 Active 582384085 Problem Anxiety F41.9 Active 74701388 Problem Neuropathy G62.9 Active 708889783 Problem Hypoxia R09.02 Active 115488851 Problem Requires continuous at home supplemental oxygen Z99.81 Active 138275636 Problem Underweight R63.6 Active 241122867 Problem Tobacco abuse Z72.0 Active 123243827 Problem S/P percutaneous endoscopic gastrostomy (PEG) tube placement Z93.1 Active 898097549 Problem Cachexia R64 Active 866424177 Problem Recurrent major depressive disorder, remission status unspecified F33.9 Active 16723565 Problem COPD suggested by initial evaluation J44.9 Active 72661173 Problem Gastroesophageal reflux disease without esophagitis K21.9 Active 410940469 Problem Benign prostatic hyperplasia without lower urinary tract symptoms N40.0 Active 769905087 Problem Panic disorder F41.0 Active 336086147 Problem Chronic pain syndrome G89.4 Active 568431446 ALLERGIES No Information ENCOUNTERS Encounter Location Date Diagnosis [facility] [id number] [place] [address] [phone] Oct, Medicare annual wellness visit, initial Z00.[id number] [place] [address] [id number] Sep, Chronic pain syndrome G89.4 and Anxiety F41.9 [facility] [id number] [place] [address] [phone] Aug, Chronic pain syndrome G89.4 [place] [id number] [phone] Aug, [facility] [id number][place] [phone] Aug, [facility] [id number] [place] [address] [phone] Aug, Chronic pain syndrome G89.4 ; COPD suggested by initial evaluation J44.9 ; Tobacco abuse Z72.0 ; Hypoxia R09.02 ; Requires continuous at home supplemental oxygen Z99.81 and Cachexia R64 [facility] [id number] [place] [address] [phone] Jul, [facility] [place] [facility] [id number] [place] [address] [phone] Jul, Chronic pain syndrome G89.4 ; Anxiety F41.9 ; Cachexia R64 ; S/P percutaneous endoscopic gastrostomy (PEG) tube placement Z93.1 and COPD suggested by initial evaluation J44.9 [facility] [id number] [place] [address] [phone] June, Anxiety F41.9 [facility] [id number] [place] [address] [phone] June, Chronic pain syndrome G89.4 [facility] [id number] [place] [address] [phone] June, [facility] [place] [id number] [place] [address] [phone] May, Chronic pain syndrome G89.4 [facility] [id number], [place] [phone] May, [facility] [place] [facility] [id number] [place] [address] [phone] May, [facility] [id number] [place] [address] [phone] May, S/P percutaneous endoscopic gastrostomy (PEG) tube placement Z93.1 and Cachexia R64 [facility] [address] [phone] May, [facility] [id number][place] [phone] Apr, Chronic pain syndrome G89.4 and Underweight R63.6 [address] [place] [id number] [place] [address] [phone] Apr, [facility] [id number] [place] [address] [phone] Apr, [facility] [id number] [place] [address] [phone] Apr, Seizure R56.9 and Chronic pain syndrome G89.[address] [id number] Mar, Anxiety F41.9 ; Tobacco abuse Z72.0 and Underweight R63.[address] [id number] Mar, [address] [address]- [address]89 Mar, [id number] [place] [address] [phone] Mar, COPD suggested by initial evaluation J44.9 [id number] [place] [address] [id number] Mar, Chronic pain syndrome G89.4 ; Anxiety F41.9 ; COPD suggested by initial evaluation J44.9 and Tobacco abuse Z72.0 [address] [id number] [place] [address] [phone] Feb, [id number] [place] [address] [id number] Feb, Anxiety F41.9 ; Chronic pain syndrome G89.4 ; Muscle spasm M62.838 ; Cervicalgia M54.2 ; COPD suggested by initial evaluation J44.9 ; Neuropathy G62.9 ; Recurrent major depressive disorder, remission status unspecified F33.9 ; Benign prostatic hyperplasia without lower urinary tract symptoms N40.0 ; Prostatism N40.0 ; Seizure R56.9 and Dyslipidemia E78.5 [id number] [place] [address] [phone] Feb, [address] [address] 18489- 4000 Feb, [place] [address]65100[place] [address] Oct, Generalized anxiety disorder F41.1 and Panic disorder F41.0 [place] [id number] [place] [address] [phone]- [phone] Sep, [place] [id number] [place] [address] [phone] Sep, Chronic obstructive pulmonary disease, unspecified COPD type J44.9 ; Gastroesophageal reflux disease without esophagitis K21.9 ; Hyperlipidemia, unspecified hyperlipidemia type E78.5 and Prostatism N40.0 [place] [id number] [place] [address] 47977- [phone] Sep, [place] [id number] [place] [address] 70453- [phone] Sep, Generalized anxiety disorder F41.1 [place] [id number] [place] [address] [phone]- [phone] Sep, Generalized anxiety disorder F41.1 [place] [id number] [place] [address] 94045- 2922 Sep, Generalized anxiety disorder F41.1 [place] [address] [address]- 1194 Oct, IMMUNIZATIONS No Known Immunizations SOCIAL HISTORY Never Assessed REASON FOR VISIT requesting medication PLAN OF CARE VITAL SIGNS MEDICATIONS Medication Instructions Dosage Frequency Start Date End Date Duration Status Sklice 0.5 % as directed Aug, Active RESULTS No Results PROCEDURES No Known [...] Multiple suicide attempts Hospitalization History Detox at [place] 10/24-11/23 Hospitalization History [facility]-pneumonia 09/23 Hospitalization History snf after fall from [place] (Gallendar-put on Fentyl patches) 11/23-12/24 Hospitalization History pneumonia 02/2017 Hospitalization History [facility] [place], vomiting, diarrhea and cough 04/26/2017
--- OUTSIDE RECORDS SUMMARY | 2017-12-05 21:40 | XMS REPORT ---
Author Author CHERYL BELLA Organization [facility] Address [address] [place] [address] Care Team Providers Care Flight Inspector Name Role Phone BELLA LUNA Unavailable PROBLEMS Type Condition ICD9-CM Code LXI11-JK Code Onset Dates Condition Status SNOMED Code Problem Dyslipidemia E78.5 Active 507241505 Problem Anxiety F41.9 Active 69213824 Problem Neuropathy G62.9 Active 999131251 Problem Hypoxia R09.02 Active 835375381 Problem Requires continuous at home supplemental oxygen Z99.81 Active 714704685 Problem Underweight R63.6 Active 689710561 Problem Tobacco abuse Z72.0 Active 592914133 Problem S/P percutaneous endoscopic gastrostomy (PEG) tube placement Z93.1 Active 680168090 Problem Cachexia R64 Active 377245394 Problem Recurrent major depressive disorder, remission status unspecified F33.9 Active 18670004 Problem COPD suggested by initial evaluation J44.9 Active 77692630 Problem Gastroesophageal reflux disease without esophagitis K21.9 Active 101473162 Problem Benign prostatic hyperplasia without lower urinary tract symptoms N40.0 Active 665197561 Problem Panic disorder F41.0 Active 543309887 Problem Chronic pain syndrome G89.4 Active 734517180 ALLERGIES Substance Reaction Event Type Date Status Cephalexin itching Drug Allergy Aug, Active Bactrim seizures Drug Allergy Aug, Active ENCOUNTERS Encounter Location Date Diagnosis [facility] [address] [id number] [phone] Oct, [facility] [address] [id number] [place] [phone] Sep, Chronic pain syndrome G89.4 and Anxiety F41.9 [facility] [address] [id number] [place] [phone] Aug, Chronic pain syndrome G89.4 [facility] [address] [id number] [place] [phone] Aug, [facility] [place] [id number] [place] [address] [phone] Aug, [facility] [place] [id number] [place] [address] [phone] Aug, Chronic pain syndrome G89.4 ; COPD suggested by initial evaluation J44.9 ; Tobacco abuse Z72.0 ; Hypoxia R09.02 ; Requires continuous at home supplemental oxygen Z99.81 and Cachexia R64 [facility] [place] [id number] [place] [address] [phone] Jul, [facility] [place] [id number] [place] [address] [id number] Jul, Chronic pain syndrome G89.4 ; Anxiety F41.9 ; Cachexia R64 ; S/P percutaneous endoscopic gastrostomy (PEG) tube placement Z93.1 and COPD suggested by initial evaluation J44.9 [facility] [place] [id number] [place] [address] [phone] June, Anxiety F41.9 [facility] [place] [id number] [place] [address] [phone] June, Chronic pain syndrome G89.4 [facility] [place] [id number] [place] [address] [phone] June, [facility] [place] [id number] [place] [address] [id number] May, Chronic pain syndrome G89.4 [facility] [place] [id number] [place] [address] [phone] May, [facility] [place] [id number] [place] [address] [phone] May, [facility] [place] [id number] [place] [address] [phone] May, S/P percutaneous endoscopic gastrostomy (PEG) tube placement Z93.1 and Cachexia R64 [facility] [address]00565100[place] [phone]- [address] May, [facility] [place] [id number] [place] [address] [phone] Apr, Chronic pain syndrome G89.4 and Underweight R63.6 [place] [id number] [place] [address] 88546- [phone] Apr, [place] [id number] [place] [address] [phone] Apr, [id number] [place] [address] [id number] Apr, Seizure R56.9 and Chronic pain syndrome G89.4 [place] [id number] [place] [address] [phone] Mar, Anxiety F41.9 ; Tobacco abuse Z72.0 and Underweight R63.6 [place] [id number] [place] [address] [phone] Mar, [place] [id number] [place] [address] [phone]- [phone] Mar, [id number] [place] [address] [id number] Mar, COPD suggested by initial evaluation J44.9 [id number] [place] [address] [id number] Mar, Chronic pain syndrome G89.4 ; Anxiety F41.9 ; COPD suggested by initial evaluation J44.9 and Tobacco abuse Z72.0 [place] [id number] [place] [address] 82440- 8500 Feb, [place] [id number] [place] [address] [id number] Feb, Anxiety F41.9 ; Chronic pain syndrome G89.4 ; Muscle spasm M62.838 ; Cervicalgia M54.2 ; COPD suggested by initial evaluation J44.9 ; Neuropathy G62.9 ; Recurrent major depressive disorder, remission status unspecified F33.9 ; Benign prostatic hyperplasia without lower urinary tract symptoms N40.0 ; Prostatism N40.0 ; Seizure R56.9 and Dyslipidemia E78.5 [address] [place] [address] [phone] Feb, [place] [address]65100[place], [place] [address]- 9672 Feb, [place] [address] [place] [address] 84453- 4922 Oct, Generalized anxiety disorder F41.1 and Panic disorder F41.0 [place] [address]65100[place], [place] [address]- 0363 Sep, [place] [id number] [place] [address] 17366- 9151 Sep, Chronic obstructive pulmonary disease, unspecified COPD type J44.9 ; Gastroesophageal reflux disease without esophagitis K21.9 ; Hyperlipidemia, unspecified hyperlipidemia type E78.5 and Prostatism N40.0 [place] [address] [place] [address] 13115- 4468 Sep, [place] [id number] [place] [address] 54685- 4658 Sep, Generalized anxiety disorder F41.1 [place] [id number] [place] [address] 18265- 3677 Sep, Generalized anxiety disorder F41.1 [place] [id number] [place] [address] 27341- 9909 Sep, Generalized anxiety disorder F41.1 [place] [id number] [place] [address] 21858- 6507 Oct, IMMUNIZATIONS No Known Immunizations SOCIAL HISTORY Never Assessed REASON FOR VISIT Assessment for O2 portability/Pain mgmt, Pt needs scheduled for [facility] PLAN OF CARE Activity Details Follow Up 3 Months, sooner PRN Reason: VITAL SIGNS Height 65 in 2017-08-16 Weight 100 lbs 2017-08-16 Temperature 97.8 degrees Fahrenheit 2017-08-16 Heart Rate 66 bpm 2017-08-16 Respiratory Rate 18 2017-08-16 Oximetry 88 % 2017-08-16 BMI 16.64 kg/m2 2017-08-16 Blood pressure systolic 110 mmHg 2017-08-16 Blood pressure diastolic 70 mmHg 2017-08-16 MEDICATIONS Medication Instructions Dosage Frequency Start Date End Date Duration Status Phenytoin Sodium Extended 100 mg Orally Three times a day 1 capsule 8h Feb, 30 day(s) Active Zofran 4 MG Orally every 4 hours as needed 1 tablet 30 days Active Ipratropium-Albuterol 0.5-2.5 (3) MG/3ML Inhalation every 6 hrs prn shortness of breath 3 ml Active Fentanyl 50 MCG/HR Transdermal change every 2 days 1 patch to skin Jul Active Oxygen portable oxygen continuously 2-3L per NC Aug, lifetime Active Nova Cushion Gel Seat Pad - as directed 24h Aug, lifetime Active Promethazine HCl 25 MG Orally every 6 hours as needed for nausea/vomiting 1 tablet as needed Not-Taking Hydrocodone-Acetaminophen 7.5-325 MG Orally 3 times a day 1 tablet as needed 8h Jul, Active Advair Diskus 250-50 MCG/DOSE Inhalation Twice a day 1 puff 12h Feb, 30 days Active Finasteride 5 mg Orally Once a day 1 tablet 24h 30 Active Lyrica 150 MG 1 capsule 1 to 3 hours before bedtime in the evening twice a day Orally 30 days 30 Active Incruse Ellipta 62.5 MCG/INH Inhalation Once a day 1 puff 24h Mar, Apr, 30 days Active Duloxetine HCl 30 MG Orally Once a day 1 capsule 24h Feb, 30 day(s) Active Atorvastatin Calcium 40 mg 1 tablet Once a day Orally 30 day(s) 30 Active Clonazepam 1 MG Orally Once a day 1/2 tablet 24h 15 Mar, 2017 Active MiraLax 17 gm/dose Orally Once a day 17 grams mixed in 8 oz of water or juice 24h Not-Taking RESULTS No Results PROCEDURES Procedure Date Ordered Result Body Site [facility] VISIT ESTABLISHED PATIENT August 16, 2017 INSTRUCTIONS MEDICATIONS ADMINISTERED No Known Medications [...] Multiple suicide attempts Hospitalization History Detox at [place] 10/24-11/23 Hospitalization History [facility]-pneumonia 09/23 Hospitalization History halfway after fall from [place] (Gallendar-put on Fentyl patches) 11/23-12/24 Hospitalization History pneumonia 02/2017 Hospitalization History [facility] [place], vomiting, diarrhea and cough 04/26/2017
--- OUTSIDE RECORDS SUMMARY | 2017-12-05 21:41 | XMS REPORT ---
Author Author CHERYL BELLA Organization [facility] Address [address] [place] [address] Care Team Providers Care Afterschool Babysitter Name Role Phone BELLA LUNA Unavailable PROBLEMS Type Condition ICD9-CM Code OYX88-OV Code Onset Dates Condition Status SNOMED Code Problem Dyslipidemia E78.5 Active 981305628 Problem Anxiety F41.9 Active 89322955 Problem Neuropathy G62.9 Active 528557077 Problem Hypoxia R09.02 Active 572607279 Problem Requires continuous at home supplemental oxygen Z99.81 Active 490523223 Problem Underweight R63.6 Active 833857250 Problem Tobacco abuse Z72.0 Active 478509274 Problem S/P percutaneous endoscopic gastrostomy (PEG) tube placement Z93.1 Active 678827303 Problem Cachexia R64 Active 283636902 Problem Recurrent major depressive disorder, remission status unspecified F33.9 Active 53489497 Problem COPD suggested by initial evaluation J44.9 Active 18551999 Problem Gastroesophageal reflux disease without esophagitis K21.9 Active 746959431 Problem Benign prostatic hyperplasia without lower urinary tract symptoms N40.0 Active 466416671 Problem Panic disorder F41.0 Active 992676090 Problem Chronic pain syndrome G89.4 Active 303339469 ALLERGIES No Information ENCOUNTERS Encounter Location Date Diagnosis [facility] [address] [id number] [id number] Oct, [facility] [address] [id number] [id number] Sep, Chronic pain syndrome G89.4 and Anxiety F41.9 [facility] [address] [id number] [id number] Aug, Chronic pain syndrome G89.4 [facility] [address] [id number] [id number] Aug, [facility] [id number] [place] [id number] Aug, [facility] [id number] [place] [id number] Aug, Chronic pain syndrome G89.4 ; COPD suggested by initial evaluation J44.9 ; Tobacco abuse Z72.0 ; Hypoxia R09.02 ; Requires continuous at home supplemental oxygen Z99.81 and Cachexia R64 [facility] [id number] [place] [id number] Jul, [facility] [id number] [place] [id number] Jul, Chronic pain syndrome G89.4 ; Anxiety F41.9 ; Cachexia R64 ; S/P percutaneous endoscopic gastrostomy (PEG) tube placement Z93.1 and COPD suggested by initial evaluation J44.9 [facility] [id number] [place] [id number] June, Anxiety F41.9 [facility] [id number] [place] [address] [id number] June, Chronic pain syndrome G89.4 [facility] [id number] [place] [id number] June, [facility] [id number] [place] [address] [id number] May, Chronic pain syndrome G89.4 [facility] [id number] [place] [id number] May, [facility] [id number] [place] [address] [id number] May, [facility] [id number] [place] [address] [id number] May, S/P percutaneous endoscopic gastrostomy (PEG) tube placement Z93.1 and Cachexia R64 [facility] [id number] [place] [id number] May, [facility] [id number] [place] [address] [id number] Apr, Chronic pain syndrome G89.4 and Underweight R63.6 [facility] [id number] [place] [phone] Apr, [id number] [place] [id number] Apr, [address] [id number] Apr, Seizure R56.9 and Chronic pain syndrome G89.[address] [id number] Mar, Anxiety F41.9 ; Tobacco abuse Z72.0 and Underweight R63.[address] [id number] Mar, [address] [phone] Mar, [id number] [place] [address] [id number] Mar, COPD suggested by initial evaluation J44.9 [id number] [place] [address] [id number] Mar, Chronic pain syndrome G89.4 ; Anxiety F41.9 ; COPD suggested by initial evaluation J44.9 and Tobacco abuse Z72.0 [address] [place] [id number] [place] [phone] Feb, [id number] [place] [address] [id number] Feb, Anxiety F41.9 ; Chronic pain syndrome G89.4 ; Muscle spasm M62.838 ; Cervicalgia M54.2 ; COPD suggested by initial evaluation J44.9 ; Neuropathy G62.9 ; Recurrent major depressive disorder, remission status unspecified F33.9 ; Benign prostatic hyperplasia without lower urinary tract symptoms N40.0 ; Prostatism N40.0 ; Seizure R56.9 and Dyslipidemia E78.5 [id number] [place] [id number] Feb, [place] [address] [address] [phone] Feb, [place] [address] Oct, Generalized anxiety disorder F41.1 and Panic disorder F41.0 [place] [address] [place] [phone] Sep, [place] [id number] [place] [phone] Sep, Chronic obstructive pulmonary disease, unspecified COPD type J44.9 ; Gastroesophageal reflux disease without esophagitis K21.9 ; Hyperlipidemia, unspecified hyperlipidemia type E78.5 and Prostatism N40.0 [place] [id number] [place] [phone] Sep, [place] [id number] [place] [phone] Sep, Generalized anxiety disorder F41.1 [place] [id number] [place] [address] Sep, Generalized anxiety disorder F41.1 [place] [id number] [place] [phone] Sep, Generalized anxiety disorder F41.1 [place] [id number] [place] [phone] Oct, IMMUNIZATIONS No Known Immunizations SOCIAL HISTORY Never Assessed REASON FOR VISIT Controlled Refill PLAN OF CARE VITAL SIGNS MEDICATIONS Medication Instructions Dosage Frequency Start Date End Date Duration Status Clonazepam 1 MG Orally as directed 1/2 tab daily, 1 tab at bedtime Mar 30 days Active Fentanyl 50 MCG/HR Transdermal change every 2 days 1 patch to skin Jul 30 days Active Hydrocodone-Acetaminophen 7.5-325 MG Orally 3 times a day 1 tablet as needed 8h Jul, 30 days Active Advair Diskus 250-50 MCG/DOSE Inhalation Twice a day 1 puff 12h Feb, 30 days Active Zofran 4 MG Orally every 4 hours as needed 1 tablet 30 days Active RESULTS No Results PROCEDURES [...] Multiple suicide attempts Hospitalization History Detox at [facility] 10/24-11/23 Hospitalization History [facility]-pneumonia 09/23 Hospitalization History halfway after fall from [facility] ([facility]-put on Fentyl patches) 11/23-12/24 Hospitalization History pneumonia 02/2017 Hospitalization History [facility]- [place], vomiting, diarrhea and cough 04/26/2017
[2017-12-05 22:00] VITALS: BP 156/88
--- NOTE | 2017-12-05 22:00 | Diagnostic Imaging Report ---
INDICATION: Followup of hydropneumothorax on the left from previous CT scan at 3:37 PM. FINDINGS: Severe obstructive interstitial lung disease is again noted with multiple small nodular densities as reported on CT. The very small hydropneumothorax noted on CT scan on the left is not demonstrated today though this is small enough that would not be expected to be seen. The nondisplaced posterior left ninth rib fractures again visualized and does appear to be mildly displaced now. No acute findings in the right chest. Heart is not enlarged. There is left central line present with tip overlying the cavoatrial junction. IMPRESSION: 1. Mildly displaced posterior lateral left ninth rib. No significant pneumothorax or pleural effusion has evolved. 2. Severe obstructive interstitial lung disease. Dictated by: Dictated on workstation # [id number]
[2017-12-05] MEDS: D5 1/2 NS W/KCL 20 MEQ/L 1,000 ML IV SCH (22:10)
[2017-12-05] MEDS ORDERED: HYDROcodone/APAP 5 MG/325 MG (LORTAB) TAB PO PRN (22:15)
[2017-12-05] MEDS ORDERED: RT-ALBUTEROL SULF 2.5 MG/3 ML PRE-MIX VIAL IH PRN (22:15)
[2017-12-05] MEDS ORDERED: PHENYTOIN 100 MG (DILANTIN) CAP PO ONE (22:29)
[2017-12-05] MEDS: PHENYTOIN 100 MG (DILANTIN) CAP PO SCH ×2 (22:33→22:34)
[2017-12-05 23:00] VITALS: BP 150/91
[2017-12-05] MEDS: ONDANSETRON 4 MG/2 ML (SDV) Z0FRAN IV PRN (23:39)
[2017-12-06] VITALS (16 sets, daily range): BP systolic 125–175; BP diastolic 63–90
[2017-12-06] MEDS ORDERED: RT-ALBUTEROL/IPRATROPIUM 3 ML (DUONEB) VIAL IH SCH (02:00)
[2017-12-06] MEDS: fentaNYL INJECTION 100 MCG/2 ML AMP IV PRN (04:23)
[2017-12-06 04:30] LABS: BASOPHILS % (AUTO) 0 % (0-10); EOSINOPHILS # (AUTO) 0.4 10^3/uL (0.0-0.3); EOSINOPHILS % (AUTO) 4 % (0-10); HEMATOCRIT 31 % (40-54); HEMOGLOBIN 10.4 G/DL (13.3-17.7); LYMPHOCYTES # (AUTO) 1.5 X 10^3 (1.0-4.0); LYMPHOCYTES % (AUTO) 15 % (12-44); MEAN CORPUSCULAR HEMOGLOBIN 30 PG (25-34); MEAN CORPUSCULAR HGB CONC 34 G/DL (32-36); MEAN CORPUSCULAR VOLUME 89 FL (80-99); MEAN PLATELET VOLUME 7.8 FL (7.4-10.4); MONOCYTES # (AUTO) 0.9 X 10^3 (0.0-1.0); MONOCYTES % (AUTO) 9 % (0-12); NEUTROPHILS # (AUTO) 7.1 X 10^3 (1.8-7.8); NEUTROPHILS % (AUTO) 72 % (42-75); PLATELET COUNT 273 10^3/uL (130-400); RED BLOOD COUNT 3.47 10^6/uL (4.35-5.85); RED CELL DISTRIBUTION WIDTH 15.1 % (10.0-14.5); WHITE BLOOD COUNT 9.9 10^3/uL (4.3-11.0)
[2017-12-06 04:51] LABS: BUN/CREATININE RATIO 8; CALCIUM 8.5 MG/DL (8.5-10.1); CARBON DIOXIDE 28 MMOL/L (21-32); CHLORIDE 96 MMOL/L (98-107); CREATININE SERUM 0.61 MG/DL (0.60-1.30); GFR ESTIMATED > 60; GLUCOSE 158 MG/DL (70-105); MAGNESIUM 1.5 MG/DL (1.8-2.4); PHOSPHORUS 2.2 MG/DL (2.3-4.7); POTASSIUM 3.7 MMOL/L (3.6-5.0); SODIUM 134 MMOL/L (135-145)
--- NOTE | 2017-12-06 05:32 | Pulmonary Consultation ---
History of Present Illness History of Present Illness Date of Consultation 12/06/17 05:28 Time Seen by Provider: 05:28 Date of Admission History of Present Illness 67yo poor historian/noncompliant with hx of severe COPD presented to ED s/p fall landing on left side. CT of chest shows 2 rib fractures. PT has had a 20lb wt loss over the last month and decreased appetite. He has been refusing to eat or drink. smokes cigarettes and marijuana. multiple falls Allergies and Home Medications Allergies Coded Allergies: cefepime (Verified Allergy, Mild, RASH, ITCHING, 04/21/17) sulfamethoxazole (Unverified Adverse Reaction, Unknown, 04/21/17) trimethoprim (Unverified Adverse Reaction, Unknown, 04/21/17) Home Medications Atorvastatin Calcium 40 Mg Tablet, 40 MG PO HS, (Reported) Clonazepam 1 Mg Tablet, 0.5 MG PO DAILY, (Reported) TAKES 1/2 (1MG) TABLET Clonazepam 1 Mg Tablet, 1 MG PO HS, (Reported) Duloxetine HCl 60 Mg Capsule.dr, 60 MG PO DAILY, (Reported) Fentanyl 1 Each Patch.td72, 50 MCG TD Q72H, (Reported) Finasteride 5 Mg Tablet, 5 MG PO DAILY, (Reported) Fluticasone/Salmeterol 1 Each Blst.w.dev, 1 PUFF INH BID, (Reported) Hydrocodone/Acetaminophen 1 Each Tablet, 1 TAB PO QID PRN for PAIN-MODERATE, ( Reported) Ipratropium/Albuterol Sulfate 3 Ml Ampul.neb, 3 ML IH QID PRN for SHORTNESS OF BREATH, (Reported) Methocarbamol 750 Mg Tablet, 750 MG PO Q4H PRN for MUSCLE SPASMS, (Reported) Phenytoin Sodium Extended 100 Mg Capsule, 100 MG PO TID, (Reported) Pregabalin 150 Mg Capsule, 150 MG PO BID, (Reported) Triamcinolone Acet 15 Gm Cr, TOP BID PRN for ECZEMA, (Reported) Umeclidinium [place] 62.5 Mcg Blst.w.dev, 1 PUFF INH DAILY, (Reported) Past Myizfto-Kzxevn-Edxcso Hx Past Med/Social Hx: Reviewed and Corrections made Patient Social History Alcohol Use: Denies Use Recreational Drug Use: Yes Drug of Choice: marijuana Type Used: Cigarettes 2nd Hand Smoke Exposure: Yes Recent Foreign Travel: No Contact w/Someone Who Travel: No Recent Infectious Disease Expo: No Recent Hopitalizations: No Immunizations Up To Date Tetanus Booster (TDap): More than 5yrs PED Vaccines UTD: No Date of Pneumonia Vaccine: Jul 17, 2010 Date of Influenza Vaccine: Nov 08, 2016 Seasonal Allergies Seasonal Allergies: No Past Medical History Surgeries: Yes (port placed- left) Tonsillectomy Respiratory: Yes Pneumonia, COPD, Emphysema Currently Using CPAP: No Currently Using BIPAP: No Cardiac: Yes Coronary Artery Disease, Heart Attack, High Cholesterol, Hypertension Neurological: Yes Neuropathy, Seizure Disorder Reproductive Disorders: No Sexually Transmitted Disease: No HIV/AIDS: No Genitourinary: Yes (stage 2 kidney disease) Renal Failure Gastrointestinal: Yes Gastroesophageal Reflux, Chronic Constipation, Hiatal Hernia Musculoskeletal: Yes Arthritis Endocrine: No HEENT: Yes Cataract Loss of Vision: Denies Hearing Impairment: Denies Cancer: No Psychosocial: Yes Anxiety, Suicide Attempts, Bipolar, Personality Disorder, Depression Integumentary: Yes Eczema Blood Disorders: No Adverse Reaction/Blood Tranf: No Family Medical History Reviewed Nursing Family Hx Alcoholism 03 FATHER Arthritis Cancer 03 FATHER Congestive heart failure 03 FATHER Family history: Allergy 09 SISTER Family history: Arthritis 03 MOTHER Family history: Diabetes mellitus 03 FATHER Family history: Hypertension 03 MOTHER History of - anemia 09 SISTER History of drug abuse 09 BROTHER No Family History of: Abdominal aortic aneurysm Midland's disease Aphasia Cancer of colon Cataract Chest pain Congenital heart disease Cystic fibrosis Dementia Dysphagia Family history: Alzheimer's disease Family history: Asthma Family history: Breast disease Family history: Cardiovascular disease Family history: Coronary thrombosis Family history: Gastrointestinal disease Family history: Glaucoma Family history: Osteoporosis Family history: Thyroid disorder Headache Hearing loss Heart disease Hereditary disease History of - disorder History of - respiratory disease Human immunodeficiency virus (HIV) seropositivity Hypercholesterolemia Infertile Kidney disease Malignant neoplasm of lung Myocardial infarction Parkinson's disease Prostate cancer Psychotic disorder Seizure disorder Stroke Tuberculosis Sepsis Event Evaluation Height, Weight, BMI Height: 5'6.00" Weight: 90lbs. 0.0oz. 40.388270uo; 14.5 BMI Method:Stated Exam Exam Vital Signs Date Time Temp Pulse Resp B/P (MAP) Pulse Ox O2 Delivery O2 Flow Rate FiO2 12/06/17 04:00 100 Nasal Cannula 2.00 12/06/17 04:00 98.9 12/06/17 03:00 72 21 150/77 (101) 99 Nasal Cannula 2.00 12/06/17 02:00 74 18 141/77 (98) 99 Nasal Cannula 2.00 12/06/17 01:00 85 15 143/78 (99) 99 Nasal Cannula 2.00 12/06/17 01:00 85 12/06/17 00:00 87 13 151/84 (106) 100 Nasal Cannula 2.00 12/06/17 00:00 100 Nasal Cannula 2.00 12/05/17 23:49 100 Nasal Cannula 2.00 12/05/17 23:41 98.2 12/05/17 23:00 84 19 150/91 (110) 100 Nasal Cannula 2.00 12/05/17 22:36 100 Nasal Cannula 2.00 12/05/17 22:00 85 23 156/88 (110) 98 Nasal Cannula 2.00 12/05/17 21:10 99 Nasal Cannula 2.00 12/05/17 21:00 98 15 156/100 (118) 99 Nasal Cannula 2.00 12/05/17 20:40 80 12/05/17 20:35 99.2 84 12 152/91 (111) 98 Nasal Cannula 2.00 12/05/17 20:25 98.6 82 22 136/77 (96) 100 Nasal Cannula 4.00 12/05/17 12:32 99.3 87 22 142/88 (106) 100 Nasal Cannula 4.00 I & O 12/06/17 07:00 Intake Total 1075 ml Output Total 370 ml Balance 705 ml Height & Weight Height: 5'6.00" Weight: 90lbs. 0.0oz. 40.931113cm; 14.5 BMI Method:Stated General Appearance: No Apparent Distress, WD/WN, Thin HEENT: PERRL/EOMI, Normal ENT Inspection, Other (oropharynx dry) Neck: Normal Inspection, Non Tender Respiratory: Lungs Clear, Normal Breath Sounds, No Accessory Muscle Use, No Respiratory Distress Cardiovascular: Regular Rate, Rhythm, No Edema, No Murmur Capillary Refill: Less Than 3 Seconds Extremity: Normal Inspection, No Pedal Edema Neurologic/Psychiatric: Alert, Oriented x3, No Motor/Sensory Deficits, Normal Mood/Affect, educational institution president II-XII Norm as Tested Skin: Warm/Dry, Ecchymosis (left chest wall), Other (excoriations scattered over various areas of skin) Results Lab Laboratory Tests 12/05/17 14:00 12/05/17 15:05 12/06/17 04:15 Assessment/Plan Assessment/Plan S/p fall with rib fractures and small left pneumothorax -Last CXR does not show PTX -Dr. Uriostegui is following Small multiple bilateral lung nodules -Will repeat CT in 6 mo Frequent falls -PT may need ECF placement vs home hospice TIMOTHY LUEVANO DO Dec 06, 2017 05:32
[2017-12-06] MEDS ORDERED: MAGNESIUM 1 GM/100 ML IVPB 100 ML IV SCH (06:00)
[2017-12-06] MEDS ORDERED: KCL 20 MEQ TAB (K-DUR) PO SCH (06:00)
[2017-12-06] MEDS ORDERED: POTASSIUM CL 10MEQ/50ML IVPB 50 ML IV SCH (06:00)
[2017-12-06] MEDS: MAGNESIUM 1 GM/100 ML IVPB 100 ML IV SCH ×2 (06:38→07:45)
[2017-12-06] MEDS ORDERED: FLU QUADRIvalent (5+ YOA) 2018-2019 (AFLURIA) 0.5 ML IM ONE ×2 (07:15→11:07)
--- NOTE | 2017-12-06 07:34 | Diagnostic Imaging Report ---
Indication: Dyspnea. Comparison: 12/05/2017. Findings: Stable left Port-A-Cath. No change in heterogeneous right basilar pulmonary opacities. Displaced lower left rib fractures, unchanged. No pneumothorax. Stable cardiomediastinal silhouette. Impression: Stable exam without adverse development. Dictated by: Dictated on workstation # [id number]
[2017-12-06] MEDS ORDERED: CATHETER FLUSH 10 ML SYR IV PRN (07:45)
[2017-12-06] MEDS: D5 1/2 NS W/KCL 20 MEQ/L 1,000 ML IV SCH ×2 (08:25→18:35)
[2017-12-06] MEDS ORDERED: HYDROcodone/APAP 5 MG/325 MG (LORTAB) TAB PO PRN ×2 (09:00→14:15)
[2017-12-06] MEDS: PHENYTOIN 100 MG (DILANTIN) CAP PO SCH ×3 (09:19→21:43)
--- NOTE | 2017-12-06 09:37 | Physical Therapy Evaluation ---
PT Evaluation-General Medical Diagnosis Admission Date Dec 05, 2017 at 18:35 Medical Diagnosis: Fall risk, rib fracture, weight loss, COPD Onset Date: Dec 05, 2017 Therapy Diagnosis Therapy Diagnosis: General Weakness Height/Weight Height (Feet): 5 Height (Inches): 6.00 Weight (Pounds): 86 Weight (Ounces): 5.0 Precautions Precautions/Isolations: Fall Prevention, Standard Precautions Weight Bear Status Right Lower Extremity: Right Full Weight Bearing Left Lower Extremity: Left Full Weight Bearing Referral Reason for Referral: Evaluation/Treatment Medical History Pertinent Medical History: Arthritis, CAD, COPD, GERD, HTN, NV, Neuropathy, Smoking Current History Admitted to ICU after falling at home Social History Home: Single Level Current Living Status: Children Entry Into Home: Stairs With Railing PT Steps Into Home: 5 PT Steps Inside Home: 0 Prior/Core FIM Prior Level of Function Functional [place] Measure 0=Not Assessed/NA 4=Minimal Assistance 1=Total Assistance 5=Supervision or Setup 2=Maximal Assistance 6=Modified [place] 3=Moderate Assistance 7=Complete IndependenceIRFPAI Quality Coding Scale 6 Independent with activity with or without an assistive device 5 Patient requires set up or clean up by helper. Patient completes activity by themselves 4 Supervision or touching assist (CGA). [place] provide cues , steadying assist 3 The helper provides less than half the effort to complete the activity 2 The helper provides more than half the effort to complete the activity 1 Dependent. The helper does all the effort to complete an activity 7 Patient refused to complete or attempt activity 9 The patient did not perform the activity before the current illness or injury 88 Not attempted due to Medical conditions or safety concerns Bed Mobility: 6 Transfers (B,C,W/C) (FIM): 6 Gait: 6 Stairs: 6 PT Evaluation-Current Subjective Pt was awake in bed in when PT arrived. Pt agreed to PT evaluation but refused to walk due to rib pain. Pain Numeric Pain Scale: 5-Moderate Pain Location: Left Location Body Site: Side Pain Description: Acute Pt/Family Goals return to home Objective Patient Orientation: Normal For Age Problem Solving: Fair Attachments: Oxygen, IV ROM/Strength ROM Upper Extremities WNL ROM Lower Extremities WNL Strength Upper Extremities WNL Strength Lower Extremities 4/5 for R LE Pt refused strength testing on L LE due to pain in ribs Integumentary/Posture Bowel Incontinence: No Bladder Incontinence: No Neuromuscular (Tone, Coordination, Reflexes) Tone, coordination and reflexes are WNL Sensory Vision: Functional Hearing: Functional Sensation Right Upper Extremit: Intact Sensation Left Upper Extremity: Intact Sensation Right Lower Extremit: Intact Sensation Left Lower Extremity: Intact Transfers Functional [place] Measure 0=Not Assessed/NA 4=Minimal Assistance 1=Total Assistance 5=Supervision or Setup 2=Maximal Assistance 6=Modified [place] 3=Moderate Assistance 7=Complete [place] Transfers (B, C, W/C) (FIM): 5 Scootin Rollin Supine to/from Sit: 5 Sit to/from Stand: 5 Gait Mode of Locomotion: Walk Anticipated Mode of Locomotion: Walk Gait (FIM): 1 Distance (FIM): 1=up to 49 ft Distance: 5' Gait Level of Assist: 4 Gait Persons Needed: 1 Gait Assistive Device: FWW Balance Sitting Static: Normal Sitting Dynamic: Normal Standing Static: Good Standing Dynamic: Good Assessment/Needs Patient was able to perform seated exercises after he transferred himself to bedside chair. Pt refused to walk due to pain in his ribs and wants to wait until tomorrow before he begins to ambulate. Patient complained of dizzy like symptoms when coming to a stand and needed time to gather himself. Patient required much encouragement to remain up in recliner. He reports he is very inactive at home PLOF and is in bed or a chair for the majority of the day. Rehab Potential: Fair PT Antique Collector Goals Alf Goals PT Alf Goals Time Frame: Dec 13, 2017 Transfers (B,C,W/C) (FIM): 6 Gait (FIM): 6 Gait distance (FIM): 3=150 ft Distance: >150 Gait Level of Assist: 6 Gait Assistive Device: FWW PT Plan Problem List Problem List: Activity Tolerance, Functional Strength, Safety, Balance, Gait Treatment/Plan Treatment Plan: Continue Plan of Care Treatment Plan: Functional Strength, Safety, Therapeutic Exercise Treatment Duration: Dec 13, 2017 Frequency: 6 times per week Estimated Hrs Per Day: .25 hour per day Patient and/or Family Agrees t: Yes Time/GCodes Time In: 850 Time Out: 910 Total Billed Treatment Time: 20 Total Billed Treatment 1 visit EVLowC - 20 mins STEPHANIE ARCHER PT Dec 06, 2017 09:37
[2017-12-06] MEDS ORDERED: TR1C15 TOP (10:04)
[2017-12-06] MEDS ORDERED: DULO60CA58 PO (10:04)
--- NOTE | 2017-12-06 10:17 | History & Physical-Hospitalist ---
RADHA ZUNIGA DO 12/06/17 1016: History of Present Illness HPI/Chief Complaint CC: Fall with fractured ribs HPI: This is a very declined 67yoWM known to me from prior admits for AECOPD who presented to the ER with left sided chest pain since a fall the day before and was found to have fractured ribs and in need of pain control and evaluation for 20# wt loss and pulmonary nodules. Pt agrees for hospice consultation and he denies any issues except for pain on the left side. Source: patient, RN/MD Exam Limitations: no limitations Date Seen 12/06/17 Time Seen by a Provider: 09:30 Attending Physician Radha Zuniga DO PCP Mary Carmen Foster DO Referring Physician Date of Admission Dec 05, 2017 at 18:35 Home Medications & Allergies Home Medications Reviewed patient Home Medication Reconciliation performed by pharmacy medication reconciliations test cell technician and/or nursing. Patients Allergies have been reviewed. Allergies Allergies Coded Allergies cefepime (Verified Allergy, Mild, RASH, ITCHING, 04/21/17) sulfamethoxazole (Unverified Adverse Reaction, Unknown, 04/21/17) trimethoprim (Unverified Adverse Reaction, Unknown, 04/21/17) Past Rwsghvs-Xebamy-Ryuvlp Hx Past Med/Social Hx: Reviewed Nursing Past Med/Soc Hx, Reviewed and Corrections made Patient Social History Marrital Status: single Employed/Student: unemployed, retired Alcohol Use: Denies Use Recreational Drug Use: Yes Drug of Choice: marijuana Smoking Status: Current Everyday Smoker Type Used: Cigarettes 2nd Hand Smoke Exposure: Yes Physical Abuse Screen: No Sexual Abuse: No Recent Foreign Travel: No Contact w/other who traveled: No Recent Hopitalizations: No Recent Infectious Disease Expo: No Immunizations Up To Date Tetanus Booster (TDap): More than 5yrs Pediatric: No Date of Pneumonia Vaccine: Jul 17, 2010 Date of Influenza Vaccine: Nov 08, 2016 Seasonal Allergies Seasonal Allergies: No Past Medical History Surgeries: Tonsillectomy Respiratory: COPD, Emphysema, Pneumonia Currently Using CPAP: No Currently Using BIPAP: No Cardiac: Coronary Artery Disease, Heart Attack, High Cholesterol, Hypertension Neurological: Neuropathy, Seizure Disorder Reproductive: No Sexually Transmitted Disease: No HIV/AIDS: No Genitourinary: Renal Failure Gastrointestinal: Gastroesophageal Reflux, Chronic Constipation, Hiatal Hernia Musculoskeletal: Arthritis HEENT: Cataract Loss of Vision: Denies Hearing Impairment: Denies Psychosocial: Anxiety, Suicide Attempts, Bipolar, Personality Disorder, Depression Skin/Integumentary: Eczema History of Blood Disorders: No Adverse Reaction to Blood Cruz: No Family History Reviewed Nursing Family Hx Alcoholism 03 FATHER Arthritis Cancer 03 FATHER Congestive heart failure 03 FATHER Family history: Allergy 09 SISTER Family history: Arthritis 03 MOTHER Family history: Diabetes mellitus 03 FATHER Family history: Hypertension 03 MOTHER History of - anemia 09 SISTER History of drug abuse 09 BROTHER No Family History of: Abdominal aortic aneurysm [place]'s disease Aphasia Cancer of colon Cataract Chest pain Congenital heart disease Cystic fibrosis Dementia Dysphagia Family history: Alzheimer's disease Family history: Asthma Family history: Breast disease Family history: Cardiovascular disease Family history: Coronary thrombosis Family history: Gastrointestinal disease Family history: Glaucoma Family history: Osteoporosis Family history: Thyroid disorder Headache Hearing loss Heart disease Hereditary disease History of - disorder History of - respiratory disease Human immunodeficiency virus (HIV) seropositivity Hypercholesterolemia Infertile Kidney disease Malignant neoplasm of lung Myocardial infarction Parkinson's disease Prostate cancer Psychotic disorder Seizure disorder Stroke Tuberculosis Hypertension Review of Systems Constitutional: see HPI, dizziness, malaise, weakness, weight loss EENTM: no symptoms reported Respiratory: no symptoms reported, dyspnea on exertion, short of breath Cardiovascular: no symptoms reported Gastrointestinal: no symptoms reported Genitourinary: no symptoms reported Musculoskeletal: back pain Skin: no symptoms reported Psychiatric/Neurological: No Symptoms Reported All Other Systems Reviewed Negative Unless Noted: Yes Physical Exam Physical Exam Vital Signs Vital Signs - First Documented 12/05/17 12:32 Temp 99.3 Pulse 87 Resp 22 B/P (MAP) 142/88 (106) Pulse Ox 100 O2 Delivery Nasal Cannula O2 Flow Rate 4.00 Capillary Refill : Less Than 3 SecondsLess Than 3 Seconds Height, Weight, BMI Height: 5'6.00" Weight: 86lbs. 5.0oz. [id number]; 14.5 BMI Method:Stated General Appearance: No Apparent Distress, Chronically ill, Cachetic, Thin, Other (benitez) Eyes: Bilateral Eye Normal Inspection, Bilateral Eye PERRL HEENT: PERRL/EOMI, Normal ENT Inspection, Pharynx Normal Neck: Full Range of Motion, Normal Inspection, Non Tender, Supple, Carotid Bruit Respiratory: Chest Non Tender, Normal Breath Sounds, No Accessory Muscle Use, No Respiratory Distress, Decreased Breath Sounds, Wheezing Cardiovascular: Regular Rate, Rhythm, No Edema, No Gallop, No JVD, No Murmur, Normal Peripheral Pulses Gastrointestinal: Normal Bowel Sounds, No Organomegaly, No Pulsatile Mass, Non Tender, Soft Back: Normal Inspection, No CVA Tenderness, No Vertebral Tenderness Extremity: Normal Capillary Refill, Normal Inspection, Normal Range of Motion, Non Tender, No Calf Tenderness, No Pedal Edema Neurologic/Psychiatric: Alert, Oriented x3, No Motor/Sensory Deficits, Normal Mood/Affect Skin: Normal Color, Warm/Dry Lymphatic: No Adenopathy Results Results/Procedures Labs Laboratory Tests 12/05/17 14:00 12/05/17 15:05 12/06/17 04:15 Patient resulted labs reviewed. Assessment/Plan Admission Diagnosis Assessment: Fall with left fractured ribs Left sided hydropneumothorax Left sided chest pain Severe COPD O2 dependent Severe wt loss Pulmonary nodules Plan: Hospice consult Pain control O2 Nebs IS High risk for pneumonia Poor prognosis, appears malignancy driven wt loss Admission Status: Observation Diagnosis/Problems Diagnosis/Problems (1) Pneumothorax, left Status: Acute (2) Pulmonary nodules Status: Acute (3) Abnormal weight loss Status: Acute (4) Frequent falls Status: Chronic (5) Noncompliance Status: Chronic (6) COPD (chronic obstructive pulmonary disease) Status: Chronic Qualifiers: COPD type: unspecified COPD Qualified Codes: J44.9 - Chronic obstructive pulmonary disease, unspecified (7) Generalized weakness Status: Acute Clinical Quality Measures DVT/VTE Risk/Contraindication: Risk Factor Score Per Nursin RFS Level Per Nursing on Admit: 4+=Very High SOO GREGG MED STUDENT 12/06/17 8255: History of Present Illness HPI/Chief Complaint CC: Fractured ribs, COPD, Cachexia HPI: The patient is a 67 year old male that presented to the emergency department yesterday after a fall the night before. He has a chronically ill looking appearance with pronounced weight loss and muscle wasting. He has a history of COPD and reports a weight loss of 20 pounds in the last month. He uses O2 at home. This morning he is reporting significant left sided pain all over his body. He states that he is also very short of breath. The patient states that he is not experiencing any nausea, vomiting or diarrhea. He is using his inspirometer periodically. Source: patient Exam Limitations: no limitations Home Medications & Allergies Home Medications Atorvastatin Calcium 40 Mg Tablet, 40 MG PO HS, (Reported) Clonazepam 1 Mg Tablet, 0.5 MG PO DAILY, (Reported) TAKES 1/2 (1MG) TABLET Clonazepam 1 Mg Tablet, 1 MG PO HS, (Reported) Duloxetine HCl 30 Mg Capsule.dr, 30 MG PO HS, (Reported) Fentanyl 1 Each Patch.td72, 50 MCG TD Q72H, (Reported) Finasteride 5 Mg Tablet, 5 MG PO DAILY, (Reported) Fluticasone/Salmeterol 1 Each Blst.w.dev, 1 PUFF INH BID, (Reported) Hydrocodone/Acetaminophen 1 Each Tablet, 1 TAB PO TID PRN for PAIN-MODERATE, ( Reported) Ipratropium/Albuterol Sulfate 3 Ml Ampul.neb, 3 ML IH QID PRN for SHORTNESS OF BREATH, (Reported) Methocarbamol 750 Mg Tablet, 750 MG PO Q4H PRN for MUSCLE SPASMS, (Reported) Phenytoin Sodium Extended 100 Mg Capsule, 100 MG PO TID, (Reported) Prednisone 20 Mg Tab, 40 MG PO DAILY Prescribed by: LORE HOBBS on 10/04/17 1156 Pregabalin 150 Mg Capsule, 150 MG PO BID, (Reported) Promethazine HCl/Codeine 118 Ml Syrup, 5 ML PO Q6H PRN for COUGH Prescribed by: LORE HOBBS on 10/04/17 1156 Umeclidinium [place] 62.5 Mcg Blst.w.dev, 1 PUFF INH DAILY, (Reported) Allergies Allergies: cefepime (Verified Allergy, Mild, RASH, ITCHING, 04/21/17) sulfamethoxazole (Unverified Adverse Reaction, Unknown, 04/21/17) trimethoprim (Unverified Adverse Reaction, Unknown, 04/21/17) Past [place]-Cgvpkd-Qeyyvn Hx Patient Social History Marrital Status: single Employed/Student: retired Alcohol Use: Denies Use Recreational Drug Use: Yes Smoking Status: Current Everyday Smoker Type Used: Cigarettes 2nd Hand Smoke Exposure: Yes Seasonal Allergies Seasonal Allergies: No Past Medical History Surgeries: Tonsillectomy Respiratory: COPD, Emphysema Currently Using CPAP: No Currently Using BIPAP: No Cardiac: Coronary Artery Disease, Heart Attack, High Cholesterol, Hypertension Neurological: Neuropathy, Seizure Disorder Sexually Transmitted Disease: No HIV/AIDS: No Genitourinary: Renal Failure Gastrointestinal: Gastroesophageal Reflux, Chronic Constipation, Hiatal Hernia Musculoskeletal: Arthritis HEENT: Cataract Loss of Vision: Denies Hearing Impairment: Denies Psychosocial: Anxiety, Suicide Attempts, Bipolar, Personality Disorder, Depression Skin/Integumentary: Eczema History of Blood Disorders: No Adverse Reaction to Blood Cruz: No Family History Reviewed Nursing Family Hx Alcoholism 03 FATHER Arthritis Cancer 03 FATHER Congestive heart failure 03 FATHER Family history: Allergy 09 SISTER Family history: Arthritis 03 MOTHER Family history: Diabetes mellitus 03 FATHER Family history: Hypertension 03 MOTHER History of - anemia 09 SISTER History of drug abuse 09 BROTHER No Family History of: Abdominal aortic aneurysm [place]ente's disease Aphasia Cancer of colon Cataract Chest pain Congenital heart disease Cystic fibrosis Dementia Dysphagia Family history: Alzheimer's disease Family history: Asthma Family history: Breast disease Family history: Cardiovascular disease Family history: Coronary thrombosis Family history: Gastrointestinal disease Family history: Glaucoma Family history: Osteoporosis Family history: Thyroid disorder Headache Hearing loss Heart disease Hereditary disease History of - disorder History of - respiratory disease Human immunodeficiency virus (HIV) seropositivity Hypercholesterolemia Infertile Kidney disease Malignant neoplasm of lung Myocardial infarction Parkinson's disease Prostate cancer Psychotic disorder Seizure disorder Stroke Tuberculosis Review of Systems Constitutional: weakness, weight loss Respiratory: dyspnea on exertion, short of breath Cardiovascular: no symptoms reported Musculoskeletal: back pain Physical Exam Physical Exam General Appearance: No Apparent Distress, Cachetic, Thin Cardiovascular: Regular Rate, Rhythm, No Edema, No Gallop, No JVD, No Murmur Neurologic/Psychiatric: Alert, Oriented x3, No Motor/Sensory Deficits, Normal Mood/Affect Skin: Normal Color, Warm/Dry Lymphatic: No Adenopathy Results Results/Procedures Imaging CT CHEST: There is an acute comminuted mildly displaced fracture involving the posterior left ninth rib (images 44 and 45, series 2). There are also nonacute partially healed fractures involving the posterior margins of the left 10th and 11th ribs. These are confirmed nonacute when compared to the CT abdomen/pelvis from 04/23/2017. The vertebral body heights are maintained. There is no evidence of acute thoracic vertebral body fracture. Evaluation of the lung windows demonstrates a small left-sided hydropneumothorax. A small pleural effusion is also noted on the right. Evaluation of the pulmonary parenchyma demonstrates a 9 x 5 mm micronodular density within the left upper lobe (image 16, series 2) which is stable. There does, however, appear to be a new subcentimeter micronodular density slightly more inferiorly and anteriorly also within the left upper lobe that measures 8 x 5 mm (image 17, series 2). This does appear to be new when compared to the prior study. An area of ill-defined groundglass density is also again identified within the more inferior and lateral margins of the left upper lobe. An additional stable 4 mm left upper lobe micronodule is also noted (image 22, series 2). Within the left lower lobe, there is a 5 mm micronodular density seen within the lateral superior margins of the superior segment (image 25, series 2). There is suggestion of central lucency. This appears to be new when compared to 01/09/2013 as well. An ill-defined subcentimeter 5 mm micronodular density is also present within the anterior margins of the right upper lobe. An additional 6 mm well-circumscribed subpleural micronodule is also seen more inferiorly and laterally within the right upper lobe. A faint density can be identified on the prior exam. A new 5 mm micronodule is also seen within the posterior margins of the right upper lobe (image 12, series 2). Bronchiectatic changes are also noted within both lung bases. There is some mild bibasilar atelectasis. Additionally, there is moderate to advanced bilateral air trapping, consistent with a background of emphysematous disease. The cardiomediastinal structures show normal heart size. There is no large pericardial effusion. No pathologically enlarged or morphologically abnormal adenopathy is identified within the mediastinum, alexi, or axilla on this noncontrast study. Assessment/Plan Admission Diagnosis Assessment: 1) Pneumothorax 2) Fractured ribs 3) COPD Plan: 1) Admit to fourth floor 2) Continue pain medications 3) monitor for COPD exacerbation RADHA ZUNIGA DO Dec 06, 2017 10:16 SOO GREGG MED STUDENT Dec 06, 2017 14:45
[2017-12-06] MEDS: fentaNYL INJECTION 100 MCG/2 ML AMP IVP PRN ×2 (11:25→15:58)
--- NOTE | 2017-12-06 14:47 | Progress Note (SOAP) ---
Subjective Date Seen by a Provider: Dec 06, 2017 Time Seen by a Provider: 13:50 Subjective/Events-last exam patient reports pain over the fractured left ninth rib. Review of Systems General: Fatigue Pulmonary: Dyspnea, Cough, Pleuritic Chest Pain Cardiovascular: No: Chest Pain, Palpitations, Orthopnea, Paroxysmal Noc. Dyspnea, Edema, Lt Headedness Gastrointestinal: No: Nausea, Vomiting, Abdominal Pain, Diarrhea, Constipation , Melena, Hematochezia Genitourinary: No Dysuria, No Frequency, No Incontinence, No Hematuria, No Retention Musculoskeletal: back pain, hand pain Neurological: No: Weakness, Numbness, Incoordination, Change in speech, Confusion, Seizures, Other Objective Exam Vital Signs Date Time Temp Pulse Resp B/P (MAP) Pulse Ox O2 Delivery O2 Flow Rate FiO2 12/06/17 12:00 98.7 81 16 127/63 (84) 98 Nasal Cannula 2.00 12/06/17 10:45 97.9 75 18 152/70 (97) 100 Nasal Cannula 2.00 12/06/17 10:20 97.9 75 18 152/70 (97) 100 Nasal Cannula 2.00 12/06/17 10:00 73 16 138/75 (96) 100 Nasal Cannula 2.00 12/06/17 09:17 97.7 12/06/17 08:00 99 Nasal Cannula 2.00 12/06/17 08:00 78 13 146/90 (108) 100 Nasal Cannula 2.00 12/06/17 07:05 80 10 145/83 (103) 99 Nasal Cannula 2.00 12/06/17 07:05 78 12/06/17 07:00 80 10 145/83 (103) 99 Nasal Cannula 2.00 12/06/17 07:00 79 12/06/17 06:00 83 13 131/88 (102) 99 Nasal Cannula 2.00 12/06/17 05:00 73 11 125/78 (94) 98 Nasal Cannula 2.00 12/06/17 04:00 87 19 162/87 (112) 100 Nasal Cannula 2.00 12/06/17 04:00 100 Nasal Cannula 2.00 12/06/17 04:00 98.9 12/06/17 03:00 72 21 150/77 (101) 99 Nasal Cannula 2.00 12/06/17 02:00 74 18 141/77 (98) 99 Nasal Cannula 2.00 12/06/17 01:00 85 15 143/78 (99) 99 Nasal Cannula 2.00 12/06/17 01:00 85 12/06/17 00:00 87 13 151/84 (106) 100 Nasal Cannula 2.00 12/06/17 00:00 100 Nasal Cannula 2.00 12/05/17 23:49 100 Nasal Cannula 2.00 12/05/17 23:41 98.2 12/05/17 23:00 84 19 150/91 (110) 100 Nasal Cannula 2.00 12/05/17 22:36 100 Nasal Cannula 2.00 12/05/17 22:00 85 23 156/88 (110) 98 Nasal Cannula 2.00 12/05/17 21:10 99 Nasal Cannula 2.00 12/05/17 21:00 98 15 156/100 (118) 99 Nasal Cannula 2.00 12/05/17 20:40 80 12/05/17 20:35 99.2 84 12 152/91 (111) 98 Nasal Cannula 2.00 12/05/17 20:25 98.6 82 22 136/77 (96) 100 Nasal Cannula 4.00 I & O 12/06/17 07:00 Intake Total 1075 ml Output Total 370 ml Balance 705 ml Capillary Refill : Less Than 3 SecondsLess Than 3 Seconds General Appearance: Mild Distress Neck: Normal Inspection Respiratory: Decreased Breath Sounds, Other Cardiovascular: Regular Rate, Rhythm Gastrointestinal: non tender, soft Neurologic/Psychiatric: Alert Other comments profound ecchymosis over the left flank. Subcutaneous edges could not be appreciated, being limited by pain from the acute rib fracture. Results Lab Laboratory Tests 12/05/17 15:05: White Blood Count 10.7, Red Blood Count 3.70L, Hemoglobin 10.8L, Hematocrit 34L , Mean Corpuscular Volume 91, Mean Corpuscular Hemoglobin 29, Mean Corpuscular Hemoglobin Concent 32, Red Cell Distribution Width 15.0H, Platelet Count 233, Mean Platelet Volume 8.2, Neutrophils (%) (Auto) 76H, Lymphocytes (%) (Auto) 14 , Monocytes (%) (Auto) 8, Eosinophils (%) (Auto) 3, Basophils (%) (Auto) 0, Neutrophils # (Auto) 8.1H, Lymphocytes # (Auto) 1.5, Monocytes # (Auto) 0.8, Eosinophils # (Auto) 0.3, Basophils # (Auto) 0.0 12/05/17 16:25: Urine Color YELLOW, Urine Clarity CLEAR, Urine pH 8, Urine Specific [place] 1.010L, Urine Protein NEGATIVE, Urine Glucose (UA) NEGATIVE, Urine Ketones 1+H, Urine Nitrite NEGATIVE, Urine Bilirubin NEGATIVE, Urine Urobilinogen NORMAL, Urine Leukocyte Esterase 1+H, Urine RBC (Auto) 1+H, Urine RBC NONE, Urine WBC RARE, Urine Squamous Epithelial Cells RARE, Urine Crystals NONE, Urine Bacteria FEWH, Urine Casts NONE, Urine Mucus NEGATIVE, Urine Culture Indicated NO, Urine Opiates Screen POSITIVEH, Urine Oxycodone Screen NEGATIVE, Urine Methadone Screen NEGATIVE, Urine Propoxyphene Screen NEGATIVE, Urine Barbiturates Screen POSITIVEH, Ur Tricyclic Antidepressants Screen NEGATIVE, Urine Phencyclidine Screen NEGATIVE, Urine Amphetamines Screen NEGATIVE, Urine Methamphetamines Screen NEGATIVE, Urine Benzodiazepines Screen POSITIVEH, Urine Cocaine Screen NEGATIVE, Urine Cannabinoids Screen POSITIVEH 12/06/17 04:15: White Blood Count 9.9, Red Blood Count 3.47L, Hemoglobin 10.4L, Hematocrit 31L, Mean Corpuscular Volume 89, Mean Corpuscular Hemoglobin 30, Mean Corpuscular Hemoglobin Concent 34, Red Cell Distribution Width 15.1H, Platelet Count 273, Mean Platelet Volume 7.8, Neutrophils (%) (Auto) 72, Lymphocytes (%) (Auto) 15, Monocytes (%) (Auto) 9, Eosinophils (%) (Auto) 4, Basophils (%) (Auto) 0, Neutrophils # (Auto) 7.1, Lymphocytes # (Auto) 1.5, Monocytes # (Auto) 0.9, Eosinophils # (Auto) 0.4H, Basophils # (Auto) 0.0, Sodium Level 134L, Potassium Level 3.7, Chloride Level 96L, Carbon Dioxide Level 28, Anion Gap 10, Blood Urea Nitrogen 5L, Creatinine 0.61, Estimat Glomerular Filtration Rate > 60, BUN/ Creatinine Ratio 8, Glucose Level 158H, Calcium Level 8.5, Phosphorus Level 2.2L , Magnesium Level 1.5L Assessment/Plan Assessment/Plan Assess & Plan/Chief Complaint gentleman with acute fracture of the left ninth rib from a fall. Previous fractures of left lower ribs. Very small hemopneumothorax. Not visualized on current chest x-ray, therefore constituting an occult pneumothorax. Could be observed without any further intervention. Continue adequate pain management and promote using incentive spirometry. Final Diagnosis fracture of the left ninth rib. COPD. Clinical Quality Measures DVT/VTE Risk/Contraindication: Risk Factor Score Per Nursin RFS Level Per Nursing on Admit: 4+=Very High KAILA GRACIA MD Dec 06, 2017 14:47
[2017-12-06] MEDS ORDERED: RT-ALBUTEROL/IPRATROPIUM 3 ML (DUONEB) VIAL ONE (17:14)
[2017-12-06] MEDS ORDERED: RT-ALBUTEROL/IPRATROPIUM 3 ML (DUONEB) VIAL IH PRN (17:15)
[2017-12-06] MEDS ORDERED: TRIAMCINOLONE 0.1% CR (KENALOG) 15 GM TUBE TOP PRN (17:15)
[2017-12-06] MEDS ORDERED: NON-FORMULARY MEDICATION 1 EA EA (Methocarbamol 750 MG) PO PRN (17:15)
[2017-12-06] MEDS ORDERED: fentaNYL PATCH 50 MCG (DURAGESIC) TD SCH ×2 (17:15→19:45)
[2017-12-06] MEDS ORDERED: NON-FORMULARY MEDICATION 1 EA EA (Hydrocodone/Acetaminophen (Hydrocodone-Acetamin 7.5-325) PO PRN (17:15)
[2017-12-06] MEDS ORDERED: METHOCARBAMOL 750 MG (ROBAXIN) TAB PO PRN (18:15)
[2017-12-06] MEDS ORDERED: NON-FORMULARY MEDICATION 1 EA EA (Pregabalin (Lyrica) 150 MG) PO SCH (21:00)
[2017-12-06] MEDS ORDERED: NON-FORMULARY MEDICATION 1 EA EA (Fluticasone/Salmeterol (Advair 250-50 Diskus) 1 PUFF) INH SCH (21:00)
[2017-12-06] MEDS ORDERED: NON-FORMULARY MEDICATION 1 EA EA (Clonazepam 1 MG) PO SCH (21:00)
[2017-12-06] MEDS ORDERED: NON-FORMULARY MEDICATION 1 EA EA (Phenytoin Sodium Extended 100 MG) PO SCH (21:00)
[2017-12-06] MEDS: clonazePAM 1 MG (KlonoPIN) TAB PO SCH (21:42)
[2017-12-06] MEDS: ATORVASTATIN 40 MG (LIPITOR) TABLET PO SCH (21:43)
[2017-12-06] MEDS: PREGABALIN 75 MG (LYRICA) CAP PO SCH (21:43)
[2017-12-07] VITALS (7 sets, daily range): BP systolic 99–181; BP diastolic 57–95
[2017-12-07] MEDS: RT-ADVAIR HFA 115/21 MCG PER PUFF IH SCH ×2 (03:31→07:17)
[2017-12-07] MEDS: D5 1/2 NS W/KCL 20 MEQ/L 1,000 ML IV SCH ×2 (04:48→15:00)
[2017-12-07] MEDS: HYDROcodone/APAP 7.5 MG/325 MG (LORTAB, LORCET PLUS) TABLET PO PRN ×2 (06:34→13:26)
--- NOTE | 2017-12-07 06:48 | Pulmonary Progress Note ---
Subjective Time Seen by a Provider: 07:31 Subjective/Events-last exam Pt feels improved. CXR is pending Sepsis Event Evaluation Height, Weight, BMI Height: 5'6.00" Weight: 95lbs. 4.0oz. 43.592116he; 14.5 BMI Method:Stated Exam Exam Vital Signs Date Time Temp Pulse Resp B/P (MAP) Pulse Ox O2 Delivery O2 Flow Rate FiO2 12/07/17 04:03 98.1 78 17 133/68 (89) 95 Nasal Cannula 2.00 12/07/17 00:37 99.1 75 18 126/67 (86) 97 Nasal Cannula 2.00 12/06/17 21:00 97 Nasal Cannula 2.00 12/06/17 20:55 97 Nasal Cannula 2.00 12/06/17 20:00 98.6 84 16 175/86 (115) 100 Nasal Cannula 2.00 12/06/17 17:18 98 Nasal Cannula 2.00 12/06/17 15:45 98.0 81 16 145/83 (103) 100 Nasal Cannula 2.00 12/06/17 12:00 98.7 81 16 127/63 (84) 98 Nasal Cannula 2.00 12/06/17 10:45 97.9 75 18 152/70 (97) 100 Nasal Cannula 2.00 12/06/17 10:20 97.9 75 18 152/70 (97) 100 Nasal Cannula 2.00 12/06/17 10:00 73 16 138/75 (96) 100 Nasal Cannula 2.00 12/06/17 09:17 97.7 12/06/17 08:00 99 Nasal Cannula 2.00 12/06/17 08:00 78 13 146/90 (108) 100 Nasal Cannula 2.00 12/06/17 07:05 80 10 145/83 (103) 99 Nasal Cannula 2.00 12/06/17 07:05 78 12/06/17 07:00 80 10 145/83 (103) 99 Nasal Cannula 2.00 12/06/17 07:00 79 I & O 12/07/17 07:00 Intake Total 1340 ml Output Total 800 ml Balance 540 ml Height & Weight Height: 5'6.00" Weight: 95lbs. 4.0oz. 43.412032ma; 14.5 BMI Method:Stated General Appearance: No Apparent Distress, Chronically ill, Cachetic, Thin, Other (benitez) HEENT: PERRL/EOMI, Normal ENT Inspection, Pharynx Normal Neck: Full Range of Motion, Normal Inspection, Non Tender, Supple, Carotid Bruit Respiratory: Chest Non Tender, Normal Breath Sounds, No Accessory Muscle Use, No Respiratory Distress, Decreased Breath Sounds, Wheezing Cardiovascular: Regular Rate, Rhythm, No Edema, No Gallop, No JVD, No Murmur, Normal Peripheral Pulses Capillary Refill: Less Than 3 Seconds Gastrointestinal: non tender, soft Extremity: Normal Capillary Refill, Normal Inspection, Normal Range of Motion, Non Tender, No Calf Tenderness, No Pedal Edema Neurologic/Psychiatric: Alert, Oriented x3, No Motor/Sensory Deficits, Normal Mood/Affect Skin: Normal Color, Warm/Dry Lymphatic: No Adenopathy Results Lab Laboratory Tests 12/05/17 14:00 12/05/17 15:05 12/06/17 04:15 Assessment/Plan Assessment/Plan S/p fall with rib fractures and small left pneumothorax -Last CXR does not show PTX -repeat CXR this AM -Dr. Uriostegui is following Small multiple bilateral lung nodules -Will repeat CT in 6 mo Frequent falls -PT may need ECF placement vs home hospice TIMOTHY LUEVANO DO Dec 07, 2017 06:48
[2017-12-07] MEDS: UMECLIDINIUM BROMIDE (INCRUSE ELLIPTA) 7'S IH SCH (07:18)
--- NOTE | 2017-12-07 08:40 | Diagnostic Imaging Report ---
INDICATION: Dyspnea Portable upright AP view of the chest is obtained with comparison made to the study of one day earlier. Overall heart size and pulmonary vascularity remain within normal limits. Mildly displaced left ninth rib fracture is again noted. Lucencies project over the left midchest may represent subcutaneous gas. No definite pneumothorax is seen. Left anterior chest wall port is in stable position. There is gaseous distention of bowel in the upper abdomen. IMPRESSION: Left ninth rib fracture with probable adjacent subcutaneous gas. Clinical correlation is recommended. Otherwise, there is emphysema without new abnormality or adverse change from previous study. Dictated by: Dictated on workstation # [id number]
[2017-12-07] MEDS: DULoxetine 30 MG (CYMBALTA) CAP PO SCH (08:47)
[2017-12-07] MEDS: PREGABALIN 75 MG (LYRICA) CAP PO SCH ×2 (08:47→21:58)
[2017-12-07] MEDS: PHENYTOIN 100 MG (DILANTIN) CAP PO SCH ×3 (08:47→21:59)
[2017-12-07] MEDS: clonazePAM 0.5 MG (KlonoPIN) TAB PO SCH (08:47)
[2017-12-07] MEDS: FINASTERIDE (PROSCAR) 5 MG TAB PO SCH (08:47)
[2017-12-07] MEDS ORDERED: CLONAZEPAM 0.5 MG PO SCH (09:00)
[2017-12-07] MEDS ORDERED: NON-FORMULARY MEDICATION 1 EA EA (Duloxetine HCl 60 MG) PO SCH (09:00)
[2017-12-07] MEDS ORDERED: UMECLIDINIUM BROMIDE (INCRUSE ELLIPTA) 7'S IH SCH (09:00)
--- NOTE | 2017-12-07 10:14 | Physical Therapy Daily Note ---
PT Daily Note-Current Subjective Pt awake in bed watching TV when PT arrived. Pt agreed to get up and walk for PT today. Pain Numeric Pain Scale: 0-No Pain Location: No Pain Reported Appearance Patient in bed post tx with nurse call, phone, tray, all needs met. Mental Status Patient Orientation: Normal For Age Attachments: Oxygen, IV Transfers Functional [place] Measure 0=Not Assessed/NA 4=Minimal Assistance 1=Total Assistance 5=Supervision or Setup 2=Maximal Assistance 6=Modified [place] 3=Moderate Assistance 7=Complete IndependenceIRFPAI Quality Coding Scale 6 Independent with activity with or without an assistive device 5 Patient requires set up or clean up by helper. Patient completes activity by themselves 4 Supervision or touching assist (CGA). [place] provide cues , steadying assist 3 The helper provides less than half the effort to complete the activity 2 The helper provides more than half the effort to complete the activity 1 Dependent. The helper does all the effort to complete an activity 7 Patient refused to complete or attempt activity 9 The patient did not perform the activity before the current illness or injury 88 Not attempted due to Medical conditions or safety concerns Transfers (B, C, W/C) (FIM): 6 Scootin Rollin Supine to/from Sit: 6 Sit to/from Stand: 6 Weight Bearing Right Lower Extremity: Right Full Weight Bearing Left Lower Extremity: Left Full Weight Bearing Gait Training Gait (FIM): 2 Distance (FIM): 8=459-85 ft Distance: 110' Gait Level of Assist: 4 Gait Persons Needed: 1 Gait Assistive Device: FWW Patient speeds up during ambulation that leads to wavering balance. Pt cued to slow down to keep balance under control. Patient started ambulation without an assistive device but ended up needing a rolling walker due to instability. Assessment Current Status: Fair Progress Patient was able to ambulate for 110' feet on 2L of oxygen with CGA. Patient reports that he usually walks fast and needed to be cued to slow down to not compromise balance. Patient did show fatigue when returning to room after walking. PT Radiological Health Specialist Goals Long-Term Goals PT Long-Term Goals Time Frame: Dec 13, 2017 Transfers (B,C,W/C) (FIM): 6 Gait (FIM): 6 Gait distance (FIM): 3=150 ft Distance: >150 Gait Level of Assist: 6 Gait Assistive Device: FWW PT Plan Problem List Problem List: Activity Tolerance, Functional Strength, Safety, Balance, Gait, Transfer Treatment/Plan Treatment Plan: Continue Plan of Care Treatment Plan: Bed Mobility, Education, Functional Activity Tammy, Functional Strength, Gait, Safety, Therapeutic Exercise, Transfers Treatment Duration: Dec 13, 2017 Frequency: 6 times per week Estimated Hrs Per Day: .25 hour per day Patient and/or Family Agrees t: Yes Safety Risks/Education Patient Education: Gait Training, Transfer Techniques, Correct Positioning, Safety Issues Teaching Recipient: Patient Teaching Methods: Demonstration, Discussion Response to Teaching: Reinforcement Needed Time/GCodes Time In: 957 Time Out: 1011 Total Billed Treatment Time: 14 Total Billed Treatment 1 visit GT - 14' MINOR SANTOS PT Dec 07, 2017 10:14
--- NOTE | 2017-12-07 14:55 | Progress Note (SOAP) ---
Subjective Date Seen by a Provider: Dec 07, 2017 Time Seen by a Provider: 11:20 Subjective/Events-last exam pain control much better. No specific symptoms otherwise. Review of Systems General: No Chills, No Night Sweats, No Fatigue, No Malaise HEENT: No Head Aches, No Eye Pain, No Ear Pain, No Dysphasia, No Sinus Congestion, No Post Nasal Drip, No Sore Throat Pulmonary: Dyspnea, Cough Cardiovascular: No: Chest Pain, Palpitations, Orthopnea, Paroxysmal Noc. Dyspnea, Edema, Lt Headedness Gastrointestinal: No: Nausea, Vomiting, Abdominal Pain, Diarrhea, Constipation , Melena, Hematochezia Genitourinary: No Dysuria, No Frequency, No Incontinence, No Hematuria, No Retention Musculoskeletal: other Neurological: No: Weakness, Numbness, Incoordination, Change in speech, Confusion, Seizures, Other Objective Exam Vital Signs Date Time Temp Pulse Resp B/P (MAP) Pulse Ox O2 Delivery O2 Flow Rate FiO2 12/07/17 12:59 98.3 86 20 99/60 (73) 99 Nasal Cannula 2.00 12/07/17 08:45 Nasal Cannula 2.00 12/07/17 08:00 98.9 72 20 132/71 (91) 99 Nasal Cannula 2.00 12/07/17 07:18 95 Nasal Cannula 2.00 12/07/17 04:03 98.1 78 17 133/68 (89) 95 Nasal Cannula 2.00 12/07/17 00:37 99.1 75 18 126/67 (86) 97 Nasal Cannula 2.00 12/06/17 21:00 97 Nasal Cannula 2.00 12/06/17 20:55 97 Nasal Cannula 2.00 12/06/17 20:00 98.6 84 16 175/86 (115) 100 Nasal Cannula 2.00 12/06/17 17:18 98 Nasal Cannula 2.00 12/06/17 15:45 98.0 81 16 145/83 (103) 100 Nasal Cannula 2.00 I & O 12/07/17 07:00 Intake Total 1340 ml Output Total 800 ml Balance 540 ml Capillary Refill : Less Than 3 SecondsLess Than 3 Seconds General Appearance: No Apparent Distress Respiratory: Decreased Breath Sounds Cardiovascular: Regular Rate, Rhythm Gastrointestinal: non tender, soft Neurologic/Psychiatric: Alert, Oriented x3 Skin: Warm/Dry Results Lab Microbiology 12/05/17 MRSA Screen - Final, Complete MRSA not isolated Assessment/Plan Assessment/Plan Assess & Plan/Chief Complaint gentleman with acute fracture of the left ninth rib from a fall. Previous fractures of left lower ribs. Very small hemopneumothorax. Not visualized on current chest x-ray, therefore constituting an occult pneumothorax. Could be observed without any further intervention. Continue adequate pain management and promote using incentive spirometry. gentleman with then isolated acute left ninth rib fracture. COPD. Previous, healed fractures. Occult pneumothorax, not reproduced on chest x-ray. Continue pain management and placement arrangements in progress. Final Diagnosis fracture of left ninth rib. COPD Clinical Quality Measures DVT/VTE Risk/Contraindication: Risk Factor Score Per Nursin RFS Level Per Nursing on Admit: 4+=Very High KAILA GRACIA MD Dec 07, 2017 14:54
--- NOTE | 2017-12-07 15:39 | Progress Note (SOAP) ---
Subjective Subjective/Events-last exam Pt having discussion with family and SW regarding placement vs Hospice. Review of Systems Date Seen by Provider: Dec 07, 2017 Time Seen by Provider: 11:15 Objective Exam Last Set of Vital Signs Vital Signs Date Time Temp Pulse Resp B/P (MAP) Pulse Ox O2 Delivery O2 Flow Rate FiO2 12/07/17 12:59 98.3 86 20 99/60 (73) 99 Nasal Cannula 2.00 Capillary Refill : Less Than 3 SecondsLess Than 3 Seconds I&O Intake and Output 12/07/17 00:00 Intake Total 1065 ml Output Total 1170 ml Balance -105 ml Intake Oral 865 ml IV Total 200 ml Output Urine Total 1170 ml # Voids 12 # Bowel Movements 2 General: Alert, Oriented X3, Other (cachetic) Results/Procedures Lab Microbiology 12/05/17 MRSA Screen - Final, Complete MRSA not isolated Assessment/Plan Assessment/Plan Assessment & Plan S/p fall with rib fracture (L 9th rib) and small left pneumothorax - Admit to fourth floor - Continue pain medications - Dr. Uriostegui consulted - Occult pneumothorax, not reproduced on chest x-ray. COPD - monitor for COPD exacerbation Small multiple bilateral lung nodules -Will repeat CT in 6 mo Frequent falls - discussed with family and patient options of placement vs hospice Clinical Quality Measures DVT/VTE Risk/Contraindication: Risk Factor Score Per Nursin RFS Level Per Nursing on Admit: 4+=Very High FABRICIO CARNES DO Dec 07, 2017 15:39
[2017-12-07] MEDS: ATORVASTATIN 40 MG (LIPITOR) TABLET PO SCH (21:58)
[2017-12-07] MEDS: clonazePAM 1 MG (KlonoPIN) TAB PO SCH (21:58)
[2017-12-08 00:01] VITALS: BP 115/59
[2017-12-08] MEDS: D5 1/2 NS W/KCL 20 MEQ/L 1,000 ML IV SCH ×2 (01:20→12:19)
[2017-12-08] MEDS: HYDROcodone/APAP 7.5 MG/325 MG (LORTAB, LORCET PLUS) TABLET PO PRN ×3 (02:28→14:00)
[2017-12-08 04:30] VITALS: BP 116/60
--- NOTE | 2017-12-08 06:41 | Pulmonary Progress Note ---
Subjective Time Seen by a Provider: 06:41 Sepsis Event Evaluation Height, Weight, BMI Height: 5'6.00" Weight: 95lbs. 4.0oz. 43.823956gm; 14.5 BMI Method:Stated Exam Exam Vital Signs Date Time Temp Pulse Resp B/P (MAP) Pulse Ox O2 Delivery O2 Flow Rate FiO2 12/08/17 00:01 98.6 75 18 115/59 (77) 98 Nasal Cannula 2.00 12/07/17 22:55 76 103/57 (72) 98 Nasal Cannula 2.00 12/07/17 21:00 97 Nasal Cannula 2.00 12/07/17 19:50 97.7 88 24 181/95 (123) 93 Nasal Cannula 2.00 12/07/17 15:45 97.0 76 20 103/58 (73) 99 Nasal Cannula 2.00 12/07/17 12:59 98.3 86 20 99/60 (73) 99 Nasal Cannula 2.00 12/07/17 08:45 Nasal Cannula 2.00 12/07/17 08:00 98.9 72 20 132/71 (91) 99 Nasal Cannula 2.00 12/07/17 07:18 95 Nasal Cannula 2.00 I & O 12/08/17 07:00 Intake Total 2220 ml Output Total 800 ml Balance 1420 ml Height & Weight Height: 5'6.00" Weight: 95lbs. 4.0oz. 43.862232al; 14.5 BMI Method:Stated General Appearance: No Apparent Distress HEENT: PERRL/EOMI, Normal ENT Inspection, Pharynx Normal Neck: Full Range of Motion, Normal Inspection, Non Tender, Supple, Carotid Bruit Respiratory: Decreased Breath Sounds Cardiovascular: Regular Rate, Rhythm Capillary Refill: Less Than 3 Seconds Gastrointestinal: non tender, soft Extremity: Normal Capillary Refill, Normal Inspection, Normal Range of Motion, Non Tender, No Calf Tenderness, No Pedal Edema Neurologic/Psychiatric: Alert, Oriented x3 Skin: Warm/Dry Lymphatic: No Adenopathy Assessment/Plan Assessment/Plan S/p fall with rib fractures and small left pneumothorax -Last CXR does not show PTX -Dr. Uriostegui is following Small multiple bilateral lung nodules -Will repeat CT in 6 mo Frequent falls -PT may need ECF placement vs home hospice TIMOTHY LUEVANO DO Dec 08, 2017 06:41
[2017-12-08] MEDS: UMECLIDINIUM BROMIDE (INCRUSE ELLIPTA) 7'S IH SCH (07:41)
[2017-12-08] MEDS: RT-ADVAIR HFA 115/21 MCG PER PUFF IH SCH (07:41)
[2017-12-08 08:00] VITALS: BP 126/60
[2017-12-08] MEDS: DULoxetine 30 MG (CYMBALTA) CAP PO SCH (08:48)
[2017-12-08] MEDS: PREGABALIN 75 MG (LYRICA) CAP PO SCH (08:49)
[2017-12-08] MEDS: PHENYTOIN 100 MG (DILANTIN) CAP PO SCH ×2 (08:49→14:00)
[2017-12-08] MEDS: clonazePAM 0.5 MG (KlonoPIN) TAB PO SCH (09:10)
[2017-12-08] MEDS: FINASTERIDE (PROSCAR) 5 MG TAB PO SCH (09:10)
[2017-12-08] MEDS: ONDANSETRON 4 MG/2 ML (SDV) Z0FRAN IV PRN (09:11)
--- NOTE | 2017-12-08 10:57 | Discharge Instructions ---
Discharge [facility] Discharge Medications Continued Medications: Atorvastatin Calcium (Atorvastatin Calcium) 40 Mg Tablet 40 MG PO HS, TAB Clonazepam (Clonazepam) 1 Mg Tablet 0.5 MG PO DAILY, TAB TAKES 1/2 (1MG) TABLET Clonazepam (Clonazepam) 1 Mg Tablet 1 MG PO HS, TAB Duloxetine HCl (Duloxetine HCl) 60 Mg Capsule.dr 60 MG PO DAILY, CAP Fentanyl (Fentanyl Patch 50 MCG) 1 Each Patch.td72 50 MCG TD Q72H, PATCH Finasteride (Finasteride) 5 Mg Tablet 5 MG PO DAILY, TAB Fluticasone/Salmeterol (Advair 250-50 Diskus) 1 Each Blst.w.dev 1 PUFF INH BID, EA Hydrocodone/Acetaminophen (Hydrocodone-Acetamin 7.5-325) 1 Each Tablet 1 TAB PO QID PRN for PAIN-MODERATE, TAB Ipratropium/Albuterol Sulfate (Iprat-Albut 0.5-3(2.5) mg/3 ml) 3 Ml Ampul.neb 3 ML IH QID PRN for SHORTNESS OF BREATH, EACH Methocarbamol (Methocarbamol) 750 Mg Tablet 750 MG PO Q4H PRN for MUSCLE SPASMS, TAB Phenytoin Sodium Extended (Phenytoin Sodium Extended) 100 Mg Capsule 100 MG PO TID, CAP Pregabalin (Lyrica) 150 Mg Capsule 150 MG PO BID, CAP Triamcinolone Acet (Triamcinolone Acetonide 0.1% Cream) 15 Gm Cr TOP BID PRN for ECZEMA, EA Umeclidinium [place] (Incruse Ellipta) 62.5 Mcg Blst.w.dev 1 PUFF INH DAILY, INHALER Patient Instructions Patient Instructions Medication(s) adjustment(s) per [facility] Activity & Diet Discharge Diet: No Restrictions Orders-Post D/C & Referrals Pneu Vac Indicated: Yes FABRICIO CARNES DO Dec 08, 2017 10:57
--- NOTE | 2017-12-08 11:03 | Discharge Summary ---
Diagnosis/Chief Complaint Date of Admission Dec 05, 2017 at 18:35 Date of Discharge Dec 08, 2017 Admission Diagnosis Admission Diagnosis Fall with left fractured ribs Left sided hydropneumothorax Left sided chest pain Severe COPD O2 dependent Severe wt loss Pulmonary nodules Discharge Diagnosis S/p fall with rib fracture (L 9th rib) and small left pneumothorax - Admit to fourth floor - Continue pain medications - Dr. Uriostegui consulted - Occult pneumothorax, not reproduced on chest x-ray. COPD; oxygen requiring - monitor for COPD exacerbation Small multiple bilateral lung nodules -Consider repeat CT in 6 mo Frequent falls, cachexia, progressive decline - discussed with family and patient options of placement vs hospice 12/08 - patient and family has decided to go forward with [facility] Chief Complaint/HPI Chief Complaint/HPI CC: Fall with fractured ribs HPI: This is a very declined 67yoWM known to me from prior admits for AECOPD who presented to the ER with left sided chest pain since a fall the day before and was found to have fractured ribs and in need of pain control and evaluation for 20# wt loss and pulmonary nodules. Pt agrees for hospice consultation and he denies any issues except for pain on the left side. Discharge Summary-Simple/Stand Consultations Discharge Physical Examination Allergies: Coded Allergies: cefepime (Verified Allergy, Mild, RASH, ITCHING, 04/21/17) sulfamethoxazole (Unverified Adverse Reaction, Unknown, 04/21/17) trimethoprim (Unverified Adverse Reaction, Unknown, 04/21/17) Vitals & I&Os Vital Sign - Last 12Hours Date Time Temp Pulse Resp B/P (MAP) Pulse Ox O2 Delivery O2 Flow Rate FiO2 12/08/17 07:41 97 Nasal Cannula 2.00 12/08/17 04:30 97.9 74 17 116/60 (78) Intake and Output 12/08/17 00:00 Intake Total 2220 ml Output Total 800 ml Balance 1420 ml General Appearance: Alert, Oriented X3, Cooperative Psych/Mental Status: Mood NL Hospital Course See final discharge diagnosis. Discharge Instructions to patient/family Discharge [facility] Discharge Medications Continued Medications: Atorvastatin Calcium (Atorvastatin Calcium) 40 Mg Tablet 40 MG PO HS, TAB Clonazepam (Clonazepam) 1 Mg Tablet 0.5 MG PO DAILY, TAB TAKES 1/2 (1MG) TABLET Clonazepam (Clonazepam) 1 Mg Tablet 1 MG PO HS, TAB Duloxetine HCl (Duloxetine HCl) 60 Mg Capsule.dr 60 MG PO DAILY, CAP Fentanyl (Fentanyl Patch 50 MCG) 1 Each Patch.td72 50 MCG TD Q72H, PATCH Finasteride (Finasteride) 5 Mg Tablet 5 MG PO DAILY, TAB Fluticasone/Salmeterol (Advair 250-50 Diskus) 1 Each Blst.w.dev 1 PUFF INH BID, EA Hydrocodone/Acetaminophen (Hydrocodone-Acetamin 7.5-325) 1 Each Tablet 1 TAB PO QID PRN for PAIN-MODERATE, TAB Ipratropium/Albuterol Sulfate (Iprat-Albut 0.5-3(2.5) mg/3 ml) 3 Ml Ampul.neb 3 ML IH QID PRN for SHORTNESS OF BREATH, EACH Methocarbamol (Methocarbamol) 750 Mg Tablet 750 MG PO Q4H PRN for MUSCLE SPASMS, TAB Phenytoin Sodium Extended (Phenytoin Sodium Extended) 100 Mg Capsule 100 MG PO TID, CAP Pregabalin (Lyrica) 150 Mg Capsule 150 MG PO BID, CAP Triamcinolone Acet (Triamcinolone Acetonide 0.1% Cream) 15 Gm Cr TOP BID PRN for ECZEMA, EA Umeclidinium [place] (Incruse Ellipta) 62.5 Mcg Blst.w.dev 1 PUFF INH DAILY, INHALER Patient Instructions Patient Instructions Medication(s) adjustment(s) per [facility] Activity & Diet Discharge Diet: No Restrictions Orders-Post D/C & Referrals Pneu Vac Indicated: Yes Discharge Medications Reviewed and agree with Discharge Medication list on patient's Discharge Instruction sheet Clinical Quality Measures DVT/VTE Risk/Contraindication: Risk Factor Score Per Nursin RFS Level Per Nursing on Admit: 4+=Very High FABRICIO CARNES DO Dec 08, 2017 11:03
--- NOTE | 2017-12-08 11:07 | Physical Therapy Daily Note ---
PT Daily Note-Current Subjective Patient in bed pre tx, agrees to PT, has 10/10 pain in his back. Appearance Patient in bed post tx with nurse call, phone, tray, all needs met. Mental Status Patient Orientation: Person, Place, Situation Attachments: Oxygen, IV 2L of O2 nasal canula Transfers Functional [place] Measure 0=Not Assessed/NA 4=Minimal Assistance 1=Total Assistance 5=Supervision or Setup 2=Maximal Assistance 6=Modified [place] 3=Moderate Assistance 7=Complete IndependenceIRFPAI Quality Coding Scale 6 Independent with activity with or without an assistive device 5 Patient requires set up or clean up by helper. Patient completes activity by themselves 4 Supervision or touching assist (CGA). [place] provide cues , steadying assist 3 The helper provides less than half the effort to complete the activity 2 The helper provides more than half the effort to complete the activity 1 Dependent. The helper does all the effort to complete an activity 7 Patient refused to complete or attempt activity 9 The patient did not perform the activity before the current illness or injury 88 Not attempted due to Medical conditions or safety concerns Transfers (B, C, W/C) (FIM): 5 Scootin Rollin Supine to/from Sit: 6 Sit to/from Stand: 5 Bed to/from Chair: 5 Weight Bearing Right Lower Extremity: Right Full Weight Bearing Left Lower Extremity: Left Full Weight Bearing Gait Training Gait (FIM): 5 Distance: 200' Gait Level of Assist: 5 Gait Persons Needed: 1 Gait Assistive Device: FWW Close guarding, patient can be unsteady when turning. Cues to purse lip breathe during ambulation. Treatments bed mobility and transfers, ambulation Assessment Current Status: Fair Progress improving endurance PT Shrinker Goals Shelter Goals PT Shelter Goals Time Frame: Dec 13, 2017 Transfers (B,C,W/C) (FIM): 6 Gait (FIM): 6 Gait distance (FIM): 3=150 ft Distance: >150 Gait Level of Assist: 6 Gait Assistive Device: FWW PT Plan Problem List Problem List: Activity Tolerance, Functional Strength, Safety, Balance, Gait, Transfer Treatment/Plan Treatment Plan: Continue Plan of Care Treatment Plan: Bed Mobility, Education, Functional Activity Tammy, Functional Strength, Gait, Safety, Therapeutic Exercise, Transfers Treatment Duration: Dec 13, 2017 Frequency: 6 times per week Estimated Hrs Per Day: .25 hour per day Patient and/or Family Agrees t: Yes Safety Risks/Education Patient Education: Gait Training, Transfer Techniques, Correct Positioning, Safety Issues Teaching Recipient: Patient Teaching Methods: Demonstration, Discussion Response to Teaching: Reinforcement Needed Time/GCodes Time In: 1050 Time Out: 1105 Total Billed Treatment Time: 15 Total Billed Treatment 1 visit GT 15' MINOR SANTOS PT Dec 08, 2017 11:07
[2017-12-08 12:00] VITALS: BP 118/61
[2017-12-08 15:50] VITALS: BP 123/68
[2017-12-08 17:11] VITALS: BP 123/68
--- OUTSIDE RECORDS SUMMARY | 2017-12-09 15:52 | XMS REPORT ---
Author Author SOREN MCINTOSH Organization [facility] Address [address] [place] [address] Care Team Providers Care Dip Brazier Name Role Phone SOREN MCINTOSH Unavailable PROBLEMS Type Condition ICD9-CM Code YBS56-YL Code Onset Dates Condition Status SNOMED Code Problem Anxiety F41.9 Active 13189388 Problem Underweight R63.6 Active 975002144 Problem Tobacco abuse Z72.0 Active 942719282 Problem Cervicalgia M54.2 Active 52729369 Problem Dorsalgia, unspecified M54.9 Active 270786522 Problem S/P percutaneous endoscopic gastrostomy (PEG) tube placement Z93.1 Active 720746216 Problem Cachexia R64 Active 560537172 Problem Hypoxia R09.02 Active 366113241 Problem Requires continuous at home supplemental oxygen Z99.81 Active 727564863 Problem Gastroesophageal reflux disease without esophagitis K21.9 Active 787937402 Problem Panic disorder F41.0 Active 596506532 Problem COPD suggested by initial evaluation J44.9 Active 42558579 Problem Benign prostatic hyperplasia without lower urinary tract symptoms N40.0 Active 226128606 Problem Recurrent major depressive disorder, remission status unspecified F33.9 Active 15465481 Problem Dyslipidemia E78.5 Active 449436622 Problem Chronic pain syndrome G89.4 Active 549466241 Problem Neuropathy G62.9 Active 738665401 ALLERGIES Substance Reaction Event Type Date Status Cephalexin itching Drug Allergy Nov, Active Bactrim seizures Drug Allergy Nov, Active ENCOUNTERS Encounter Location Date Diagnosis [facility] [address] [facility] [id number] [address] Dec, [facility] [address] [id number] [address] Nov, [facility] [address] [facility] [id number], [place] [address] Nov, Recurrent major depressive disorder, remission status unspecified F33.9 [facility] [address] [facility] [id number], [place] [address] Nov, Chronic pain syndrome G89.4 ; Anxiety F41.9 and COPD suggested by initial evaluation J44.9 [facility] [address] [facility] [id number] [place] [address] Nov, [facility] [address] [place] [address] [address] [id number] [id number] Nov, Cervicalgia M54.2 [facility] [id number] [place] [address] [id number] Oct, Chronic pain syndrome G89.4 and Anxiety F41.9 [place] [id number] [facility] [id number] [id number] Oct, [facility] [id number] [place] [address] [id number] Oct, [facility] [id number] [place] [address] [phone] Oct, Recurrent major depressive disorder, remission status unspecified F33.9 ; Dorsalgia, unspecified M54.9 and Cervicalgia M54.2 [place] [id number] [place] [address] [id number] Oct, Medicare annual wellness visit, initial Z00.00 ; Encounter for immunization Z23 ; COPD suggested by initial evaluation J44.9 ; Recurrent major depressive disorder, remission status unspecified F33.9 ; Dyslipidemia E78.5 and Gastroesophageal reflux disease without esophagitis K21.9 [facility] [id number] [id number] Sep, Chronic pain syndrome G89.4 and Anxiety F41.9 [facility] [id number] [place] [address] [id number] Aug, Chronic pain syndrome G89.4 [facility] [id number] [place] [address] [id number] Aug, [facility] [id number] [place] [address] [id number] Aug, [facility] [id number] [place] [address] [id number] Aug, Chronic pain syndrome G89.4 ; COPD suggested by initial evaluation J44.9 ; Tobacco abuse Z72.0 ; Hypoxia R09.02 ; Requires continuous at home supplemental oxygen Z99.81 and Cachexia R64 [facility] [address] [id number] Jul, [facility] [address] [id number] Jul, Chronic pain syndrome G89.4 ; Anxiety F41.9 ; Cachexia R64 ; S/P percutaneous endoscopic gastrostomy (PEG) tube placement Z93.1 and COPD suggested by initial evaluation J44.9 [facility] [id number] [place] [address] [id number] June, Anxiety F41.9 [facility] [place] [id number] [place] [address] [id number] June, Chronic pain syndrome G89.4 [facility] [address] [id number] June, [facility] [id number] [place] [address] [id number] May, Chronic pain syndrome G89.4 [facility] [id number] [place] [address] [id number] May, [facility] [id number] [place] [address] [id number] May, [facility] [id number] [place] [address] [id number] May, S/P percutaneous endoscopic gastrostomy (PEG) tube placement Z93.1 and Cachexia R64 [facility] [address] [address] May, [facility] [address] [id number] Apr, Chronic pain syndrome G89.4 and Underweight R63.6 [facility] [address] [address] Apr, [facility] [id number] [place] [address] [id number] Apr, [facility] [place] [id number] [place] [address] [id number] Apr, Seizure R56.9 and Chronic pain syndrome G89.4 [place] [id number] [place] [address] [id number] Mar, Anxiety F41.9 ; Tobacco abuse Z72.0 and Underweight R63.6 [facility] [id number] [place] [address] [id number] Mar, [facility] [address] [address] Mar, [facility] [id number] [place] [address] [id number] Mar, COPD suggested by initial evaluation J44.9 [place] [id number] [place] [address] [id number] Mar, Chronic pain syndrome G89.4 ; Anxiety F41.9 ; COPD suggested by initial evaluation J44.9 and Tobacco abuse Z72.0 [facility] [address] [address] Feb, [place] [id number] [place] [address] [id number] Feb, Anxiety F41.9 ; Chronic pain syndrome G89.4 ; Muscle spasm M62.838 ; Cervicalgia M54.2 ; COPD suggested by initial evaluation J44.9 ; Neuropathy G62.9 ; Recurrent major depressive disorder, remission status unspecified F33.9 ; Benign prostatic hyperplasia without lower urinary tract symptoms N40.0 ; Prostatism N40.0 ; Seizure R56.9 and Dyslipidemia E78.5 [place] [id number] [place] [address] [id number] Feb, [facility] [address] [address] Feb, [facility] [address] [place] [address] Oct, 2015 Generalized anxiety disorder F41.1 and Panic disorder F41.0 [place] [address] [id number] [place] [address] Sep, [place] [address] [place] [address] [id number] [place] [address] Sep, Chronic obstructive pulmonary disease, unspecified COPD type J44.9 ; Gastroesophageal reflux disease without esophagitis K21.9 ; Hyperlipidemia, unspecified hyperlipidemia type E78.5 and Prostatism N40.0 [place] [address] [id number] [place] [address] Sep, [place] [address] [place] [address] [id number] [place] [phone] Sep, Generalized anxiety disorder F41.1 [place] [address] [id number] [place] [address] Sep, Generalized anxiety disorder F41.1 [place] [id number] [place] [address] Sep, Generalized anxiety disorder F41.1 [place] [address] [id number] [place] [phone] Oct, IMMUNIZATIONS No Known Immunizations SOCIAL HISTORY Never Assessed REASON FOR VISIT Medication refill request PLAN OF CARE VITAL SIGNS MEDICATIONS Medication Instructions Dosage Frequency Start Date End Date Duration Status Phenytoin Sodium Extended 100 mg Orally Three times a day 1 capsule 8h 30 Active Atorvastatin Calcium 40 mg 1 tablet Once a day Orally 30 day(s) 30 Active Duloxetine HCl 60 mg Orally Once a day 1 capsule 24h 13 Oct, 2017 30 day(s) Active Methocarbamol 750 MG Orally every 4 hrs 1 tablet 4h 30 Active Ibuprofen 600 MG Orally Three times a day 1 tablet with food or milk as needed 8h 29 Nov, 2017 30 days Active Finasteride 5 mg Orally Once a day 1 tablet 24h 30 Active RESULTS No Results PROCEDURES No Known [...] Multiple suicide attempts Hospitalization History Detox at [place] 10/24-11/23 Hospitalization History [facility]pneumonia 09/23 Hospitalization History [facility] after fall from [place] ([place]-put on Fentyl patches) 11/23-12/24 Hospitalization History pneumonia 02/2017 Hospitalization History [facility]- [place], vomiting, diarrhea and cough 04/26/2017
[2017-12-09] MEDS ORDERED: FENTANYL PATCH REMOVAL TP SCH (19:44)
== END 2017-12-08 10:56 | disposition hospice, home (50) ==
LOC: EDUNIT# 11:56 → ER 11:57 → ICU 18:35 → UNDOADMIN 18:35 → ICU 18:35 → 4TH 12-06 10:13 → ICU 12-06 10:13 → 4TH 12-06 10:13 → UNDODISIN 12-08 16:00
PROVIDERS: ADMIT Internal Medicine; ATTEND Internal Medicine
DX: S22.42XA Multiple fractures of ribs, left side, initial encounter for closed fracture (principal); S27.0XXA Traumatic pneumothorax, initial encounter; R64 Cachexia; J43.9 Emphysema, unspecified; R91.8 Other nonspecific abnormal finding of lung field; F17.210 Nicotine dependence, cigarettes, uncomplicated; R41.0 Disorientation, unspecified; R63.4 Abnormal weight loss; Z66 Do not resuscitate; Z23 Encounter for immunization; R63.0 Anorexia; I25.10 Atherosclerotic heart disease of native coronary artery without angina pectoris; I25.2 Old myocardial infarction; E78.00 Pure hypercholesterolemia, unspecified; I12.9 Hypertensive chronic kidney disease with stage 1 through stage 4 chronic kidney disease, or unspecified chronic kidney disease; N18.2 Chronic kidney disease, stage 2 (mild); G40.909 Epilepsy, unspecified, not intractable, without status epilepticus; G62.9 Polyneuropathy, unspecified; K21.9 Gastro-esophageal reflux disease without esophagitis; K59.09 Other constipation; K44.9 Diaphragmatic hernia without obstruction or gangrene; M19.91 Primary osteoarthritis, unspecified site; F41.9 Anxiety disorder, unspecified; F31.9 Bipolar disorder, unspecified; F60.9 Personality disorder, unspecified; L30.9 Dermatitis, unspecified; W18.09XA Striking against other object with subsequent fall, initial encounter; Z99.81 Dependence on supplemental oxygen; Z91.14 Patient's other noncompliance with medication regimen
CPT/HCPCS: 36415; 36600; 70450; 71045; 71250; 72125; 74176; 80048; 80053; 80306; 80320; 81000; 82805; 83735; 84100; 84443; 85025; 87081; 90686; 94640; 94664; 94760; 96361; 96374; 96376; 99291; G0378